=== PATIENT | female | born 2000 | race Caucasian/White ===

== ENCOUNTER 2024-03-08 21:44 | Emergency (ER) | payer BC, SELFPAY ==
--- NOTE | ~2024-03-08 | CT_ITS ---
EXAMINATION: CT abdomen pelvis wo con DATE: 03/08/2024 22:35 INDICATION: Abdomen pain, fever and chills. Nausea, constipation and diarrhea. TECHNIQUE: Computed tomography (CT) of the abdomen and pelvis was performed without intravenous contr ast. The dose-length product was 191.52 mGy-cm. Automated exposure control and iterative reconstructi on technique were employed. COMPARISON: None. FINDINGS: Lung bases are unremarkable. Heart size normal. No significant pleural or pericardial effus ion. Status post cholecystectomy. The liver, spleen, pancreas, adrenal glands and kidneys are unremar kable. Status post cholecystectomy. No free air or free fluid. No significant vascular abnormality. N o lymphadenopathy. No acute osseous abnormality. IMPRESSION: 1. No acute abdominal abnormality. Reviewed, dictated and finalized at location A.
--- NOTE | 2024-03-08 21:47 | ED.NAVMDI ---
HPI - Nausea/Vomiting/Diarrhea General Chief complaint: Abdominal Pain Stated complaint: Abd Pain Time Seen by Provider: 03/08/24 21:47 Source: patient Mode of arrival: ambulatory Limitations: no limitations History of Present Illness HPI Narrative: patient is a 23-year-old female with some nausea and vomiting. She has been sick for 2 days. MD elicited complaint: nausea and vomiting Onset (ago): day(s) (2) Description of vomiting: watery Associated nausea: Yes Associated abdominal pain: No Location of pain: none Severity: mild Pain scale (0-10): 2 Exacerbating factors: none Relieving factors: none Associated symptoms: denies other symptoms Review of Systems Review of Systems: All systems reviewed & are unremarkable except as noted in HPI and below Constitutional: Constitutional: Reports no additional constitutional complaints Eyes: Eyes: Reports no additional eye complaints ENT: Reports system reviewed and no additional complaints, except as documented Cardiovascular: Cardiovascular: Reports no additional cardiovascular complaints Respiratory: Respiratory: Reports no additional respiratory complaints Gastrointestinal: Gastrointestinal: Reports no additional gastrointestinal complaints Genitourinary: Genitourinary: Reports no additional female genitourinary complaints Musculoskeletal: Musculoskeletal: Reports no additional musculoskeletal complaints Integumentary/Breasts: Skin/Breast: Reports system reviewed and no additional complaints, except as docu Neurologic: Reports system reviewed and no additional complaints, except as documented Psychiatric: Psychiatric: Reports no additional psychiatric complaints Endocrine: Endocrine: Reports no additional endocrine complaints Hematologic/Lymphatic: Hematologic/Lymphatic: Reports no additional hematologic/lymphatic complaints Allergic/Immunologic: Allergic/Immunologic: Reports no additional allergic/immunologic complaints Exam Const: General: healthy appearing Nutritional Appearance: well nourished Orientation/consciousness: patient oriented x3 HENMT: Head: normal to inspection Ears: external ears normal Face/Nose/Sinus: Normal external nose present Eyes: Conjunctivae: conjunctivae normal Cornea: corneas normal Pupils: Equal, round and reactive pupils present Neck: Neck: normal visual inspection Chest: Chest palpation & inspection: normal inspection of the chest Resp: Effort & Inspection: normal respiratory effort and not labored Auscultation: clear to auscultation bilaterally Cardio: Rate: regular rate Rhythm: regular rhythm Heart sounds: no murmurs GI: Inspection: non-distended GI Palp: Yes Soft to palpation and Yes Tenderness to palpation present (GI) ( Lower abdomen left greater than right; no appendix signs; no gallbladder) Auscultation: normal bowel sounds : General: Yes bladder normal to palpation Back/Spine/Pelvis: Back: no CVA tenderness Skin: General skin exam: normal color Rashes: no rashes Wounds: no wounds Neuro: General: patient oriented x3 Cranial nerves: Yes Nystagmus not present Speech: normal speech Extrem: General: normal to inspection Psych: Mental Status: mental status grossly normal Affect: normal affect Attitude: cooperative Course Vital Signs Vital signs: Vital Signs Temperature 37.0 C 03/08/24 22:08 Pulse Rate 74 03/08/24 22:08 Respiratory Rate 18 03/08/24 22:08 Blood Pressure 125/66 03/08/24 22:08 Pulse Oximetry 99 03/08/24 22:08 Oxygen Delivery Room Air 03/08/24 22:08 Temperature 37.0 C 03/08/24 22:08 Pulse Rate 74 03/08/24 22:08 Respiratory Rate 18 03/08/24 22:08 Blood Pressure 125/66 03/08/24 22:08 Pulse Oximetry 99 03/08/24 22:08 Oxygen Delivery Room Air 03/08/24 22:08 MDM - Nausea/Vomiting/Diarrhea MDM Narrative Medical decision making narrative: patient is a 23-year-old female with GI symptoms. Her workup was done for GI and it was comple
[2024-03-08 22:04] LABS: Basophils Absolute Auto 0.05 K/mm3 (0.00-0.10); Basophils Percent Auto 0.6 % (0.0-1.0); Eosinophils Absolute Auto 0.07 K/mm3 (0.02-0.50); Eosinophils Percent Auto 0.9 % (1.0-6.0); Hematocrit 32.3 % (35.0-49.0); Hemoglobin 11.1 g/dL (12.0-15.0); Immature Granulocyte Absolute 0.02 K/mm3 (0.00-0.00); Immature Granulocyte Percent A 0.2 % (0.0-0.0); Lymphocytes Absolute Auto 1.99 K/mm3 (1.10-4.50); Lymphocytes Percent Auto 24.8 % (18.0-42.0); Mean Corpuscular HGB Conc 34.4 g/dL (32-36); Mean Corpuscular Hemoglobin 30.5 pg (27.0-31.0); Mean Corpuscular Volume 88.7 fL (78.0-102.0); Mean Platelet Volume 9.1 fl (9.2-11.8); Monocytes Absolute Auto 0.43 K/mm3 (0.10-0.90); Monocytes Percent Auto 5.4 % (2.0-11.0); Neutrophils Absolute Auto 5.47 K/mm3 (1.70-7.20); Neutrophils Percent Auto 68.1 % (50.0-70.0); Platelet Count Result 333 K/mm3 (150-420); Red Blood Count 3.64 M/mm3 (4.20-5.40); Red Cell Distribution Width 11.5 % (11.6-14.4)
[2024-03-08 22:05] LABS: Appearance Urine Clear (Clear); Bilirubin Urine Negative (Negative); Blood Urine Negative (Negative); Color Urine Light Yellow (Yellow); Glucose Urine UA Negative (Negative); Ketones Urine Trace (Negative); Leukocyte Esterase Ur Negative LEU/UL (Negative); Nitrate Urine Negative (Negative); Protein Urine Negative (Negative); Urobilinogen Urine 0.2 mg/dL (0.2-1.0)
[2024-03-08 22:08] VITALS: BP 125/66; PULSE 74; RESP 18; TEMP 37; O2SAT 99
[2024-03-08 22:09] LABS: Pregnancy On Board Control Positive; Urine Pregnancy Test Negative
[2024-03-08 22:12] LABS: Add Urine Microscopic? YES; Bacteria Urine Trace /hpf; Mucus Urine Few /lpf; RBC Urine 0-2 /hpf (0-2); Squamous Epithelial Cell Urine Few /hpf (Few); WBC Urine 0-3 /hpf (0-3)
[2024-03-08 22:18] LABS: Albumin Level 4.4 g/dL (3.4-5.0); Anion Gap 9 mmol/L (4-12); Blood Urea Nitrogen 8 mg/dL (7-18); Calcium 8.8 mg/dL (8.5-10.1); Carbon Dioxide 27 mmol/L (21-32); Chloride 104 mmol/L (98-108); Estimated CRCL calculation 91 ml/min; Estimated Glomerular Filt Rate > 60; Glucose 95 mg/dL (70-99); Lipase 31 U/L (16-77); Osmolality Calculated 288 mOsm/kg (285-295); Potassium 3.4 mmol/L (3.5-5.1); Sodium 140 mmol/L (136-145)
[2024-03-08 22:32] LABS: Alanine Aminotransferase 13 U/L (14-59); Alkaline Phosphatase 44 U/L (46-116); Aspartate Amino Transferase 10 U/L (15-37); Bilirubin,Total 0.5 mg/dL (0.00-1.00); Total Protein 7.1 g/dL (6.4-8.2)
[2024-03-08] MEDS: POTASSIUM CHLORIDE 20 MEQ ER TABLET PO (22:57)
== END 2024-03-08 23:18 | disposition home or self-care (01) ==
PROVIDERS: Emergency Provider Emergency Medicine
DX: K52.9 Noninfective gastroenteritis and colitis, unspecified (principal)
CPT/HCPCS: 36415; 74176; 80053; 81001; 81025; 83690; 85025; 99284; A9270

== ENCOUNTER 2024-04-28 11:56 | Emergency (ER) | payer OTHER, BC, SELFPAY ==
[2024-04-28 12:10] VITALS: BP 113/64; PULSE 62; RESP 18; TEMP 37.1; O2SAT 100
[2024-04-28 12:12] VITALS: BP 113/64; PULSE 62; RESP 18; TEMP 37.1; O2SAT 100
--- NOTE | 2024-04-28 12:14 | ED.GENADULT ---
HPI - General Adult General Chief complaint: Animal Bite Stated complaint: Animal Bite/Mouse Time Seen by Provider: 04/28/24 12:14 Source: patient, RN notes reviewed and old records reviewed Mode of arrival: ambulatory Limitations: no limitations History of Present Illness HPI narrative: 23-year-old female to [facility] from work for complaint mouth bite to right digit. Patient endorses the bite occurred 4 days ago while working. Patient states she was seen at an emergency department and treated with a Z-Miki. Patient states that she is only here today because her employer requires her to come here for assessment. Patient denies pain, nausea, fever, numbness, tingling. patient no acute distress. Related Data Home Medications Medication Instructions Recorded Confirmed acyclovir 400 mg tablet 400 mg PO PRN 03/09/24 04/28/24 drospirenone (contraceptive) 4 mg 4 mg PO DAILY 03/09/24 04/28/24 (28) tablet (Slynd) escitalopram oxalate 5 mg tablet 5 mg PO DAILY 03/09/24 04/28/24 lamotrigine 100 mg tablet 100 mg PO DAILY 03/09/24 04/28/24 Allergies Allergy/AdvReac Type Severity Reaction Status Date / Time amoxicillin [From Augmentin] Allergy Severe Blister Verified 03/09/24 00:16 clavulanic acid Allergy Severe Blister Verified 03/09/24 00:16 [From Augmentin] Review of Systems Review of Systems: All systems reviewed & are unremarkable except as noted in HPI and below Constitutional: Constitutional: Reports no additional constitutional complaints Eyes: Eyes: Reports no additional eye complaints ENT: Reports system reviewed and no additional complaints, except as documented Cardiovascular: Cardiovascular: Reports no additional cardiovascular complaints, Denies chest pain and Denies dyspnea Respiratory: Respiratory: Reports no additional respiratory complaints, Denies cough and Denies dyspnea Musculoskeletal: Musculoskeletal: Reports no additional musculoskeletal complaints Integumentary/Breasts: Skin/Breast: Reports as per HPI and Reports wounds ( Nearly healed lesion to distal 5th digit right hand) Neurologic: Reports system reviewed and no additional complaints, except as documented Psychiatric: Psychiatric: Reports no additional psychiatric complaints PMFSH Comments At the time of my signature, I reviewed and agree with the nursing past medical, surgical, social, and family history. There is no relevant family history pertinent to the patient complaint. Exam Const: General: cooperative, healthy appearing, comfortable, no acute distress, alert and well nourished Nutritional Appearance: well nourished Orientation/consciousness: patient oriented x3 Limitations: no limitations HENMT: Head: normal to inspection Ears: external ears normal Face/Nose/Sinus: Normal external nose present, Normal nares present, normal facial exam, No erythema and No edema Face and sinus: normal facial exam, no erythema and no edema Mouth: Yes Normal oral and palatal mucosa present Eyes: General: appearance normal, both eyes and all related structures Neck: Neck: normal visual inspection, full ROM and no meningeal signs Lymphatic: no lymphadenopathy noted and no lymphedema noted Chest: Chest palpation & inspection: normal inspection of the chest Resp: Effort & Inspection: normal respiratory effort and able to speak in complete sentences Auscultation: clear to auscultation bilaterally Cardio: Jugular venous distension: no JVD Rate: regular rate Rhythm: regular rhythm Back/Spine/Pelvis: Cervical Spine: cervical ROM normal Skin: General skin exam: normal color and turgor normal Other: Nearly healed lesion to distal 5th digit right hand. not edematous, non erythematous. Neuro: General: patient oriented x3, gait normal, moves all extremities and no meningeal signs Speech: normal speech Gait exam (Neuro): Normal gait present Extrem: General: normal to inspection, full ROM and capillary refill normal Psych: [place]
== END 2024-04-28 12:37 | disposition home or self-care (01) ==
PROVIDERS: Emergency Provider Nurse Practitioner Family
DX: S61.256D Open bite of right little finger without damage to nail, subsequent encounter (principal); W53.01XD Bitten by mouse, subsequent encounter
CPT/HCPCS: 99212; G0463

== ENCOUNTER 2024-10-21 14:59 | Outpatient (CLI) | payer BC, SELFPAY ==
[2024-10-21 15:18] LABS: Basophils Absolute Auto 0.06 K/mm3 (0.00-0.10); Eosinophils Absolute Auto 0.09 K/mm3 (0.02-0.50); Eosinophils Percent Auto 1.5 % (1.0-6.0); Hematocrit 35.6 % (35.0-49.0); Hemoglobin 12.4 g/dL (12.0-15.0); Immature Granulocyte Absolute 0.01 K/mm3 (0.00-0.00); Immature Granulocyte Percent A 0.2 % (0.0-0.0); Lymphocytes Absolute Auto 2.12 K/mm3 (1.10-4.50); Lymphocytes Percent Auto 34.8 % (18.0-42.0); Mean Corpuscular HGB Conc 34.8 g/dL (32-36); Mean Platelet Volume 8.5 fl (9.2-11.8); Monocytes Absolute Auto 0.31 K/mm3 (0.10-0.90); Monocytes Percent Auto 5.1 % (2.0-11.0); Neutrophils Percent Auto 57.4 % (50.0-70.0); Platelet Count Result 370 K/mm3 (150-420); Red Cell Distribution Width 11.5 % (11.6-14.4); White Blood Count 6.1 K/mm3 (4.8-10.8)
[2024-10-21 15:38] LABS: Hemoglobin A1C 4.8 % (<5.7)
[2024-10-21 15:46] LABS: Alanine Aminotransferase 21 U/L (14-59); Albumin Level 4.7 g/dL (3.4-5.0); Alkaline Phosphatase 72 U/L (46-116); Anion Gap 12 mmol/L (4-12); Aspartate Amino Transferase 13 U/L (15-37); Bilirubin,Total 0.6 mg/dL (0.00-1.00); Blood Urea Nitrogen 13 mg/dL (7-18); Calcium 9.4 mg/dL (8.5-10.1); Carbon Dioxide 28 mmol/L (21-32); Chloride 102 mmol/L (98-108); Estimated Glomerular Filt Rate > 60; Glucose 96 mg/dL (70-99); Osmolality Calculated 294 mOsm/kg (285-295); Potassium 4.2 mmol/L (3.5-5.1); Sodium 142 mmol/L (136-145); Total Protein 7.4 g/dL (6.4-8.2)
[2024-10-21 16:23] LABS: Thyroid Stimulating Hormone Reflex 1.75 u/IU/mL (0.36-3.74)
[2024-10-24 17:12] LABS: ANA Cascade Screen NEGATIVE (NEGATIVE)
== END 2024-10-21 15:00 | disposition home or self-care (01) ==
LOC: CHSLAB 15:00
PROVIDERS: PCP Nurse Practitioner Family; Visit Provider Nurse Practitioner Family
DX: G83.9 Paralytic syndrome, unspecified (principal); Z00.00 Encounter for general adult medical examination without abnormal findings
CPT/HCPCS: 36415; 80053; 83036; 83516; 84443; 85025; 86038; 86225; 86235

== ENCOUNTER 2024-11-02 12:11 | Outpatient (CLI) | payer BC, SELFPAY ==
[2024-11-02 13:31] LABS: Iron 112 ug/dL (50-170); Percent Iron Saturation 40 % (12-57)
[2024-11-03 07:43] LABS: Vitamin D 25 Hydroxy 26 ng/mL (30-100)
== END 2024-11-02 12:12 | disposition home or self-care (01) ==
LOC: CHSLAB 12:13
PROVIDERS: PCP Nurse Practitioner Family; Visit Provider Nurse Practitioner Family
DX: R53.83 Other fatigue (principal)
CPT/HCPCS: 36415; 82306; 83540; 83550

== ENCOUNTER 2024-11-30 20:24 | Emergency (ER) | payer BC, SELFPAY ==
[2024-11-30 20:24] VITALS: BP 118/75; PULSE 117; RESP 20; RESP 22; TEMP 36.7; TEMP 36.8; O2SAT 100; O2SAT 98
--- NOTE | 2024-11-30 20:34 | ED_ITS ---
HPI - Nausea/Vomiting/Diarrhea General Chief complaint: Nausea/Vomiting/Diarrhea Stated complaint: n/v Time Seen by Provider: 11/30/24 20:34 Source: patient and family Mode of arrival: ambulatory Limitations: no limitations History of Present Illness HPI Narrative: patient is a 23-year-old female with acute nausea vomiting and diarrhea for the past 2 days. She says she has issues with potassium being low in the past. MD elicited complaint: nausea, vomiting and diarrhea Pertinent past history: other ( seizure disorder) Onset (ago): day(s) (2) Description of vomiting: watery Description of diarrhea: watery Associated nausea: Yes Associated abdominal pain: Yes Location of pain: other ( upper thoracic and lower lumbar region after vomiting has caused some pain) Radiation: does not radiate Pain consistency: intermittent Severity: mild Pain scale (0-10): 2 Quality: stabbing Exacerbating factors: none Relieving factors: none Context: other ( patient having nausea vomiting and diarrhea for the past 2 days) Associated symptoms: loss of appetite, malaise and nausea/vomiting Treatment prior to arrival: none Related Data Home Medications ?Medication ?Instructions ?Recorded ?Confirmed ?Last Taken ?Type lamotrigine 100 mg tablet 100 mg PO DAILY 03/09/24 11/30/24 03/08/24 History acyclovir 400 mg tablet 400 mg PO DAILY 10/21/24 11/30/24 Unknown History Allergies Allergy/AdvReac Type Severity Reaction Status Date / Time amoxicillin (From Augmentin) Allergy Severe Blister Verified 11/30/24 20:35 clavulanic acid (From Allergy Severe Blister Verified 11/30/24 20:35 Augmentin) Review of Systems 2 Review of Systems: All systems reviewed & are unremarkable except as noted in HPI and below Constitutional: Constitutional: Reports no additional constitutional complaints Eyes: Eyes: Reports no additional eye complaints ENT: Reports system reviewed and no additional complaints, except as documented Cardiovascular: Cardiovascular: Reports no additional cardiovascular complaints Respiratory: Respiratory: Reports no additional respiratory complaints Gastrointestinal: Gastrointestinal: Reports no additional gastrointestinal complaints Genitourinary: Genitourinary: Reports no additional female genitourinary complaints Musculoskeletal: Musculoskeletal: Reports no additional musculoskeletal complaints Integumentary/Breasts: Skin/Breast: Reports system reviewed and no additional complaints, except as docu Neurologic: Reports system reviewed and no additional complaints, except as documented Psychiatric: Psychiatric: Reports no additional psychiatric complaints Endocrine: Endocrine: Reports no additional endocrine complaints Hematologic/Lymphatic: Hematologic/Lymphatic: Reports no additional hematologic/lymphatic complaints Allergic/Immunologic: Allergic/Immunologic: Reports no additional allergic/immunologic complaints [facility] Past Medical History Medical History Paralysis Cholecystectomy planned Tonsillectomy planned Family History Family History Grandparent Diabetes mellitus Mother Diabetes mellitus Endometriosis Social History Social History Social History: reports smokes about 1 pod lasts about 1.5 months, reports barely using it Smoking status: Former smoker Tobacco type: e-cigarettes/vaping Alcohol intake: never Substance use: current Substance use type: marijuana Exam 2 Const: General: healthy appearing Nutritional Appearance: well nourished Orientation/consciousness: patient oriented x3 Limitations: no limitations HENMT: Head: normal to inspection Ears: external ears normal F nataliia/Nose/Sinus: Normal external nose present Eyes: Conjunctivae: conjunctivae normal Cornea: corneas normal Pupils: E qual, round and reactive pupils present Neck: Neck: normal visual inspection Chest: Chest palpation & inspection: normal inspection of the chest Resp: Effort & Inspection: normal respiratory effort and not labored A uscultation: clear to auscultation bilaterally and no crackles Cardio: Rate: regular rate Rhythm: regular rhythm Heart sounds: no murmurs GI: Inspection: non-distended GI Palp: Yes Soft to palpation and No Tenderness to palpation present (GI) Auscultation: normal bowel sounds : General: Yes bladder normal to palpation Back/Spine/Pelvis: Back: no CVA tenderness Skin: General skin exam: normal color Rashes: no rashes Wounds: no wounds Neuro: General: patient oriented x3 Cranial nerves: Yes Nystagmus not present Speech: normal speech Gait exam (Neuro): Normal gait present Extrem: General: normal to inspection Psych: Mental Status: mental status grossly normal Affect: normal affect Attitude: cooperative Course Vital Signs Vital signs: Vital Signs Temperature 36.8 C 11/30/24 20:24 Pulse Rate 117 H 11/30/24 20:24 Respiratory Rate 22 H 11/30/24 20:24 Blood Pressure 118/75 01/01/25 20:24 Pulse Oximetry 100 11/30/24 20:24 Oxygen Delivery Room Air 11/30/24 20:24 Temperature 37.4 C 11/30/24 22:26 Pulse Rate 117 H 11/30/24 20:24 Respiratory Rate 20 11/30/24 20:24 Blood Pressure 118/75 11/30/24 20:24 Pulse Oximetry 98 11/30/24 20:24 Oxygen Delivery Room Air 11/30/24 20:24 MDM - Nausea/Vomiting/Diarrhea MDM Narrative Medical decision making narrative: patient is a 23-year-old female with nausea vomiting and diarrhea. We will GI workup at this time. workup was negative for major acute findings. She did not have abdominal pain so no imaging was done. This appears to be a viral gastroenteritis. We will give her a dose of magnesium orally. Lab Data Attestation: I reviewed the patient's lab results. Lab results narrative: leukocytosis secondary to acute gastroenteritis illness 11/30/24 21:52 11/30/24 21:52 Labs: Lab Results 11/30/24 11/30/24 11/30/24 Range/Units 20:52 21:52 22:14 WBC 15.0 H (4.8-10.8) K/mm3 RBC 3.91 L (4.20-5.40) M/mm3 Hgb 12.0 (12.0-15.0) g/dL Hct 34.4 L (35.0-49.0) % MCV 88.0 (78.0-102.0) fL MCH 30.7 (27.0-31.0) pg MCHC 34.9 (32-36) g/dL RDW 11.9 (11.6-14.4) % Plt Count 385 (150-420) K/mm3 MPV 9.3 (9.2-11.8) fl Immature Gran % (Auto) 0.4 H (0.0-0.0) % Neut % (Auto) 89.0 H (50.0-70.0) % Lymph % (Auto) 5.2 L (18.0-42.0) % Davidson % (Auto) 5.3 (2.0-11.0) % Eos % (Auto) 0.0 L (1.0-6.0) % Baso % (Auto) 0.1 (0.0-1.0) % Lymph # (Auto) 0.78 L (1.10-4.50) K/mm3 Davidson # (Auto) 0.80 (0.10-0.90) K/mm3 Eos # (Auto) 0.00 L (0.02-0.50) K/mm3 Baso # (Auto) 0.02 (0.00-0.10) K/mm3 Abs Immat Gran (auto) 0.06 H (0.00-0.00) K/mm3 Absolute Neuts (auto) 13.34 H (1.70-7.20) K/mm3 Absolute Nucleated RBC 0.00 (0.00-0.00) K/mm3 Nucleated RBC % 0.0 (0-0.0) % Sodium 135 L (136-145) mmol/L Potassium 3.6 (3.5-5.1) mmol/L Chloride 96 L (98-108) mmol/L Carbon Dioxide 24 (21-32) mmol/L Anion Gap 15 H (4-12) mmol/L BUN 15 (7-18) mg/dL Creatinine 0.89 (0.55-1.02) mg/dL Estim Creat Clear Calc 76 ml/min Estimated GFR > 60 (59 - ) Glucose 101 H (70-99) mg/dL Calculated Osmolality 280 L (285-295) mOsm/kg Lactic Acid 1.9 (0.4-2.0) mmol/L Calcium 9.9 (8.5-10.1) mg/dL Magnesium 1.7 L (1.8-2.4) mg/dL Total Bilirubin 0.9 (0.00-1.00) mg/dL AST 18 (15-37) U/L ALT 25 (14-59) U/L Alkaline Phosphatase 64 (46-116) U/L Total Protein 8.1 (6.4-8.2) g/dL Albumin 4.8 (3.4-5.0) g/dL Lipase 31 (16-77) U/L Urine Color Yellow (Yellow) Urine Appearance Clear (Clear) Urine pH 5.5 (5.0-8.0) Ur Specific [place] >= 1.030 H (1.010-1.020) Urine Protein 1+ H (Negative) Urine Glucose (UA) Negative (Negative) Urine Ketones 3+ H (Negative) Ur Blood (Man) 2+ H (Negative) Urine Nitrate Negative (Negative) Urine Bilirubin 1+ H (Negative) Urine Urobilinogen 0.2 (0.2-1.0) mg/dL Leukocyte Esterase Rfl Negative (Negative) GLEN/UL Urine RBC 0-2 (0-2) /hpf Urine WBC 0-3 (0-3) /hpf Ur Squamous Epith Cells Few (Few) /hpf Urine Bacteria 1+ H (None) /hpf Urine Mucus Moderate H /lpf Urine Test Negative Influenza A (RT-PCR) Negative (Negative) Influenza B (RT-PCR) Negative (Negative) RSV (RT-PCR) Negative (Negative) SARS-CoV-2 RNA (RT-PCR) Negative (Negative) Discharge Plan Discharge Clinical Impression: Gastroenteritis, Dehydration Patient Disposition: Home, Self-Care Condition: Stable Instructions: Gastroenteritis (ED) Patient Language: Persian Prescriptions: New ondansetron 4 mg tablet,disintegrating 4 mg PO Q8H PRN (Reason: nausea and vomiting) Qty: 20 0RF No Action lamotrigine 100 mg tablet 100 mg PO DAILY acyclovir 400 mg tablet 400 mg PO DAILY escitalopram oxalate 20 mg tablet 20 mg PO DAILY Qty: 90 0RF Slynd 4 mg (28) tablet 4 mg PO DAILY 90 Days Qty: 90 4RF Follow-up/Referrals: Daniel Reddy APRN [Primary Care Provider] - Time of Disposition: 23:52
--- NOTE | 2024-11-30 20:43 | PC.NURSE ---
ICE CHIPS GIVEN
[2024-11-30 20:44] VITALS: TEMP 37.7
--- NOTE | 2024-11-30 20:49 | PC.NURSE ---
PATIENT AMBULATED TO THE BATHROOM. UNSURE IF SHE CAN GIVE URINE SAMPLE. DOES NEED TO HAVE A BOWEL MOVEMENT. ALSO REPORTS THAT HER PAIN IS INCREASING TO HER BACK
--- NOTE | 2024-11-30 20:53 | PC.NURSE ---
URINE TAKEN DOWN TO LAB
--- NOTE | 2024-11-30 20:56 | PC.NURSE ---
PATIENT IS BUNDLED UP IN BLANKETS AND TEARFUL
[2024-11-30 21:17] LABS: Add Urine Microscopic? YES; Appearance Urine Clear (Clear); Bilirubin Urine 1+ (Negative); Blood Urine 2+ (Negative); Color Urine Yellow (Yellow); Glucose Urine UA Negative (Negative); Ketones Urine 3+ (Negative); Leukocyte Esterase Ur Negative LEU/UL (Negative); Nitrate Urine Negative (Negative); Protein Urine 1+ (Negative); Specific Grav Ur >= 1.030 (1.010-1.020); Urobilinogen Urine 0.2 mg/dL (0.2-1.0); pH Urine 5.5 (5.0-8.0)
--- NOTE | 2024-11-30 21:20 | PC.NURSE ---
DR GORDON AT THE BEDSIDE
[2024-11-30 21:22] LABS: Bacteria Urine 1+ /hpf; Mucus Urine Moderate /lpf; RBC Urine 0-2 /hpf (0-2); Squamous Epithelial Cell Urine Few /hpf (Few); WBC Urine 0-3 /hpf (0-3)
[2024-11-30 21:23] LABS: Pregnancy On Board Control Positive; Urine Pregnancy Test Negative
--- NOTE | 2024-11-30 21:44 | PC.NURSE ---
PATIENT IS RESTLESS IN THE ROOM. FATHER AT HER BEDSIDE.
[2024-11-30] MEDS: ONDANSETRON INJ 4 MG/2 ML VIAL IV PUSH (22:06)
[2024-11-30] MEDS: KETOROLAC 30 MG/ML VIAL (*BKC) IV PUSH (22:06)
[2024-11-30] MEDS: SODIUM CHLORIDE 0.9% IV 1,000 ML 999 ML IV CONT (22:06)
[2024-11-30 22:19] LABS: Basophils Absolute Auto 0.02 K/mm3 (0.00-0.10); Basophils Percent Auto 0.1 % (0.0-1.0); Hematocrit 34.4 % (35.0-49.0); Immature Granulocyte Absolute 0.06 K/mm3 (0.00-0.00); Immature Granulocyte Percent A 0.4 % (0.0-0.0); Lymphocytes Absolute Auto 0.78 K/mm3 (1.10-4.50); Lymphocytes Percent Auto 5.2 % (18.0-42.0); Mean Corpuscular HGB Conc 34.9 g/dL (32-36); Mean Corpuscular Hemoglobin 30.7 pg (27.0-31.0); Mean Platelet Volume 9.3 fl (9.2-11.8); Monocytes Percent Auto 5.3 % (2.0-11.0); Neutrophils Absolute Auto 13.34 K/mm3 (1.70-7.20); Platelet Count Result 385 K/mm3 (150-420); Red Blood Count 3.91 M/mm3 (4.20-5.40); Red Cell Distribution Width 11.9 % (11.6-14.4)
--- NOTE | 2024-11-30 22:25 | PC.NURSE ---
FATHER IS AT THE BEDSIDE. PATIENT IS NO LONGER TEARFUL. COVERED IN BLANKETS.
[2024-11-30 22:26] VITALS: TEMP 37.4
[2024-11-30 22:34] LABS: Lactic Acid Reflex 1.9 mmol/L (0.4-2.0)
[2024-11-30 22:41] LABS: Alanine Aminotransferase 25 U/L (14-59); Albumin Level 4.8 g/dL (3.4-5.0); Alkaline Phosphatase 64 U/L (46-116); Anion Gap 15 mmol/L (4-12); Aspartate Amino Transferase 18 U/L (15-37); Bilirubin,Total 0.9 mg/dL (0.00-1.00); Blood Urea Nitrogen 15 mg/dL (7-18); Calcium 9.9 mg/dL (8.5-10.1); Carbon Dioxide 24 mmol/L (21-32); Chloride 96 mmol/L (98-108); Estimated CRCL calculation 76 ml/min; Estimated Glomerular Filt Rate > 60; Glucose 101 mg/dL (70-99); Osmolality Calculated 280 mOsm/kg (285-295); Potassium 3.6 mmol/L (3.5-5.1); Sodium 135 mmol/L (136-145); Total Protein 8.1 g/dL (6.4-8.2)
[2024-11-30 22:47] LABS: Lipase 31 U/L (16-77); Magnesium 1.7 mg/dL (1.8-2.4)
[2024-11-30 23:02] LABS: SARS-CoV-2 RNA PCR Negative (Negative)
[2024-11-30 23:11] LABS: Influenza A QL RT-PCR Negative (Negative); Influenza B QL RT-PCR Negative (Negative); RSV RNA, RT-PCR Negative (Negative)
--- NOTE | 2024-11-30 23:38 | PC.NURSE ---
PATIENT REPORTS THAT SHE IS FEELING BETTER AND IS READY TO GO HOME. DR GORDON WAS NOTIFIED.
[2024-12-01] MEDS: MAGNESIUM OXIDE 400 MG TABLET 800 MG PO (00:04)
[2024-12-01 00:22] VITALS: BP 120/72; PULSE 98; RESP 20; TEMP 37.2; O2SAT 100
--- OUTSIDE RECORDS SUMMARY | 2024-12-07 17:20 | XMS_ITS | Encounter Summary ---
Author Organization [facility] Address [address] [place] [address] Care Team Providers Care Cash Sales Audit Clerk Name Role Phone Oziel Burt MD Primary Care Provider [phone] Reason for Visit * Auth/Cert Specialty Diagnoses / Procedures Referred By Cosmo gonzalez Referred To Contact Procedures LAPAROSCOPIC CHOLECYSTECTOMY WITH CHOLANGIOGRAM (IOC) Referral ID Status Reason Start Date Expiration Date Visits Re quested Visits Authorized [id number] 1 1 Encounter Details Date Type Department Care Team (Late st Contact Info) Description 08/21/2022 9:52 AM CDT Anesthesia Event [facility] [address] [place] [address] Milo Morrison MD [address] [place] [address] [phone] Juan Miguel Hatfield APRN-[place] [id number] Anesthesia Record Procedure Summary Procedure Name Responsible Anesthesiologist Anesthesia Start Time Anesthesia Stop Time LAPAROSCOPIC CHOLECYSTECTOMY (Abdomen) Milo Morrison MD 08/21/22 0952 08/21/22 1058 Events Date Time Event Comment 08/21/2022 0818 0952 An Start 0952 An Start Data 0953 PT Reassessment 0959 An Induction 1001 An Intubation 1009 Timeout Anesthesia part icipated in timeout at the time documented in the record by nursing. 1043 An Emergence 1050 Extubation 1053 Electnc Sig This record is electronically signed by the providers listed under staff. 1053 PACU Orders Reviewed 1053 an stop data 1058 Handoff Checklist follo wed: 1. Identification of patient 2. Identification of responsible nurse 3. Discussion of pertinent medical history 4. Discussion of surgical/procedure course 5. Intraoperative anesthetic management and concerns 6. Expectations/plans for the early post-procedure period 7. Opportunity for questions and acknowledgement of report 1058 ANPTO2 1058 An Stop Meds Name Total midazolam 2 mg/2mL injection 2 mg fentaNYL 100 mcg/2mL injection 200 mcg lidocaine PF 1% injection (10 mg/mL) 50 mg propofol 200mg/20mL injection 120 mg rocuronium 10 mg/mL injection 30 mg glycopyrrolate 0.2 mg/mL injection 0.6 m g ondansetron 2 mg/mL injection 4 mg ketorolac 30 mg/mL injection 30 mg dexamethasone 4 mg/mL injection 4 mg neostigmine 1 mg/mL injection 4 mg ceFAZolin (Ancef) 2 g in 0.9% NaCl IV 50 mL IVPB 0 g diphenhydrAMINE 50 mg/mL injection 25 mg lactated ringers infusion 500 mL * Agents Name Exp. Sevoflurane O2 Air Insp. Sevoflurane N2O * Blood No blood administrations on file. Lines, Drains, and Airways Type Details Placement Removal Peripheral IV Date: 08/21/22; Time : 08; Orientation: Posterior, Right; Placed By: renata angela; Tolerance: Well 08/21/22 0820 by Sosa Mae RN 08/21/22 1251 by Asher Abebe RN ETT Date: 08/21/22; Time : 100; Placed By: guillaume lin; Vent: easy mask; Induction: Standard IV; Blade Type: Adrian; Blade Size: 3; Laryngoscopy View: Grade 1 (full cords); Tube: Endotracheal Tube; Placement: Oral; Tube Type: Cuffed-inflated; Tube Size(mm): 6.5 MM; Depth of Insertion: 20 CM; Measured From: lips; Attempts: 1; Cuff Infated: Air; Cuff Vol(mL): 8 mL; Verified By: Direct visualization, Bilateral breath sounds, Chest Auscultation, CO2 Monitor 08/21/22 1001 by Angeles Smith APRN-GERSON 08/21/22 1050 by Angeles Smith APRN-CRNA Procedural Site (Incision) 08/21/22; 1010; Abdomen; Laparoscopic; x4 trocar sites; 08/21/22; 1854 08/21/22 1010 by Jennifer Powell RN 08/21/22 1854 by Syrinix, Auto Release documented in this encounter Social History Tobacco Use Types Packs/Day Years Used Date Smoking Tobacco: Never Smokeless Tobacco: Never Alcohol Use Standard Drinks/Week Comments Never 0 (1 standard drink = 0.6 oz pur e alcohol) AUDIT-C Answer Date Recorded Q1: How often do you have a drink containing alcohol? Never 08/21/2022 Q2: How many drinks containi ng alcohol do you have on a typical day when you are drinking? Patient does not drink Q3: How often do you have si x or more drinks on one occasion? Never 08/21/2022 Hunger Vital Sign Answer Date Recorded Within the past 12 months, y ou worried that your food would run out before you got the money to buy more. Never true 08/15/20 22 Within the past 12 months, t he food you bought just didn't last and you didn't have money to get more. Never true 08/15/2022 Sex and Gender Information Value Date Recorded Sex Assigned at Not on file Gender Identity Female 08/14/2022 9:58 PM CDT Sexual Orientation Not on file documented as of this encounter Progress Notes * Angeles Smith APRN-CRNA - 08/21/2022 2:28 PM CDT ANESTHESIA POSTOP EVALUATION NOTE Procedure: LAPAROSCOPIC CHOLECYSTECTOMY (N/A Abdomen) Jennifer Travis is a 21 year old female Patient Vitals for the past 6 hrs: BP Temp Pulse Resp SpO2 Pain Rating Score #1 Pain Scale/Observation 08/21/22 1055 116/71 97.3 ??F (36.3 ??C) (!) 123 23 100 % -- B 08/21/22 1105 121/59 -- 90 20 100 % -- -- 08/21/22 1115 116/67 -- 79 17 100 % 3 N 08/21/22 1130 119/65 -- 64 14 100 % -- B 08/21/22 1145 108/72 98.6 ??F (37 ??C) 91 16 100 % 4 N 08/21/22 1200 117/71 -- 69 14 100 % 4 N 08/21/22 1206 -- -- -- -- -- 5 N 08/21/22 1215 107/68 -- 65 14 100 % 5 N 08/21/22 1230 111/71 -- 92 16 100 % 5 N 08/21/22 1245 -- -- -- -- -- 4 N Anesthesia Type: general ETT * No Diagnosis Codes entered * Mental Status: awake, alert, sufficiently recovered from acute administration of anesthesia to participate in the evaluation and neurologic status has returned to preoperative level Neuro Status: No numbness, tingling or visual disturbances Respiratory Function: natural Cardiac Function: stable Postop Pain: acceptable to the patient Postop Hydration: adequate Postop Nausea: none Assessment: no apparent anesthetic complications Patient Disposition: Release from Anesthesia Care COMPLICATIONS: No complications documented. * Miguel Corbin DO - 08/21/2022 8:16 AM CDT ANESTHESIA PREOPERATIVE EVALUATION NOTE Procedure: LAPAROSCOPIC CHOLECYSTECTOMY WITH CHOLANGIOGRAM (IOC) (Abdomen) NPO status: Since Midnight; *Except Oral meds with H2O (08/21/2022 8:09 AM) Last Solids/Dairy: 2200 (08/21/2022 8:09 AM) Last Clear Liquids: 0700 (08/21/2022 8:09 AM) Vitals: Patient Vitals for the past 6 hrs: BP Temp Pulse SpO2 Pain Rating Score #1 08/21/22 0802 113/65 98.2 ??F (36.8 ??C) 80 100 % -- 08/21/22 0800 -- -- -- -- 0 LMP: Patient's last menstrual period was 08/01/2022 (exact date). OB Status: Having periods ANESTHESIA PRE-EVALUATION NOTE The patient is a current non-smoker. Physical Exam: Orientation X3 Airway/Mallampati Score: I Mouth Opening Distance: 3 fingerwidths TM Distance: > 3 FB Teeth: normal Heart: normal - S1 S2 Lungs: clear to ausculation bilaterally Physical Exam Additional Comments: Last seizure 11/22/21 Review of Systems: History of anesthetic complications: No Sleep Apnea Risk: No GERD: No Poor Exercise Tolerance: No Recent Chest Pain: No Shortness of Breath: No AICD/Pacemaker: No Renal Disease: No Diagnostic Tests: Lab(s) reviewed: Yes. ANESTHESIA PLAN ASA Score: 2 NPO Status: No solids since midnight and No liquids within 2 hours Anesthesia Plan: general Planned Induction: intravenous Planned Postop Destination: PACU Anesthetic plan was discussed with: patient Anesthetic Plan discussion was: Consented The patient's procedural Anesthetic Plan was discussed with the anesthesiologist and BRIQUETTE MACHINE OPERATOR. BMI, Height, Weight Tobacco History Estimated body mass index is 21.87 kg/m?? as calculated from the following: Height as of this encounter: 1.626 m (5' 4 ). Weight as of this encounter: 57.8 kg (127 lb 6.4 oz). Social History Tobacco Use Smoking Status Never Smoker Smokeless Tobacco Never Used Alcohol History Drug History Social History Substance and Sexual Activity Alcohol Use Never Social History Substance and Sexual Activity Drug Use Yes ??? Types: Marijuana Comment: every other day Outpatient Medications: Inpatient Medications: Outpatient Medications Marked as Taking for the 08/21/22 encounter (Hospital Encounter) Medication Sig Last Dose ??? Drospirenone (SLYND PO) Take by mouth once daily 08/18/2022 at dos ??? lamoTRIgine Take 100 mg by mouth 2 times daily 08/18/2022 at dos ??? oxyCODONE-acetaminophen Take 1 (one) tablet by mouth every 4 hours as needed Current Facility-Administered Medications Medication Dose Last Admin ??? aprepitant 125 mg ??? famotidine 20 mg ??? lactated ringers ??? scopolamine 1 patch Allergies: Allergies Allergen Reactions ??? Augmentin Other Mouth broke out in sores ??? Amoxicillin-Pot Clavulanate Urticaria Relevant Problems No relevant active problems Problem List: Patient Active Problem List Diagnosis Date Noted ??? Biliary colic 08/14/2022 Priority: Not Prioritized ??? Hypokalemia 08/14/2022 Priority: Not Prioritized ??? 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 Biliary pain 08/14/2022 Priority: Not Prioritized ??? Thickening of wall of gallbladder with pericholecystic fluid 08/14/2022 Priority: Not Prioritized Medical History: Past Medical History: Diagnosis Date ??? 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 Having periods OB History No obstetric history on file. Covid Vaccine: Lab Results: Recent Labs Component Name 08/21/22 0756 HCGURINE Negative Recent Labs Component Name 08/15/22 0718 WBC 6.0 RBC 3.66* HCT 32.0* HGB 10.9* PLTCOUNT 315 MCV 87.4 MCH 29.8 MCHC 34.1 MPV 8.9* Recent Labs Component Name 08/15/22 0718 SODIUM 141 POTASSIUM 4.0 CALCIUM 9.1 CHLORIDE 108* CO2 23 GLUCOSE 91 BUN 6* CREATININE 0.68 Recent Labs Component Name 08/15/22 0718 MAGNESIUM 2.3 Recent Labs Component Name 08/15/22 0718 PHOS 4.4 Recent Labs Component Name 08/15/22 0718 PT 15.4* INR 1.2* No results found for requested labs within last 120 days. Recent Labs Result Component Current Result Albumin 4.1 (08/15/2022) Alkaline Phosphatase 50 (08/15/2022) ALT 10 (08/15/2022) Anion Gap 10 (08/15/2022) AST 15 (08/15/2022) Bilirubin Total 0.6 (08/15/2022) eGFR by CKD-EPI >90 (08/15/2022) documented in this encounter Miscellaneous Notes * Anesthesia Transfer of Care - Angeles Smith, IT HELP DESK ASSOCIATE-BRIQUETTE MACHINE OPERATOR - 08/21/2022 10:58 AM CDT ANESTHESIA TRANSFER OF CARE NOTE Today's Date: 08/21/2022 Date of : 2000 Patient: Jennifer Travis Procedure(s): LAPAROSCOPIC CHOLECYSTECTOMY Surgeon(s): Primary: Dago Mills MD Preop Diagnosis: * No Diagnosis Codes entered * Pre-op Meds (From admission, onward) Start Stop Status Route Frequency Ordered 08/21/22 0830 aprepitant (Emend) capsule 125 mg 08/21 0828 Completed PO PRE-OP ONCE 08/21/22 0815 08/21/22 0830 ceFAZolin (Ancef) 2 g in 0.9% NaCl IV 50 mL IVPB 08/21 1017 Completed IV PRE-OP ONCE 08/21/22 0824 08/21/22 1009 dexAMETHasone (Decadron) injection -- Sent IV PRN 08/21/22 1009 08/21/22 1009 diphenhydrAMINE (Benadryl) injection -- Sent IV PRN 08/21/22 1009 08/21/22 0830 famotidine (Pepcid) injection 20 mg 08/21 0828 Completed IV PRE-OP ONCE 08/21/22 0815 08/21/22 0956 fentaNYL (PF) (Sublimaze) injection -- Sent IV PRN 08/21/22 1007 08/21/22 1054 fentaNYL (PF) (Sublimaze) injection 25 mcg -- Verified IV EVERY 10 MIN PRN 08/21/22 1054 08/21/22 1054 fentaNYL (PF) (Sublimaze) injection 37.5 mcg -- Verified IV EVERY 10 MIN PRN 08/21/22 1054 08/21/22 1054 fentaNYL (PF) (Sublimaze) injection 50 mcg -- Verified IV EVERY 10 MIN PRN 08/21/22 1054 08/21/22 1033 glycopyrrolate (Robinul) injection -- Sent IV PRN 08/21/22 1033 08/21/22 1031 ketorolac (Toradol) injection -- Sent IV PRN 08/21/22 1031 08/21/22 0730 lactated ringers infusion -- Verified IV PRE-OP CONTINUOUS 08/21/22 0719 08/21/22 0959 lidocaine PF (Xylocaine MPF) 1 % injection -- Sent IV PRN 08/21/22 1007 08/21/22 0823 lidocaine PF (Xylocaine MPF) 1 % injection 0.2 mL -- Verified INFILTRATION PRE-OP MULTIPLE 08/21/22 0823 08/21/22 0952 midazolam (Versed) injection -- Sent IV PRN 08/21/22 0953 08/21/22 0830 midazolam (Versed) injection 2 mg 08/21 2029 Verified IV PRE-OP ONCE 08/21/22 0823 08/21/22 1054 naloxone (Narcan) injection 0.04 mg -- Verified IV POST-OP MULTIPLE 08/21/22 1054 08/21/22 1033 neostigmine (Prostigmin/Bloxiverz) injection -- Sent IV PRN 08/21/22 1033 08/21/22 1031 ondansetron (Zofran) injection -- Sent IV PRN 08/21/22 1031 08/21/22 0959 propofol (Diprivan) injection -- Sent IV PRN 08/21/22 1007 08/21/22 0959 rocuronium (Zemuron) injection -- Sent IV PRN 08/21/22 1007 08/21/22 0830 scopolamine (Transderm-Scop) 1 patch 08/24 0829 Verified TD PRE-OP ONCE 08/21/22 0815 * No Diagnosis Codes entered * . Allergies Allergen Reactions ??? Augmentin Other Mouth broke out in sores ??? Amoxicillin-Pot Clavulanate Urticaria Vitals: Patient Vitals for the past 3 hrs: BP Temp Pulse SpO2 Pain Rating Score #1 08/21/22 0802 113/65 98.2 ??F (36.8 ??C) 80 100 % -- 08/21/22 0800 -- -- -- -- 0 Lines, Drains, and Airways Type Details Placement Removal Peripheral IV Date: 08/21/22; Time: 819; Orientation: Posterior, Right; Location: Hand; Placed By:renata angela; Gauge: 22 Gauge ; Tolerance: Well 08/21/22 08 by Sosa Mae RN ETT Date: 08/21/22; Time: 100; Placed By: guillaume lin; Vent: easy mask; Induction: Standard IV; Blade Type: Adrian; Blade Size: 3; Laryngoscopy View: Grade 1 (full cords); Tube: Endotracheal Tube; Placement: Oral; Tube Type: Cuffed-inflated; Tube Size(mm): 6.5 MM; Depth of Insertion: 20 CM;Measured From: lips; Attempts: 1; Cuff Infated: Air; Cuff Vol(mL): 8 mL; Verified By: Direct visualization, Bilateral breath sounds, Chest Auscultation, CO2 Monitor 08/21/22 1001 by Angeles Smith APRN-CRNA 08/21/22 1050 by Angeles Smith APRN-CRNA Intraprocedure I/O Totals Intake lactated ringers infusion 500.00 mL Total Intake 500 mL Patient Transfer Location: PACU Transport Airway: spontaneous respirations and supplemental O2 Complications: None Handoff Given? Yes Checklist or Protocol - The ngo handoff elements that must be included in the transfer of care checklist include: 1. Identification of patient. 2. Identification of responsible practitioner (PACU nurse or advanced practitioner). 3. Discussion of pertinent medical history. 4. Discussion of the surgical/procedure course (procedure, reason for surgery, procedure performed). 5. Intraoperative anesthetic management and issue/concerns. 6. Expectations/Plans for the early post-procedure period. 7. Opportunity for questions and acknowledgement of understanding of report from the receiving PACUteam. FELIX Yu documented in this encounter Plan of Treatment Not on file documented as of this encounter Visit Diagnoses Not on filedocumented in this encounter Administered Medications Inactive Administered Medications - up to 3 most recent administrations Medication Order MAR Action Action Date Dose Rate Site dexAMETHasone (Decadron) injection Intravenous, PRN, Starting on Mirta 08/21/22 at 1009, Until Mirta 08/21/22 at 1058, Anesthesia Intra-op $ Given 08/21/2022 10:09 AM CDT 4 mg diphenhydrAMINE (Benadryl) injection Intravenous, PRN, Starting on Mirta 08/21/22 at 1009, Until Mirta 08/21/22 at 1058, Anesthesia Intra-op $ Given 08/21/2022 10:09 AM CDT 25 mg fentaNYL (PF) (Sublimaze) injection Intravenous, PRN, Starting on Mirta 08/21/22 at 0956, Until Mirta 08/21/22 at 1058, Anesthesia Intra-op $ Given 08/21/2022 10:51 AM CDT 50 mcg $ Given 08/21/2022 10:22 AM CDT 50 mcg $ Given 08/21/2022 10:14 AM CDT 50 mcg glycopyrrolate (Robinul) injection Intravenous, PRN, Starting on Mirta 08/21/22 at 1033, Until Mirta 08/21/22 at 1058, Anesthesia Intra-op $ Given 08/21/2022 10:33 AM CDT 0.6 mg ketorolac (Toradol) injection Intravenous, PRN, Starting on Mirta 08/21/22 at 1031, Until Mirta 08/21/22 at 1058, Anesthesia Intra-op $ Given 08/21/2022 10:31 AM CDT 30 mg lidocaine PF (Xylocaine MPF) 1 % injection Intravenous, PRN, Starting on Mirta 08/21/22 at 0959, Until Mirta 08/21/22 at 1058, Anesthesia Intra-op $ Given 08/21/2022 9:59 AM CDT 50 mg midazolam (Versed) injection Intravenous, PRN, Starting on Mirta 08/21/22 at 0952, Until Mirta 08/21/22 at 1058, Anesthesia Intra-op $ Given 08/21/2022 9:52 AM CDT 2 mg neostigmine (Prostigmin/Bloxiverz) injection Intravenous, PRN, Starting on Mirta 08/21/22 at 1033, Until Mirta 08/21/22 at 1058, Anesthesia Intra-op $ Given 08/21/2022 10:33 AM CDT 4 mg ondansetron (Zofran) injection Intravenous, PRN, Starting on Mirta 08/21/22 at 1031, Until Mirta 08/21/22 at 1058, Anesthesia Intra-op $ Given 08/21/2022 10:31 AM CDT 4 mg propofol (Diprivan) injection Intravenous, PRN, Starting on Mirta 08/21/22 at 0959, Until Mirta 08/21/22 at 1058, Anesthesia Intra-op $ Given 08/21/2022 9:59 AM CDT 120 mg rocuronium (Zemuron) injection Intravenous, PRN, Starting on Mirta 08/21/22 at 0959, Until Mirta 08/21/22 at 1058, Anesthesia Intra-op $ Given 08/21/2022 9:59 AM CDT 30 mg documented in this encounter Care Teams Cash Sales Audit Clerk Relationship Specialty Start Date End Date Oziel Burt MD [address] [place] [phone] PCP - General Family Medicine 08/21/22 documented as of this encounter
--- OUTSIDE RECORDS SUMMARY | 2024-12-07 17:20 | XMS_ITS | Clinical Summary ---
Author Organization [facility] Address [address] [place] [address] Care Team Providers Care Pneumatic Deicer Inspector Name Role Phone Oziel Burt MD Primary Care Provider Source Comments [facility],non-owned Affiliates and Associated Physician Practices is amultiple site organization consisting of ambulatory clinics and hospital sitesin [place], [place], [place] and [place]. This disclosure is being madepursuant to the Care Everywhere program and may not contain all information available regarding this patient. Last updated 18.[facility] Allergies Active Allergy Reactions Criticality Noted Date Comments Amoxicillin-Pot Clavulanate Urticaria Medium 11/22/20 21 Augmentin Other 08/14/2022 Mouth broke out in sores Medications * Be aware that medications may not be up to date on this document. Alwaysverify current medications with the patient. 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 Never true 08/15/20 Within the past 12 months, t he food you bought just didn't last and you didn't have money to get more. Never true 08/15/2022 Sex and Gender Information Value Date Recorded Sex Assigned at Not on file Gender Identity Female 08/14/2022 9:58 PM CDT Sexual Orientation Not on file Last Filed Vital Signs Vital Sign Reading Time Taken Comments Blood Pressure 111/71 08/21/2022 12:30 PM CDT Pulse 92 08/21/2022 12:30 PM CDT Temperature 37 ??C (98.6 ??F) 08/21/2022 11:45 AM CDT Respiratory Rate 16 08/21/2022 12:30 PM CDT Oxygen Saturation 100% 08/21/2022 12:30 PM CDT Inhaled Oxygen Concentration - - Weight 57.8 kg (127 lb 6.4 oz) 08/21/2022 8:02 A M CDT Height 162.6 cm (5' 4 ) 08/21/2022 8:02 AM CDT Body Mass Index 21.87 08/21/2022 8:02 AM CDT Plan of Treatment Health Maintenance Due Date Last Done Comments PAP SMEAR 2002 HIV SCREENING 2017 HPV VACCINE (1 - 3-dose series) 2017 CHLAMYDIA/GONORRHEA SCREENING 2018 HEPATITIS C SCREENING 12/24/2020 DTAP/TDAP/TD VACCINES (1 - Tdap) 2021 HEPATITIS B VACCINE (1 of 3 - 19+ 3-dose series) 2021 COVID-19 VACCINE (3 - 2023-2 5 season) 2024 07/02/2021, 05/01/2021 INFLUENZA VACCINE (#1) 2024 DEPRESSION SCREENING 11/30/2024 ZOSTER VACCINE (1 of 2) 2052 HIB VACCINE Aged Out No longer eligi ble based on patient's age to complete this topic MENINGOCOCCAL VACCINE Aged Out No samira kacy eligible based on patient's age to complete this topic PNEUMOCOCCAL VACCINE Aged Out No long er eligible based on patient's age to complete this topic Advance Directives * Full Code (Latest Code Status on File) Date Activated Date Inactivated Comments 08/15/2022 12:07 AM 08/15/2022 1:16 PM * Full Code Date Activated Date Inactivated Comments 08/15/2022 12:07 AM 08/15/2022 12:07 AM Care Teams Pneumatic Deicer Inspector Relationship Specialty Start Date End Date Oziel Burt MD [address] [place] [phone] PCP - General Family Medicine 08/21/22
--- OUTSIDE RECORDS SUMMARY | 2024-12-07 17:20 | XMS_ITS | Patient Health Summary ---
Author Organization [facility] Address [employer] [facility] [place] [address] Care Team Providers Care Coverstitch Machine Operator Name Role Phone Oziel Burt MD Primary Care Provider Note from [facility],non-owned Affiliates and Associated Physician Practices is amultiple site organization consisting of ambulatory clinics and hospital sitesin [place], [place], [place] and [place]. This disclosure is being madepursuant to the Care Everywhere program and may not contain all information available regarding this patient. Last updated 18.[facility] Allergies * Amoxicillin-Pot Clavulanate(Urticaria) -Medium Criticality * Augmentin(Other) Medications * Be aware that medications may not be up to date on this document. Alwaysverify current medications with the patient. * lamoTRIgine (LaMICtal) 100 MG tablet(Started 03/11/2022) Take 100 mg by mouth 2 times daily * Drospirenone (SLYND PO) Take by mouth once daily * oxyCODONE-acetaminophen (Percocet) 5-325 MG tablet(Started 08/15/2022) Take 1 (one) tablet by mouth every 4 hours as needed * oxyCODONE-acetaminophen (Percocet) 5-325 MG tablet(Started 08/21/2022) Take 1 (one) tablet by mouth every 6 hours as needed for Pain Active Problems Problem Noted Date Diagnosed Date [...] Mass Index 21.87 08/21/2022 8:02 AM CDT Procedures * CARDIAC RHYTHM STRIP ORDER(Performed 08/25/2022) * PATHOLOGY TISSUE EXAM (STL)(Performed 08/21/2022) Performed for Diagnosis unknown * [place] LAP,CHOLECYSTECTOMY(Performed 08/21/2022) * HCG URINE QUAL POCT NOTIFICATION(Performed 08/21/2022) Performed for Pre-op testing * HCG URINE QUALITATIVE - POCT (IP) INTERFACED(Performed 08/21/2022) * CARDIAC EKG ORDER(Performed 08/19/2022) * CARDIAC EKG ORDER(Performed 08/18/2022) * PT-INR(Performed 08/15/2022) Performed for Biliary colic, Hypokalemia, Temporal lobe epilepsy (HCC) * PHOSPHORUS BLOOD(Performed 08/15/2022) Performed for Biliary colic, Hypokalemia, Temporal lobe epilepsy (HCC) * MAGNESIUM BLOOD(Performed 08/15/2022) Performed for Biliary colic, Hypokalemia, Temporal lobe epilepsy (HCC) * CBC W AUTO DIFFERENTIAL(Performed 08/15/2022) Performed for Biliary colic, Hypokalemia, Temporal lobe epilepsy (HCC) * COMPREHENSIVE METABOLIC PANEL(Performed 08/15/2022) Performed for Biliary colic, Hypokalemia, Temporal lobe epilepsy (HCC) Results * CARDIAC RHYTHM STRIP ORDER (08/25/2022 5:13 PM CDT) Narrative 08/25/2022 5:13 PM CDT Ordered by an unspecified provider. Scanned Document CARDIAC SERVICES ORD ERABLES * PATHOLOGY TISSUE EXAM (STL) (08/21/2022 10:30 AM CDT) Case Report Surgical Pathology Report ? Case: [id number] ? Authorizing Provider: ??Dago Mills MD ??Collected: ? 08/21/2022 10:30 AM ? Ordering Location: ? [facility] ? Received: ?08/21/2022 01:49 PM ? Pathologist: ? Akanksha Jade MD ? Specimen: ?Gallbladder ? 08/22/2022 2:51 PM [facility] Final Diagnosis Gallbladder, laparoscopic cholecystectomy: - Chronic cholecystitis - Cholelithiasis - Negative for malignancy 08/22/2022 2:51 PM [facility] Clinical History 21-year-old female presenting with abdominal pain. 08/22/2022 2:51 PM [facility] Gross Description One specimen received in a formalin filled container labeled ? consists a 6 x 2 1 cm prescott intact gallbladder with a single silver metallic is a 0.2 cm diameter occluded cystic duct. Gallbladder is opened and contains 5 mL of yellow green viscous and multiple yellow prescott calculi up to 0.4 cm greatest dimension. Wall thickness is 0.3 cm and mucosa has a velvety yellow red appearance with moderate yellow stippling. Structural Designer sections are submitted in A1. 08/22/2022 2:51 PM [facility] Microscopic Description Microscopic examination supports the final diagnosis. 08/22/2022 2:51 PM [facility] Disclaimer All histochemical and/or immunohistochemical results are interpreted with controls that demonstrate appropriate staining reactions before reporting results. Note on use of immunocytochemistry reagents: This test was developed and its performance characteristic determined by [facility], Department of Laboratory Medicine. It has not been cleared or approved by the U.S. Food and Drug Administration (FDA). The FDA has determined that such clearance or approval is not necessary. The test is used for clinical purpose. It should not be regarded as investigational or for research. This laboratory is certified to perform high complexity testing. The performance characteristics of the IHC/JOSE MARIA assays have been validated on formalin-fixed paraffin embedded tissues only. The assays have not been validated on decalcified tissues. Results should be interpreted with caution. 08/22/2022 2:51 PM CDT [facility] Performed By [email or web address] at [facility], [address] [place]. [address]. 08/22/2022 2:51 PM CDT [facility] Embedded Images 08/22/2022 2:51 PM CDT [facility] Pathology/Cytolo gy ENTIRE GALLBLADDER / Unknown 08/21/2022 10:30 AM CDT 08/21/2022 1:49 PM CDT Dago Mills MD LAB - PATHOLOGY/ CYTOLOGY ORDERABLES Performing Organization Address City/[facility]/ZIP Co de Phone Number [facility] [address] [place] [address] * HCG URINE QUAL POCT NOTIFICATION (08/21/2022 9:02 AM CDT) Comment Notification Label Only - See Separate Report 08/21/2022 9:02 AM CDT [facility] Urine URINE / Unknown 7:54 AM CDT Dinh Fonseca MD LAB - URINALYSIS ORD ERABLES Performing Organization Address [facility]/ZIP Co de Phone Number [facility] [address] [place] [address] * HCG URINE QUALITATIVE - POCT (IP) INTERFACED (08/21/2022 7:56 AM CDT) HCG Qual Urine Negative Negative 08/21/2022 8:02 AM CDT [facility] Urine URINE / Unknown 08/21/2022 7 :56 AM CDT 08/21/2022 8:02 AM CDT Dago Mills MD LAB - POINT OF C ARE ORDERABLES Performing Organization Address [facility]/ZIP Co de Phone Number [facility] [address] [place] [address] * CARDIAC EKG ORDER (08/19/2022 8:36 PM CDT) Only the most recent of2 resultswithin the time period is included. Narrative 08/19/2022 8:36 PM CDT Ordered by an unspecified provider. Scanned Document CARDIAC SERVICES ORD ERABLES * (ABNORMAL) PT-INR (08/15/2022 7:18 AM CDT) Pathologist [facility] PT 15.4(H) 12.1 - 14.8 sec 08/15/2022 7:35 AM CDT [facility] INR 1.2(H) 0.9 - 1.1 08/15/2022 7:35 AM CDT [facility] Blood BLOOD SPECIMEN / Unknown Lab Venipuncture / Unknown 08/15/2022 7:18 AM CDT 08/15/2022 7:20 AM CDT Narrative [facility] - 08/15/2022 7:35 AM CDT Conventional Warfarin Anticoagulant Therapy: INR Reference Range: ??2.0-3.0 Intensive Warfarin Anticoagulant Therapy: INR Reference Range: ? 2.5-3.5 Beto Murillo DO LAB - COAGULATION OR DERABLES [facility] [address] [place] [address] * (ABNORMAL) CBC W AUTO DIFFERENTIAL (08/15/2022 7:18 AM CDT) [facility] WBC 6.0 4.4 - 10.7 x10E9/L 08/15/2022 7:25 AM CDT [facility] WBC Corrected 08/15/2022 7:25 AM CDT [facility] RBC 3.66(L) 3.80 - 5.20 x10E12/L 08/15/2022 7:25 AM CDT [facility] Hemoglobin 10.9(L) 12.0 - 15.6 gm/dL 08/15/2022 7:25 AM CDT [facility] Hematocrit 32.0(L) 35.9 - 45.5 % 08/15/2022 7:25 AM CDT [facility] MCV 87.4 80.7 - 98.3 fl 08/15/2022 7:25 AM CDT [facility] MCH 29.8 26.7 - 34.0 pg 08/15/2022 7:25 AM CDT [facility] MCHC 34.1 30.8 - 35.9 gm/dL 08/15/2022 7:25 AM CDT [facility] Platelet Count 315 153 - 416 x10E9/L 08/15/2022 7:25 AM [facility] RDW-CV 12.1 12.1 - 14.9 % 08/15/2022 7:25 AM CDT [facility] MPV 8.9(L) 9.4 - 12.9 fl 08/15/2022 7:25 AM [facility] Neutrophils % 48.6 44.0 - 73.0 % 08/15/2022 7:25 AM [facility] Lymphocytes % 45.0(H) 20.0 - 43.0 % 08/15/2022 7:25 AM [facility] Monocytes % 5.2 5.0 - 13.0 % 08/15/2022 7:25 AM [facility] Eosinophils % 0.7 0.0 - 6.0 % 08/15/2022 7:25 AM [facility] Basophils % 0.3 0.0 - 2.0 % 08/15/2022 7:25 AM [facility] Immature Granulocytes 0.2 0 - 1 % 08/15/2022 7:25 AM CDT [facility] Neutrophil Absolute 2.92 2.01 - 7.14 x10E9/L 08/15/2022 7:25 AM CDT [facility] Lymphocytes Absolute 2.70 1.07 - 3.94 x10E9/L 08/15/2022 7:25 AM CDT [facility] Monocytes Absolute 0.31 0.26 - 1.07 x10E9/L 08/15/2022 7:25 AM CDT [facility] Eosinophils Absolute 0.04 0 - 0.47 x10E9/L 08/15/2022 7:25 AM CDT [facility] Basophils Absolute 0.02 0 - 0.08 x10E9/L 08/15/2022 7:25 AM CDT [facility] Immature Granulocytes Absolute 0.01 0.00 - 0.06 x10E9/L 08/15/2022 7:25 AM [facility] nRBC Auto 0 /100 WBC 08/15/2022 7:25 AM [facility] Blood BLOOD SPECIMEN / Unknown Lab Venipuncture / Unknown 08/15/2022 7:18 AM CDT 08/15/2022 7:20 AM CDT Beto Murillo DO LAB - HEMATOLOGY ORD ERABLES [facility] [address] [place] [address] * (ABNORMAL) COMPREHENSIVE METABOLIC PANEL (08/15/2022 7:18 AM CDT) Glucose 91 70 - 105 mg/dL 08/15/2022 7:54 AM [facility] Sodium 141 136 - 145 mmol/L 08/15/2022 7:54 AM [facility] Potassium 4.0 3.5 - 5.1 mmol/L 08/15/2022 7:54 AM [facility] Chloride 108(H) 98 - 107 mmol/L 08/15/2022 7:54 AM [facility] CO2 23 23 - 31 mmol/L 08/15/2022 7:54 AM [facility] Calcium 9.1 8.4 - 10.4 mg/dL 08/15/2022 7:54 AM [facility] Anion Gap 10 8 - 18 mmol/L 08/15/2022 7:54 AM [facility] BUN 6(L) 7 - 18.7 mg/dL 08/15/2022 7:54 AM [facility] Creatinine 0.68 0.57 - 1.11 mg/dL 08/15/2022 7:54 AM [facility] Alkaline Phosphatase 50 40 - 150 U/L 08/15/2022 7:54 AM [facility] ALT 10 0 - 61 U/L 08/15/2022 7:54 AM [facility] AST 15 5 - 34 U/L 08/15/2022 7:54 AM CDT [facility] Protein Total 6.3(L) 6.4 - 8.3 gm/dL 08/15/2022 7:54 AM CDT [facility] Albumin 4.1 3.4 - 5.0 gm/dL 08/15/2022 7:54 AM CDT [facility] Bilirubin Total 0.6 0.2 - 1.2 mg/dL 08/15/2022 7:54 AM CDT [facility] eGFR by CKD-EPI >90 >=90 mL/min/1.7 3 m2 08/15/2022 7:54 AM CDT [facility] Blood BLOOD SPECIMEN / Unknown Lab Venipuncture / Unknown 08/15/2022 7:18 AM CDT 08/15/2022 7:20 AM CDT Beto Murillo DO LAB - CHEMISTRY URB[place] AGUSTIN Performing Organization Address City/[facility]/ZIP Co de Phone Number [facility] [address] [place] [address] * PHOSPHORUS BLOOD (08/15/2022 7:18 AM CDT) Phosphorus 4.4 2.3 - 4.7 mg/dL 08/15/2022 7:54 AM CDT [facility] Blood BLOOD SPECIMEN / Unknown Lab Venipuncture / Unknown 08/15/2022 7:18 AM CDT 08/15/2022 7:20 AM CDT Beto Murillo DO LAB - CHEMISTRY [place] NIKOLE [facility] [address] [place] [address] * MAGNESIUM BLOOD (08/15/2022 7:18 AM CDT) Magnesium 2.3 1.7 - 2.3 mg/dL 08/15/2022 7:54 AM CDT [facility] Blood BLOOD SPECIMEN / Unknown Lab Venipuncture / Unknown 08/15/2022 7:18 AM CDT 08/15/2022 7:20 AM CDT Beto Murillo DO LAB - CHEMISTRY URB[place] AGUSTIN [facility] [address] [place] [id number] Care Teams Coverstitch Machine Operator Relationship Specialty Start Date End Date Oziel Burt MD [address] [place] [address] PCP - General Family Medicine 08/21/22
--- OUTSIDE RECORDS SUMMARY | 2024-12-07 17:20 | XMS_ITS | Encounter Summary ---
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 Role Phone Oziel Burt MD Primary Care Provider Reason for Visit * Auth/Cert Specialty Diagnoses / Procedures Referred By Cosmo gonzalez Referred To Contact Procedures LAPAROSCOPIC CHOLECYSTECTOMY WITH CHOLANGIOGRAM (IOC) Referral ID Status Reason Start Date Expiration Date Visits Re quested Visits Authorized [id number] 1 1 Encounter Details Date Type Department Care Team (Latest Contact Info) Description 08/21/2022 7:35 AM CDT - 08/21/2022 12:48 PM CDT Hospital Encounter [facility] [address] [place] [address] Andrei Buenrostro MD [address] [facility] [address] [place] [address] Surgery General Discharge Disposition: Home or Self Care Social History Tobacco Use Types Packs/Day Years [...] on file documented as of this encounter Last Filed Vital Signs Vital Sign Reading [...] Mass Index 21.87 08/21/2022 8:02 AM CDT documented in this encounter Functional Status Functional Status Response Date of Assess ment Is person deaf or have serious hearing difficult y? No 08/21/2022 Is person blind or have serious difficulty seein g? No 08/21/2022 Does person have serious dif ficulty walking/climbing stairs? No 08/21/2022 Does person have difficulty dressing/bathing? No 08/21/2022 Does person have difficulty doing errands alone? No 08/21/2022 Cognitive Status Response Date of Assessm ent Does person have difficulty concentrating/remembering/making decisions? No 08/21/2022 documented as of this encounter Discharge Instructions * Discharge Instructions* Asher Abebe RN - 08/21/2022 12:11 PM CDT Wound Care: - Assess the site daily for signs of infection: warm to touch, reddened, swollen, bleeding, foul odor, green/yellow drainage - It is okay to shower and let warm, soapy water run over the wound - Do not soak in a tub or put yourself in deep water for 1 week - Pat dry - It is okay to leave open to air documented in this encounter Medications at Time of Discharge Medication Sig Dispensed Refills Start Date End Date Drospirenone (SLYND PO) Take by mouth once daily lamoTRIgine (LaMICtal) 100 MG tablet Take 100 mg by mouth 2 times daily 03/11/2022 oxyCODONE-acetaminophen (Percocet) 5-325 MG tablet Take 1 (one) tablet by mouth every 6 hours as needed for Pain 30 tablet 08/21/2022 oxyCODONE-acetaminophen (Percocet) 5-325 MG tablet Take 1 (one) tablet by mouth every 4 hours as needed 30 tablet 08/15/2022 documented as of this encounter Progress Notes * Asher Abebe RN - 08/21/2022 12:42 PM CDT Discharge instructions reviewed with patient. Patient voiced understanding. Post-op home care booklet and medication information included in discharge folder. * Latanya Skinner RN - 08/18/2022 11:03 AM CDT Instructed to take a cleansing shower with soap the night before surgery, change the bed linens, and then take another cleansing shower with soap the morning of surgery. documented in this encounter H&P Notes * Andrei Buenrostro MD - 08/21/2022 8:13 AM CDT Subjective: CC:upper abd pain Jennifer Patton is an 21 year old female who presents for evaluation of see above. The pain is described as colic like and is 7/10 in intensity. Onset was several days ago. Symptoms have been complete resolution since. Aggravating factors: . Alleviating factors: analgesics. Associated symptoms: nausea. The patient denies fever chills jaundic pancreatitis Past Surgical History: Procedure Laterality Date ??? Tonsillectomy Past Medical History: Diagnosis Date ??? 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 Current Facility-Administered Medications Medication Dose Route Frequency Provider Last Rate Last Admin ??? lactated ringers infusion Intravenous pre-OP continuous Dinh Fonseca MD Allergies Allergen Reactions ??? Augmentin Other Mouth broke out in sores ??? Amoxicillin-Pot Clavulanate Urticaria Social History Socioeconomic History ??? Marital status: Single Spouse name: Not on file ??? Number of children: Not on file ??? Years of education: Not on file ??? Highest education level: Not on file Occupational History ??? Not on file Tobacco Use ??? Smoking status: Never Smoker ??? Smokeless tobacco: Never Used Vaping Use ??? Vaping Use: Never used Substance and Sexual Activity ??? Alcohol use: Never ??? Drug use: Yes Types: Marijuana Comment: every other day ??? Sexual activity: Not on file Other Topics Concern ??? Not on file Social History Narrative ??? Not on file Social Determinants of Health Financial Resource Strain: Not on file Food Insecurity: No Food Insecurity ??? Worried About Running Out of Food in the Last Year: Never true ??? Ran Out of Food in the Last Year: Never true Transportation Needs: Not on file Physical Activity: Not on file Stress: Not on file Social Connections: Not on file Intimate Partner Violence: Not on file Housing Stability: Not on file Review of Systems A 10 point review of systems was performed and was negative except for: abdominal pain Objective: BP 113/65 Pulse 80 Temp 98.2 ??F (36.8 ??C) (Temporal) Ht 1.626 m (5' 4 ) Wt 57.8 kg (127 lb 6.4 oz) SpO2 100% General: alert, cooperative, no distress, appears stated age, healthy Skin: no rash or abnormalities Eyes: sclera and conjunctiva clear, EOMI and PERRLA, lids normal Mouth: MMM no lesions Lymph Nodes: Cervical, supraclavicular, and axillary nodes normal. Lungs: clear to auscultation bilaterally Heart: regular rate and rhythm, S1, S2 normal, no murmur, click, rub or gallop Abdomen: soft without mass, non-tender, no organomegaly or hernias, with normal bowel sounds, no surgical scars, nontender, neg murphys CVA: absent Genitourinary: defer exam Extremities: extremities normal, atraumatic, no cyanosis or edema Neurologic: negative findings: alert, oriented x3 memory intact grossly cranial nerves II-XII intact No results for input(s): AMYLASE in the last 77595 hours. Recent Labs Component Name 08/15/22 07 SODIUM 141 POTASSIUM 4.0 CHLORIDE 108* CO2 23 BUN 6* CREATININE 0.68 GLUCOSE 91 CALCIUM 9.1 Recent Labs Component Name 08/15/22 0718 ALKPHOS 50 Recent Labs Component Name 08/15/22717 TBIL 0.6 Recent Labs Component Name 08/15/22717 WBC 6.0 HGB 10.9* HCT 32.0* PLTCOUNT 315 No results for input(s): LIPASE in the last 26466 hours. Radiology:reviewed Assessment: Cholelithiasis, biliary colic Plan: Laparoscopic cholecystectomy today documented in this encounter OR Notes * Operative - Andrei Buenrostro MD - 08/21/2022 11:33 AM CDT [facility] OPERATIVE REPORT PATIENT NAME: JENNIFER PATTON MR#: [id number] ROOM#: [id number] CSN: [id number] SURGEON: ANDREI BUENROSTRO M.D. SEX: F : 2000 SURGERY DATE: 08/21/2022 EXPORT PACKER: PREOPERATIVE DIAGNOSES: Cholelithiasis, biliary colic. POSTOPERATIVE DIAGNOSES: Cholelithiasis, biliary colic. ANESTHESIA: General. PROCEDURE: Laparoscopic cholecystectomy. DESCRIPTION OF PROCEDURE: The patient was placed on the operating table in supine position. General anesthesia was induced. Venodynes were positioned. The abdomen was prepped and draped in standard fashion. [place] protocol time- out was performed. Landmarks were identified and marked. 1% Xylocaine was given intradermally. A 5 mm Visiport was placed through the right hypochondrium. Peritoneal cavity was entered under direct vision. CO2 was insufflated to upper limits normal pressure. The patient was placed head-up, airplane left. A 5-mm trocar was placed through the infraumbilical ridge. Additional 5 mm trocar was placed in the right upper quadrant. There were some adhesions around the gallbladder. Gallbladder was brought up and outward. A 12- mm trocar was placed in the subxiphoid position. Using Donovan dissection, these adhesions were pulled down including tenting of the duodenum, then able to grasp the gallbladder, was brought up and outward. Hepatobiliary triangle open exaggerated in so-called critical view technique. The duct was clipped twice proximally, once distally, and divided as was the artery. Gallbladder was brought up and outward from the hepatic fossa using electrocautery through hook dissection. Subhepatic space irrigated and aspirated dry. No evidence of blood or bile accumulation. Gallbladder was placed in a parachute Endopouch, brought out through the 12 mm site. Subhepatic space was irrigated, aspirated dry. No signs of blood or bile accumulation. The 12 mm site was closed with 0 Vicryl, passed through a To-Vickie device. The skin was closed with 4-0 Monocryl and Dermabond. The patient tolerated the procedure well. DLM/MODL #: [id number] * Operative - Andrei Buenrostro MD - 08/21/2022 10:10 AM CDT Surgeon: Andrei Buenrostro MD Surveillance Supervisor: naz barahona Preoperative Diagnosis: cholelithiasis, colic Postoperative Diagnosis: same Type of anesthesia: General Procedure: laparoscopic cholecystectomy Findings: see dictated note Disposition: PACU Status: Stable Drains: none Pack: none Complications: none EBL: Negligable Tissue removed/specimens: Sent to pathology Operative note dictated: yes documented in this encounter Miscellaneous Notes * Clinical References AVS - Asher Abebe RN - 08/21/2022 12:12 PM CDT [address] Oxycodone/Acetaminophen Oral Tablet Endocet, Percocet, Primlev Uses For pain. Instructions This medicine may be taken with or without food. Store at room temperature in a dry place. Do not keep in the bathroom. Keep the medicine away from heat and light. Please ask your doctor, nurse, or pharmacist how to discard unused medicines safely. To reduce constipation, eat high fiber foods, drink plenty of water and exercise. Please tell your doctor and pharmacist about all the medicines you take. Include both prescription and [id number]-[id number] medicines. Also tell them about any vitamins, herbal medicines, or anything else you take for your health. If your symptoms do not improve or they worsen while on this medicine, contact your doctor. Do not take more than 12 pills in a day. Cautions This medicine contains an opioid. Though it helps many people, this medicine may sometimes cause addiction, especially if it is used for a long time. This risk for addiction may be higher if you havea substance use disorder - such as overuse of or addiction to drugs or alcohol. Speak with your doctor about the benefits and risks of using this medicine. Ask your doctor or pharmacist if you should have naloxone on hand to treat opioid overdose. Teach your family or household members about the signs of an opioid overdose and how to treat it. If you stop this medicine suddenly, after using it regularly for a long time, you may have withdrawal symptoms. Your doctor may ask you to slowly reduce your dose before stopping it. Tell your doctorright away if you notice any symptoms of withdrawal. Withdrawal symptoms can include unusual sweating, watering eyes, runny nose, chills, stomach pain, diarrhea, yawning, muscle aches, irritability, restlessness, anxiety, trouble sleeping, or thoughts of suicide. Tell your doctor and pharmacist if you ever had an allergic reaction to a medicine. Symptoms of an allergic reaction can include trouble breathing, skin rash, itching, swelling, or severe dizziness. Do not use the medication any more than instructed. If possible, avoid using with marijuana or other medicines that can cause dizziness or drowsiness. These include allergy/cold products, muscle relaxers, sleep aids, and pain relievers. Your ability to stay alert or to react quickly may be impaired by this medicine. Do not drive or operate machinery until you know how this medicine will affect you. Do not drink beverages with alcohol while on this medicine. This medicine passes into breast milk. Ask your doctor before . This medicine can hurt a new baby in the womb. If you become while on this medicine, tell your doctor immediately. Your doctor may switch you to a different medicine. Ask your pharmacist if this medicine can interact with any of your other medicines. Be sure to tellthem about all the medicines you take. Please tell all your doctors and dentists that you are on this medicine before they provide care. Do not start or stop any other medicines without first speaking to your doctor or pharmacist. This medicine should be used with caution in patients with breathing difficulties. Call your doctor right away if you notice slow or shallow breathing. Do not share this medicine with anyone who has not been prescribed this medicine. This medicine contains acetaminophen. There are many medicines with acetaminophen. Taking these medicines together can cause you to get too much acetaminophen. This can cause serious liver problems. Look carefully on the package of all your medicines to see if acetaminophen is included. Ask your pha rmacist which medicines you can take safely. This medicine can cause serious side effects in some patients. Important information from the U.S. Food and Drug Administration (FDA) is available from your pharmacist. Please review it carefully with your pharmacist to understand the risks associated with this medicine. Side Effects The following is a list of some common side effects from this medicine. Please speak with your doctor about what you should do if you experience these or other side effects. ?? decreased appetite ?? constipation ?? dizziness ?? drowsiness or sedation ?? nausea ?? vomiting If you have any of the following side effects, you may be getting too much medicine. Please contactyour doctor to let them know about these side effects. ?? changes in memory, mood, or thinking ?? confusion ?? fainting ?? slow heartbeat Call your doctor or get medical help right away if you notice any of these more serious side effects: ?? decreased awareness or responsiveness ?? breathing interruption during sleep ?? shallow, irregular breathing ?? hallucinations (unusual thoughts, seeing or hearing things that are not real) ?? symptoms of liver damage (such as yellowing of skin or eyes, dark urine, unusual tiredness or weakness; severe stomach or back pain) ?? seizures ?? shortness of breath ?? unusual or unexplained tiredness or weakness ?? difficulty or discomfort urinating ?? severe or persistent vomiting ?? weight loss A few people may have an allergic reaction to this medicine. Symptoms can include difficulty breathing, skin rash, itching, swelling, or severe dizziness. If you notice any of these symptoms, seek medical help quickly. Extra Please speak with your doctor, nurse, or pharmacist if you have any questions about this medicine. [email or web address] IMPORTANT NOTE: This document tells you briefly how to take your medicine, but it does not tell youall there is to know about it. Your doctor or pharmacist may give you other documents about your medicine. Please talk to them if you have any questions. Always follow their advice. There is a more complete description of this medicine available in Jordanian. Scan this code on your smartphone or tablet or use the web address below. You can also ask your pharmacist for a printout. If you have any questions, please ask your pharmacist. ?? 2020 [employer] ?? The [employer]. All rights reserved. This information is not intended as a substitute for professional medical care. Always follow your healthcare professional's instructions. documented in this encounter Plan of Treatment Not on file documented as of this encounter Procedures Procedure Name Priority Date/Time Associated Diagnosis Comments CARDIAC RHYTHM STRIP ORDER 08/25/2022 5:13 PM CDT PATHOLOGY TISSUE EXAM (STL) Routine 08/21/2022 10:30 AM CDT Diagnosis unknown VA LAP,CHOLECYSTECTOMY 08/21/2022 9:20 AM CDT HCG URINE QUAL POCT NOTIFICATION Routine 08/21/2022 9:02 AM CDT Pre-op testing HCG URINE QUALITATIVE - POCT (IP) INTERFACED Routine 08/21/2022 7:56 AM CDT documented in this encounter Results * CARDIAC RHYTHM STRIP ORDER (08/25/2022 5:13 PM CDT) Narrative 08/25/2022 5:13 PM CDT Ordered by an unspecified provider. Scanned Document CARDIAC SERVICES ORD ERABLES * PATHOLOGY TISSUE EXAM (STL) (08/21/2022 10:30 AM CDT) Case Report Surgical Pathology Report ? Case: [id number] ? Authorizing Provider: ??Andrei Buenrostro MD ??Collected: ? 08/21/2022 10:30 AM ? Ordering Location: ? [facility] ? Received: ?08/21/2022 01:49 PM ? Pathologist: ? Akanksha Jade MD ? Specimen: ?Gallbladder ? 08/22/2022 2:51 PM CDT [facility] Final Diagnosis Gallbladder, laparoscopic cholecystectomy: - Chronic cholecystitis - Cholelithiasis - Negative for malignancy 08/22/2022 2:51 PM CDT [facility] Clinical History 21-year-old female presenting with abdominal pain. 08/22/2022 2:51 PM T [facility] Gross Description One specimen received [...] yellow red appearance with moderate yellow stippling. Nuclear Medicine Chief Technologist sections are submitted in A1. 08/22/2022 2:51 PM [facility] Microscopic Description Microscopic examination supports the final diagnosis. 08/22/2022 2:51 PM [facility] Disclaimer All histochemical and/or immunohistochemical results are interpreted with controls that demonstrate appropriate staining reactions before reporting results. Note on use of immunocytochemistry reagents: This test was developed and its performance characteristic determined by [facility], Department of Laboratory Medicine. It has [...] be interpreted with caution. 08/22/2022 2:51 PM T [facility] Performed By [facility] at [facility], [address] [place] [address]. [id number]. 08/22/2022 2:51 PM T [facility] Embedded Images 08/22/2022 2:51 PM T [facility] Pathology/Cytolo gy ENTIRE GALLBLADDER / Unknown 08/21/2022 10:30 AM CDT 08/21/2022 1:49 PM CDT Andrei Buenrostro MD LAB - PATHOLOGY/ CYTOLOGY ORDERABLES [facility] [address] [place] [address] * HCG URINE QUAL POCT NOTIFICATION (08/21/2022 9:02 AM CDT) Comment Notification Label Only - See Separate Report 08/21/2022 9:02 AM CDT [facility] Urine URINE / Unknown 7:54 AM CDT Dinh Fonseca MD LAB - URINALYSIS ORD ERABLES Performing Organization Address [facility]/ZIP Co de Phone Number [facility] [address] [place] [address] * HCG URINE QUALITATIVE - POCT (IP) INTERFACED (08/21/2022 7:56 AM CDT) HCG Qual Urine Negative Negative 08/21/2022 8:02 AM CDT [facility] Urine URINE / Unknown 08/21/2022 7 :56 AM CDT 08/21/2022 8:02 AM CDT Andrei Buenrostro MD LAB - POINT OF C ARE ORDERABLES Performing Organization Address [facility] Co de Phone Number [facility] [address] [place] [address] documented in this encounter Visit Diagnoses Diagnosis Pre-op testing- Primary Preoperative examination, unspecified Diagnosis unknown Other unknown and unspecified cause of morbidity or mortality documented in this encounter Administered Medications Inactive Administered Medications - up to 3 most recent administrations Medication Order MAR Action Action Date Dose Rate Site 0.9% NaCl infusion at 75 mL/hr, Intravenous, CONTINUOUS, Starting on Mirta 08/21/22 at 1200, Until Mirta 08/21/22 at 1354, Post-op aprepitant (Emend) capsule 125 mg 125 mg, Oral, PRE-OP ONCE, 1 dose, On Mirta 08/21/22 at 0830, Pre-op $ Given 08/21/2022 8:28 AM CDT 125 mg ceFAZolin (Ancef) 2 g in 0.9% NaCl IV 50 mL IVPB 2 g, at 100 mL/hr, Intravenous, PRE-OP ONCE, 1 dose, On Mirta 08/21/22 at 0830, Indication for anti-infective therapy: Surgical prophylaxis $ New Bag/Syringe 08/21/2022 9:47 AM CDT 2 g 100 mL/hr famotidine (Pepcid) injection 20 mg 20 mg, Intravenous, PRE-OP ONCE, 1 dose, On Mirta 08/21/22 at 0830, Dilute with 0.9% NaCl, D5W solution, or SWI to a volume of 5 to 10 mL and administer over at least 2 minutes., Pre-op $ Given 08/21/2022 8:28 AM CDT 20 mg fentaNYL (PF) (Sublimaze) injection 25 mcg 25 mcg, Intravenous, EVERY 10 MIN PRN, Mild Pain, 4 doses, Starting on Mirta 08/21/22 at 1054, Until Mirta 08/21/22 at 1354, Maximum total of 4 doses. If patient reaches max total dose, please consult anesthesiologist prior to further administration of pain meds. Hold pain meds if there are signs of hypoventilation. Patient preference for lesser PRN pain meds may be honored when the patient requests a less strong medication, a lower dose, or a less intrusive route of administration when the lesser drug, dose and route have been ordered for the patient. This patient request must be documented in the MAR., PACU fentaNYL (PF) (Sublimaze) injection 37.5 mcg 37.5 mcg, Intravenous, EVERY 10 MIN PRN, Moderate Pain, 4 doses, Starting on Mirta 08/21/22 at 1054, Until Mirta 08/21/22 at 1354, Maximum total of 4 doses. If patient reaches max total dose, please consult anesthesiologist prior to further administration of pain meds. Hold pain meds if there are signs of hypoventilation. Patient preference for lesser PRN pain meds may be honored when the patient requests a less strong medication, a lower dose, or a less intrusive route of administration when the lesser drug, dose and route have been ordered for the patient. This patient request must be documented in the MAR., PACU fentaNYL (PF) (Sublimaze) injection 50 mcg 50 mcg, Intravenous, EVERY 10 MIN PRN, Severe Pain, 4 doses, Starting on Mirta 08/21/22 at 1054, Until Mirta 08/21/22 at 1354, Maximum total of 4 doses If patient reaches max total dose, please consult anesthesiologist prior to further administration of pain meds. Hold pain meds if there are signs of hypoventilation. Patient preference for lesser PRN pain meds may be honored when the patient requests a less strong medication, a lower dose, or a less intrusive route of administration when the lesser drug, dose and route have been ordered for the patient. This patient request must be documented in the MAR., PACU HYDROmorphone (Dilaudid) injection 0.4 mg 0.4 mg, Intravenous, EVERY 3 HOURS PRN, Moderate Pain, Starting on Mirta 08/21/22 at 1157, Until Mirta 08/21/22 at 1354, If oral route is unavailable. Patient preference for lesser PRN pain meds may be honored when the patient requests a less strong medication, a lower dose, or a less intrusive route of administration when the lesser drug, dose and route have been ordered for the patient. This patient request must be documented in the MAR., Post-op HYDROmorphone (Dilaudid) injection 0.8 mg 0.8 mg, Intravenous, EVERY 3 HOURS PRN, Severe Pain, Starting on Mirta 08/21/22 at 1157, Until Mirta 08/21/22 at 1354, If oral route is unavailable. Patient preference for lesser PRN pain meds may be honored when the patient requests a less strong medication, a lower dose, or a less intrusive route of administration when the lesser drug, dose and route have been ordered for the patient. This patient request must be documented in the MAR., Allow a repeat dose for severe pain? No, Post-op lactated ringers infusion at 20 mL/hr, Intravenous, PRE-OP CONTINUOUS, Starting on Mirta 08/21/22 at 0730, Until Mirta 08/21/22 at 1354, Pre-op $ New Bag/Syringe 08/21/2022 8:23 AM CDT 20 mL/hr lidocaine PF (Xylocaine MPF) 1 % injection 0.2 mL 0.2 mL, Infiltration, PRE-OP MULTIPLE, 3 doses, Starting on Mirta 08/21/22 at 0823, Until Mirta 08/21/22 at 1354, May be used (0.2 ml locally to anesthetize prior to insertion)., Pre-op naloxone (Narcan) injection 0.04 mg 0.04 mg, Intravenous, POST-OP MULTIPLE, Starting on Mirta 08/21/22 at 1054, Until Mirta 08/21/22 at 1354, If respiration rate is less than 7 per minute administer IV every 1 minute until respirations are greater than 12 per minute. Notify anesthesia immediately., PACU ondansetron (Zofran) injection 4 mg 4 mg, Intravenous, ONCE PRN, Nausea/Vomiting, 1 dose, Starting on Mirta 08/21/22 at 1157, Until Mirta 08/21/22 at 1354, First choice, Post-op oxyCODONE-acetaminophen (Percocet) 5-325 MG tablet 1 tablet 1 tablet, Oral, EVERY 4 HOURS PRN, Moderate Pain, Starting on Mirta 08/21/22 at 1157, Until Mirta 08/21/22 at 1354, Patient preference for lesser PRN pain meds may be honored when the patient requests a less strong medication, a lower dose, or a less intrusive route of administration when the lesser drug, dose and route have been ordered for the patient. This patient request must be documented in the MAR., Post-op $ Given 08/21/2022 12:06 PM CDT 1 tablet scopolamine (Transderm-Scop) 1 patch 1 patch, Administer over 72 Hours, PRE-OP ONCE, 1 dose, On Mirta 08/21/22 at 0830, Apply patch behind the ear, do not cut patch, only 1 patch should be worn at a time and remove old patch before applying new patch.This patch may contain metal and is not compatible with MRI. Notify radiology of patch location upon arrival to MRI. Each patch contains 1.5 mg scopolamine base and is formulated to deliver 1 mg of scopolamine over 72 hours. $ Applied 08/21/2022 8:29 AM CDT 1 patch Behind Right Ear documented in this encounter Active and Recently Administered Medications Times are shown in CDT. Scheduled Medication Order 08/19/2022 08/20/2022 08/21/2022 aprepitant (Emend) capsule 125 mg (COMPLETED) 125 mg, Oral, PRE-OP ONCE, 1 dose, On Mirta 08/21/22 at 0830, Pre-op 0828 ($ Given - Prov ider: Sosa Mae, JACQUELINE) ceFAZolin (Ancef) 2 g in 0.9% NaCl IV 50 mL IVPB (COMPLETED) 2 g, at 100 mL/hr, Intravenous, PRE-OP ONCE, 1 dose, On Mirta 08/21/22 at 0830, Indication for anti-infective therapy: Surgical prophylaxis 0947 ($ New Bag/Syri nge - Provider: Sosa Mae, RN)1017 (Due: Stopped - Provider: Sosa Mae RN) famotidine (Pepcid) injection 20 mg (COMPLETED) 20 mg, Intravenous, PRE-OP ONCE, 1 dose, On Mirta 08/21/22 at 0830, Dilute with 0.9% NaCl, D5W solution, or SWI to a volume of 5 to 10 mL and administer over at least 2 minutes., Pre-op 0828 ($ Given - Prov ider: Sosa Mae RN) lidocaine PF (Xylocaine MPF) 1 % injection 0.2 mL 0.2 mL, Infiltration, PRE-OP MULTIPLE, 3 doses, Starting on Mirta 08/21/22 at 0823, Until Mirta 08/21/22 at 1354, May be used (0.2 ml locally to anesthetize prior to insertion)., Pre-op midazolam (Versed) injection 2 mg 2 mg, Intravenous, PRE-OP ONCE, 1 dose, On Mirta 08/21/22 at 0830, Pre-op 0830 (Due) naloxone (Narcan) injection 0.04 mg 0.04 mg, Intravenous, POST-OP MULTIPLE, Starting on Mirta 08/21/22 at 1054, Until Mirta 08/21/22 at 1354, If respiration rate is less than 7 per minute administer IV every 1 minute until respirations are greater than 12 per minute. Notify anesthesia immediately., PACU scopolamine (Transderm-Scop) 1 patch 1 patch, Administer over 72 Hours, PRE-OP ONCE, 1 dose, On Mirta 08/21/22 at 0830, Apply patch behind the ear, do not cut patch, only 1 patch should be worn at a time and remove old patch before applying new patch.This patch may contain metal and is not compatible with MRI. Notify radiology of patch location upon arrival to MRI. Each patch contains 1.5 mg scopolamine base and is formulated to deliver 1 mg of scopolamine over 72 hours. 0829 ($ Applied - Pr ovider: Sosa Mae RN)1248 (Due: Removed - Provider: Generic, Auto Release - Comment: Time automatically adjusted from order being discontinued) Continuous Medication Order 08/19/2022 08/20/2022 08/21/2022 0.9% NaCl infusion at 75 mL/hr, Intravenous, CONTINUOUS, Starting on Mirta 08/21/22 at 1200, Until Mirta 08/21/22 at 1354, Post-op 1200 (Due) lactated ringers infusion at 20 mL/hr, Intravenous, PRE-OP CONTINUOUS, Starting on Mirta 08/21/22 at 0730, Until Mirta 08/21/22 at 1354, Pre-op 0823 ($ New Bag/Syri nge - Provider: Sosa Mae RN)1057 (Anesthesia Volume Adjustment - Provider: Angeles Smith, [facility]) PRN Medication Order 08/19/2022 08/20/2022 08/21/2022 0.9% NaCl irrigation (SO) solution (CANCELED) PRN, Starting on Mirta 08/21/22 at 1016, Until Mirta 08/21/22 at 1057, Intra-op 1010 ($ Given - Prov ider: Andrei Buenrostro MD - Comment: back table)1025 ($ Given - Provider: Andrei Buenrostro MD - Comment: warm; 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 If patient reaches max total dose, please consult anesthesiologist prior to further administration of pain meds. Hold pain meds if there are signs of hypoventilation. Patient preference for lesser PRN pain meds may be honored when the patient requests a less strong medication, a lower dose, or a less intrusive route of administration when the lesser drug, dose and route have been ordered for the patient. This patient request must be documented in the MAR., PACU fentaNYL (PF) (Sublimaze) injection 37.5 mcg 37.5 mcg, Intravenous, EVERY 10 MIN PRN, Moderate Pain, 4 doses, Starting on Mirta 08/21/22 at 1054, Until Mirta 08/21/22 at 1354, Maximum total of 4 doses. If patient reaches max total dose, please consult anesthesiologist prior to further administration of pain meds. Hold pain meds if there are signs of hypoventilation. Patient preference for lesser PRN pain meds may be honored when the patient requests a less strong medication, a lower dose, or a less intrusive route of administration when the lesser drug, dose and route have been ordered for the patient. This patient request must be documented in the MAR., PACU fentaNYL (PF) (Sublimaze) injection 50 mcg 50 mcg, Intravenous, EVERY 10 MIN PRN, Severe Pain, 4 doses, Starting on Mirta 08/21/22 at 1054, Until Mirta 08/21/22 at 1354, Maximum total of 4 doses If patient reaches max total dose, please consult anesthesiologist prior to further administration of pain meds. Hold pain meds if there are signs of hypoventilation. Patient preference for lesser PRN pain meds may be honored when the patient requests a less strong medication, a lower dose, or a less intrusive route of administration when the lesser drug, dose and route have been ordered for the patient. This patient request must be documented in the MAR., PACU HYDROmorphone (Dilaudid) injection 0.4 mg(Linked Group 1) 0.4 mg, Intravenous, EVERY 3 HOURS PRN, Moderate Pain, Starting on Mirta 08/21/22 at 1157, Until Mirta 08/21/22 at 1354, If oral route is unavailable. Patient preference for lesser PRN pain meds may be honored when the patient requests a less strong medication, a lower dose, or a less intrusive route of administration when the lesser drug, dose and route have been ordered for the patient. This patient request must be documented in the MAR., Post-op HYDROmorphone (Dilaudid) injection 0.8 mg(Linked Group 1) 0.8 mg, Intravenous, EVERY 3 HOURS PRN, Severe Pain, Starting on Mirta 08/21/22 at 1157, Until Mirta 08/21/22 at 1354, If oral route is unavailable. Patient preference for lesser PRN pain meds may be honored when the patient requests a less strong medication, a lower dose, or a less intrusive route of administration when the lesser drug, dose and route have been ordered for the patient. This patient request must be documented in the MAR., Allow a repeat dose for severe pain? No, Post-op ondansetron (Zofran) injection 4 mg 4 mg, Intravenous, ONCE PRN, Nausea/Vomiting, 1 dose, Starting on Mirta 08/21/22 at 1157, Until Mirta 08/21/22 at 1354, First choice, Post-op oxyCODONE-acetaminophen (Percocet) 5-325 MG tablet 1 tablet 1 tablet, Oral, EVERY 4 HOURS PRN, Moderate Pain, Starting on Mirta 08/21/22 at 1157, Until Mirta 08/21/22 at 1354, Patient preference for lesser PRN pain meds may be honored when the patient requests a less strong medication, a lower dose, or a less intrusive route of administration when the lesser drug, dose and route have been ordered for the patient. This patient request must be documented in the MAR., Post-op 1206 ($ Given - Prov ider: Asher Abebe RN) Linked Groups Order Group 1: HYDROmorphone (Dilaudid) injection 0.4 mgJump to med 0.4 mg, Intravenous, EVERY 3 HOURS PRN, Moderate Pain, Starting on Mirta 08/21/22 at 1157, Until Mirta 08/21/22 at 1354, If oral route is unavailable. Patient preference for lesser PRN pain meds may be honored when the patient requests a less strong medication, a lower dose, or a less intrusive route of administration when the lesser drug, dose and route have been ordered for the patient. This patient request must be documented in the MAR., Post-op Or HYDROmorphone (Dilaudid) injection 0.8 mgJump to med 0.8 mg, Intravenous, EVERY 3 HOURS PRN, Severe Pain, Starting on Mirta 08/21/22 at 1157, Until Mirta 08/21/22 at 1354, If oral route is unavailable. Patient preference for lesser PRN pain meds may be honored when the patient requests a less strong medication, a lower dose, or a less intrusive route of administration when the lesser drug, dose and route have been ordered for the patient. This patient request must be documented in the MAR., Allow a repeat dose for severe pain? No, Post-op documented in this encounter Care Teams Maintenance Shop Laborer Relationship Specialty Start Date End Date Oziel Burt MD [address] [place] [phone] PCP - General Family Medicine 08/21/22 documented as of this encounter
--- OUTSIDE RECORDS SUMMARY | 2024-12-07 17:20 | XMS_ITS | Referral Summary ---
Author Organization [facility] Address [address] [place] [address] Care Team Providers Care Manufacturing Specialist Name Role Phone Oziel Burt MD Primary Care Provider Source Comments [facility],non-owned Affiliates and Associated Physician Practices is amultiple site organization consisting of ambulatory clinics and hospital sitesin [place], [place] and [place]. This disclosure is being madepursuant to the Care Everywhere program and may not contain all information available regarding this patient. Last updated 18.[facility] Allergies Active Allergy Reactions Criticality Noted [...] Mass Index 21.87 08/21/2022 8:02 AM CDT Functional Status Functional Status Response Date of [...] person have difficulty concentrating/remembering/making decisions? No 08/21/2022 Plan of Treatment Not on file Advance Directives * Full Code (Latest Code Status on File) Date Activated Date Inactivated Comments 08/15/2022 12:07 AM 08/15/2022 1:16 PM * Full Code Date Activated Date Inactivated Comments 08/15/2022 12:07 AM 08/15/2022 12:07 AM Care Teams Manufacturing Specialist Relationship Specialty Start Date End Date Oziel Burt MD [address] [place] [phone] PCP - General Family Medicine 08/21/22
--- OUTSIDE RECORDS SUMMARY | 2024-12-07 17:20 | XMS_ITS | Encounter Summary ---
Author Organization [facility] Address [address] [place] [address] Care Team Providers Care Molding Plasterer Name Role Phone Oziel Burt MD Primary Care Provider Reason for Visit * Auth/Cert Specialty Diagnoses / Procedures Referred By Cosmo gonzalez Referred To Contact Procedures LAPAROSCOPIC CHOLECYSTECTOMY WITH CHOLANGIOGRAM (IOC) Referral ID Status Reason Start Date Expiration Date Visits Re quested Visits Authorized [id number] 1 1 Encounter Details Date Type Department Care Team (Late st Contact Info) Description 08/21/2022 9:25 AM CDT - 08/21/2022 11:20 AM CDT Surgery [facility] [address] [place] [address] Andrei Buenrostro MD [address] [address] [place] [address] LAPAROSCOPIC CHOLECYSTECTOMY Surgery Details Date/Time Status Location OR Service Patient Class Case Class Case Type Trauma Case? 08/21/2022 9:25 AM Posted [facility] OR OR 01 General Surgery Day Care Elective > 5 days Panel 1 Procedure LRB Anes Op Region Wound Class Comments LAPAROSCOPIC CHOLECYSTECTOMY N/A General Abdomen C lean Contaminated Surgeon Surgeon Role Service Panel Andrei Buenrostro MD Primary General 1 documented in this encounter Social History Tobacco [...] Sign Reading Time Taken Comments Blood Pressure 116/67 08/21/2022 11:15 AM CDT Pulse 79 08/21/2022 11:15 AM CDT Temperature 36.3 ??C (97.3 ??F) 08/21/2022 10:55 AM C DT Respiratory Rate 17 08/21/2022 11:15 AM CDT Oxygen Saturation 100% 08/21/2022 11:15 AM CDT Inhaled Oxygen Concentration - - Weight [...] results for input(s): AMYLASE in the last 80957 hours. Recent Labs Component Name 08/15/22 0718 SODIUM 141 POTASSIUM 4.0 CHLORIDE 108* CO2 23 BUN 6* CREATININE 0.68 GLUCOSE 91 CALCIUM 9.1 Recent Labs Component Name 08/15/22 0718 ALKPHOS 50 Recent Labs Component Name 08/15/22 0718 TBIL 0.6 Recent Labs Component Name 08/15/22 0718 WBC 6.0 HGB 10.9* HCT 32.0* PLTCOUNT 315 No results for input(s): LIPASE in the last 17349 hours. Radiology:reviewed Assessment: Cholelithiasis, biliary colic Plan: Laparoscopic cholecystectomy today documented in this encounter OR Notes * Operative - Andrei Buenrostro MD - 08/21/2022 11:[address] [facility] OPERATIVE REPORT PATIENT NAME: JENNIFER PATTON MR#: [id number] ROOM#: [id number] CSN: [id number] SURGEON: ANDREI BUENROSTRO M.D. SEX: F : 2000 SURGERY DATE: 08/21/2022 CUTTER OPERATOR TILE: PREOPERATIVE DIAGNOSES: Cholelithiasis, biliary colic. POSTOPERATIVE DIAGNOSES: Cholelithiasis, biliary colic. ANESTHESIA: General. PROCEDURE: Laparoscopic cholecystectomy. DESCRIPTION OF PROCEDURE: The patient was placed on the operating table in supine position. General anesthesia was induced. Venodynes were positioned. The abdomen was prepped and draped in standard fashion. [place] protocol time- out was performed. Landmarks were [...] Dermabond. The patient tolerated the procedure well. IGORM/MODL #: [id number] * Operative - Andrei Buenrostro MD - 08/21/2022 10:10 AM CDT Surgeon: Andrei Buenrostro MD Valving Machine Operator: naz barahona Preoperative Diagnosis: cholelithiasis, colic Postoperative Diagnosis: same Type of anesthesia: General Procedure: laparoscopic cholecystectomy Findings: see dictated note Disposition: PACU Status: Stable Drains: none Pack: none Complications: none EBL: Negligable Tissue removed/specimens: Sent to pathology Operative note dictated: yes documented in this encounter Miscellaneous Notes * Clinical References AVAndrés - Asher Abebe RN - 08/21/2022 12:12 PM CDT [address] Oxycodone/Acetaminophen Oral Tablet Endocet, Percocet, Primlev Uses [...] medicines you take. Include both prescription and xeip-cvd-ebojvsc medicines. Also tell them about any vitamins, [...] you have any questions about this medicine. [email or web address] IMPORTANT NOTE: This document tells you briefly how to take your medicine, but it does not tell youall there is to know about it. Your doctor or pharmacist may give you other documents about your medicine. Please talk to them if you have any questions. Always follow their advice. There is a more complete description of this medicine available in Ukrainian. Scan this code on your smartphone or tablet or use the web address below. You can also ask your pharmacist for a printout. If you have any questions, please ask your pharmacist. ?? 2020 [employer] ?? 2183-0824 [employer]. All rights reserved. This information is not intended as a substitute for professional medical care. Always follow your healthcare professional's instructions. documented in this encounter Plan of Treatment Not on file documented as of this encounter Procedures Procedure Name Priority Date/Time Associated Diagnosis Comments CARDIAC RHYTHM STRIP ORDER 08/25/2022 5:13 PM CDT PATHOLOGY TISSUE EXAM (STL) Routine 08/21/2022 10:30 AM CDT Diagnosis unknown NC LAP,CHOLECYSTECTOMY 08/21/2022 9:20 AM CDT HCG URINE [...] Case Report Surgical Pathology Report ? Case: [id number] ? Authorizing Provider: ??Andrei Buenrostro MD ??Collected: ? 08/21/2022 10:30 AM ? Ordering Location: ? [facility] ? Received: ?08/21/2022 01:49 PM ? Pathologist: ? Akanksha Jade MD ? Specimen: ?Gallbladder ? 08/22/2022 2:51 PM [facility] Final Diagnosis Gallbladder, laparoscopic cholecystectomy: - Chronic cholecystitis - Cholelithiasis - Negative for malignancy 08/22/2022 2:51 PM [facility] Clinical History 21-year-old female presenting with abdominal pain. 08/22/2022 2:51 PM [facility] Gross Description One specimen received in [...] yellow red appearance with moderate yellow stippling. Scow Derrick Operator sections are submitted in A1. 08/22/2022 2:51 PM [facility] Microscopic Description Microscopic examination supports the final diagnosis. 08/22/2022 2:51 PM [facility] Disclaimer All histochemical and/or immunohistochemical results are interpreted with controls that demonstrate appropriate staining reactions before reporting results. Note on use of immunocytochemistry reagents: This test was developed and its performance characteristic determined by [facility], Department of Laboratory Medicine. It has not [...] be interpreted with caution. 08/22/2022 2:51 PM [facility] Performed By [facility] at [facility], [address] [place] [address]. [id number]. 08/22/2022 2:51 PM [facility] Embedded Images 08/22/2022 2:51 PM [facility] Pathology/Cytolo gy ENTIRE GALLBLADDER / Unknown 08/21/2022 10:30 AM CDT 08/21/2022 1:49 PM CDT Andrei Buenrostro MD LAB - PATHOLOGY/ CYTOLOGY ORDERABLES Performing Organization Address [facility] Co de Phone Number [facility] [address] [place] [address] * HCG URINE QUAL POCT NOTIFICATION (08/21/2022 9:02 AM CDT) Comment Notification Label Only - See Separate Report 08/21/2022 9:02 AM CDT [facility] Urine URINE / Unknown 7:54 AM CDT Dinh Fonseca MD LAB - URINALYSIS ORD ERABLES Performing Organization Address [facility] Co de Phone Number [facility] [address] [place] [address] * HCG URINE QUALITATIVE - POCT (IP) INTERFACED (08/21/2022 7:56 AM CDT) HCG Qual Urine Negative Negative 08/21/2022 8:02 AM CDT [facility] Urine URINE / Unknown 08/21/2022 7 :56 AM CDT 08/21/2022 8:02 AM CDT Andrei Buenrostro MD LAB - POINT OF C ARE ORDERABLES Performing Organization Address [facility] Co de Phone Number [facility] [address] [place] [address] documented in this encounter Visit Diagnoses Not on filedocumented in this encounter Administered Medications Inactive Administered Medications - up to 3 most recent administrations Medication Order MAR Action Action Date Dose Rate Site 0.9% NaCl infusion at 75 mL/hr, Intravenous, CONTINUOUS, Starting on Mirta 08/21/22 at 1200, Until Mirta 08/21/22 at 1354, Post-op 0.9% NaCl irrigation (SO) solution PRN, Starting on Mirta 08/21/22 at 1016, Until Mirta 08/21/22 at 1057, Intra-op $ Given 08/21/2022 10:25 AM CDT 1,000 mL Operative Site $ Given 08/21/2022 10:10 AM CDT 1,000 mL O perative Site aprepitant (Emend) capsule 125 mg 125 mg, Oral, PRE-OP ONCE, 1 dose, On Mirta 08/21/22 at 0830, Pre-op $ Given 08/21/2022 8:28 AM CDT 125 mg bupivacaine 0.5% - EPINEPHrine 1:200,000 (PF) injection PRN, Starting on Mirta 08/21/22 at 1010, Until Mirta 08/21/22 at 1057, Intra-op $ Given 08/21/2022 10:10 AM CDT 20 mL Operative Site ceFAZolin (Ancef) 2 g in 0.9% NaCl [...] Given - Prov ider: Sosa Mae RN) ceFAZolin (Ancef) 2 g in 0.9% NaCl IV 50 mL IVPB (COMPLETED) 2 g, at 100 mL/hr, Intravenous, PRE-OP ONCE, 1 dose, On Mirta 08/21/22 at 0830, Indication for anti-infective therapy: Surgical prophylaxis 0947 ($ New Bag/Syri nge - Provider: Sosa Mae RN)1017 (Due: Stopped - Provider: Sosa Mae [...] RN)1057 (Anesthesia Volume Adjustment - Provider: Angeles Smith APRN-DRUG ENFORCEMENT ADMINISTRATION AGENT) PRN Medication Order 08/19/2022 08/20/2022 08/21/2022 0.9% NaCl irrigation (SO) solution (CANCELED) PRN, Starting on Mirta 08/21/22 at 1016, Until Mirta 08/21/22 at 1057, Intra-op 1010 ($ Given - Prov ider: Andrei Buenrostro MD - Comment: back table)1025 ($ Given - Provider: Andrei Buenrostro MD - Comment: warm; 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 [phone] PCP - General Family Medicine 08/21/22 documented as of this encounter
--- OUTSIDE RECORDS SUMMARY | 2024-12-07 17:20 | XMS_ITS | Encounter Summary ---
Author Organization [facility] Health Address [facility] [facility] [place] [address] Care Team Providers Care Bmet Name Role Phone Unavailable Primary Care Provider Unavailabl e Reason for Visit * Reason Comments Cholecystitis Cholelithiasis To arrive via EMS [facility] to [facility] ED under the care of ILEANA Donohue. Dr Fritz aware of pt pending arrival and agrees to consult. Pt c/o tender epigastric area. Imaging to arrive with pt. * Auth/Cert Specialty Diagnoses / Procedures Referred By Cosmo gonzalez Referred To Contact Referral ID Status Reason Start Date Expiration Date Visits Re quested Visits Authorized [id number] 1 1 Encounter Details Date Type Department Care Team (Late st Contact Info) Description 08/14/2022 9:10 PM CDT - 08/15/2022 12:16 PM CDT Emergency [facility] 5D ONCOLOGY [address] [place] [address] Rommel Oconnor MD [address] [place] [address] [place] [address] [place] [address] Gisselle Davis MD [address] [place] [address] Emergency Medicine Discharge Disposition: Home or Self Care Social History Tobacco Use Types Packs/Day Years Used Date Smoking Tobacco: Never Smokeless Tobacco: Never Alcohol Use Standard Drinks/Week Comments Never 0 (1 standard drink = 0.6 oz pur e alcohol) AUDIT-C Answer Date Recorded Q1: How often do you have a drink containing alcohol? Never 08/14/2022 Q2: How many drinks containi ng alcohol do you have on a typical day when you are drinking? Patient does not drink Frequency of Binge Drinking Not on file 07/31 Hunger Vital Sign Answer Date Recorded Within [...] Sign Reading Time Taken Comments Blood Pressure 115/50 08/15/2022 8:29 AM CDT Pulse 72 08/15/2022 8:29 AM CDT Temperature 36.8 ??C (98.2 ??F) 08/15/2022 8:29 AM CD T Respiratory Rate 20 08/15/2022 8:29 AM CDT Oxygen Saturation 99% 08/15/2022 8:29 AM CDT Inhaled Oxygen Concentration - - Weight 59 kg (130 lb) 08/14/2022 9:12 PM CDT Height 162.6 cm (5' 4 ) 08/14/2022 9:12 PM CDT Body Mass Index 22.31 08/14/2022 9:12 PM CDT documented in this encounter Medications at Time [...] 4 hours as needed 30 tablet 08/15/2022 medroxyPROGESTERone (Depo-Provera) 150 MG/ML vial Inject 1 mL into muscle every 12 weeks 06/11/2022 08/18/2022 documented as of this encounter Progress Notes * Марина Sandra Cm, RN - 08/15/2022 12:16 PM CDT Case Management Progress Note Anticipated level of care at discharge: Home Discharge Plan: met with patient and her parents. Patient is IADLs, No discharge needs identified. DC plan is home Basic Needs Assessment (BNA) Score: 4 Anticipated Discharge Date: Anticipated Discharge Date: 08/15/22 Patient/Family provided with list of resources? Unknown Preferred Provider / High Quality Network List given?: Unknown Reason for provider choice: Unknown Transportation at Discharge: Family Transportation to MD:Drives self Equipment at Home: Equipment at Home: None Hunger Screening: Within the past 12 months, you worried that your food would run out before you got the money to buymore.: Never true Within the past 12 months, the food you bought just didn't last and you didn't have money to get more.: Never true Food Bank Resources Provided: Not offered to the patient Medication affordability concerns: [place]: Марина Sandra Cm, RN Please see treatment team for current CM * Gisselle Davis MD - 08/15/2022 11:36 AM CDT Internal Medicine Progress Note -Hospitalist Admit Date: 08/14/2022 9:10 PM Hospital Day: 1 Patient seen today and examined, not in acute distress, lying comfortably in bed, denies abdominal pain, nausea, vomiting Denies chest pain, shortness of breath, dizziness, palpitation Discussed with family at bedside Discussed with RN Exam Vitals: 08/14/22 2330 08/15/22 0015 08/15/22 0418 08/15/22 0829 BP: 125/75 121/63 115/57 115/50 Pulse: 41 59 72 Resp: Temp: 98.1 ??F (36.7 ??C) 98.3 ??F (36.8 ??C) 98.2 ??F (36.8 ??C) SpO2: 100% 99% 99% Weight: Height: General appearance: alert, cooperative, no distress Heart: normal rate, S1 S2 normal, no murmer Lungs: breath sounds normal and symmetric; no rales or wheezes Abdomen: soft without mass, non-tender, with normal bowel sounds Extremities: no edema Intake/Output Summary (Last 24 hours) at 08/15/2022 1136 Last data filed at 08/15/2022 0244 Gross per 24 hour Intake -- Output 400 ml Net -400 ml Current medications: MEDICATIONS FOR CURRENT ENCOUNTER: ?? SCHEDULED MEDICATIONS: ?? 0.9% NaCl injection 3 mL, Intracatheter, q8h ?? 0.9% NaCl injection 3 mL, Intracatheter, q8h ?? lamoTRIgine (LaMICtal) tablet 100 mg, Oral, BID ?? [COMPLETED] diphenhydrAMINE (Benadryl) capsule 50 mg, Oral, Now ?? CONTINUOUS MEDICATIONS: ?? lactated ringers infusion, Intravenous, Continuous ?? PRN MEDICATIONS: ?? Or ?? Or ?? 0.9% NaCl injection 1-10 mL, Intracatheter, PRN ?? 0.9% NaCl injection 1-10 mL, Intracatheter, PRN ?? acetaminophen (Tylenol) tablet 650 mg, Oral, q4h PRN ?? metoclopramide (Reglan) injection 10 mg, Intravenous, q6h PRN ?? morphine injection 2 mg, Intravenous, q3h PRN ?? morphine injection 4 mg, Intravenous, q3h PRN ?? ondansetron (disintegrating) (Zofran ODT) tablet 4 mg, Oral, q6h PRN ?? ondansetron (Zofran) injection 4 mg, Intravenous, q6h PRN ?? oxyCODONE-acetaminophen (Percocet) 5-325 MG tablet 1 tablet, Oral, q4h PRN Data Recent Labs Component Name 08/15/22 0718 SODIUM 141 POTASSIUM 4.0 BUN 6* CREATININE 0.68 GLUCOSE 91 Recent Labs Component Name 08/15/22 0718 WBC 6.0 HGB 10.9* HCT 32.0* PLTCOUNT 315 Assessment and Plan -Cholelithiasis, patient currently denies abdominal pain, nausea, vomiting, patient is afebrile, WBC within normal, abdominal exam is benign Ultrasound report from other hospital showed Right upper quadrant ultrasound with trace pericholecystic fluid as well as gallstones however negative Oliver sign. Continue IV fluid, p.r.n. pain and nausea medicine Waiting for surgery recommendation -History of seizure, continue home medication of Lamictal, seizure precaution DVT prophylaxis, SCD Full Code Gisselle Davis MD 08/15/2022 11:36 AM Voice recognition software was used in the carbide tool die maker of this documentation. * Humberto Mcqueen LPN - 08/15/2022 6:47 AM CDT Problem: Pain/Discomfort Goal: Patient exhibits reduced pain/discomfort as evidenced by pain scores Outcome: Progressing Goal: Patient uses pharmacological and non-pharmacological pain management strategies. Outcome: Progressing Goal: Patient verbalizes acceptable level of pain relief and ability to engage in desired activity. Outcome: Progressing * Maddie Clifton RN - 08/15/2022 12:53 AM CDT 08/15/22 0031 Negro Scale - Adult Sensory Perception 4 Moisture 4 Activity 4 Mobility 4 Nutrition 3 Friction and Shear 3 Total Score 22 2 RN skin assessment. Skin intact no issues. documented in this encounter H&P Notes * Beto Murillo DO - 08/14/2022 10:40 PM CDT Internal Medicine History and Physical--Hospitalist Patient's Primary Care Physician: No primary care provider on file. Name: Jennifer Travis Age: [age] year old Sex: female Admit Date: 08/14/2022 Chief Complaint: Cholecystitis and Cholelithiasis (To arrive via EMS from [facility] the [facility] of ILEANA Donohue. Dr Fritz aware of pt pending arrival and agrees to consult. Pt c/o tender epigastric area. Imaging to arrive with pt.) History of Present Illness: Patient is a 21 year old female with a history of epilepsy on Lamictal who was transferred to our facility for acute cholecystitis. Patient reports intermittent abdominal pain for several weeks. Pain is located in the right upper quadrant of her abdomen. Admit to associated nausea and vomiting today. She reports that during previous episodes she did have nausea without vomiting. Previously her abdominal pain did radiate into her back however today it did not. Show reports she was evaluated for this before however nothing was found. Today while at the outside facility she did have a CT scan of the abdomen and pelvis which showed: Findings: LOWER CHEST Heart is normal in size. Lung bases are clear. No pleural or pericardial effusions. UPPER ABDOMEN Liver and bile ducts: Focal fatty infiltration seen along the anterior liver near the ligamentum teres. No suspicious focal liver lesion. Mild periportal edema is identified within the liver, nonspecific. Portal vein and hepatic veins are patent. No biliary dilatation. Gallbladder: No hyperdense gallstones are identified. No significant gallbladder wall thickening isseen. There is trace pericholecystic fluid, nonspecific. Pancreas: The pancreas appears unremarkable. No inflammatory changes or ductal dilation identified. Spleen: Normal. RETROPERITONEUM Adrenals: No adrenal mass. Kidneys: Enhance symmetrically with no solid mass or hydronephrosis. Lymph nodes: No lymphadenopathy in the abdomen or pelvis. BOWEL AND PERITONEUM Bowel: There is no bowel obstruction. The appendix appears normal. No acute inflammatory changes are seen. Free air or fluid: None. VASCULATURE The abdominal aorta is normal in caliber. PELVIS No abnormality. BONES/SOFT TISSUES No significant lesion. ?? Impression: 1. There is mild periportal edema within the liver. This is overall nonspecific but differential considerations include acute hepatitis, fluid volume overload, ascending biliary tract infection/cholangitis or blunt injury. 2. There is trace pericholecystic fluid, nonspecific but could be reactive to the adjacent liver process. No significant gallbladder wall thickening or hyperdense stones are identified. If there is clinical concern for acute cholecystitis could further correlate with ultrasound of the gallbladder. 3. No inflammatory changes or ductal dilation identified involving the pancreas. Right upper quadrant ultrasound report: Liver within normal limits Pancreas within normal limits Prominent duct measuring 5.1 mm Gallbladder: Posterior wall with stones Gallbladder wall thickness: 2.1 mm Negative Oliver sign Positive stones Negative mobile Negative sludge Trace pericholecystic fluid Lab work at the outside facility showed: Sodium 139, potassium 3.2, chloride 101, CO2 24, glucose 134, BUN eight, creatinine 0.9, alk-phos 62, AST 16, ALT 15, lipase 85, WBCs 5.3, hemoglobin 12.3, hematocrit 36.5, platelets 339. Urine preg negative. Patient reports her last seizure was in October. She was a little late taking her Lamictal today because of her transfer from the outside facility. I did discuss code status with this patient. Patient is a full code at this time. Past Medical History: Past Medical History: Diagnosis Date ??? Temporal lobe epilepsy Past Surgical History: Tonsillectomy Social History: Social History Socioeconomic History ??? Marital status: [...] Never ??? Drug use: Yes Types: Marijuana ??? Sexual activity: Not on file Other Topics Concern ??? Not on file Social History Narrative ??? Not on file Social Determinants of Health Financial Resource Strain: Not on file Food Insecurity: Not on file Transportation Needs: Not on file Physical Activity: Not on file Stress: Not on file Social Connections: Not on file Intimate Partner Violence: Not on file Housing Stability: Not on file Family History: Patient is unaware of anything that has in the family Allergies: Allergies Allergen Reactions ??? Augmentin Other Mouth broke out in sores ??? Amoxicillin-Pot Clavulanate Urticaria Medications: Current Facility-Administered Medications Medication Dose Route Frequency Provider Last Rate Last Admin ??? metoclopramide (Reglan) injection 10 mg 10 mg Intravenous q6h PRN Beto Murillo DO 10 mg at 08/14/22 2335 Current Outpatient Medications Medication Sig Dispense Refill ??? lamoTRIgine (LaMICtal) 100 MG tablet Take 100 mg by mouth 2 times daily ??? medroxyPROGESTERone (Depo-Provera) 150 MG/ML vial Inject 1 mL into muscle every 12 weeks (Not in a hospital admission) Wt Readings from Last 3 Encounters: 08/14/22 59 kg (130 lb) (54 %, Z= 0.10)* * Growth percentiles are based on [facility] (Girls, 2-20 Years) data. Review of Systems: Review of Systems Constitutional: Negative for chills, fever and malaise/fatigue. HENT: Negative for congestion, hearing loss, sinus pain and sore throat. Eyes: Negative for blurred vision, double vision and photophobia. Respiratory: Negative for cough, shortness of breath and wheezing. Cardiovascular: Negative for chest pain, palpitations and leg swelling. Gastrointestinal: Positive for abdominal pain, nausea and vomiting. Negative for constipation, diarrhea and heartburn. Genitourinary: Negative for dysuria, frequency and urgency. Musculoskeletal: Negative for falls and myalgias. Skin: Negative for itching and rash. Neurological: Negative for dizziness, weakness and headaches. Psychiatric/Behavioral: Negative for depression and suicidal ideas. Physical Exam: Vitals: 08/14/22 2245 08/14/22 2300 08/14/22 2315 08/14/22 2330 BP: 96/57 96/53 109/65 125/75 Pulse: Resp: Temp: SpO2: 98% 100% 100% Weight: Height: General appearance: alert, oriented, no distress Head: Normocephalic, without trauma Eyes: sclera and conjunctiva clear, lids normal Neck: range of motion is intact, no masses, thyroid not enlarged, no adenopathy Chest: no tenderness Lungs: breath sounds normal and symmetric; no rales or wheezes Heart: regular rate and rhythm, normal S1 and S2, without murmurs, gallops or rubs Abdomen: soft without mass, non-tender, no guarding or rebound tenderness, with normal bowel sounds Extremities: no clubbing, cyanosis or edema, pedal pulses intact bilaterally Neurologic: mental status normal, CN II - XII grossly intact. Data: Admission labs, radiographic studies and ECG were reviewed, and are noted in the assessment and plan as needed. No results for input(s): WBC, HGB, HEMOGLOBIN, HEMATOCRIT, HCT, PLATELET, PLTCOUNT in the last 76764 hours. No results for input(s): SODIUM, POTASSIUM, CHLORIDE, CO2, BUN, CREATININE, GLUCOSE, [id number], CALCIUM, GFR, EGFR, EGFRAFR in the last 97323 hours. No results for input(s): ALBUMIN, ALB, ALKPHOS, [id number], ALT, AST, [id number], [id number], TBILI, DBILI, PROTEIN, TPROT, BNP, NTPROBNP in the last 35408 hours. No results found. Assessment and Plan: 1. Cholelithiasis Right upper quadrant ultrasound with trace pericholecystic fluid as well as gallstones however negative Oliver sign. -NPO at midnight -IV fluids -consult to General surgery -pain control -continue to monitor 2. Epilepsy Last seizure happened less than one year ago. -continue Lamictal -seizure precautions -will give IV Ativan if patient does have a seizure while she is here 3. Hypokalemia Potassium 3.2 on outside lab work. -LR for fluid resuscitation -recheck labs in the a.m. -continue to monitor Body mass index is 22.31 kg/m??. DVT prophylaxis: SCDs No Order Risk Factors for Mortality Present at Time of Admission This patient does not have diagnoses most commonly associated with increased mortality risk Beto Murillo DO 08/15/2022 12:06 AM Portions of this note may be dictated using voice recognition software. Variances in spelling and vocabulary are possible and unintentional. Not all errors are caught/corrected. Please notify the author if any discrepancies are noted or if the meaning of any statement is not clear. These grammatical oversights have no impact on the medical care provided to the patient. documented in this encounter ED Notes * Ekta Villela RN - 08/14/2022 11:29 PM CDT Report given to Humberto PHILLIPS. * Rommel Oconnor MD - 08/14/2022 9:29 PM CDT Name: Jennifer Travis Primary Care Doctor: EMERGENCY MEDICINE NOTE History of Present Illness: Jennifer Travis is a 21 year old female with a PMH of temporal epilepsy on lamictal who [facility]as a [facility] for acute cholecystitis. Per patient casandra had 2 weeks of off and on right upper quadrant pain that she experience with worsening severityassociated nausea and vomiting today. She presented to the outside hospital emergency department where she was found to have CT findings consistent with a possible cholecystitis. A right upper quadrant ultrasound was performed showing trace pericholecystic fluid, cholelithiasis, gallbladder wall thickness of 2.1 mm, negative sonographic Oliver sign. She has no pain at this time. She was given Dilaudid for pain prior to transfer. No abx started. Her OSH labs are remarkable for mild hypokalemia (3.2), Normal WBC 5.3. Normal AST, ALT, T Bili, Alk phos, lipase. Past Medical History: Past Medical History: Diagnosis Date ??? Temporal lobe epilepsy Past Surgical History: Past Surgical History: Procedure Laterality Date ??? Tonsillectomy Home Medications: No current facility-administered medications on file prior to encounter. Current Outpatient Medications on File Prior to Encounter Medication Sig Dispense Refill ??? Drospirenone (SLYND PO) Take by mouth once daily Allergies: Allergies Allergen Reactions ??? Augmentin Other Mouth broke out in sores ??? Amoxicillin-Pot Clavulanate Urticaria Social History: Social History Tobacco Use ??? Smoking status: Never Smoker ??? Smokeless tobacco: Never Used Substance Use Topics ??? Alcohol use: Never Family History: No family history on file. Review of Systems Constitutional: Denies fevers and chills HENT: Denies congestion, sore throat Eye: Denies visual changes, pain Respiratory: Denies cough, shortness of breath Cardiac: Denies chest pain, VANCE GI: +abdominal pain, nausea or vomiting : Denies dysuria or discharge MSK: Denies new swelling or deformity Skin: Denies new rash or wound Neuro: Denies new headache. No focal weakness. Psych: Denies change in mood, confusion See above and also HPI, otherwise negative. Physical Exam BP 115/50 Pulse 72 Temp 98.2 ??F (36.8 ??C) (Oral) Resp 20 Ht 1.626 m (5' 4 ) Wt 59 kg (130 lb) SpO2 99% General: Alert, no apparent distress HEENT: Normocephalic, atraumatic, PERRL Mouth: MMM, No lesions Neck: Supple. Non-tender Back: No obvious deformity or lesion Cardiac: RRR, 2+ radials. Chest wall non-tender Lung: CTAB, speaking in sentences Extremities: No cyanosis, no peripheral edema Abdomen: Soft, non-tender, non-distended. No abd pain, no rebound. No RUQ pain, neg Oliver's. Skin: No rashes appreciated, no cyanosis Neuro: Oriented to situation, moving all 4, clear speech Psych: Appropriate situational affect, fluent speech Studies and Interpretation Pulse Oximetry Interpretation (independent interpretation by Marcus Oconnor MD): Saturation: 100% Oxygen Delivery: Room Air Interpretation: No hypoxia at this time Rhythm Strip Interpretation (independent interpretation by Marcus Oconnor MD): Normal Sinus Rhythm, no arrhythmia Ventricular Rate: 60 Imaging: No orders to display Labs: Labs Reviewed COMPREHENSIVE METABOLIC PANEL - Abnormal; Notable for the following components: Result Value Chloride 108 (*) BUN 6 (*) Protein Total 6.3 (*) All other components within normal limits CBC W AUTO DIFFERENTIAL - Abnormal; Notable for the following components: RBC 3.66 (*) Hemoglobin 10.9 (*) Hematocrit 32.0 (*) MPV 8.9 (*) Lymphocytes % 45.0 (*) All other components within normal limits PT-INR - Abnormal; Notable for the following components: PT 15.4 (*) INR 1.2 (*) All other components within normal limits Narrative: Conventional Warfarin Anticoagulant Therapy: INR Reference Range: 2.0-3.0 Intensive Warfarin Anticoagulant Therapy: INR Reference Range: 2.5-3.5 MAGNESIUM BLOOD - Normal PHOSPHORUS BLOOD - Normal Medical Decision Making & ED Course: Problem List: Cholelithiasis, poss cholecystitis Plan: Labs, imaging ED Course: -Reviewed triage notes/prior records if available/vitals/assessed pt. Orders as below. - ED Course as of 08/15/22 1559 Mirta Aug 14, 2022 336 21-year-old female presents to transfer for possible cholecystitis. Patient was accepted by Dr. Mills who requested the patient be admitted through the ED. Her pain is controlled and she is HDS. Will admit after making surgery aware of patient. [JUNI] 2201 I discussed the case with Dr Mills. The patient is very stable and has no leukocytosis or fever. No need for urgent intervention at this time. Will admit NPO at MT. [JUNI] ED Course User Index [JUNI] Rommel Oconnor MD Clinical Impressions as of 08/15/22 1559 Biliary pain Thickening of wall of gallbladder with pericholecystic fluid Biliary colic Hypokalemia Temporal lobe epilepsy -Critical Care:no Discussed results, plan, and related precautions with patient. All questions were answered to the best of my ability and they express understanding and are comfortable with plan. Orders Placed This Encounter ??? COMPREHENSIVE METABOLIC PANEL Standing Status: Standing Number of Occurrences: 1 Order Specific Question: Release to patient Answer: Immediate ??? CBC W AUTO DIFFERENTIAL Standing Status: Standing Number of Occurrences: 1 Order Specific Question: Release to patient Answer: Immediate ??? MAGNESIUM BLOOD Standing Status: Standing Number of Occurrences: 1 Order Specific Question: Release to patient Answer: Immediate ??? PHOSPHORUS BLOOD Standing Status: Standing Number of Occurrences: 1 Order Specific Question: Release to patient Answer: Immediate ??? PT-INR Standing Status: Standing Number of Occurrences: 1 Order Specific Question: Release to patient Answer: Immediate ??? IP CONSULT TO GENERAL SURGERY Standing Status: Standing Number of Occurrences: 1 Order Specific Question: REASON FOR CONSULT? Answer: transfer from [facility] for biliary symptoms concern for acute sha Order Specific Question: Has consulting physician been notified? Answer: Yes, consulting physician is already aware of this consult request ??? DISCONTD: lamoTRIgine (LaMICtal) tablet 100 mg ??? DISCONTD: lamoTRIgine (LaMICtal) tablet 100 mg OP sig: Take 100 mg by mouth 2 times daily ??? DISCONTD: 0.9% NaCl injection 3 mL ??? DISCONTD: 0.9% NaCl injection 1-10 mL ??? DISCONTD: acetaminophen (Tylenol) tablet 650 mg ??? DISCONTD: morphine injection 2 mg ??? DISCONTD: ondansetron (disintegrating) (Zofran ODT) tablet 4 mg ??? DISCONTD: ondansetron (Zofran) injection 4 mg ??? DISCONTD: dextrose 5 % and 0.45% NaCl infusion ??? diphenhydrAMINE (Benadryl) capsule 50 mg ??? DISCONTD: metoclopramide (Reglan) injection 10 mg ??? DISCONTD: 0.9% NaCl injection 3 mL ??? DISCONTD: 0.9% NaCl injection 1-10 mL ??? DISCONTD: lactated ringers infusion ??? DISCONTD: morphine injection 2 mg ??? DISCONTD: morphine injection 4 mg Order Specific Question: Allow a repeat dose for severe pain? Answer: No ??? DISCONTD: lactated ringers infusion ??? DISCONTD: oxyCODONE-acetaminophen (Percocet) 5-325 MG tablet 1 tablet ??? oxyCODONE-acetaminophen (Percocet) 5-325 MG tablet Sig: Take 1 (one) tablet by mouth every 4 hours as needed Dispense: 30 tablet Refill: 0 Diagnosis: 1. Biliary pain 2. Thickening of wall of gallbladder with pericholecystic fluid 3. Biliary colic 4. Hypokalemia 5. Temporal lobe epilepsy Disposition: Admit * Ekta Villela RN - 08/14/2022 9:22 PM CDT Pt to the ER from [facility] for gallbladder removal. Pt states she started having pain toher RUQ a couple weeks ago, pain got worse today. Pt was nauseous and vomiting on arrival to previous ER. Pt was told she needed to get her gallbladder removed and transferred to this hospital. Pt has no complaints at this time, pt denies pain. [facility] liter of fluids[facility] gave 600 mL of fluids. Vital signs as charted, breathing even and unlabored.No distress noted. A&Ox4. Pt in position of comfort in stretcher with side rails up x 2. Bed low and locked. Call light within reach. * Pina Long RN - 08/14/2022 9:10 PM CDT Bed: 7 Expected date: Expected time: Means of arrival: Comments: [facility] documented in this encounter Plan of Treatment Not on file documented as of this encounter Procedures Procedure Name Priority Date/Time Associated Diagnosis Comments CARDIAC EKG ORDER 08/19/2022 8:3 6 PM CDT CARDIAC EKG ORDER 08/18/2022 5:3 6 PM CDT PT-INR Routine 08/15/2022 7:18 AM CDT Biliary colic Hypokalemia Temporal lobe epilepsy (HCC) CBC W AUTO DIFFERENTIAL Routine 08/15/2022 7:18 AM CDT Biliary colic Hypokalemia Temporal lobe epilepsy (HCC) COMPREHENSIVE METABOLIC PANEL Routine 08/15/2022 7:18 AM CDT Biliary colic Hypokalemia Temporal lobe epilepsy (HCC) PHOSPHORUS BLOOD Routine 08/15/2022 7:18 AM CDT Biliary colic Hypokalemia Temporal lobe epilepsy (HCC) MAGNESIUM BLOOD Routine 08/15/2022 7:18 AM CDT Biliary colic Hypokalemia Temporal lobe epilepsy (HCC) documented in this encounter Results * CARDIAC EKG ORDER (08/19/2022 8:36 PM CDT) Narrative 08/19/2022 8:36 PM CDT Ordered by an unspecified provider. Scanned Document CARDIAC SERVICES ORD ERABLES * CARDIAC EKG ORDER (08/18/2022 5:36 PM CDT) Narrative 08/18/2022 5:36 PM CDT Ordered by an unspecified provider. Scanned Document CARDIAC SERVICES ORD ERABLES * (ABNORMAL) PT-INR (08/15/2022 7:18 AM CDT) PT 15.4(H) 12.1 - 14.8 sec 08/15/2022 7:35 AM CDT [facility] INR 1.2(H) 0.9 - 1.1 08/15/2022 7:35 AM CDT [facility] Blood BLOOD SPECIMEN / Unknown Lab Venipuncture / Unknown 08/15/2022 7:18 AM CDT 08/15/2022 7:20 AM CDT Narrative [facility] - 08/15/2022 7:35 AM CDT Conventional Warfarin Anticoagulant Therapy: INR Reference Range: ??2.0-3.0 Intensive Warfarin Anticoagulant Therapy: INR Reference Range: ? 2.5-3.5 Beto Murillo DO LAB - COAGULATION OR DERABLES [facility] [address] [place] [address] * PHOSPHORUS BLOOD (08/15/2022 7:18 AM CDT) Phosphorus 4.4 2.3 - 4.7 mg/dL 08/15/2022 7:54 AM CDT [facility] Blood BLOOD SPECIMEN / Unknown Lab Venipuncture / Unknown 08/15/2022 7:18 AM CDT 08/15/2022 7:20 AM CDT Beto Murillo DO LAB - CHEMISTRY ORDE RABLES [facility] [address] [place] [address] * MAGNESIUM BLOOD (08/15/2022 7:18 AM CDT) Magnesium 2.3 1.7 - 2.3 mg/dL 08/15/2022 7:54 AM CDT [facility] Blood BLOOD SPECIMEN / Unknown Lab Venipuncture / Unknown 08/15/2022 7:18 AM CDT 08/15/2022 7:20 AM CDT Beto Murillo DO LAB - CHEMISTRY URBAN AGUSTIN [facility] [address] [place] [address] * (ABNORMAL) CBC W AUTO DIFFERENTIAL (08/15/2022 7:18 AM CDT) WBC 6.0 4.4 - 10.7 x10E9/L 08/15/2022 7:25 AM CDT [facility] WBC Corrected 08/15/2022 7:25 AM CDT [facility] RBC 3.66(L) 3.80 - 5.20 x10E12/L 08/15/2022 7:25 AM CDT [facility] Hemoglobin 10.9(L) 12.0 - 15.6 gm/dL 08/15/2022 7:25 AM CDT [facility] Hematocrit 32.0(L) 35.9 - 45.5 % 08/15/2022 7:25 AM CDT [facility] MCV 87.4 80.7 - 98.3 fl 08/15/2022 7:25 AM CDT [facility] MCH 29.8 26.7 - 34.0 pg 08/15/2022 7:25 AM CDT [facility] MCHC 34.1 30.8 - 35.9 gm/dL 08/15/2022 7:25 AM CDT [facility] Platelet Count 315 153 - 416 x10E9/L 08/15/2022 7:25 AM CDT [facility] RDW-CV 12.1 12.1 - 14.9 % 08/15/2022 7:25 AM CDT [facility] MPV 8.9(L) 9.4 - 12.9 fl 08/15/2022 7:25 AM CDT [facility] Neutrophils % 48.6 44.0 - 73.0 % 08/15/2022 7:25 AM CDT [facility] Lymphocytes % 45.0(H) 20.0 - 43.0 % 08/15/2022 7:25 AM CDT [facility] Monocytes % 5.2 5.0 - 13.0 % 08/15/2022 7:25 AM CDT [facility] Eosinophils % 0.7 0.0 - 6.0 % 08/15/2022 7:25 AM CDT [facility] Basophils % 0.3 0.0 - 2.0 % 08/15/2022 7:25 AM CDT [facility] Immature Granulocytes 0.2 0 - 1 % 08/15/2022 7:25 AM CDT [facility] Neutrophil Absolute 2.92 2.01 - 7.14 x10E9/L 08/15/2022 7:25 AM CDT [facility] Lymphocytes Absolute 2.70 1.07 - 3.94 x10E9/L 08/15/2022 7:25 AM CDT [facility] Monocytes Absolute 0.31 0.26 - 1.07 x10E9/L 08/15/2022 7:25 AM CDT [facility] Eosinophils Absolute 0.04 0 - 0.47 x10E9/L 08/15/2022 7:25 AM CDT [facility] Basophils Absolute 0.02 0 - 0.08 x10E9/L 08/15/2022 7:25 AM CDT [facility] Immature Granulocytes Absolute 0.01 0.00 - 0.06 x10E9/L 08/15/2022 7:25 AM CDT [facility] nRBC Auto 0 /100 WBC 08/15/2022 7:25 AM CDT [facility] Blood BLOOD SPECIMEN / Unknown Lab Venipuncture / Unknown 08/15/2022 7:18 AM CDT 08/15/2022 7:20 AM CDT Beto Murillo DO LAB - HEMATOLOGY ORD ERABLES [facility] [address] [place] [id number] * (ABNORMAL) COMPREHENSIVE METABOLIC PANEL (08/15/2022 7:18 AM CDT) Pathologist [facility] Glucose 91 70 - 105 mg/dL 08/15/2022 7:54 AM CDT [facility] Sodium 141 136 - 145 mmol/L 08/15/2022 7:54 AM CDT [facility] Potassium 4.0 3.5 - 5.1 mmol/L 08/15/2022 7:54 AM T [facility] Chloride 108(H) 98 - 107 mmol/L 08/15/2022 7:54 AM CDT [facility] CO2 23 23 - 31 mmol/L 08/15/2022 7:54 AM CDT [facility] Calcium 9.1 8.4 - 10.4 mg/dL 08/15/2022 7:54 AM [facility] Anion Gap 10 8 - 18 mmol/L 08/15/2022 7:54 AM T [facility] BUN 6(L) 7 - 18.7 mg/dL 08/15/2022 7:54 AM CDT [facility] Creatinine 0.68 0.57 - 1.11 mg/dL 08/15/2022 7:54 AM T [facility] Alkaline Phosphatase 50 40 - 150 U/L 08/15/2022 7:54 AM CDT [facility] ALT 10 0 - 61 U/L 08/15/2022 7:54 AM CDT [facility] AST 15 5 - 34 U/L 08/15/2022 7:54 AM T [facility] Protein Total 6.3(L) 6.4 - 8.3 gm/dL 08/15/2022 7:54 AM T [facility] Albumin 4.1 3.4 - 5.0 gm/dL 08/15/2022 7:54 AM CDT [facility] Bilirubin Total 0.6 0.2 - 1.2 mg/dL 08/15/2022 7:54 AM T [facility] eGFR by CKD-EPI >90 >=90 mL/min/1.7 3 m2 08/15/2022 7:54 AM T [facility] Blood BLOOD SPECIMEN / Unknown Lab Venipuncture / Unknown 08/15/2022 7:18 AM CDT 08/15/2022 7:20 AM CDT Beto Murillo DO LAB - CHEMISTRY URBAN Sosa Organization Address City/State/ZIP Co de Phone Number [facility] [address] [place] [address] documented in this encounter Visit Diagnoses Diagnosis Biliary pain Calculus of gallbladder without mention of cholecystitis or obstruction Thickening of wall of gallbladder with pericholecystic fluid Biliary colic Calculus of gallbladder without mention of cholecystitis or obstruction Hypokalemia Hypopotassemia Temporal lobe epilepsy (HCC) Localization-related (focal) (partial) epilepsy and epileptic syndromes with complex partial seizures, without mention of intractable epilepsy Biliary colic Calculus of gallbladder without mention of cholecystitis or obstruction Hypokalemia Hypopotassemia Temporal lobe epilepsy (HCC) Localization-related (focal) (partial) epilepsy and epileptic syndromes with complex partial seizures, without mention of intractable epilepsy Biliary pain Calculus of gallbladder without mention of cholecystitis or obstruction Thickening of wall of gallbladder with pericholecystic fluid documented in this encounter Administered Medications Inactive Administered Medications - up to 3 most recent administrations Medication Order MAR Action Action Date Dose Rate Site 0.9% NaCl injection 1-10 mL 1-10 mL, Intracatheter, PRN, Other, peripheral line flush, Starting on Thu08/15/22 at 0007, Until Thu08/15/22 at 1316, Flush peripheral IV catheter with 1-10 mL of normal saline before and after medications and prn to clear blood from the line or to verify patency. 0.9% NaCl injection 1-10 mL 1-10 mL, Intracatheter, PRN, Other, peripheral line flush, Starting on Thu08/15/22 at 0007, Until Thu08/15/22 at 1316, Flush peripheral IV catheter with 1-10 mL of normal saline before and after medications and prn to clear blood from the line or to verify patency. 0.9% NaCl injection 3 mL 3 mL, Intracatheter, EVERY 8 HOURS, First dose on Thu08/15/22 at 0015, Until Discontinued, Flush peripheral IV catheter with 3 mL of normal saline every 8 hours. 0.9% NaCl injection 3 mL 3 mL, Intracatheter, EVERY 8 HOURS, First dose on Thu08/15/22 at 0015, Until Discontinued, Flush peripheral IV catheter with 3 mL of normal saline every 8 hours. $ Given 08/15/2022 1:02 AM CDT 3 mL diphenhydrAMINE (Benadryl) capsule 50 mg 50 mg, Oral, NOW, 1 dose, On Mirta 08/14/22 at 2330 $ Given 08/14/2022 11:35 PM CDT 50 mg lactated ringers infusion at 50 mL/hr, Intravenous, CONTINUOUS, Starting on Thu08/15/22 at 0015, Until Thu08/15/22 at 1316 $ New Bag/Syringe 08/15/2022 1:03 AM CDT 50 mL/hr lamoTRIgine (LaMICtal) tablet 100 mg 100 mg, Oral, 2 TIMES DAILY, First dose on Thu08/15/22 at 0900, Until Discontinued $ Given 08/15/2022 10:16 AM CDT 100 mg metoclopramide (Reglan) injection 10 mg 10 mg, Intravenous, EVERY 6 HOURS PRN, Nausea/Vomiting, Starting on Mirta 08/14/22 at 2330, Until Thu08/15/22 at 1316 $ Given 08/14/2022 11:35 PM CDT 10 mg morphine injection 2 mg 2 mg, Intravenous, EVERY 3 HOURS PRN, Moderate Pain, Starting on Thu08/15/22 at 0007, Until Thu08/15/22 at 1316, If oral route is unavailable. Patient preference for lesser PRN pain meds may be honored when the patient requests a less strong medication, a lower dose, or a less intrusive route of administration when the lesser drug, dose and route have been ordered for the patient. This patient request must be documented in the MAR. morphine injection 4 mg 4 mg, Intravenous, EVERY 3 HOURS PRN, Severe Pain, Starting on Thu08/15/22 at 0007, Until Thu08/15/22 at 1316, Patient preference for lesser PRN pain meds may be honored when the patient requests a less strong medication, a lower dose, or a less intrusive route of administration when the lesser drug, dose and route have been ordered for the patient. This patient request must be documented in the MAR., Allow a repeat dose for severe pain? No ondansetron (disintegrating) (Zofran ODT) tablet 4 mg 4 mg, Oral, EVERY 6 HOURS PRN, Nausea/Vomiting, Starting on Thu08/15/22 at 0007, Until Thu08/15/22 at 1316, Dissolved orally on tongue Dissolved orally on tongue ondansetron (Zofran) injection 4 mg 4 mg, Intravenous, EVERY 6 HOURS PRN, Nausea/Vomiting, Starting on Thu08/15/22 at 0007, Until Thu08/15/22 at 1316, Administer IV if patient is NPO, actively vomiting, or unable to swallow. oxyCODONE-acetaminophen (Percocet) 5-325 MG tablet 1 tablet 1 tablet, Oral, EVERY 4 HOURS PRN, Moderate Pain, Starting on Thu08/15/22 at 1102, Until Thu08/15/22 at 1316, Patient preference for lesser PRN pain meds may be honored when the patient requests a less strong medication, a lower dose, or a less intrusive route of administration when the lesser drug, dose and route have been ordered for the patient. This patient request must be documented in the MAR. documented in this encounter Active and Recently Administered Medications Times are shown in CDT. Scheduled Medication Order 08/13/2022 08/14/2022 08/15/2022 0.9% NaCl injection 3 mL(Linked Group 1) 3 mL, Intracatheter, EVERY 8 HOURS, First dose on Thu08/15/22 at 0015, Until Discontinued, Flush peripheral IV catheter with 3 mL of normal saline every 8 hours. 0102 (Not Administer ed - Provider: Humberto Mcqueen LPN - Reason: Documented on duplicate row)0640 (Not Administered - Provider: Humberto Mcqueen LPN - Reason: Documented on duplicate row) 0.9% NaCl injection 3 mL(Linked Group 2) 3 mL, Intracatheter, EVERY 8 HOURS, First dose on Thu08/15/22 at 0015, Until Discontinued, Flush peripheral IV catheter with 3 mL of normal saline every 8 hours. 0102 ($ Given - Prov ider: Hubmerto Mcqueen LPN)0641 (Not Administered - Provider: Humberto Mcqueen LPN - Reason: IV Currently Infusing) diphenhydrAMINE (Benadryl) capsule 50 mg (COMPLETED) 50 mg, Oral, NOW, 1 dose, On Mirta 08/14/22 at 2330 2335 ($ Given - Provider: Ekta Villela RN) lamoTRIgine (LaMICtal) tablet 100 mg 100 mg, Oral, 2 TIMES DAILY, First dose on Thu08/15/22 at 0900, Until Discontinued 1016 ($ Given - Prov ider: Keyona Carolina RN) Continuous Medication Order 08/13/2022 08/14/2022 08/15/2022 lactated ringers infusion at 50 mL/hr, Intravenous, CONTINUOUS, Starting on Thu08/15/22 at 0015, Until Thu08/15/22 at 1316 0103 ($ New Bag/Syri nge - Provider: Humberto Mcqueen LPN) PRN Medication Order 08/13/2022 08/14/2022 08/15/2022 0.9% NaCl injection 1-10 mL(Linked Group 1) 1-10 mL, Intracatheter, PRN, Other, peripheral line flush, Starting on Thu08/15/22 at 0007, Until Thu08/15/22 at 131, Flush peripheral IV catheter with 1-10 mL of normal saline before and after medications and prn to clear blood from the line or to verify patency. 0.9% NaCl injection 1-10 mL(Linked Group 2) 1-10 mL, Intracatheter, PRN, Other, peripheral line flush, Starting on Thu08/15/22 at 0007, Until Thu08/15/22 at 131, Flush peripheral IV catheter with 1-10 mL of normal saline before and after medications and prn to clear blood from the line or to verify patency. acetaminophen (Tylenol) tablet 650 mg 650 mg, Oral, EVERY 4 HOURS PRN, Fever, Mild Pain, Starting on Thu08/15/22 at 0007, Until Thu08/15/22 at 131, Patient preference for lesser PRN pain meds may be honored when the patient requests a less strong medication, a lower dose, or a less intrusive route of administration when the lesser drug, dose and route have been ordered for the patient. This patient request must be documented in the MAR. metoclopramide (Reglan) injection 10 mg 10 mg, Intravenous, EVERY 6 HOURS PRN, Nausea/Vomiting, Starting on Mirta 08/14/22 at 2330, Until Thu08/15/22 at 1316 2335 ($ Given - Provider: Ekta Villela RN) morphine injection 2 mg(Linked Group 3) 2 mg, Intravenous, EVERY 3 HOURS PRN, Moderate Pain, Starting on Thu08/15/22 at 0007, Until Thu08/15/22 at 1316, If oral route is unavailable. Patient preference for lesser PRN pain meds may be honored when the patient requests a less strong medication, a lower dose, or a less intrusive route of administration when the lesser drug, dose and route have been ordered for the patient. This patient request must be documented in the MAR. morphine injection 4 mg(Linked Group 3) 4 mg, Intravenous, EVERY 3 HOURS PRN, Severe Pain, Starting on Thu08/15/22 at 0007, Until Thu08/15/22 at 1316, Patient preference for lesser PRN pain meds may be honored when the patient requests a less strong medication, a lower dose, or a less intrusive route of administration when the lesser drug, dose and route have been ordered for the patient. This patient request must be documented in the MAR., Allow a repeat dose for severe pain? No ondansetron (disintegrating) (Zofran ODT) tablet 4 mg(Linked Group 4) 4 mg, Oral, EVERY 6 HOURS PRN, Nausea/Vomiting, Starting on Thu08/15/22 at 0007, Until Thu08/15/22 at 1316, Dissolved orally on tongue Dissolved orally on tongue ondansetron (Zofran) injection 4 mg(Linked Group 4) 4 mg, Intravenous, EVERY 6 HOURS PRN, Nausea/Vomiting, Starting on Thu08/15/22 at 0007, Until Thu08/15/22 at 1316, Administer IV if patient is NPO, actively vomiting, or unable to swallow. oxyCODONE-acetaminophen (Percocet) 5-325 MG tablet 1 tablet 1 tablet, Oral, EVERY 4 HOURS PRN, Moderate Pain, Starting on Thu08/15/22 at 1102, Until Thu08/15/22 at 1316, Patient preference for lesser PRN pain meds may be honored when the patient requests a less strong medication, a lower dose, or a less intrusive route of administration when the lesser drug, dose and route have been ordered for the patient. This patient request must be documented in the MAR. Linked Groups Order Group 1: SALINE LOCK, INSERT AND MAINTAIN (CANCELED) Routine, CONTINUOUS, Starting on Thu08/15/22 at 0015, Until Specified, New collection And 0.9% NaCl injection 3 mLJump to med 3 mL, Intracatheter, EVERY 8 HOURS, First dose on Thu08/15/22 at 0015, Until Discontinued, Flush peripheral IV catheter with 3 mL of normal saline every 8 hours. And 0.9% NaCl injection 1-10 mLJump to med 1-10 mL, Intracatheter, PRN, Other, peripheral line flush, Starting on Thu08/15/22 at 0007, Until Thu08/15/22 at 1316, Flush peripheral IV catheter with 1-10 mL of normal saline before and after medications and prn to clear blood from the line or to verify patency. Group 2: SALINE LOCK, INSERT AND MAINTAIN (CANCELED) Routine, CONTINUOUS, Starting on Thu08/15/22 at 0015, Until Specified, New collection And 0.9% NaCl injection 3 mLJump to med 3 mL, Intracatheter, EVERY 8 HOURS, First dose on Thu08/15/22 at 0015, Until Discontinued, Flush peripheral IV catheter with 3 mL of normal saline every 8 hours. And 0.9% NaCl injection 1-10 mLJump to med 1-10 mL, Intracatheter, PRN, Other, peripheral line flush, Starting on Thu08/15/22 at 0007, Until Thu08/15/22 at 1316, Flush peripheral IV catheter with 1-10 mL of normal saline before and after medications and prn to clear blood from the line or to verify patency. Group 3: morphine injection 2 mgJump to med 2 mg, Intravenous, EVERY 3 HOURS PRN, Moderate Pain, Starting on Thu08/15/22 at 0007, Until Thu08/15/22 at 1316, If oral route is unavailable. Patient preference for lesser PRN pain meds may be honored when the patient requests a less strong medication, a lower dose, or a less intrusive route of administration when the lesser drug, dose and route have been ordered for the patient. This patient request must be documented in the MAR. Or morphine injection 4 mgJump to med 4 mg, Intravenous, EVERY 3 HOURS PRN, Severe Pain, Starting on Thu08/15/22 at 0007, Until Thu08/15/22 at 1316, Patient preference for lesser PRN pain meds may be honored when the patient requests a less strong medication, a lower dose, or a less intrusive route of administration when the lesser drug, dose and route have been ordered for the patient. This patient request must be documented in the MAR., Allow a repeat dose for severe pain? No Group 4: ondansetron (disintegrating) (Zofran ODT) tablet 4 mgJump to med 4 mg, Oral, EVERY 6 HOURS PRN, Nausea/Vomiting, Starting on Thu08/15/22 at 0007, Until Thu08/15/22 at 1316, Dissolved orally on tongue Dissolved orally on tongue Or ondansetron (Zofran) injection 4 mgJump to med 4 mg, Intravenous, EVERY 6 HOURS PRN, Nausea/Vomiting, Starting on Thu08/15/22 at 0007, Until Thu08/15/22 at 1316, Administer IV if patient is NPO, actively vomiting, or unable to swallow. documented in this encounter
--- OUTSIDE RECORDS SUMMARY | 2024-12-07 17:20 | XMS_ITS | Clinical Summary ---
Author Organization [facility] Address [address] [place] [address]. 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 Indications : Acute Pain < 3 Day Supply 12 tablet 07/25/2022 Active SLYND 4 MG Tab 07/21/2022 Acti ve oxyCODONE-acetam inophen (PERCOCET) 5-325 MG tablet Take 1 tablet by mouth every 6 (six) hours as needed. 08/21/2022 Active lamoTRIgine (LAMICTAL) 100 MG tabletIndication s:Seizure ([facility]) Take 1 tablet (100 mg total) by mouth 2 (two) times daily. 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 PFIZER COVID-19 (ORIGINAL FORMULATION, PURPLE CAP) mRNA, LNP-S, PF, 30 MCG/0.3 ML DOSE 07/02/2021,05/01/2021 Social History Tobacco Use Types Packs/Day Years Used Date Smoking Tobacco: Never Smokeless Tobacco: Never Tobacco Cessation:Counseling Given: No PHQ-2 Answer Date Recorded PHQ-2 Score - If the patient scores above 3, please move on to questions 3-9 0 09/10/2022 Comments No Sex and Gender Information Value Date Recorded Sex Assigned at Not on file Legal Sex Female 5:55 PM [employer] Gender Identity Not on file Sexual Orientation Not on file Last Filed Vital Signs Vital Sign Reading Time Taken Comments Blood Pressure 113/55 08/14/2022 6:00 PM CDT Pulse 52 08/14/2022 6:00 PM CDT Temperature 36.4 ??C (97.5 ??F) 08/14/2022 9:00 AM CD T Respiratory Rate 18 08/14/2022 6:00 PM CDT Oxygen Saturation 100% 08/14/2022 6:30 PM CDT Inhaled Oxygen Concentration - - Weight 59 kg (130 lb) 07/24/2022 10:51 PM CDT Height 162.6 cm (5' 4 ) 07/24/2022 10:51 PM CDT Body Mass Index 22.31 07/24/2022 10:51 PM CDT Plan of Treatment Health Maintenance Due Date Last Done Comments Cervical Cancer Screening Pap Smear (Age 21 to 29) Every 3 Years 2002 Cervical Cancer Screening 2002 Annual Physical 2005 DTaP, Tdap and Td Vaccines (5 - Tdap) 2013 10/01/2006, 12/07/2003, 06/01/2003, Additional history exists HPV Vaccines (1 - 3-dose series) 2017 Hepatitis C 2020 Hepatitis B Vaccines (1 of 3 - 19+ 3-dose series) 2021 COVID-19 Vaccine ( - 2023- season) 2024 07/02/2021, 05/01/2021 Influenza Adult (#1) 2024 Meningococcal Vaccine Completed 06/13/2020 Pneumococcal Vaccine: Pediatrics (0 to 5 Years) and At-Risk Patients (6 to 64 Years) Aged Out No longer eligible based on patient's age to complete this topic RSV Immunizations Under 20 Months Aged Out No longer eligible based on patient's age to complete this topic Insurance Care Teams Mix Crusher Operator Relationship Specialty Start Date End Date Oziel Butr MD [address] [place] [address] PCP - General FAMILY PRACTICE 09/13/21
--- OUTSIDE RECORDS SUMMARY | 2024-12-07 17:20 | XMS_ITS | Encounter Summary ---
Author Organization [facility] Address [address] [place] [address]. [place] [address] [place] [address] Care Team Providers Care Drop Forger Name Role Phone Oziel Burt MD Primary Care Provider [phone] Reason for Visit * Reason Comments Seizures Encounter Details Date Type Department Care Team (Late st Contact Info) Description 09/10/2022 9:00 AM CDT Telemedicine [facility] Neuroscience [address] [phone] Moises Cadena MD [address] [place] [id number] Seizures Social History Tobacco Use Types Packs/Day Years Used Date Smoking Tobacco: Never Smokeless Tobacco: Never PHQ-2 Answer Date Recorded PHQ-2 Score - If the patient scores above 3, please move on to questions 3-9 0 09/10/2022 Comments No Sex and Gender Information Value Date Recorded Sex Assigned at Not on file 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 No / Unsure 08/14/2022 8:54 AM CDT documented as of this encounter Progress Notes * Moises Cadena MD - 09/10/2022 9:00 AM CDT Neurology outpatient F/U visit Patient name: Jennifer Travis Chief Complaint: New onset of seizure activity. History of present illness: The patient is a right-handed 20 years old female. The patient is here for duration of the new onset of seizure activity. The patient developed generalized convulsion with tongue biting on both sideson September 13, 2021. At that time, the patient was brought to the hospital. The patient had positive benzodiazepines and cannabinoids. The patient had normal other metabolic panels and EKG. The patient had EEG done as an outpatient a week later. The EEG showed left temporal sharp waves and bifrontal sharp waves. The patient has not had any brain imaging done so far. Outside the convulsion, the patient also reports frequent d??j?? vu's and abnormal feeling with rising sensation to her chest. Thepatient denies significant recurrent olfactory hallucination or goosebumps. The first onset of d??j?? vu was probably at the age of 12's. The patient denies history of febrile seizure, significant traumatic brain injury, developmental delay, or history of encephalitis. Of note, the patient has been smoking weeds few times a month. However, the patient developed frequent d??j?? vu's before she started smoking weeds. Interval history: 12/05/21: The patient just started lamotrigine after the last breakthrough seizure 2 weeks ago. Thepatient has not had further breakthrough seizure since she started lamotrigine. She also has not had any d??j?? vu. The patient denies significant side effects from lamotrigine. 03/11/22: At this time, the patient is doing really well. The patient denies significant seizure-like activity or seizure aura. The patient also denies significant side effect from lamotrigine. 09/10/22: The patient is doing really well in terms of seizure control and side effects. The patient confirms compliance with her lamotrigine. The patient has not had any breakthrough seizures for almost a year. Her last seizure aura was back in November this year. MRI brain: No epileptogenic lesion. EEG: Occasional left temporal sharp waves. Past medical history: None. Past surgical history: Past Surgical History: Procedure Laterality Date ??? TONSILLECTOMY Medication: Current Outpatient Medications Medication Sig Dispense Refill ??? lamoTRIgine (LAMICTAL) 100 MG tablet Take 1 tablet (100 mg total) by mouth 2 (two) times daily.180 tablet 1 ??? SLYND 4 MG Tab ??? HYDROcodone-acetaminophen (NORCO) 10-325 MG tablet Take 1 tablet by mouth every 6 (six) hours as needed for Pain. Indications: Acute Pain < 3 Day Supply 12 tablet 0 ??? oxyCODONE-acetaminophen (PERCOCET) 5-325 MG tablet Take 1 tablet by mouth every 6 (six) hours as needed. No current facility-administered medications for this visit. Allergies: Allergies as of 09/10/2022 - Reviewed 09/10/2022 Allergen Reaction Noted ??? Amoxicillin-pot clavulanate Hives and Other (see comment) 11/22/2021 Social history: reports that she has never smoked. She has never used smokeless tobacco. She reports current drug use. Drug: Marijuana. Family history: No family history on file. Review of system: No chest pain, shortness of breath, palpitation, cough, fever, abdominal pain, vomiting, diarrhea, dysuria, vertigo, joint pain, change in speech/vision or new onset of weakness/numbness. Remaining as per HPI. Neurological examination: MENTAL STATUS: AAOx3 LANG/SPEECH: Fluent, intact naming, repetition & comprehension CRANIAL NERVES: No facial symmetry. MOTOR: Symmetrical movement on both sides. REFLEXES: Unable to exam. SENSORY: Unable to exam. COORD: No tremor. Imaging, procedure, and laboratory data: I reviewed the EEG. Impression: ICD-10-CM ICD-9-CM 1. Seizure (CMS/[facility]) R56.9 780.39 lamoTRIgine (LAMICTAL) 100 MG tablet The patient is neurologically stable without signs of breakthrough seizure/aura at this time. After discussion with the patient, the patient agrees to continue lamotrigine. Plan: 1. Recommend to continue lamotrigine to 100 mg every 12 hours. 2. Recommend to wait for at least 2 years of seizure-free before getting . 3. Seizure diary. 4. Follow-up in 6 months. I introduced and identified myself, received verbal consent from the patient to proceed with this video visit and made the patient aware that the same confidentiality and combat information center officer practices apply. The patient joined the video visit from Home. I completed the virtual visit from Office. The following clinical staff helped with this visit MA: iMna and ANNA. Total Time Spent in Minutes: 25 Plan discussed with patient who voiced understanding and agreed with the plan. Portions of this note were created using voice recognition software, please excuse any typos. MOISES CADENA MD documented in this encounter Plan of Treatment Not on file documented as of this encounter Visit Diagnoses Diagnosis Seizure (CMS/HCC [facility]/HCC) Other convulsions documented in this encounter Care Teams Drop Forger Relationship Specialty Start Date End Date Oziel Burt MD [address] [place] [address] PCP - General FAMILY PRACTICE 09/13/21 documented as of this encounter
--- OUTSIDE RECORDS SUMMARY | 2024-12-07 17:20 | XMS_ITS | Encounter Summary ---
Author Organization [facility] Address [address] [place] [address] Care Team Providers Care Certified Optician Name Role Phone Oziel Burt MD Primary Care Provider Encounter Details Date Type Department Care Team (Late st Contact Info) Description 08/14/2022 Orders Only ER at [address] [address] Pina Long, RN Social History Tobacco Use Types Packs/Day Years [...] on file documented as of this encounter Plan of Treatment Not on file documented as of this encounter Visit Diagnoses Not on filedocumented in this encounter Care Teams Certified Optician Relationship Specialty Start Date End Date Oziel Burt MD [address] [place] [address] PCP - General Family Medicine 08/21/22 documented as of this encounter
--- OUTSIDE RECORDS SUMMARY | 2024-12-07 17:20 | XMS_ITS | Encounter Summary ---
Author Organization [facility] Address [address] [place] [address]. 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 No / Unsure 08/14/2022 8:54 AM CDT documented as of this encounter Plan of Treatment Not on file documented as of this encounter Visit Diagnoses Not on filedocumented in this encounter Care Teams Rotary Surface Grinder Relationship Specialty Start Date End Date Oziel Burt MD [address] [place] [phone] PCP - General FAMILY PRACTICE 09/13/21 documented as of this encounter
--- OUTSIDE RECORDS SUMMARY | 2024-12-07 17:21 | XMS_ITS | Encounter Summary ---
Author Organization [facility] Address [address] [place] [address]. [place], [place] [id number] [place] [id number] Care Team Providers Care Property Officer Name Role Phone Oziel Burt MD Primary Care Provider Reason for Visit * Reason Comments Seizure- New Onset Encounter Details Date Type Department Care Team (Late st Contact Info) Description 09/13/2021 2:49 PM CDT - 09/13/2021 5:00 PM CDT Emergency [facility] [address] [place] [address] [place] [address] Andrei Montiel MD [facility] [place] [address] Seizure- New Onset Discharge Disposition: Home or Self Care (Routine Discharge) Social History Tobacco Use Types Packs/Day Years Used Date Smoking Tobacco: Never Smokeless Tobacco: Never Comments No Sex and Gender Information Value Date Recorded Sex Assigned at Not on file 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 No / Unsure 09/13/2021 2:48 PM CDT documented as of this encounter Last Filed Vital Signs Vital Sign Reading Time Taken Comments Blood Pressure 115/57 09/13/2021 5:00 PM CDT Pulse 111 09/13/2021 2:52 PM CDT Temperature 36.9 ??C (98.5 ??F) 09/13/2021 2:52 PM CD T Respiratory Rate 16 09/13/2021 5:00 PM CDT Oxygen Saturation 99% 09/13/2021 5:00 PM CDT Inhaled Oxygen Concentration - - Weight 74.8 kg (165 lb) 09/13/2021 2:52 PM CDT Height 162.6 cm (5' 4 ) 09/13/2021 2:52 PM CDT Body Mass Index 28.32 09/13/2021 2:52 PM CDT Body Mass Index Percentile 91.57% 09/13/2021 2:5 2 PM CDT Growth Chart: [facility] (Girls, 2- 20 Years) documented in this encounter Discharge Instructions * Discharge Instructions* Andrei Montiel MD - 09/13/2021 4:55 PM CDT Stay well-hydrated. No driving or operating machinery until cleared by your physician. Close follow-up with your primary physician -call Thursday for appointment. Return to the ER for any worsening symptoms or concerns. documented in this encounter ED Notes * Andrei Montiel MD - 09/13/2021 4:51 PM CDT Chief Complaint Chief Complaint Patient presents with ??? Seizure- New Onset History of Present Illness 20-year-old female presents to the ED via EMS for possible seizure. Patient was laying on the sofa at home attempting to go to sleep with her mom found her falling off a sofa and unresponsive. She was having generalized seizure activity at the time. She was drooling as well. This lasted for roughly1 minute. EMS was called. There was a post ictal period where she was confused for roughly 30 minutes afterwards. She states that otherwise she has felt well. She does complain of intermittent right-sided neck pain which recurred this morning and she did take a dose of naproxen and Flexeril. She has not taken his medications for roughly 3 weeks for this issue. She denies any chest pain or shortness of breath no fevers or chills. No back or flank pain. No focal neurologic complaints. No headache. No other alleviating contributing factors. No other complaints at this time. Medical History ALLERGIES: Allergies Allergen Reactions ??? Augmentin [Amoxicillin-Pot Clavulanate] Hives MEDICATIONS: Prior to Admission medications Not on File PAST MEDICAL HISTORY: History reviewed. No pertinent past medical history. PAST SURGICAL HISTORY: Past Surgical History: Procedure Laterality Date ??? TONSILLECTOMY FAMILY HISTORY: No family history on file. SOCIAL HISTORY: Social History Tobacco Use ??? Smoking status: Never Smoker ??? Smokeless tobacco: Never Used Substance Use Topics ??? Alcohol use: Not on file ??? Drug use: Yes Types: Marijuana Review of Systems Review of Systems All other systems reviewed and are negative. Physical Exam Filed Vitals: 09/13/21 1452 09/13/21 1545 09/13/21 1615 BP: 121/65 103/59 115/57 Pulse: 111 Resp: 20 Temp: 98.5 ??F (36.9 ??C) TempSrc: Oral SpO2: 100% Weight: 74.8 kg (165 lb) Height: 5' 4 (1.626 m) Physical Exam Gen: alert and oriented x 3. GCS 15. Well nourished, well hydrated in no distress. Heent: perrl, eomi, funduscopic exam is limited. Op clear, neck supple no meningismus/meningitic signs, no lad. No neck tenderness or neck mass. Full range of motion of the neck. No raccoon eyes, enriquez sign, or hemotympanum. No midline cervical, thoracic, or lumbar sacral spine tenderness Cardiac: Nl S1/S2, RRR, no murmurs rubs gallops. Pulmonary: Clear to auscultation b/l. No wheeze, rhonchi, crackles Abdomen: s/nt/nd NABS. No rebound, guarding or rigidity Extremity: Pt. able to move all four extremities. No rash, Cyanosis, Edema SKIN: No urticaria or rashes noted. Skin turgor appears normal. No jaundice noted. Neuro: CN III-XII intact. Strength 5/5 bilaterally, DTR's 2+ bilaterally Diagnostic Studies / Procedures ELECTROCARDIOGRAMS: No results found for this visit on 09/13/21. LABORATORY STUDIES: Results for orders placed or performed during the hospital encounter of 09/13/21 CBC W/DIFF AUTOMATED Result Value Ref Range WBC 6.9 4.0 - 10.8 x10'3/uL RBC 4.40 4.10 - 5.40 x10'6/uL HGB 12.8 12.0 - 16.0 G/DL HCT 38.7 36.0 - 47.0 % MCV 88.0 78.0 - 100.0 FL MCH 29.1 27.0 - 31.0 PG MCHC 33.1 33.0 - 36.0 G/DL RDW 12.4 11.5 - 14.5 % PLT 407 (H) 150 - 350 x10'3/uL MPV 8.7 7.4 - 10.4 FL Differential Comment NORMAL REFERENCE RANGE NOT ESTABLISHED FOR THE PROPORTIONAL LEUKOCYTE DIFFERENTIAL. SEG NEUTROPHILS 74.3 % LYMPHOCYTES 18.2 % MONOCYTES 5.3 % EOSINOPHILS 1.3 % BASOPHILS 0.6 % IMMATURE GRANS 0.3 % NRBC 0.0 % ABS. NEUTROPHILS 5.15 1.60 - 8.30 x10'3/uL ABS. LYMPHOCYTES 1.26 0.80 - 4.70 x10'3/uL ABS. MONOCYTES 0.37 0.00 - 1.50 x10'3/uL ABS. EOSINOPHILS 0.09 0.00 - 0.40 x10'3/uL ABS. BASOPHILS 0.04 0.00 - 0.20 x10'3/uL ABS. IMMATURE GRANULOCYTES 0.02 0.00 - 0.03 x10'3/uL ABS. NUCLEATED RBC'S 0.00 0.00 x10'3/uL COMPREHENSIVE METABOLIC PANEL Result Value Ref Range SODIUM 140 136 - 145 MMOL/L POTASSIUM 4.0 3.5 - 5.1 MMOL/L CHLORIDE S/P/B 103 98 - 107 MMOL/L CO2 23.9 21.0 - 32.0 MMOL/L GLUCOSE 77 70 - 99 MG/DL BUN 8 6 - 24 MG/DL CREATININE S/P/B 0.78 0.55 - 1.02 MG/DL CALCIUM 8.9 (L) 9.1 - 10.3 MG/DL BILIRUBIN TOTAL S/P/B 0.7 0.2 - 1.0 MG/DL ALKALINE PHOSPHATASE S/P/B 78 52 - 144 U/L AST 18 15 - 37 U/L ALT 23 14 - 59 U/L TOTAL PROTEIN S/P/B 8.1 6.4 - 8.2 G/DL ALBUMIN S/P/B 4.7 3.4 - 5.0 G/DL ANION GAP 13.1 5.0 - 15.0 MMOL/L OSMOLALITY (CALC) 287 MOSM/KG eGFR Non-Afr. Amer. >90 >89 ML/MIN/1.73 M2 eGFR Afr. Amer. >90 >89 ML/MIN/1.73 M2 GFR NOTES GFR REFERENCES: HCG QUANT (SERUM)-CHORIONIC GONADOTROPIN Result Value Ref Range HCG, QUANTITATIVE <1 0.0 - 6.0 MIU/ML DRUG SCREEN RAPID Result Value Ref Range CANNABINOIDS SCREEN (U) POSITIVE (A) NEGATIVE PHENCYCLIDINE PCP (U) NEGATIVE NEGATIVE COCAINE METABOLITES (U) NEGATIVE NEGATIVE METHAMPHETAMINE (U) NEGATIVE NEGATIVE OPIATE SCREEN (U) NEGATIVE NEGATIVE AMPHETAMINE (U) NEGATIVE NEGATIVE BENZODIAZEPINES SCREEN (U) POSITIVE (A) NEGATIVE TRICYCLIC ANTIDEPRESSANT SCREEN (U) NEGATIVE NEGATIVE METHADONE (U) NEGATIVE NEGATIVE BARBITURATES SCREEN (U) NEGATIVE NEGATIVE OXYCODONE SCREEN (U) NEGATIVE NEGATIVE PROPOXYPHENE SCREEN (U) NEGATIVE NEGATIVE URINE TOX COMMENT THIS TEST METHODOLOGY IS DESIGNED AND OFFERED A RAPID TURNAROUND, QUALITATIVE SCREENING PROCEDURE TO AID IN THE IMMEDIATE MEDICAL ASSESSMENT OF PATIENTS SUSPECTED OF SUBSTANCE ABUSE. ETHANOL Result Value Ref Range Alcohol <0.003 <0.003 G/DL IMAGING STUDIES No orders to display ED Course / Medical Decision Making Patient had IV placed and was given Ativan 0.5 mg IV. Basic labs were reviewed and found to be unremarkable. EKG is within normal limits. Urine drug screen is positive for cannabinoids. Benzodiazepines were given in the ED. All other testing was reviewed. Patient continues at baseline at this time.She was feels well for discharge. She does have a normal neurologic exam. Recommend close outpatient follow-up with her primary physician and may require further imaging studies such as MRI and EEG. This was discussed with the patient and mother. Multiple diagnoses were considered in this complicated patient. She is instructed to return to the ED for any worsening symptoms or concerns. Clinical Impression Seizure-like activity (CMS/HCC) (Primary) Disposition: Discharge Andrei Montiel MD 09/13/21 0808 * Jose Castro RN - 09/13/2021 2:52 PM CDT Patient states the last thing she remembers is going to sleep because her neck hurts. Her neck has been bothering her for several months. States no history of seizures. States she did take a muscle relaxer but it was not a new medication for her. Per ems mom states witnessed seizure activity . Ems states that upon arrival patient was postictal and confused as to who was there and why. Patient hasno memory of what happened documented in this encounter Plan of Treatment Not on file documented as of this encounter Procedures Procedure Name Priority Date/Time Associated Diagnosis Comments DRUG SCREEN RAPID STAT 09/13/2021 4:1 9 PM CDT ECG 12-LEAD STAT 09/13/2021 4:03 PM CDT COMPREHENSIVE METABOLIC PANEL STAT 09/13/2021 2:55 PM CDT HCG QUANT (SERUM)-CHORIONIC GONADOTROPIN STAT 09/13/2021 2:55 PM CDT CBC W/DIFF AUTOMATED STAT 09/13/2021 2:55 PM CDT ETHANOL STAT 09/13/2021 2:55 PM CDT documented in this encounter Results * (ABNORMAL) DRUG SCREEN RAPID (09/13/2021 4:19 PM CDT) [facility] CANNABINOIDS SCREEN (U) POSITIVE(A) NEGATIVE 09/13/2021 4:35 PM CDT [facility] PHENCYCLIDINE PCP (U) NEGATIVE NEGATIVE 09/13/2021 4:35 PM CDT [facility] COCAINE METABOLITES (U) NEGATIVE NEGATIVE 09/13/2021 4:35 PM CDT [facility] METHAMPHETAMINE (U) NEGATIVE NEGATIVE 09/13/2021 4:35 PM CDT [facility] OPIATE SCREEN (U) NEGATIVE NEGATIVE 021 4:35 PM CDT [facility] AMPHETAMINE (U) NEGATIVE NEGATIVE 4:35 PM CDT [facility] BENZODIAZEPINES SCREEN (U) POSITIVE(A) NEGATIVE 09/13/2021 4:35 PM CDT [facility] TRICYCLIC ANTIDEPRESSANT SCREEN (U) NEGATIVE NEGATIVE 09/13/2021 4:35 PM CDT [facility] METHADONE (U) NEGATIVE NEGATIVE 09/13/2021 4:35 PM CDT [facility] BARBITURATES SCREEN (U) NEGATIVE NEGATIVE 09/13/2021 4:35 PM CDT [facility] OXYCODONE SCREEN (U) NEGATIVE NEGATIVE 09/13/2021 4:35 PM CDT [facility] PROPOXYPHENE SCREEN (U) NEGATIVE NEGATIVE 09/13/2021 4:35 PM CDT [facility] URINE TOX COMMENT THIS TEST METHODOLOGY IS DESIGNED AND OFFERED A RAPID TURNAROUND, QUALITATIVE SCREENING PROCEDURE TO AID IN THE IMMEDIATE MEDICAL ASSESSMENT OF PATIENTS SUSPECTED OF SUBSTANCE ABUSE. 09/13/2021 4:18 PM CDT [facility] Comment: CLINICAL CONSIDERATION AND PROFESSIONAL JUDGMENT MUST BE APPLIED TO ANY DRUG OF ABUSE TEST RESULT, BOTH POSITIVE AND NEGATIVE. CONFIRMATORY QUANTITATIVE RESULTS ARE AVAILABLE THROUGH OUR REFERENCE LABORATORY. URINE SPECIMEN / Unknown 09/13/2021 4:19 PM CDT us Andrei Montiel MD URINE ORDERABLES Final Resu lt [facility] [address] [place] [address], * ECG 12 lead (09/13/2021 4:03 PM CDT) 09/13/2021 4:03 PM CDT Narrative [facility] - 09/13/2021 9:04 PM CDT ? [facility] ?[address] [place] ??[address] ? Test Date: ?2021-09-13 Pat Name: ? JENNIFER PASTROVICH ? Department: ? Room: ? EXAM 808 Gender: ? Female ? Gear Lapper: ?? : ?2000 ? Requested By: ANDREI MONTIEL Order Number: [id number] ? Reading MD: ?? Alen Degroot ? Measurements Intervals ?[place] ? Rate: ? 74 ? P: ?43 VT: ? 142 ?QRS: ?67 QRSD: ? 89 ? T: ?29 QT: ? 340 ? QTc: ?378 ? Interpretive Statements SINUS RHYTHM WITH SINUS ARRHYTHMIA RSR' In V1 Normal Variation Procedure Note Alen Degroot MD - 09/13/2021 [facility] [address] [facility] [place] [address] Test Date: 2021-09-13 Pat Name: JENNIFER PATTON Department: Room: EXAM 808 Gender: Female Gear Lapper: : 2000 Requested By: ANDREI MONTIEL Order Number: [id number] Reading MD: Alen Degroot Measurements Intervals [place] Rate: 74 P: 43 VT: 142 QRS: 67 QRSD: 89 T: 29 QT: 340 QTc: 378 Interpretive Statements SINUS RHYTHM WITH SINUS ARRHYTHMIA RSR' In V1 Normal Variation Andrei Montiel MD ECG ORDERABLES Final Resul t Performing Organization Address [facility] Co de Phone Number [facility] * ETHANOL (09/13/2021 2:55 PM CDT) ALCOHOL S/P/B <0.003 <0.003 G/DL 09/13/2021 3:42 PM CDT [facility] 09/13/2021 2:55 PM CDT Andrei Montiel MD LABORATORY Final Resul t Performing Organization Address [facility] Co de Phone Number [facility] [address] [place] [address], * HCG QUANT (SERUM)-CHORIONIC GONADOTROPIN (09/13/2021 2:55 PM CDT) HCG QUANTITATIVE <1 0.0 - 6.0 MIU/ML 09/13/2021 3:42 PM CDT [facility] Comment:NON- FEMALE 0-6 09/13/2021 2:55 PM CDT Andrei Montiel MD LABORATORY Final Resul t [facility] [address] [place] [address], * (ABNORMAL) COMPREHENSIVE METABOLIC PANEL (09/13/2021 2:55 PM CDT) Pathologist [facility] SODIUM S/P/B 140 136 - 145 MMOL/L 09/13/2021 3:42 PM CDT [facility] POTASSIUM S/P/B 4.0 3.5 - 5.1 MMOL/L 09/13/2021 3:42 PM CDT [facility] CHLORIDE S/P/B 103 98 - 107 MMOL/L 09/13/2021 3:42 PM CDT [facility] CO2 23.9 21.0 - 32.0 MMOL/L 09/13/2021 3:42 PM CDT [facility] GLUCOSE 77 70 - 99 MG/DL 09/13/2021 3:42 PM CDT [facility] Comment: FASTING GLUCOSE 100 TO 125 MG/DL IS CONSISTENT WITH IMPAIRED FASTING GLUCOSE. FASTING GLUCOSE >125 MG/DL IS CONSISTENT WITH DIABETES. RANDOM GLUCOSE >200 MG/DL WITH HYPERGLYCEMIC SYMPTOMS IS CONSISTENT WITH DIABETES. PER ADA GUIDELINES BUN 8 6 - 24 MG/DL 09/13/2021 3:42 PM CDT [facility] CREATININE S/P/B 0.78 0.55 - 1.02 MG/DL 09/13/2021 3:42 PM CDT [facility] CALCIUM S/P/B 8.9(L) 9.1 - 10.3 MG/DL 09/13/2021 3:42 PM CDT [facility] BILIRUBIN TOTAL S/P/B 0.7 0.2 - 1.0 MG/DL 09/13/2021 3:42 PM T [facility] Comment: THIS ASSAY IS NOT RECOMMENDED FOR PATIENTS UNDERGOING TREATMENT WITH ELTROMBOPAG DUE TO THE POTENTIAL FOR FALSELY ELEVATED RESULTS. ALKALINE PHOSPHATASE S/P/B 78 52 - 144 U/L 09/13/2021 3:42 PM CDT [facility] AST 18 15 - 37 U/L 09/13/2021 3:42 PM T [facility] ALT 23 14 - 59 U/L 09/13/2021 3:42 PM CDT [facility] TOTAL PROTEIN S/P/B 8.1 6.4 - 8.2 G/DL 09/13/2021 3:42 PM T [facility] ALBUMIN S/P/B 4.7 3.4 - 5.0 G/DL 09/13/2021 3:42 PM T [facility] ANION GAP 13.1 5.0 - 15.0 MMOL/L 09/13/2021 3:42 PM T [facility] OSMOLALITY (CALC) 287 MOSM/KG 021 3:42 PM T [facility] Comment:REFERENCE RANGE NOT ESTABLISHED EGFR NON-AFR. AMER. >90 >89 ML/MIN/1. 73 M2 09/13/2021 3:42 PM T [facility] EGFR AFR. AMER. >90 >89 ML/MIN/1. 73 M2 09/13/2021 3:42 PM T [facility] GFR NOTES GFR REFERENCE S: 09/13/2021 3:42 PM T [facility] Comment: THE ESTIMATED GFR IS CALCULATED USING THE 2009 CKD-EPI EQUATION. THE FOLLOWING CATEGORIES FOR GRADING RENAL FUNCTION ARE RECOMMENDED BY THE INTERNATIONAL SOCIETY OF NEPHROLOGY (KDIGO 2012 CLINICAL PRACTICE GUIDELINE). G1,NORMAL OR HIGH: >89 ml/min/1.73 m2 G2,MILDLY DECREASED: 60-89 ml/min/1.73 m2 G3A,MILDLY TO MODERATELY DECREASED: 45-59 ml/min/1.73 m2 G3B,MODERATELY TO SEVERELY DECREASED: 30-44 ml/min/1.73 m2 G4,SEVERELY DECREASED: 15-29 ml/min/1.73 m2 G5,KIDNEY FAILURE: <15 ml/min/1.73 m2 09/13/2021 2:55 PM CDT us Andrei Montiel MD LABORATORY Final Resul t [facility] [address] [place] [address], * (ABNORMAL) CBC W/DIFF AUTOMATED (09/13/2021 2:55 PM CDT) WBC 6.9 4.0 - 10.8 x10'3/uL 09/13/2021 3:13 PM CDT [facility] RBC 4.40 4.10 - 5.40 x10'6/uL 09/13/2021 3:13 PM CDT [facility] HGB 12.8 12.0 - 16.0 G/DL 09/13/2021 3:13 PM CDT [facility] HCT 38.7 36.0 - 47.0 % 09/13/2021 3:13 PM CDT [facility] MCV 88.0 78.0 - 100.0 FL 09/13/2021 3:13 PM CDT [facility] MCH 29.1 27.0 - 31.0 PG 09/13/2021 3:13 PM CDT [facility] MCHC 33.1 33.0 - 36.0 G/DL 09/13/2021 3:13 PM CDT [facility] RDW 12.4 11.5 - 14.5 % 09/13/2021 3:13 PM CDT [facility] PLT 407(H) 150 - 350 x10'3/uL 09/13/2021 3:13 PM CDT [facility] MPV 8.7 7.4 - 10.4 FL 09/13/2021 3:13 PM CDT [facility] DIFFERENTIAL COMMENT NORMAL REFERENCE RANGE NOT ESTABLISHED FOR THE PROPORTIONAL LEUKOCYTE DIFFERENTIAL. 09/13/2021 3:13 PM CDT [facility] SEG NEUTROPHILS 74.3 % 3:13 PM CDT [facility] LYMPHOCYTES 18.2 % 09/13/2021 3:13 PM CDT [facility] MONOCYTES 5.3 % 09/13/2021 3:13 PM CDT [facility] EOSINOPHILS 1.3 % 09/13/2021 3:13 PM CDT [facility] BASOPHILS 0.6 % 09/13/2021 3:13 PM CDT [facility] IMMATURE GRANS % 0.3 % 09/13/20 3:13 PM CDT [facility] NRBC 0.0 % 09/13/2021 3:13 PM CDT [facility] ABS. NEUTROPHILS 5.15 1.60 - 8.30 x10'3/uL 09/13/2021 3:13 PM CDT [facility] ABS. LYMPHOCYTES 1.26 0.80 - 4.70 x10'3/uL 09/13/2021 3:13 PM CDT [facility] ABS. MONOCYTES 0.37 0.00 - 1.50 x10'3/uL 09/13/2021 3:13 PM CDT [facility] ABS. EOSINOPHILS 0.09 0.00 - 0.40 x10'3/uL 09/13/2021 3:13 PM CDT [facility] ABS. BASOPHILS 0.04 0.00 - 0.20 x10'3/uL 09/13/2021 3:13 PM CDT [facility] ABS. IMMATURE GRANULOCYTES 0.02 0.00 - 0.03 x10'3/uL 09/13/2021 3:13 PM CDT [facility] ABS. NUCLEATED RBC'S 0.00 0.00 x10'3/uL 09/13/2021 3:13 PM CDT [facility] 09/13/2021 2:55 PM CDT Andrei Montiel MD LABORATORY Final Resul t [facility] [address] [place] [address], documented in this encounter Visit Diagnoses Diagnosis Seizure-like activity (CMS/HCC HHS/HCC)- Primary Other convulsions documented in this encounter Administered Medications Inactive Administered Medications - up to 3 most recent administrations Medication Order MAR Action Action Date Dose Rate Site LORazepam (ATIVAN) injection 0.5 mg 0.5 mg, Intravenous, Once, 1 dose, On Thu09/13/21 at 1500, For IV use, further dilute with an equal volume of saline. Do not exceed a rate of 2 mg/min. For IV use, further dilute with an equal volume of saline. Do not exceed a rate of 2 mg/min. Given 09/13/2021 3:12 PM CDT 0.5 mg documented in this encounter Active and Recently Administered Medications Times are shown in CDT. Scheduled Medication Order 09/11/2021 09/12/2021 09/13/2021 LORazepam (ATIVAN) injection 0.5 mg (COMPLETED) 0.5 mg, Intravenous, Once, 1 dose, On Thu09/13/21 at 1500, For IV use, further dilute with an equal volume of saline. Do not exceed a rate of 2 mg/min. For IV use, further dilute with an equal volume of saline. Do not exceed a rate of 2 mg/min. 1512 (Given - [facility] er: Eric White RN) documented in this encounter Care Teams Property Officer Relationship Specialty Start Date End Date Oziel Burt MD [address] [facility] [place] [address] PCP - General FAMILY PRACTICE 09/13/21 documented as of this encounter
--- OUTSIDE RECORDS SUMMARY | 2024-12-07 17:21 | XMS_ITS | Encounter Summary ---
Author Organization [facility] Address [address] [place] [address]. 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 No / Unsure 07/24/2022 10:42 PM CDT documented as of this encounter Plan of Treatment Not on file documented as of this encounter Visit Diagnoses Not on filedocumented in this encounter Care Teams Bulk Mail Technician Relationship Specialty Start Date End Date Oziel Burt MD [address] [place] [id number] PCP - General FAMILY PRACTICE 09/13/21 documented as of this encounter
--- OUTSIDE RECORDS SUMMARY | 2024-12-07 17:21 | XMS_ITS | Encounter Summary ---
Author Organization [facility] Address [address] [place] [address]. [place], [place] [id number] [place] [id number] Care Team Providers Care Landmen Name Role Phone Oziel Burt MD Primary Care Provider [phone] Reason for Referral * Medication Prior Authorization - Closed Specialty Diagnoses / Procedures Referred By Cosmo t Referred To Contact Diagnoses Upper back pain Marion Del Cid MD [address] [place] [address] Phone: tel: fax: Referral ID Status Reason Start Date Expiration Date Visits Re quested Visits Authorized [id number] Closed 1 1 Reason for Visit * Reason Comments Back Pain Encounter Details Date Type Department Care Team ([facility] Contact Info) Description 07/24/2022 10:43 PM CDT - 07/25/2022 12:56 AM CDT Emergency [facility] [address] [place] [address] Marion Del Cid MD [address] [place] [address] Back Pain Discharge Disposition: Home or Self Care (Routine Discharge) Social History Tobacco Use Types Packs/Day Years Used Date Smoking Tobacco: Never Smokeless Tobacco: Never Comments No Sex and Gender Information Value Date Recorded Sex Assigned at Not on file Legal Sex Female 5:55 PM CORPORATE RISK ANALYST Gender Identity Not on file Sexual Orientation Not on file COVID-19 Exposure Response Date Recorded In the last 10 days, have yo u been in contact with someone who was confirmed or suspected to have Coronavirus/COVID-19? No / Unsure 07/24/2022 10:42 PM CDT documented as of this encounter Last Filed Vital Signs Vital Sign Reading Time Taken Comments Blood Pressure 111/66 07/24/2022 11:00 PM CDT Pulse 64 07/24/2022 11:30 PM CDT Temperature 36.3 ??C (97.4 ??F) 07/24/2022 10:51 PM C DT Respiratory Rate 10 07/24/2022 11:30 PM CDT Oxygen Saturation 100% 07/24/2022 11:30 PM CDT Inhaled Oxygen Concentration - - Weight 59 kg (130 lb) 07/24/2022 10:51 PM CDT Height 162.6 cm (5' 4 ) 07/24/2022 10:51 PM CDT Body Mass Index 22.31 07/24/2022 10:51 PM CDT documented in this encounter Discharge Instructions * Attachments The following attachments cannot be sent through Care Everywhere. * Upper Back Pain Discharge Instructions ([place]ese) * Hypokalemia Discharge Instructions ([place]) documented in this encounter Medications at Time of Discharge HYDROcodone-aceta minophen (NORCO) 10-325 MG tabletIndications :Acute Pain < 3 Day Supply Take 1 tablet by mouth every 6 (six) hours as needed for Pain. Indications: Acute Pain < 3 Day Supply 12 tablet 07/25/2022 SLYND 4 MG Tab 07/21/2022 cyclobenzaprine (FLEXERIL) 10 MG tabletIndications :Upper back pain Take 1 tablet (10 mg total) by mouth 3 (three) times daily as needed for Muscle Spasms. 15 tablet 07/25/2022 08/04/2022 lamoTRIgine 100 MG tabletIndications :Seizure (CMS/HCC HHS/HCC) Take 1 tablet (100 mg total) by mouth 2 (two) times daily. 180 tablet 1 03/11/2022 09/10/2022 documented as of this encounter ED Notes * Fanta Aguilar RN - 07/24/2022 10:51 PM CDT Pt presents to ER with c/o upper back pain that began lastnight, pt states due to the back pain shebelieves it is causing difficulty breathing. Pt skin color normal for ethnicity, stating 100% on RA, no resp distress noted. Pt dose not recall hurting her back in any way, she states the pain began after walking on a treadmill that she does regularly. No urinary c/o, no known fever, no vomiting but does have nausea. Pt has taken ibuprofen last dose 2 hrs ago, and cyclobenzaprine last dose 1 hr ago with no relief, rating pain 8/10. * Marion Del Cid MD - 07/24/2022 10:49 PM CDT eMERGENCY dEPARTMENT eNCOUnter CHIEF COMPLAINT Chief Complaint Patient presents with ??? Back Pain HPI HPI Jennifer Patton is a 21-year-old female who presents to the ER with a complaint of back and chest pain. Patient states she developed back pain last evening both in the upper back as well as in thefront of the chest. She was able to eventually get to sleep felt better during the day today only for it to come back again tonight. States that makes her feel like she was having difficulty breathing. Or worse not worse with deep inspirations. She has tried [id number] pain relievers as well as Flexeril without any relief. No recent illness no recent activity that could have triggered this that she can recall. No history of similar. ALLERGIES Allergies Allergen Reactions ??? Augmentin [Amoxicillin-Pot Clavulanate] Hives CURRENT MEDICATIONS Current Outpatient Medications Medication Sig ??? cyclobenzaprine (FLEXERIL) 10 MG tablet Take 1 tablet (10 mg total) by mouth 3 (three) times daily as needed for Muscle Spasms. ??? HYDROcodone-acetaminophen (NORCO) 10-325 MG tablet Take 1 tablet by mouth every 6 (six) hours as needed for Pain. Indications: Acute Pain < 3 Day Supply ??? lamoTRIgine 100 MG tablet Take 1 tablet (100 mg total) by mouth 2 (two) times daily. PAST MEDICAL HISTORY Past Medical History: Diagnosis Date ??? Seizures (CMS/HCC) SURGICAL HISTORY Past Surgical History: Procedure Laterality Date ??? TONSILLECTOMY SOCIAL HISTORY Social History Socioeconomic History ??? Marital status: Single Tobacco Use ??? Smoking status: Never Smoker ??? Smokeless tobacco: Never Used Substance and Sexual Activity ??? Drug use: Yes Types: Marijuana FAMILY HISTORY No family history on file. REVIEW OF SYSTEMS Review of Systems All other ROS negative unless noted above in HPI. PHYSICAL EXAM Physical Exam Filed Vitals: 07/24/22 2251 BP: 109/51 Pulse: 81 Resp: 16 Temp: 97.4 ??F (36.3 ??C) TempSrc: Temporal SpO2: 100% Weight: 59 kg (130 lb) Height: 5' 4 (1.626 m) The patient is a well developed and well nourished adult female in mild painful distress, alert andoriented. HEENT: PERRL, EOMI Throat without lesions, mucous membranes moist NECK: Supple without adenopathy or rigidity CHEST: Lungs clear and equal to auscultation Heart regular rate and rhythm without murmur ABD: Soft, NABS, non tender BACK: No localized tenderness to the upper back or to the anterior chest NEURO: CN II-XII intact, no focal weakness SKIN: No rash or significant lesions EKG RADIOLOGY XR CHEST PORTABLE Final Result by User, [id number] (07/24 2324) EXAMINATION: XR CHEST PORTABLE EXAM DATE: 07/24/2022 11:18 PM CLINICAL HISTORY: Shortness of breath and chest pain. COMPARISON: None. TECHNIQUE: Upright AP portable radiograph of the chest. FINDINGS: The cardiomediastinal silhouette is normal in size. Pulmonary vasculature is normally distributed. The lungs are clear of active opacities. There is no sizable pleural effusion or pneumothorax. IMPRESSION: No radiographic evidence is seen to suggest acute cardiopulmonary abnormality. Referred By: Interpreted By: Tera Cowart DO, 07/24/2022 11:23 PM LABS Results for orders placed or performed during the hospital encounter of 07/24/22 CBC W/DIFF AUTOMATED Result Value Ref Range WBC 9.6 4.0 - 10.8 x10'3/uL RBC 3.96 (L) 4.10 - 5.40 x10'6/uL HGB 11.8 (L) 12.0 - 16.0 G/DL HCT 34.6 (L) 36.0 - 47.0 % MCV 87.4 78.0 - 100.0 FL MCH 29.8 27.0 - 31.0 PG MCHC 34.1 33.0 - 36.0 G/DL RDW 12.1 11.5 - 14.5 % PLT 363 (H) 150 - 350 x10'3/uL MPV 8.9 7.4 - 10.4 FL Differential Comment NORMAL REFERENCE RANGE NOT ESTABLISHED FOR THE PROPORTIONAL LEUKOCYTE DIFFERENTIAL. SEG NEUTROPHILS 75.7 % LYMPHOCYTES 17.2 % MONOCYTES 6.0 % EOSINOPHILS 0.5 % BASOPHILS 0.4 % IMMATURE GRANS 0.2 % NRBC 0.0 % ABS. NEUTROPHILS 7.25 1.60 - 8.30 x10'3/uL ABS. LYMPHOCYTES 1.65 0.80 - 4.70 x10'3/uL ABS. MONOCYTES 0.58 0.00 - 1.50 x10'3/uL ABS. EOSINOPHILS 0.05 0.00 - 0.40 x10'3/uL ABS. BASOPHILS 0.04 0.00 - 0.20 x10'3/uL ABS. IMMATURE GRANULOCYTES 0.02 0.00 - 0.03 x10'3/uL ABS. NUCLEATED RBC'S 0.00 0.00 x10'3/uL COMPREHENSIVE METABOLIC PANEL Result Value Ref Range SODIUM 140 136 - 145 MMOL/L POTASSIUM 2.9 (LL) 3.5 - 5.1 MMOL/L CHLORIDE S/P/B 103 98 - 107 MMOL/L CO2 28.1 21.0 - 32.0 MMOL/L GLUCOSE 97 70 - 99 MG/DL BUN 8 6 - 24 MG/DL CREATININE S/P/B 0.89 0.55 - 1.02 MG/DL CALCIUM 9.1 8.4 - 10.5 MG/DL BILIRUBIN TOTAL S/P/B 1.5 (H) 0.2 - 1.0 MG/DL ALKALINE PHOSPHATASE S/P/B 56 52 - 144 U/L AST 30 15 - 37 U/L ALT 20 14 - 59 U/L TOTAL PROTEIN S/P/B 6.9 6.4 - 8.2 G/DL ALBUMIN S/P/B 4.2 3.4 - 5.0 G/DL ANION GAP 8.9 5.0 - 15.0 MMOL/L OSMOLALITY (CALC) 288 MOSM/KG GFR ESTIMATE >90 >89 ML/MIN/1.73 M2 GFR NOTES GFR REFERENCES: TROPONIN, QUANT Result Value Ref Range TROPONIN I HIGH SENSITIVITY <4 0 - 51 ng/L D-DIMER, QUANTITATIVE Result Value Ref Range D-DIMER <215 0 - 500 ng[FEU]/mL ED MEDICATIONS Medications HYDROcodone-acetaminophen (NORCO) 5-325 MG tablet 2 tablet (2 tablets Oral Given 07/24/226) ondansetron (ZOFRAN-ODT) disintegrating tablet 4 mg (4 mg Oral Given 07/24/222358) HYDROmorphone (DILAUDID) injection 1 mg (1 mg Intramuscular Given 07/24/222358) potassium chloride CR (KLOR-CON M) tablet 40 mEq (40 mEq Oral Given 07/24/222357) PROCEDURES Procedures CONSULTS: ED COURSE & MEDICAL DECISION MAKING [facility] ED Course as of 07/25/2246Jul 25, 2022 0000 On reexamination patient states that her pain is not significantly improved. Work-up is unremarkable except for low potassium which we would not expect to be causing discomfort. At this point time I am somewhat at a loss as to why she still having pain we will give her intramuscular pain medication. [WM] 6 Reexamination after Dilaudid patient is feeling somewhat better. This appears to musculoskeletal we will place her on pain medication muscle relaxer and recommend close short-term outpatient follow-up. [WM] ED Course User Index [WM] Marion Del Cid MD FINAL IMPRESSION SNOMED CT(R) 1. Upper back pain BACKACHE 2. Hypokalemia HYPOKALEMIA Oziel Burt MD [address] [place] [id number] on Thursday if not improving New Prescriptions CYCLOBENZAPRINE (FLEXERIL) 10 MG TABLET Take 1 tablet (10 mg total) by mouth 3 (three) times daily as needed for Muscle Spasms. HYDROCODONE-ACETAMINOPHEN (NORCO) 10-325 MG TABLET Take 1 tablet by mouth every 6 (six) hours as needed for Pain. Indications: Acute Pain < 3 Day Supply Marion Del Cid MD 07/25/2246 documented in this encounter Plan of Treatment Not on file documented as of this encounter Procedures Procedure Name Priority Date/Time Associated Diagnosis Comments XR CHEST PORTABLE STAT 07/24/2022 11: 21 PM CDT COMPREHENSIVE METABOLIC PANEL STAT 07/24/2022 11:17 PM CDT D-DIMER, QUANTITATIVE STAT 07/24/2022 11:17 PM CDT CBC W/DIFF AUTOMATED STAT 07/24/2022 11:17 PM CDT TROPONIN, QUANT STAT 07/24/2022 11:17 PM CDT ECG 12-LEAD Routine 07/24/2022 11:07 PM CDT documented in this encounter Results * XR CHEST PORTABLE (07/24/2022 11:21 PM CDT) Anatomical Region Laterality Modality Chest Radiographic Shante ging 07/24/2022 11:2 3 PM CDT Impressions 07/24/2022 11:23 PM CDT IMPRESSION: No radiographic evidence is seen to suggest acute cardiopulmonary abnormality. Referred By: ?? Interpreted By: Tera Cowart DO, 07/24/2022 11:23 PM Narrative 07/24/2022 11:23 PM CDT EXAMINATION: XR CHEST PORTABLE EXAM DATE: 07/24/2022 11:18 PM CLINICAL HISTORY: Shortness of breath and chest pain. COMPARISON: None. TECHNIQUE: Upright AP portable radiograph of the chest. FINDINGS: The cardiomediastinal silhouette is normal in size. ??Pulmonary vasculature is normally distributed. ??The lungs are clear of active opacities. ??There is no sizable pleural effusion or pneumothorax. Procedure Note Tera Cowart DO - 07/24/2022 EXAMINATION: XR CHEST PORTABLE EXAM DATE: 07/24/2022 11:18 PM CLINICAL HISTORY: Shortness of breath and chest pain. COMPARISON: None. TECHNIQUE: Upright AP portable radiograph of the chest. FINDINGS: The cardiomediastinal silhouette is normal in size. Pulmonary vasculatureis normally distributed. The lungs are clear of active opacities. Thereis no sizable pleural effusion or pneumothorax. IMPRESSION: No radiographic evidence is seen to suggest acute cardiopulmonaryabnormality. Referred By: Interpreted By: Tera Cowart DO, 07/24/2022 11:23 PM us Marion Del Cid MD GENERAL IMAGING Final Result * D-DIMER, QUANTITATIVE (07/24/2022 11:17 PM CDT) D-DIMER <215 0 - 500 ng{FEU}/mL 07/24/2022 11:31 PM CDT [facility] Comment: D-Dimer values less than or equal to 500 ng/mL FEU have a negative predictive value of >95% for exclusion of deep vein thrombosis and pulmonary embolism. In patients over 50 (who tend to have higher normal baseline D-Dimer values), recent studies suggest age-adjusted D-Dimer cutoff values (calculated as: age [years] x 10 ng/mL) result in equivalent outcomes and no additional false negative findings. 07/24/2022 11:1 7 PM CDT us Marion Del Cid MD LABORATORY Final Result Performing Organization Address [facility] Co de Phone Number [facility] [address] [place] [address], * TROPONIN, QUANT (07/24/2022 11:17 PM CDT) TROPONIN I HIGH SENSITIVITY <4 0 - 51 ng/L 07/24/2022 11:43 PM CDT [facility] 07/24/2022 11:1 7 PM CDT us Marion Del Cid MD LABORATORY Final Result Performing Organization Address [facility]/ZIP Co de Phone Number [facility] [address] [place] [address], [place] [phone] * (ABNORMAL) COMPREHENSIVE METABOLIC PANEL (07/24/2022 11:17 PM CDT) SODIUM S/P/B 140 136 - 145 MMOL/L 07/24/2022 11:[address] [facility] POTASSIUM S/P/B 2.9(LL) 3.5 - 5.1 MMOL/L 07/24/2022 11:43 PM [address] [facility] Comment: Critical Result(s) Called to ROLL GRINDER OPERATORJACQUELINE MARTINEZ and read back by: ?at: 23:41:57 ?? 07/24/2022 by ERLC. CHLORIDE S/P/B 103 98 - 107 MMOL/L 07/24/2022 11:[address] [facility] CO2 28.1 21.0 - 32.0 MMOL/L 07/24/2022 11:43 PM CDT [facility] GLUCOSE 97 70 - 99 MG/DL 07/24/2022 11:43 PM CDT [facility] Comment: FASTING GLUCOSE 100 TO 125 MG/DL IS CONSISTENT WITH IMPAIRED FASTING GLUCOSE. FASTING GLUCOSE >125 MG/DL IS CONSISTENT WITH DIABETES. RANDOM GLUCOSE >200 MG/DL WITH HYPERGLYCEMIC SYMPTOMS IS CONSISTENT WITH DIABETES. PER ADA GUIDELINES BUN 8 6 - 24 MG/DL 07/24/2022 11:43 PM CD[address] [facility] CREATININE S/P/B 0.89 0.55 - 1.02 MG/DL 07/24/2022 11:43 PM CD[address] [facility] CALCIUM S/P/B 9.1 8.4 - 10.5 MG/DL 07/24/2022 11:43 PM [address] [facility] BILIRUBIN TOTAL S/P/B 1.5(H) 0.2 - 1.0 MG/DL 07/24/2022 11:43 [address] [facility] Comment: THIS ASSAY IS NOT RECOMMENDED FOR PATIENTS UNDERGOING TREATMENT WITH ELTROMBOPAG DUE TO THE POTENTIAL FOR FALSELY ELEVATED RESULTS. ALKALINE PHOSPHATASE S/P/B 56 52 - 144 U/L 07/24/2022 11:43 [address] [facility] AST 30 15 - 37 U/L 07/24/2022 11:43 PM CDT [facility] ALT 20 14 - 59 U/L 07/24/2022 11:43 PM CD[address] [facility] TOTAL PROTEIN S/P/B 6.9 6.4 - 8.2 G/DL 07/24/2022 11:43 [address] [facility] ALBUMIN S/P/B 4.2 3.4 - 5.0 G/DL 07/24/2022 11:43 [address] [facility] ANION GAP 8.9 5.0 - 15.0 MMOL/L 07/24/2022 11:43 [address] [facility] OSMOLALITY (CALC) 288 MOSM/KG 022 11:43 PM [address] [facility] Comment:REFERENCE RANGE NOT ESTABLISHED GFR ESTIMATE >90 >89 ML/MIN/1. 73 M2 07/24/2022 11:[address] [facility] GFR NOTES GFR REFERENCE S: 07/24/2022 11:43 PM [address] [facility] Comment: THE ESTIMATED GFR IS CALCULATED USING THE 2020 CKD-EPI EQUATION. THE FOLLOWING CATEGORIES FOR GRADING RENAL FUNCTION ARE RECOMMENDED BY THE INTERNATIONAL SOCIETY OF NEPHROLOGY (KDIGO 2012 CLINICAL PRACTICE GUIDELINE). G1,NORMAL OR HIGH: >89 ml/min/1.73 m2 G2,MILDLY DECREASED: 60-89 ml/min/1.73 m2 G3A,MILDLY TO MODERATELY DECREASED: 45-59 ml/min/1.73 m2 G3B,MODERATELY TO SEVERELY DECREASED: 30-44 ml/min/1.73 m2 G4,SEVERELY DECREASED: 15-29 ml/min/1.73 m2 G5,KIDNEY FAILURE: <15 ml/min/1.73 m2 07/24/2022 11:1 7 PM CDT us Marion Del Cid MD LABORATORY Final Result [facility] [address] [place] [address], * (ABNORMAL) CBC W/DIFF AUTOMATED (07/24/2022 11:17 PM CDT) WBC 9.6 4.0 - 10.8 x10'3/uL 07/24/2022 11:[address] [facility] RBC 3.96(L) 4.10 - 5.40 x10'6/uL 07/24/2022 11:23 [address] [facility] HGB 11.8(L) 12.0 - 16.0 G/DL 07/24/2022 11:23 [address] [facility] HCT 34.6(L) 36.0 - 47.0 % 07/24/2022 11:[address] [facility] MCV 87.4 78.0 - 100.0 FL 07/24/2022 11:23 PM [address] [facility] MCH 29.8 27.0 - 31.0 PG 07/24/2022 11:[address] [facility] MCHC 34.1 33.0 - 36.0 G/DL 07/24/2022 11:23 [address] [facility] RDW 12.1 11.5 - 14.5 % 07/24/2022 11:[address] [facility] PLT 363(H) 150 - 350 x10'3/uL 07/24/2022 11:23 [address] [facility] MPV 8.9 7.4 - 10.4 FL 07/24/2022 11:[address] [facility] DIFFERENTIAL COMMENT NORMAL REFERENCE RANGE NOT ESTABLISHED FOR THE PROPORTIONAL LEUKOCYTE DIFFERENTIAL. 07/24/2022 11:[address] [facility] SEG NEUTROPHILS 75.7 % 11:[address] [facility] LYMPHOCYTES 17.2 % 07/24/2022 11:[address] [facility] MONOCYTES 6.0 % 07/24/2022 11:[address] [facility] EOSINOPHILS 0.5 % 07/24/2022 11:[address] [facility] BASOPHILS 0.4 % 07/24/2022 11:23 PM CDT [facility] IMMATURE GRANS % 0.2 % 07/24/20 11:[address] [facility] NRBC 0.0 % 07/24/2022 11:[address] [facility] ABS. NEUTROPHILS 7.25 1.60 - 8.30 x10'3/uL 07/24/2022 11:[address] [facility] ABS. LYMPHOCYTES 1.65 0.80 - 4.70 x10'3/uL 07/24/2022 11:[address] [facility] ABS. MONOCYTES 0.58 0.00 - 1.50 x10'3/uL 07/24/2022 11:[address] [facility] ABS. EOSINOPHILS 0.05 0.00 - 0.40 x10'3/uL 07/24/2022 11:[address] [facility] ABS. BASOPHILS 0.04 0.00 - 0.20 x10'3/uL 07/24/2022 11:[address] [facility] ABS. IMMATURE GRANULOCYTES 0.02 0.00 - 0.03 x10'3/uL 07/24/2022 11:[address] [facility] ABS. NUCLEATED RBC'S 0.00 0.00 x10'3/uL 07/24/2022 11:[address] [facility] 07/24/2022 11:1 7 PM CDT Marion Del Cid MD LABORATORY Final Result [facility] [address] [place] [address], * ECG 12 lead (07/24/2022 11:07 PM CDT) 07/24/2022 11:0 7 PM CDT Narrative [facility] - 07/25/2022 1:18 PM CDT ? [facility] ?[address] [place], [place] ??[address] ? Test Date: ?2022-07-24 Pat Name: ? JENNIFER PASTROVICH ? Department: ?? 3 ? Room: ? EXAM 303 Gender: ? Female ? Healthcare Customer Service: ?? : ?2000 ? Requested By: MARION DEL CID Order Number: [id number] ? Reading MD: ?? Omarrichi Mcqueen ? Measurements Intervals ?[place] ? Rate: ? 73 ? P: ?62 NV: ? 149 ?QRS: ?76 QRSD: ? 95 ? T: ?52 QT: ? 369 ? QTc: ?409 ? Interpretive Statements SINUS RHYTHM POSSIBLE RIGHT VENTRICULAR CONDUCTION DELAY Procedure Note Omar Mcqueen MD - 07/25/[address] [place] [address] Test Date: 2022-07-24 Pat Name: JENNIFER PATTON Department: 3 Room: EXAM 303 Gender: Female Healthcare Customer Service: : 2000 Requested By: MARION DEL CID Order Number: [id number] Reading MD: Omar Mcqueen Measurements Intervals [place] Rate: 73 P: 62 NV: 149 QRS: 76 QRSD: 95 T: 52 QT: 369 QTc: 409 Interpretive Statements SINUS RHYTHM POSSIBLE RIGHT VENTRICULAR CONDUCTION DELAY us Marion Del Cid MD ECG ORDERABLES Final Result Performing Organization Address City/State/[facility] de Phone Number [facility] documented in this encounter Visit Diagnoses Diagnosis Upper back pain- Primary Hypokalemia Hypopotassemia documented in this encounter Administered Medications Inactive Administered Medications - up to 3 most recent administrations Medication Order MAR Action Action Date Dose Rate Site HYDROcodone-acetaminophen (NORCO) 5-325 MG tablet 2 tablet 2 tablet, Oral, Once, 1 dose, On Mirta 07/24/22 at 2315, Maximum dose of acetaminophen is 4000 mg from all sources in 24 hours. Given 07/24/2022 11:16 PM CDT 2 tablets HYDROmorphone (DILAUDID) injection 1 mg 1 mg, Intramuscular, Once, 1 dose, On Thu07/25/22 at 0000 Given 07/24/2022 11:59 PM CDT 1 mg Left Deltoid ondansetron (ZOFRAN-ODT) disintegrating tablet 4 mg 4 mg, Oral, Once, 1 dose, On Thu07/25/22 at 0000 Given 07/24/2022 11:59 PM CDT 4 mg potassium chloride CR (KLOR-CON M) tablet 40 mEq 40 mEq, Oral, Once, 1 dose, On Thu07/25/22 at 0000, Do not chew, crush, or suck on tablet. May break in half. May dissolve whole tablet in 120 mL of water and drink immediately. Given 07/24/2022 11:58 PM CDT 40 mEq documented in this encounter Active and Recently Administered Medications Times are shown in CDT. Scheduled Medication Order 07/23/2022 07/24/2022 07/25/2022 HYDROcodone-acetaminophen (NORCO) 5-325 MG tablet 2 tablet (COMPLETED) 2 tablet, Oral, Once, 1 dose, On Mirta 07/24/22 at 2315, Maximum dose of acetaminophen is 4000 mg from all sources in 24 hours. 2316 (Given - Provider: Elizabteh Aguilar RN) HYDROmorphone (DILAUDID) injection 1 mg (COMPLETED) 1 mg, Intramuscular, Once, 1 dose, On Thu07/25/22 at 0000 2359 (Given - Provider: Yvonne Sanabria RN) ondansetron (ZOFRAN-ODT) disintegrating tablet 4 mg (COMPLETED) 4 mg, Oral, Once, 1 dose, On Thu07/25/22 at 0000 2359 (Given - Provider: Yvonne Sanabria RN) potassium chloride CR (KLOR-CON M) tablet 40 mEq (COMPLETED) 40 mEq, Oral, Once, 1 dose, On Thu07/25/22 at 0000, Do not chew, crush, or suck on tablet. May break in half. May dissolve whole tablet in 120 mL of water and drink immediately. 2358 (Given - Provider: Yvonne Sanabria RN) documented in this encounter Care Teams Landmen Relationship Specialty Start Date End Date Oziel Burt MD [address] [place] [address] PCP - General FAMILY PRACTICE 09/13/21 documented as of this encounter
--- OUTSIDE RECORDS SUMMARY | 2024-12-07 17:21 | XMS_ITS | Encounter Summary ---
Author Organization [facility] Address [address] [place] [address]. [place], [place] [id number] [place] [address] Care Team Providers Care Closed Circuit Screen Watcher Name Role Phone Oziel Burt MD Primary Care Provider [phone] Encounter Details Date Type Department Care Team (Latest Contact Info) Description 12/05/2021 Travel Social History Tobacco Use Types Packs/Day Years Used Date Smoking Tobacco: Never Smokeless Tobacco: Never Comments No Sex and Gender Information Value Date Recorded Sex Assigned at Not on file Legal Sex Female 5:55 PM FIELD NURSE CASE MANAGER Gender Identity Not on file Sexual Orientation Not on file COVID-19 Exposure Response Date Recorded In the last month, have you been in contact with someone who was confirmed or suspected to have Coronavirus / COVID-19? No / Unsure 12/05/2021 7:40 AM FIELD NURSE CASE MANAGER documented as of this encounter Plan of Treatment Not on file documented as of this encounter Visit Diagnoses Not on filedocumented in this encounter Care Teams Closed Circuit Screen Watcher Relationship Specialty Start Date End Date Oziel Burt MD [address] [place] [phone] PCP - General FAMILY PRACTICE 09/13/21 documented as of this encounter
--- OUTSIDE RECORDS SUMMARY | 2024-12-07 17:21 | XMS_ITS | Encounter Summary ---
Author Organization [facility] Address [address] [place] [address]. [place] [address] [place] [address] Care Team Providers Care Ingot Buggy Operator Name Role Phone Oziel Burt MD Primary Care Provider [phone] Reason for Visit * Reason Onset Date Comments Medication 08/13/2022 Encounter Details Date Type Department Care Team (Late st Contact Info) Description 08/13/2022 Telephone [facility] Neuroscience [address] [address] Jess Lujan MD [address] [place] [address] Medication Social History Tobacco Use Types Packs/Day Years Used Date Smoking Tobacco: Never Smokeless Tobacco: Never Comments No Sex and Gender Information Value Date Recorded Sex Assigned at Not on file Legal Sex Female 5:55 PM ANESTHESIA TECHNICIAN Gender Identity Not on file Sexual Orientation Not on file COVID-19 Exposure Response Date Recorded In the last 10 days, have yo u been in contact with someone who was confirmed or suspected to have Coronavirus/COVID-19? No / Unsure 07/24/2022 10:42 PM CDT documented as of this encounter Progress Notes * Mina Vega MA - 08/13/2022 9:13 AM CDT Refill sent to in [place]. I left her a detailed msg informing her of this. * Vivienne Leavitt - 08/13/2022 8:45 AM CDT Per VM: Na, mother, states the patient is needing a refill sent in on medications. Please advise documented in this encounter Plan of Treatment Not on file documented as of this encounter Visit Diagnoses Diagnosis Seizure (CMS/HCC HHS/HCC)- Primary Other convulsions documented in this encounter Care Teams Ingot Buggy Operator Relationship Specialty Start Date End Date Oziel Burt MD [address] [place] [address] PCP - General FAMILY PRACTICE 09/13/21 documented as of this encounter
--- OUTSIDE RECORDS SUMMARY | 2024-12-07 17:21 | XMS_ITS | Encounter Summary ---
Author Organization [facility] Address [address] [place] [address]. [place], [place] [address] [place] [address] Care Team Providers Care Pad Extraction Tender Name Role Phone Oziel Burt MD Primary Care Provider [phone] Encounter Details Date Type Department Care Team (Latest Contact Info) Description 12/05/2021 Scan HEALTH INFO [facility] Scanned, Documents Social History Tobacco Use Types Packs/Day Years Used Date Smoking Tobacco: Never Smokeless Tobacco: Never Comments No Sex and Gender Information Value Date Recorded Sex Assigned at Not on file Legal Sex Female 5:55 PM ELECTRIC APPLIANCE INSTALLER Gender Identity Not on file Sexual Orientation Not on file COVID-19 Exposure Response Date Recorded In the last month, have you been in contact with someone who was confirmed or suspected to have Coronavirus / COVID-19? No / Unsure 12/05/2021 7:40 AM ELECTRIC APPLIANCE INSTALLER documented as of this encounter Plan of Treatment Not on file documented as of this encounter Visit Diagnoses Not on filedocumented in this encounter Care Teams Pad Extraction Tender Relationship Specialty Start Date End Date Oziel Burt MD [address] [place] [address] PCP - General FAMILY PRACTICE 09/13/21 documented as of this encounter
--- OUTSIDE RECORDS SUMMARY | 2024-12-07 17:21 | XMS_ITS | Encounter Summary ---
Author Organization [facility] Address [address] [place] [address]. [place], [place] [address] [place] [address] Care Team Providers Care Fleet Mechanic Name Role Phone Oziel Burt MD Primary Care Provider [phone] Encounter Details Date Type Department Care Team (Latest Contact Info) Description 11/18/2021 Travel Social History Tobacco Use Types Packs/Day Years Used Date Smoking Tobacco: Never Smokeless Tobacco: Never Comments No Sex and Gender Information Value Date Recorded Sex Assigned at Not on file Legal Sex Female 5:55 PM MARKETING PRODUCTION COORDINATOR Gender Identity Not on file Sexual Orientation Not on file COVID-19 Exposure Response Date Recorded In the last month, have you been in contact with someone who was confirmed or suspected to have Coronavirus / COVID-19? No / Unsure 11/18/2021 10:02 AM MARKETING PRODUCTION COORDINATOR documented as of this encounter Plan of Treatment Not on file documented as of this encounter Visit Diagnoses Not on filedocumented in this encounter Care Teams Fleet Mechanic Relationship Specialty Start Date End Date Oziel Burt MD [address] [place] [phone] PCP - General FAMILY PRACTICE 09/13/21 documented as of this encounter
--- OUTSIDE RECORDS SUMMARY | 2024-12-07 17:21 | XMS_ITS | Encounter Summary ---
Author Organization [facility] Address [address] [place] [address]. [place], [place] [address] [place] [address] Care Team Providers Care Gas Maker Helper Name Role Phone Unavailable Primary Care Provider Unavailabl e Encounter Details Date Type Department Care Team (Late st Contact Info) Description 2002 Abstract SFL CONVERSION [address] [place] [address] Oziel Burt MD [address] [place] [address] Social History Tobacco Use Types Packs/Day Years Used Date Smoking Tobacco: Never Assessed Comments Unknown Sex and Gender Information Value Date Recorded Sex Assigned at Not on file Legal Sex Female 5:55 PM MIRROR INSTALLER Gender Identity Not on file Sexual Orientation Not on file documented as of this encounter Plan of Treatment Not on file documented as of this encounter Visit Diagnoses Not on filedocumented in this encounter
--- OUTSIDE RECORDS SUMMARY | 2024-12-07 17:21 | XMS_ITS | Encounter Summary ---
Author Organization [facility] Address [address] [place] [address]. [place], [place] [phone] [place] [address] Care Team Providers Care Refrigeration Engineering Teacher Name Role Phone Oziel Burt MD Primary Care Provider [phone] Encounter Details Date Type Department Care Team (Latest Contact Info) Description 09/26/2021 9:33 AM CDT - 09/26/2021 11:59 PM CDT Hospital Encounter 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 No / Unsure 09/26/2021 9:31 AM CDT documented as of this encounter Procedure Notes * Jess Lujan MD - 09/26/2021 10:00 AM CDTAssociated Order(s): EEG Procedure(s): EEG <1 HR Pre-Procedure Diagnose(s): Seizure (CMS/HCC HHS/HCC) Post-Procedure Diagnose(s): Seizure (CMS/HCC HHS/HCC) INTERPRETATION: This 43-minute, computer-assisted video EEG recording is abnormal due to the followings. 1. Occasional left temporal sharp waves. 2. Frequent frontally predominance generalized spikes and waves. 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 The finding of frontally prominent generalized spikes and waves in this case does not necessarily reflect to generalized seizure disorder. Sometimes this pattern can happen with focal seizure disorder/multifocal seizuredisorder with rapidly bilateral synchronized pattern. Please have clinical correlation or considering long-term EEG monitoring. CLASSIFICATION: Dysrhythmia grade 3, left temporal sharp waves and frontally predominant generalized spikes and waves. EKG channel. DESCRIPTION: BACKGROUND: The awake recording revealed 9-10 Hz alpha activity over the posterior head region. Thesleep recording contained normal symmetric v-waves, sleep spindles, and K-complexes. There was no significant change on the EEG with photic stimulation or hyperventilation. INTERICTAL DISCHARGES: 1. Occasional left temporal sharp waves, maximal at F7. 2. Frequent frontally predominance generalized spikes and waves at 1 to 1.5 Hz, lasting between 1 to 2 seconds without clinical correlate. CLINICAL EVENTS: None The EKG channel was unremarkable. documented in this encounter Plan of Treatment Not on file documented as of this encounter Procedures Procedure Name Priority Date/Time Associated Diagnosis Comments EEG ROUTINE Routine 09/26/2021 10:00 AM CDT Seizure-like activity (CMS/HCC HHS/HCC) documented in this encounter Results * EEG (09/26/2021 10:00 AM CDT) Narrative [facility] - 09/26/2021 10:00 AM CDT Jess Lujan MD ? 09/26/2021 12:23 PM INTERPRETATION: This 43-minute, computer-assisted video EEG recording is abnormal due to the followings. 1. ??Occasional left temporal sharp waves. 2. ??Frequent frontally predominance generalized spikes and waves. 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 ??The finding of frontally prominent generalized spikes and waves in this case does not necessarily reflect to generalized seizure disorder. ??Sometimes this pattern can happen with focal seizure disorder/multifocal seizure disorder with rapidly bilateral synchronized pattern. ?? Please have clinical correlation or considering long-term EEG monitoring. CLASSIFICATION: Dysrhythmia grade 3, left temporal sharp waves and frontally predominant generalized spikes and waves. EKG channel. DESCRIPTION: BACKGROUND: ??The awake recording revealed 9-10 Hz alpha activity over the posterior head region. ??The sleep recording contained normal symmetric v-waves, sleep spindles, and K-complexes. ??There was no significant change on the EEG with photic stimulation or hyperventilation. INTERICTAL DISCHARGES: 1. ??Occasional left temporal sharp waves, maximal at F7. 2. ??Frequent frontally predominance generalized spikes and waves at 1 to 1.5 Hz, lasting between 1 to 2 seconds without clinical correlate. CLINICAL EVENTS: ??None The EKG channel was unremarkable. Fanta Burt [facility] ORDERABLES Edited Re sult - Final [facility] [address] [place] [address], [id number] documented in this encounter Visit Diagnoses Diagnosis Seizure-like activity (CMS/HCC HHS/HCC) Other convulsions documented in this encounter Care Teams Refrigeration Engineering Teacher Relationship Specialty Start Date End Date Oziel Burt MD [address] [place] [address] PCP - General FAMILY PRACTICE 09/13/21 documented as of this encounter
--- OUTSIDE RECORDS SUMMARY | 2024-12-07 17:21 | XMS_ITS | Encounter Summary ---
Author Organization [facility] Address [address] [place] [address]. [place], [place] [address] [place] [address] Care Team Providers Care Youtuber Name Role Phone Oziel Burt MD Primary Care Provider [phone] Encounter Details Date Type Department Care Team (Latest Contact Info) Description 09/26/2021 Travel Social History Tobacco Use Types Packs/Day Years Used Date Smoking Tobacco: Never Smokeless Tobacco: Never Comments No Sex and Gender Information Value Date Recorded Sex Assigned at Not on file Legal Sex Female 5:55 PM PRINTED CIRCUIT BOARDS SOLDER LEVELER Gender Identity Not on file Sexual Orientation [...] on filedocumented in this encounter Care Teams Youtuber Relationship Specialty Start Date End Date Oziel Burt MD [address] [place] [phone] PCP - General FAMILY PRACTICE 09/13/21 documented as of this encounter
--- OUTSIDE RECORDS SUMMARY | 2024-12-07 17:21 | XMS_ITS | Encounter Summary ---
Author Organization [facility] Address [address] [place] [address]. [place], [place] [address] [place] [address] Care Team Providers Care Gynaecological Oncologist Name Role Phone Oziel Burt MD Primary Care Provider [phone] Encounter Details Date Type Department Care Team (Latest Contact Info) Description 03/10/2022 Travel Social History Tobacco Use Types Packs/Day Years Used Date Smoking Tobacco: Never Smokeless Tobacco: Never Comments No Sex and Gender Information Value Date Recorded Sex Assigned at Not on file Legal Sex Female 5:55 PM REGISTERED NURSES Gender Identity Not on file Sexual Orientation Not on file COVID-19 Exposure Response Date Recorded In the last 10 days, have yo u been in contact with someone who was confirmed or suspected to have Coronavirus/COVID-19? No / Unsure 03/10/2022 6:31 PM CDT documented as of this encounter Plan of Treatment Not on file documented as of this encounter Visit Diagnoses Not on filedocumented in this encounter Care Teams Gynaecological Oncologist Relationship Specialty Start Date End Date Oziel Burt MD [address] [place] [phone] PCP - General FAMILY PRACTICE 09/13/21 documented as of this encounter
--- OUTSIDE RECORDS SUMMARY | 2024-12-07 17:21 | XMS_ITS | Encounter Summary ---
Author Organization [facility] Address [address] [place] [address]. [place] [address] [place] [address] Care Team Providers Care Chief I Dispatcher Name Role Phone Oziel Burt MD Primary Care Provider Reason for Visit * Reason Onset Date Comments Concerns 11/25/2021 Encounter Details Date Type Department Care Team (Late st Contact Info) Description 11/25/2021 Telephone [facility] Neuroscience [address] [address] Jess Lujan MD [address] [place] [address] Concerns Social History Tobacco Use Types Packs/Day Years Used Date Smoking Tobacco: Never Smokeless Tobacco: Never Comments No Sex and Gender Information Value Date Recorded Sex Assigned at Not on file Legal Sex Female 5:55 PM SPORTS INTERNSHIP Gender Identity Not on file Sexual Orientation Not on file COVID-19 Exposure Response Date Recorded In the last month, have you been in contact with someone who was confirmed or suspected to have Coronavirus / COVID-19? No / Unsure 11/22/2021 3:43 PM SPORTS INTERNSHIP documented as of this encounter Progress Notes * Kiki Barnett, AIRCRAFT TOOL MAKER - 11/26/2021 2:43 PM CST Called [facility], outpatient EEG scheduled for December 05 at 8:00 am. Patient will then have an appointment with Dr Meadows after. Called patient's mom. She is aware. TS INTERNSHIP * Jess Lujan MD - 11/26/2021 2:17 PM CST She supposed to start medication from the last visit. However, mom misunderstood to start med 2 weeks prior to EEG. I spoke with the ED physician about that when she came to the ED. We can F/U her next week with EEG in the hospital. TS INTERNSHIP * Kiki Barnett CMA - 11/25/2021 12:56 PM CST Please advise. TS INTERNSHIP * Brynn Mendez RN - 11/25/2021 12:47 PM CST Per VM; patient's mother stated patient was seen in the ED on 11/22/21 for recurrent seizure. She would like to know if Dr. Meadows wants to move the scheduled EEG up any sooner or begin the new medication sooner than initially prescribed. TS [employer] documented in this encounter Plan of Treatment Not on file documented as of this encounter Visit Diagnoses Not on filedocumented in this encounter Care Teams Chief I Dispatcher Relationship Specialty Start Date End Date Oziel Burt MD [address] [place] [address] PCP - General FAMILY PRACTICE 09/13/21 documented as of this encounter
--- OUTSIDE RECORDS SUMMARY | 2024-12-07 17:21 | XMS_ITS | Encounter Summary ---
Author Organization [facility] Address [address] [place] [address]. [place], [place] [id number] [place] [id number] Care Team Providers Care Pattern Lease Inspector Name Role Phone Oziel Burt MD Primary Care Provider [phone] Reason for Referral * Imaging (Emergency) - Closed Specialty Diagnoses / Procedures Referred By Contac t Referred To Contact RADIOLOGY Procedures US ABD LIMITED Reanna Vance MD Phone: tel: fax: Referral ID Status Reason Start Date Expiration Date Visits Re quested Visits Authorized [id number] Closed 08/14/2022 08/14/2023 1 1 * Imaging (Emergency) - Closed Specialty Diagnoses / Procedures Referred By Contac t Referred To Contact RADIOLOGY Procedures CT ABD+PEL W CON Reanna Vance MD Phone: tel: fax: Referral ID Status Reason Start Date Expiration Date Visits Re quested Visits Authorized [id number] Closed 08/14/2022 08/14/2023 1 1 Reason for Visit * Reason Comments Abdominal Pain Encounter Details Date Type Department Care Team ([facility] Contact Info) Description 08/14/2022 8:55 AM CDT - 08/14/2022 7:49 PM CDT Emergency [facility] [address] [place] [address] Reanna Vance MD [address] [place] [address] [id number] Abdominal Pain Discharge Disposition: Other Facility with Planned Inpatient Readmission Social History Tobacco Use Types Packs/Day Years Used Date Smoking Tobacco: Never Smokeless Tobacco: Never Comments No Sex and Gender Information Value Date Recorded Sex Assigned at Not on file 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 No / Unsure 08/14/2022 8:54 AM CDT documented as of this encounter Last Filed Vital Signs Vital Sign Reading Time Taken Comments Blood Pressure 113/55 08/14/2022 6:00 PM CDT Pulse 52 08/14/2022 6:00 PM CDT Temperature 36.4 ??C (97.5 ??F) 08/14/2022 9:00 AM CD T Respiratory Rate 18 08/14/2022 6:00 PM CDT Oxygen Saturation 100% 08/14/2022 6:30 PM CDT Inhaled Oxygen Concentration - - Weight - - Height - - Body Mass Index - - documented in this encounter Medications at Time of Discharge HYDROcodone-aceta minophen (NORCO) 10-325 MG tabletIndications :Acute Pain < 3 Day Supply Take 1 tablet by mouth every 6 (six) hours as needed for Pain. Indications: Acute Pain < 3 Day Supply 12 tablet 07/25/2022 SLYND 4 MG Tab 07/21/2022 lamoTRIgine (LAMICTAL) 100 MG tabletIndications :Seizure (CMS/HCC HHS/HCC) Take 1 tablet (100 mg total) by mouth 2 (two) times daily. 60 tablet 08/13/2022 09/10/2022 lamoTRIgine 100 MG tabletIndications :Seizure (CMS/HCC HHS/HCC) Take 1 tablet (100 mg total) by mouth 2 (two) times daily. 180 tablet 1 03/11/2022 09/10/2022 documented as of this encounter ED Notes * Laura Arambula RN - 08/14/2022 7:00 PM CDT Pt accepted by Dr. Melly So at [facility] * Sobia Long RN - 08/14/2022 6:25 PM CDT [facility] is on the way. They stated they would be here in 45 minutes to an hour. * Sobia Long RN - 08/14/2022 6:15 PM CDT [facility]CHO declined transfer. Called [facility] and they are to going to call me back. * Ncihole Keane RN - 08/14/2022 6:09 PM CDT Pt now vomiting with c/o nausea; states pain is gone. States does not want any nausea med as feels this makes nausea worse. * Nichole Keane RN - 08/14/2022 5:[address] snow speaks with via [facility] transfer crew * DELMI Gill - 08/14/2022 5:15 PM CDT [facility] at capacity at this time. [facility] face sheet. Face sheet faxed over. [facility] on phone with Dr. Snow * Nichole Keane RN - 08/14/2022 5:[address] snow speaks with physician from [facility] who states unable to accept pt due to no gi dr available. * DELMI Gill - 08/14/2022 3:[address] Snow on phone with Dr. Levy, from [facility]/ * Sobia Long RN - 08/14/2022 3:40 PM CDT Called [facility] to see how long of a wait list. They stated that it would be days on the wait list. Doctor aware and decided to not put the patient on the list. * DELMI Gill - 08/14/2022 3:36 PM CDT Call made to [place] Dr. Casey's office. Was told that Dr. Casey does not do ERCPs. * DELMI Gill - 08/14/2022 2:41 PM CDT Call made to [facility]. Pt info given, will call back * Nichole Keane RN - 08/14/2022 2:25 PM CDT Call to [facility] for possible transfer of care; spoke with [employer] control room operator who took info for wait list, no beds and holding in their er. * Nichole Keane RN - 08/14/2022 2:[address] snow requests call to other facilities for possible transfer of care as [facility] advises no beds available. Pt and family updated * Nichole Keane RN - 08/14/2022 2:[address] snow speaks with surgeon at [facility] via connect * Balbina Irving RN-LP - 08/14/2022 1:41 PM CDT Called [facility] connect, for Dr. Edy Louise for General Surgeon. * Reanna Vance MD - 08/14/2022 9:13 AM CDT Chief Complaint Chief Complaint Patient presents with ??? Abdominal Pain History of Present Illness Patient is a 21-year-old female who presents with complaints of epigastric pain since this morning.Pain has been radiating around to her back. She complains of nausea. She denies vomiting. She denies fever or chills. She has similar symptoms 2 weeks ago and was told it was musculoskeletal. No CT was done. Medical History ALLERGIES: Allergies Allergen Reactions ??? Augmentin [Amoxicillin-Pot Clavulanate] Hives MEDICATIONS: Prior to Admission medications Medication Sig Start Date End Date Taking? Authorizing Provider HYDROcodone-acetaminophen (NORCO) 10-325 MG tablet Take 1 tablet by mouth every 6 (six) hours as needed for Pain. Indications: Acute Pain < 3 Day Supply 07/25/22 Abraham Morel MD lamoTRIgine (LAMICTAL) 100 MG tablet Take 1 tablet (100 mg total) by mouth 2 (two) times daily. 08/13/22 Jess Lujan MD lamoTRIgine 100 MG tablet Take 1 tablet (100 mg total) by mouth 2 (two) times daily. 03/11/22 Jess Lujan MD PAST MEDICAL HISTORY: Past Medical History: Diagnosis Date ??? Seizures (CMS/HCC) PAST SURGICAL HISTORY: Past Surgical History: Procedure Laterality Date ??? TONSILLECTOMY FAMILY HISTORY: No family history on file. SOCIAL HISTORY: Social History Tobacco Use ??? Smoking status: Never Smoker ??? Smokeless tobacco: Never Used Substance Use Topics ??? Drug use: Yes Types: Marijuana Review of Systems Review of Systems Constitutional: Negative for chills and fever. HENT: Negative for ear pain and sore throat. Eyes: Negative for visual disturbance. Respiratory: Negative for cough, shortness of breath and wheezing. Cardiovascular: Negative for chest pain, palpitations and leg swelling. Gastrointestinal: Positive for abdominal pain and nausea. Negative for vomiting. Endocrine: Negative. Genitourinary: Negative for dysuria, flank pain and frequency. Musculoskeletal: Positive for back pain. Negative for neck pain. Skin: Negative for rash. Allergic/Immunologic: Negative. Neurological: Negative for dizziness and headaches. Psychiatric/Behavioral: Negative. Physical Exam Filed Vitals: 08/14/22 1745 08/14/22 1800 08/14/22 1815 08/14/22 1830 BP: 113/55 Pulse: 52 Resp: 18 Temp: SpO2: 98% 98% 97% 100% Physical Exam Vitals and nursing note reviewed. Constitutional: General: She is not in acute distress. Appearance: Normal appearance. HENT: Head: Normocephalic. Nose: Nose normal. Mouth/Throat: Mouth: Mucous membranes are moist. Cardiovascular: Rate and Rhythm: Normal rate and regular rhythm. Heart sounds: Normal heart sounds. Pulmonary: Effort: Pulmonary effort is normal. Breath sounds: Normal breath sounds. Abdominal: General: Bowel sounds are normal. Palpations: Abdomen is soft. Tenderness: There is abdominal tenderness in the epigastric area. There is guarding. There is no rebound. Musculoskeletal: General: No swelling or tenderness. Normal range of motion. Cervical back: Normal range of motion and neck supple. Neurological: General: No focal deficit present. Mental Status: She is alert and oriented to person, place, and time. Psychiatric: Mood and Affect: Mood normal. Diagnostic Studies / Procedures ELECTROCARDIOGRAMS: No results found for this visit on 08/14/22. LABORATORY STUDIES: Results for orders placed or performed during the hospital encounter of 08/14/22 CBC W/DIFF AUTOMATED Result Value Ref Range WBC 5.3 4.0 - 10.8 x10'3/uL RBC 4.04 (L) 4.10 - 5.40 x10'6/uL HGB 12.3 12.0 - 16.0 G/DL HCT 36.3 36.0 - 47.0 % MCV 89.9 78.0 - 100.0 FL MCH 30.4 27.0 - 31.0 PG MCHC 33.9 33.0 - 36.0 G/DL RDW 12.1 11.5 - 14.5 % PLT 339 150 - 350 x10'3/uL MPV 9.3 7.4 - 10.4 FL Differential Comment NORMAL REFERENCE RANGE NOT ESTABLISHED FOR THE PROPORTIONAL LEUKOCYTE DIFFERENTIAL. SEG NEUTROPHILS 62.8 % LYMPHOCYTES 31.8 % MONOCYTES 4.4 % EOSINOPHILS 0.6 % BASOPHILS 0.2 % IMMATURE GRANS 0.2 % NRBC 0.0 % ABS. NEUTROPHILS 3.30 1.60 - 8.30 x10'3/uL ABS. LYMPHOCYTES 1.67 0.80 - 4.70 x10'3/uL ABS. MONOCYTES 0.23 0.00 - 1.50 x10'3/uL ABS. EOSINOPHILS 0.03 0.00 - 0.40 x10'3/uL ABS. BASOPHILS 0.01 0.00 - 0.20 x10'3/uL ABS. IMMATURE GRANULOCYTES 0.01 0.00 - 0.03 x10'3/uL ABS. NUCLEATED RBC'S 0.00 0.00 x10'3/uL COMPREHENSIVE METABOLIC PANEL Result Value Ref Range SODIUM 139 136 - 145 MMOL/L POTASSIUM 3.2 (L) 3.5 - 5.1 MMOL/L CHLORIDE S/P/B 101 98 - 107 MMOL/L CO2 24.2 21.0 - 32.0 MMOL/L GLUCOSE 134 (H) 70 - 99 MG/DL BUN 8 6 - 24 MG/DL CREATININE S/P/B 0.90 0.55 - 1.02 MG/DL CALCIUM 9.0 8.4 - 10.5 MG/DL BILIRUBIN TOTAL S/P/B 0.4 0.2 - 1.0 MG/DL ALKALINE PHOSPHATASE S/P/B 62 52 - 144 U/L AST 16 15 - 37 U/L ALT 15 14 - 59 U/L TOTAL PROTEIN S/P/B 7.4 6.4 - 8.2 G/DL ALBUMIN S/P/B 4.4 3.4 - 5.0 G/DL ANION GAP 13.8 5.0 - 15.0 MMOL/L OSMOLALITY (CALC) 288 MOSM/KG GFR ESTIMATE >90 >89 ML/MIN/1.73 M2 GFR NOTES GFR REFERENCES: LIPASE Result Value Ref Range LIPASE 85 73 - 393 UNITS/L URINALYSIS Result Value Ref Range COLOR (U) YELLOW TRANSPARENCY CLOUDY Specific [place] (U) 1.025 1.000 - 1.025 U PH 7.5 5.0 - 8.0 LEUKOCYTE ESTERASE NEGATIVE NEGATIVE NITRITES NEGATIVE NEGATIVE PROTEIN (U) 1+ (A) NEGATIVE URINE GLUCOSE NEGATIVE NEGATIVE U KETONES 3+ (A) NEGATIVE UROBILINOGEN 0.2 <1.0 EU/DL BILIRUBIN (U) NEGATIVE NEGATIVE BLOOD NEGATIVE NEGATIVE WBC/HPF 5-10 (A) 0 - 5 /HPF RBC/HPF 0-5 0 - 5 /HPF EPI/LPF FEW /LPF BACTERIA (URINE) 2+ /HPF MUCUS PRESENT TEST URINE Result Value Ref Range URINE HCG TEST NEGATIVE Specific [place] (U) 1.025 DRUG SCREEN RAPID Result Value Ref Range CANNABINOIDS SCREEN (U) POSITIVE (A) NEGATIVE PHENCYCLIDINE PCP (U) NEGATIVE NEGATIVE COCAINE METABOLITES (U) NEGATIVE NEGATIVE METHAMPHETAMINE (U) NEGATIVE NEGATIVE OPIATE SCREEN (U) NEGATIVE NEGATIVE AMPHETAMINE (U) NEGATIVE NEGATIVE BENZODIAZEPINES SCREEN (U) NEGATIVE NEGATIVE TRICYCLIC ANTIDEPRESSANT SCREEN (U) NEGATIVE NEGATIVE METHADONE (U) NEGATIVE NEGATIVE BARBITURATES SCREEN (U) NEGATIVE NEGATIVE OXYCODONE SCREEN (U) NEGATIVE NEGATIVE PROPOXYPHENE SCREEN (U) NEGATIVE NEGATIVE URINE TOX COMMENT THIS TEST METHODOLOGY IS DESIGNED AND OFFERED A RAPID TURNAROUND, QUALITATIVE SCREENING PROCEDURE TO AID IN THE IMMEDIATE MEDICAL ASSESSMENT OF PATIENTS SUSPECTED OF SUBSTANCE ABUSE. IMAGING STUDIES US ABD LIMITED Final Result by User, [id number] (08/14 1324) Examination: US ABD LIMITED Clinical Information: Epigastric pain. Comparison: CT 08/14/2022. Technique: Grayscale, color Doppler and spectral waveform sonographic images were obtained. Findings: LIVER: Normal in size and echogenicity without focal lesion. Main portal vein: Patent with antegrade flow. Intrahepatic bile ducts: Normal. Not dilated. Common bile duct: 6 mm. GALLBLADDER: Tiny stones are identified layering within the gallbladder, resulting in posterior acoustic shadowing. No significant gallbladder wall thickening is identified. Trace pericholecystic fluid is redemonstrated, nonspecific. The sonographic Oliver's sign was stated to be negative on the technologist worksheet. PANCREAS: The pancreatic head and proximal body are imaged and are normal in size and texture. The distal pancreatic body and tail are obscured by overlying bowel gas. ASCITES: None. Impression: 1. Multiple tiny stones are seen layering within the gallbladder. Persistent trace pericholecystic fluid, similar to the previous CT. No significant gallbladder wall thickening. The sonographic Oliver sign is stated to be negative. Findings are equivocal for cholecystitis. 2. The common bile duct is dilated measuring 6 mm. No distinct obstruction or choledocholithiasis is visualized with this study. If there is clinical concern for distal biliary obstruction could further correlate with MRCP. Ordered By: REANNA AVNCE Interpreted By: Juan Pablo Hernandez MD, 08/14/2022 1:[address] ABD+PEL W CON Final Result by User, [id number] (08/14 1113) Examination: CT abdomen and pelvis with IV contrast. Clinical Information: Epigastric pain. Comparison:No comparison. Technique: IV contrast: 80 mL Isovue 370. Oral contrast: None. Technical comments: Standard technique. Dose reduction: This CT exam was performed using one or more of the following dose reduction techniques: Automated exposure control, adjustment of the mA and/or kV according to patient size, and/or use of iterative reconstruction technique. Findings: LOWER CHEST Heart is normal in [...] are identified. No significant gallbladder wall thickening is seen. There is trace pericholecystic fluid, nonspecific. Pancreas: [...] No abnormality. BONES/SOFT TISSUES No significant lesion. Impression: 1. There is mild periportal edema [...] or ductal dilation identified involving the pancreas. Ordered By: REANNA VANCE Interpreted By: Juan Pablo Hernandez MD, 08/14/2022 10:58 AM ED Course / Medical Decision Making ED Course as of 08/15/22 08 [facility] Aug 14, 2022 1546 Case discussed with transfer center and general surgeon at [place]. Due to anesthesia limitations patient was not accepted. Case discussed with Dr. Levy at [facility] who agreed to accept patient pending surgical consult with Dr. Cueva. [AK] 1818 Case discussed with general surgeon [facility] who agreed to accept patient for consultation. Patient be transferred to the ED. Accepting doctor in the ED was Dr. Fan. [AK] ED Course User Index [AK] Reanna Vacne MD Clinical Impression Cholelithiasis (Primary) Disposition: Transfer to Another Facility Reanna Vance MD 08/15/22 0805 * Balbina Irving RN-LP - 08/14/2022 9:06 AM CDT Pt presents to ED with father. Pt complains of upper middle abdominal pain that started a few weeksago. Pt stated the abdominal pain started with nausea. She was seen here in the ED a few weeks ago for the same problem, they believed it was a pulled muscle at the time. Pt states the pain has gotten worse today and she feels like her pain is so bad she struggles to breath. documented in this encounter Plan of Treatment Not on file documented as of this encounter Procedures Procedure Name Priority Date/Time Associated Diagnosis Comments US ABD LIMITED STAT 08/14/2022 12:[address] ABD+PEL W CON STAT 08/14/2022 10:5 0 AM CDT DRUG SCREEN RAPID STAT 08/14/2022 10: 00 AM CDT HC URINALYSIS AUTO W/MICRO STAT 08/14/2022 10:00 AM CDT TEST URINE STAT 08/14/2022 10:00 AM CDT URINE BACTERIA CULTURE Routine 10:00 AM CDT COMPREHENSIVE METABOLIC PANEL STAT 08/14/2022 9:46 AM CDT CBC W/DIFF AUTOMATED STAT 08/14/2022 9:46 AM CDT LIPASE STAT 08/14/2022 9:46 AM CDT documented in this encounter Results * US ABD LIMITED (08/14/2022 12:21 PM CDT) Anatomical Region Laterality Modality Abdomen Ultrasound 08/14/2022 1:17 PM CDT Impressions 08/14/2022 1:22 PM CDT Impression: 1. Multiple tiny stones are seen layering within the gallbladder. Persistent trace pericholecystic fluid, similar to the previous CT. No significant gallbladder wall thickening. The sonographic Oliver sign is stated to be negative. Findings are equivocal for cholecystitis. 2. The common bile duct is dilated measuring 6 mm. No distinct obstruction or choledocholithiasis is visualized with this study. If there is clinical concern for distal biliary obstruction could further correlate with MRCP. Ordered By: REANNA VANCE Interpreted By: Juan Pablo Hernandez MD, 08/14/2022 1:17 PM Narrative 08/14/2022 1:22 PM CDT Examination: US ABD LIMITED Clinical Information: Epigastric pain. Comparison: CT 08/14/2022. Technique: Grayscale, color Doppler and spectral waveform sonographic images were obtained. Findings: LIVER: Normal in size and echogenicity without focal lesion. Main portal vein: Patent with antegrade flow. Intrahepatic bile ducts: Normal. Not dilated. Common bile duct: 6 mm. GALLBLADDER: Tiny stones are identified layering within the gallbladder, resulting in posterior acoustic shadowing. No significant gallbladder wall thickening is identified. Trace pericholecystic fluid is redemonstrated, nonspecific. The sonographic Oliver's sign was stated to be negative on the technologist worksheet. PANCREAS: The pancreatic head and proximal body are imaged and are normal in size and texture. The distal pancreatic body and tail are obscured by overlying bowel gas. ASCITES: None. Procedure Note Juan Pablo Hernandez MD - 08/14/2022 Examination: US ABD LIMITED Clinical Information: Epigastric pain. Comparison: CT 08/14/2022. Technique: Grayscale, color Doppler and spectral waveform sonographicimages were obtained. Findings: LIVER: Normal in size and echogenicity without focal lesion. Main portal vein: Patent with antegrade flow. Intrahepatic bile ducts: Normal. Not dilated. Common bile duct: 6 mm. GALLBLADDER: Tiny stones are identified layering within the gallbladder, resulting inposterior acoustic shadowing. No significant gallbladder wall thickeningis identified. Trace pericholecystic fluid is redemonstrated, nonspecific.The sonographic Oliver's sign was stated to be negative on thetechnologist worksheet. PANCREAS: The pancreatic head and proximal body are imaged and are normal in sizeand texture. The distal pancreatic body and tail are obscured by overlyingbowel gas. ASCITES: None. Impression: 1. Multiple tiny stones are seen layering within the gallbladder.Persistent trace pericholecystic fluid, similar to the previous CT. Nosignificant gallbladder wall thickening. The sonographic Oliver sign isstated to be negative. Findings are equivocal for cholecystitis. 2. The common bile duct is dilated measuring 6 mm. No distinct obstructionor choledocholithiasis is visualized with this study. If there is clinicalconcern for distal biliary obstruction could further correlate withMRCP. Ordered By: RAENNA VANCE Interpreted By: Juan Pablo Hernandez MD, 08/14/2022 1:17 PM us Reanna Vance MD ULTRASOUND Final Res ult * CT ABD+PEL W CON (08/14/2022 10:50 AM CDT) Anatomical Region Laterality Modality Abdomen Computed Tomogra phy 08/14/2022 10:5 8 AM CDT Impressions 08/14/2022 11:06 AM CDT Impression: 1. There is mild periportal edema [...] or ductal dilation identified involving the pancreas. Ordered By: REANNA VANCE Interpreted By: Juan Pablo Hernandez MD, 08/14/2022 10:58 AM Narrative 08/14/2022 11:06 AM CDT Examination: CT abdomen and pelvis with IV contrast. Clinical Information: Epigastric pain. Comparison:No comparison. Technique: IV contrast: 80 mL Isovue 370. Oral contrast: None. Technical comments: Standard technique. Dose reduction: This CT exam was performed using one or more of the following dose reduction techniques: Automated exposure control, adjustment of the mA and/or kV according to patient size, and/or use of iterative reconstruction technique. Findings: LOWER CHEST Heart is normal in [...] are identified. No significant gallbladder wall thickening is seen. There is trace pericholecystic fluid, nonspecific. Pancreas: [...] No abnormality. BONES/SOFT TISSUES No significant lesion. Procedure Note Juan Pablo Hernandez MD - 08/14/2022 Examination: CT abdomen and pelvis with IV contrast. Clinical Information: Epigastric pain. Comparison:No comparison. Technique: IV contrast: 80 mL Isovue 370. Oral contrast: None. Technical comments: Standard technique. Dose reduction: This CT exam was performed using one or more of thefollowing dose reduction techniques: Automated exposure control,adjustment of the mA and/or kV according to patient size, and/or use ofiterative reconstruction technique. Findings: LOWER CHEST Heart is normal in size. Lung bases are clear. No pleural or pericardialeffusions. UPPER ABDOMEN Liver and bile ducts: Focal fatty infiltration seen along the anteriorliver near the ligamentum teres. No suspicious focal liver lesion. Mildperiportal edema is identified within the liver, nonspecific. Portal veinand hepatic veins are patent. No biliary dilatation. Gallbladder: No hyperdense gallstones are identified. No significantgallbladder wall thickening is seen. There is trace pericholecystic fluid,nonspecific. Pancreas: The pancreas appears unremarkable. No inflammatory changes orductal dilation identified. Spleen: Normal. RETROPERITONEUM Adrenals: No adrenal mass. Kidneys: Enhance symmetrically with no solid mass or hydronephrosis. Lymph nodes: No lymphadenopathy in the abdomen or pelvis. BOWEL AND PERITONEUM Bowel: There is no bowel obstruction. The appendix appears normal. Noacute inflammatory changes are seen. Free air or fluid: None. VASCULATURE The abdominal aorta is normal in caliber. PELVIS No abnormality. BONES/SOFT TISSUES No significant lesion. Impression: 1. There is mild periportal edema within the liver. This is overallnonspecific but differential considerations include acute hepatitis, fluidvolume overload, ascending biliary tract infection/cholangitis or bluntinjury. 2. There is trace pericholecystic fluid, nonspecific but could be reactiveto the adjacent liver process. No significant gallbladder wall thickeningor hyperdense stones are identified. If there is clinical concern foracute cholecystitis could further correlate with ultrasound of thegallbladder. 3. No inflammatory changes or ductal dilation identified involving thepancreas. Ordered By: REANNA VANCE Interpreted By: Juan Pablo Hernandez MD, 08/14/2022 10:58 AM us Reanna Vance MD CT Final Res ult * CULTURE URINE (08/14/2022 10:00 AM CDT) SPEC DESCRIPTION URINE CLEAN CATCH 08/14/2022 10:39 AM CDT [facility] SPECIAL REQUESTS NO SPECIAL REQUEST 08/14/2022 10:39 AM CDT [facility] CULTURE RESULT FEW CONTAMINANTS 07/31 7:[address] [facility] URINE SPECIMEN OBTAINED BY CLEAN CATCH PROCEDURE / Unknown 08/14/2022 10:00 AM CDT 08/14/2022 10:38 AM CDT us Reanna Vance MD MICROBIOLOGY - GENERAL OR DERABLES Final Result [facility] [address] [id number], [place] [phone] [id number] [facility] [address] [place] [address], * (ABNORMAL) DRUG SCREEN RAPID (08/14/2022 10:00 AM CDT) Pathologist [facility] CANNABINOIDS SCREEN (U) POSITIVE(A) NEGATIVE 08/14/2022 10:40 AM CDT [facility] PHENCYCLIDINE PCP (U) NEGATIVE NEGATIVE 08/14/2022 10:40 AM CDT [facility] COCAINE METABOLITES (U) NEGATIVE NEGATIVE 08/14/2022 10:40 AM CDT [facility] METHAMPHETAMINE (U) NEGATIVE NEGATIVE 08/14/2022 10:40 AM CDT [facility] OPIATE SCREEN (U) NEGATIVE NEGATIVE 022 10:40 AM CDT [facility] AMPHETAMINE (U) NEGATIVE NEGATIVE 10:40 AM CDT [facility] BENZODIAZEPINES SCREEN (U) NEGATIVE NEGATIVE 08/14/2022 10:40 AM CDT [facility] TRICYCLIC ANTIDEPRESSANT SCREEN (U) NEGATIVE NEGATIVE 08/14/2022 10:40 AM CDT [facility] METHADONE (U) NEGATIVE NEGATIVE 08/14/2022 10:40 AM CDT [facility] BARBITURATES SCREEN (U) NEGATIVE NEGATIVE 08/14/2022 10:40 AM CDT [facility] OXYCODONE SCREEN (U) NEGATIVE NEGATIVE 08/14/2022 10:40 AM CDT [facility] PROPOXYPHENE SCREEN (U) NEGATIVE NEGATIVE 08/14/2022 10:40 AM CDT [facility] URINE TOX COMMENT THIS TEST METHODOLOGY IS DESIGNED AND OFFERED A RAPID TURNAROUND, QUALITATIVE SCREENING PROCEDURE TO AID IN THE IMMEDIATE MEDICAL ASSESSMENT OF PATIENTS SUSPECTED OF SUBSTANCE ABUSE. 08/14/2022 10:08 AM CDT [facility] Comment: CLINICAL CONSIDERATION AND PROFESSIONAL JUDGMENT MUST BE APPLIED TO ANY DRUG OF ABUSE TEST RESULT, BOTH POSITIVE AND NEGATIVE. CONFIRMATORY QUANTITATIVE RESULTS ARE AVAILABLE THROUGH OUR REFERENCE LABORATORY. URINE SPECIMEN / Unknown 08/14/2022 10:00 AM CDT us Reanna Vance MD URINE ORDERABLES Final Re sult Performing Organization Address City/[facility]/ZIP Co de Phone Number [facility] [address] [place] [address], [place] [phone] * TEST URINE (08/14/2022 10:00 AM CDT) URINE HCG TEST NEGATIVE 08/14/2022 10:21 AM CDT [facility] SPECIFIC GRAVITY (U) 1.025 08/14/2022 10:21 AM CDT [facility] URINE SPECIMEN OBTAINED BY CLEAN CATCH PROCEDURE / Unknown 08/14/2022 10:00 AM CDT us Reanna Vance MD URINE ORDERABLES Final Re sult Performing Organization Address City/[facility] Co de Phone Number [facility] [address] [place] [address], [place] [phone] * (ABNORMAL) URINALYSIS (08/14/2022 10:00 AM CDT) COLOR (U) YELLOW 08/14/2022 10:38 AM CDT [facility] TRANSPARENCY CLOUDY 08/14/2022 10:38 AM CDT [facility] SPECIFIC GRAVITY (U) 1.025 1.000 - 1.025 08/14/2022 10:38 AM CDT [facility] U PH 7.5 5.0 - 8.0 08/14/2022 10:38 AM CDT [facility] LEUKOCYTES (U) NEGATIVE NEGATIVE 08/14/2022 10:38 AM CDT [facility] NITRITES NEGATIVE NEGATIVE 08/14/2022 10:38 AM CDT [facility] PROTEIN (U) 1+(A) NEGATIVE 08/14/2022 10:38 AM CDT [facility] URINE GLUCOSE NEGATIVE NEGATIVE 08/14/2022 10:38 AM CDT [facility] KETONES MG/DL (U) 3+(A) NEGATIVE 08/14/2022 10:38 AM CDT [facility] UROBILINOGEN 0.2 <1.0 EU/DL 08/14/2022 10:38 AM CDT [facility] BILIRUBIN (U) NEGATIVE NEGATIVE 08/14/2022 10:38 AM CDT [facility] BLOOD (U) NEGATIVE NEGATIVE 08/14/2022 10:38 AM CDT [facility] WBC/HPF 5-10(A) 0 - 5 /HPF 08/14/2022 10:38 AM CDT [facility] RBC/HPF 0-5 0 - 5 /HPF 08/14/2022 10:38 AM CDT [facility] EPI/LPF FEW /LPF 08/14/2022 10:38 AM CDT [facility] BACTERIA (U) 2+ /HPF 08/14/2022 10:38 AM CDT [facility] MUCUS PRESENT 08/14/2022 10:38 AM CDT [facility] URINE SPECIMEN OBTAINED BY CLEAN CATCH PROCEDURE / Unknown 08/14/2022 10:00 AM CDT us Reanna Vance MD URINE ORDERABLES Final Re sult Performing Organization Address [facility]/ZIP Co de Phone Number [address] [address], [place] [phone] * LIPASE (08/14/2022 9:46 AM CDT) LIPASE 85 73 - 393 UNITS/L 08/14/2022 10:11 AM CDT [facility] 08/14/2022 9:46 AM CDT us Reanna Vance MD LABORATORY Final Res ult Performing Organization Address City/[facility]/ZIP Co de Phone Number [facility] [address] [place], [place] [id number], * (ABNORMAL) COMPREHENSIVE METABOLIC PANEL (08/14/2022 9:46 AM CDT) SODIUM S/P/B 139 136 - 145 MMOL/L 08/14/2022 10:11 AM CDT [facility] POTASSIUM S/P/B 3.2(L) 3.5 - 5.1 MMOL/L 08/14/2022 10:11 AM CDT [facility] CHLORIDE S/P/B 101 98 - 107 MMOL/L 08/14/2022 10:11 AM CDT [facility] CO2 24.2 21.0 - 32.0 MMOL/L 08/14/2022 10:11 AM CDT [facility] GLUCOSE 134(H) 70 - 99 MG/DL 08/14/2022 10:11 AM CDT [facility] Comment: FASTING GLUCOSE 100 TO 125 MG/DL IS CONSISTENT WITH IMPAIRED FASTING GLUCOSE. FASTING GLUCOSE >125 MG/DL IS CONSISTENT WITH DIABETES. RANDOM GLUCOSE >200 MG/DL WITH HYPERGLYCEMIC SYMPTOMS IS CONSISTENT WITH DIABETES. PER ADA GUIDELINES BUN 8 6 - 24 MG/DL 08/14/2022 10:11 AM CDT [facility] CREATININE S/P/B 0.90 0.55 - 1.02 MG/DL 08/14/2022 10:11 AM CDT [facility] CALCIUM S/P/B 9.0 8.4 - 10.5 MG/DL 08/14/2022 10:11 AM CDT [facility] BILIRUBIN TOTAL S/P/B 0.4 0.2 - 1.0 MG/DL 08/14/2022 10:11 AM CDT [facility] Comment: THIS ASSAY IS NOT RECOMMENDED FOR PATIENTS UNDERGOING TREATMENT WITH ELTROMBOPAG DUE TO THE POTENTIAL FOR FALSELY ELEVATED RESULTS. ALKALINE PHOSPHATASE S/P/B 62 52 - 144 U/L 08/14/2022 10:11 AM CDT [facility] AST 16 15 - 37 U/L 08/14/2022 10:11 AM CDT [facility] ALT 15 14 - 59 U/L 08/14/2022 10:11 AM CDT [facility] TOTAL PROTEIN S/P/B 7.4 6.4 - 8.2 G/DL 08/14/2022 10:11 AM CDT [facility] ALBUMIN S/P/B 4.4 3.4 - 5.0 G/DL 08/14/2022 10:11 AM CDT [facility] ANION GAP 13.8 5.0 - 15.0 MMOL/L 08/14/2022 10:11 AM CDT [facility] OSMOLALITY (CALC) 288 MOSM/KG 022 10:11 AM CDT [facility] Comment:REFERENCE RANGE NOT ESTABLISHED GFR ESTIMATE >90 >89 ML/MIN/1. 73 M2 08/14/2022 10:11 AM CDT [facility] GFR NOTES GFR REFERENCE S: 08/14/2022 10:11 AM T [facility] Comment: THE ESTIMATED GFR IS CALCULATED [...] ml/min/1.73 m2 G5,KIDNEY FAILURE: <15 ml/min/1.73 m2 08/14/2022 9:46 AM CDT us Reanna Vance MD LABORATORY Final Res ult [facility] [address] [place] [address], * (ABNORMAL) CBC W/DIFF AUTOMATED (08/14/2022 9:46 AM CDT) WBC 5.3 4.0 - 10.8 x10'3/uL 08/14/2022 9:56 AM CDT [facility] RBC 4.04(L) 4.10 - 5.40 x10'6/uL 08/14/2022 9:56 AM CDT [facility] HGB 12.3 12.0 - 16.0 G/DL 08/14/2022 9:56 AM CDT [facility] HCT 36.3 36.0 - 47.0 % 08/14/2022 9:56 AM CDT [facility] MCV 89.9 78.0 - 100.0 FL 08/14/2022 9:56 AM CDT [facility] MCH 30.4 27.0 - 31.0 PG 08/14/2022 9:56 AM CDT [facility] MCHC 33.9 33.0 - 36.0 G/DL 08/14/2022 9:56 AM CDT [facility] RDW 12.1 11.5 - 14.5 % 08/14/2022 9:56 AM CDT [facility] PLT 339 150 - 350 x10'3/uL 08/14/2022 9:56 AM CDT [facility] MPV 9.3 7.4 - 10.4 FL 08/14/2022 9:56 AM CDT [facility] DIFFERENTIAL COMMENT NORMAL REFERENCE RANGE NOT ESTABLISHED FOR THE PROPORTIONAL LEUKOCYTE DIFFERENTIAL. 08/14/2022 9:56 AM CDT [facility] SEG NEUTROPHILS 62.8 % 9:56 AM CDT [facility] LYMPHOCYTES 31.8 % 08/14/2022 9:56 AM CDT [facility] MONOCYTES 4.4 % 08/14/2022 9:56 AM CDT [facility] EOSINOPHILS 0.6 % 08/14/2022 9:56 AM CDT [facility] BASOPHILS 0.2 % 08/14/2022 9:56 AM CDT [facility] IMMATURE GRANS % 0.2 % 08/14/20 9:56 AM CDT [facility] NRBC 0.0 % 08/14/2022 9:56 AM CDT [facility] ABS. NEUTROPHILS 3.30 1.60 - 8.30 x10'3/uL 08/14/2022 9:56 AM CDT [facility] ABS. LYMPHOCYTES 1.67 0.80 - 4.70 x10'3/uL 08/14/2022 9:56 AM CDT [facility] ABS. MONOCYTES 0.23 0.00 - 1.50 x10'3/uL 08/14/2022 9:56 AM CDT [facility] ABS. EOSINOPHILS 0.03 0.00 - 0.40 x10'3/uL 08/14/2022 9:56 AM CDT [facility] ABS. BASOPHILS 0.01 0.00 - 0.20 x10'3/uL 08/14/2022 9:56 AM CDT [facility] ABS. IMMATURE GRANULOCYTES 0.01 0.00 - 0.03 x10'3/uL 08/14/2022 9:56 AM CDT [facility] ABS. NUCLEATED RBC'S 0.00 0.00 x10'3/uL 08/14/2022 9:56 AM CDT [facility] 08/14/2022 9:46 AM CDT us Reanna Vance MD LABORATORY Final Res ult [facility] [address] [place] [address], documented in this encounter Visit Diagnoses Diagnosis Cholelithiasis- Primary Calculus of gallbladder without mention of cholecystitis or obstruction documented in this encounter Administered Medications Inactive Administered Medications - up to 3 most recent administrations Medication Order MAR Action Action Date Dose Rate Site HYDROmorphone (DILAUDID) injection 1 mg 1 mg, Intravenous, Once, 1 dose, On Mirta 08/14/22 at 1715, Administer slowly over at least 2-3 minutes. Given 08/14/2022 5:14 PM CDT 1 mg iopamidol (ISOVUE-370) 76 % injection 80 mL 80 mL, Intravenous, IMG once as needed, Contrast, 1 dose, Starting on Mirta 08/14/22 at 1051, Until Mirta 08/14/22 at 1051 Given 08/14/2022 10:51 AM CDT 80 mLs morphine injection 4 mg 4 mg, Intravenous, Once, 1 dose, On Mirta 08/14/22 at 0930 Given 08/14/2022 10:01 AM CDT 4 mg ondansetron (ZOFRAN) injection 4 mg 4 mg, Intravenous, Once, 1 dose, On Mirta 08/14/22 at 0930, IV push over 2-5 minutes. Given 08/14/2022 9:59 AM CDT 4 mg sodium chloride 0.9% bolus infusion 1,000 mL 1,000 mL, Intravenous, Administer over 15 Minutes, Once, 1 dose, On Mirta 08/14/22 at 0930 New Bag 08/14/2022 9:59 AM CDT 1,000 mLs 999 mL/hr sodium chloride 0.9% infusion at 100 mL/hr, Intravenous, Continuous, Starting on Mirta 08/14/22 at 1730, Until Mirta 08/14/22 at 2151 New Bag 08/14/2022 6:22 PM CDT 100 mL/hr documented in this encounter Active and Recently Administered Medications Times are shown in CDT. Scheduled Medication Order 08/12/2022 08/13/2022 08/14/2022 HYDROmorphone (DILAUDID) injection 1 mg (COMPLETED) 1 mg, Intravenous, Once, 1 dose, On Mirta 08/14/22 at 1715, Administer slowly over at least 2-3 minutes. 1714 (Given - Provid er: Nichole Keane RN) morphine injection 4 mg (COMPLETED) 4 mg, Intravenous, Once, 1 dose, On Mirta 08/14/22 at 0930 1001 (Given - Provid er: Nichole Keane RN) ondansetron (ZOFRAN) injection 4 mg (COMPLETED) 4 mg, Intravenous, Once, 1 dose, On Mirta 08/14/22 at 0930, IV push over 2-5 minutes. 0959 (Given - Provid er: Nichole Keane RN) sodium chloride 0.9% bolus infusion 1,000 mL (COMPLETED) 1,000 mL, Intravenous, Administer over 15 Minutes, Once, 1 dose, On Mirta 08/14/22 at 0930 0959 (New Bag - Prov ider: Nichole Keane, JACQUELINE)1059 (Infusion Stop Time - Provider: Nichole Keane RN) Continuous Medication Order 08/12/2022 08/13/2022 08/14/2022 sodium chloride 0.9% infusion at 100 mL/hr, Intravenous, Continuous, Starting on Mirta 08/14/22 at 1730, Until Mirta 08/14/22 at 2151 1822 (New Bag - Prov ider: Sobia Long RN) PRN Medication Order 08/12/2022 08/13/2022 08/14/2022 iopamidol (ISOVUE-370) 76 % injection 80 mL (COMPLETED) 80 mL, Intravenous, IMG once as needed, Contrast, 1 dose, Starting on Mirta 08/14/22 at 1051, Until Mirta 08/14/22 at 1051 1051 (Given - Provid er: Alysia Crum RTR) documented in this encounter Care Teams Pattern Lease Inspector Relationship Specialty Start Date End Date Oziel Burt MD [address] [place] [phone] PCP - General FAMILY PRACTICE 09/13/21 documented as of this encounter
--- OUTSIDE RECORDS SUMMARY | 2024-12-07 17:21 | XMS_ITS | Encounter Summary ---
Author Organization [facility] Address [address] [place] [address]. 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
--- OUTSIDE RECORDS SUMMARY | 2024-12-07 17:21 | XMS_ITS | Encounter Summary ---
Author Organization [facility] Address [address] [place] [address]. 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 No / Unsure 11/12/2021 2:01 PM COMMUNITY HEALTH PROGRAM REPRESENTATIVE documented as of this encounter Plan of Treatment Not on file documented as of this encounter Visit Diagnoses Not on filedocumented in this encounter Care Teams Feed Blender Relationship Specialty Start Date End Date Oziel Burt MD [address] [place] [phone] PCP - General FAMILY PRACTICE 09/13/21 documented as of this encounter
--- OUTSIDE RECORDS SUMMARY | 2024-12-07 17:21 | XMS_ITS | Encounter Summary ---
Author Organization [facility] Address [address] [place] [address]. 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
--- OUTSIDE RECORDS SUMMARY | 2024-12-07 17:21 | XMS_ITS | Encounter Summary ---
Author Organization [facility] Address [address] [place] [address]. [place] [address] [place] [address] Care Team Providers Care Kiln Operator Name Role Phone Oziel Burt MD Primary Care Provider [phone] Reason for Visit * Reason Comments Seizures Encounter Details Date Type Department Care Team (Late st Contact Info) Description 03/11/2022 9:00 AM CDT Office Visit [facility] Neuroscience [address] [phone] Moises Cadena MD [address] [place] [address] Seizures Social History Tobacco Use Types Packs/Day Years Used Date Smoking Tobacco: Never Smokeless Tobacco: Never Tobacco Cessation:Counseling Given: No Comments No Sex and Gender Information Value Date Recorded Sex Assigned at Not on file 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 No / Unsure 03/10/2022 6:31 PM CDT documented as of this encounter Last Filed Vital Signs Vital Sign Reading Time Taken Comments Blood Pressure 92/60 03/11/2022 9:08 AM CDT Pulse 85 03/11/2022 9:08 AM CDT Temperature - - Respiratory Rate - - Oxygen Saturation 98% 03/11/2022 9:08 AM CDT Inhaled Oxygen Concentration - - Weight 72.6 kg (160 lb) 03/11/2022 9:08 AM CDT Height 162.6 cm (5' 4 ) 03/11/2022 9:08 AM CDT Body Mass Index 27.46 03/11/2022 9:08 AM CDT documented in this encounter Progress Notes * Moises Cadena MD - 03/11/2022 9:00 AM CDT Neurology outpatient F/U visit [...] also denies significant side effect from lamotrigine. MRI brain: No epileptogenic lesion. EEG: Occasional left temporal sharp waves. Past medical history: None. Past surgical history: Past Surgical History: Procedure Laterality Date ??? TONSILLECTOMY Medication: Current Outpatient Medications Medication Sig Dispense Refill ??? lamoTRIgine 100 MG tablet Take 1 tablet (100 mg total) by mouth 2 (two) times daily. 180 tablet1 No current facility-administered medications for this visit. Allergies: Allergies as of 03/11/2022 - Reviewed 03/11/2022 Allergen Reaction Noted ??? Augmentin [amoxicillin-pot clavulanate] Hives 11/22/2021 Social history: reports that she has never smoked. She has never used smokeless tobacco. She reports current drug use. Drug: Marijuana. Family history: No family history on file. Review of system: No chest pain, shortness of breath, palpitation, cough, fever, abdominal pain, vomiting, diarrhea, dysuria, vertigo, joint pain, change in speech/vision or new onset of weakness/numbness. Remaining as per HPI. Filed Vitals: 03/11/22 0908 BP: 92/60 Pulse: 85 SpO2: 98% Weight: 72.6 kg (160 lb) Height: 5' 4 (1.626 m) Neurological examination: MENTAL STATUS: AAOx3 LANG/SPEECH: Fluent, intact naming, repetition & comprehension CRANIAL NERVES: II: Pupils equal and reactive, no RAPD, normal visual field and fundus III, IV, : EOM intact, no gaze preference or deviation V: normal VII: no facial asymmetry VIII: normal hearing to speech MOTOR: 5/5 in both upper and lower extremities REFLEXES: 2/4 throughout, bilateral flexor planters SENSORY: Normal to touch, temperature & pin prick in all extremiteis COORD: Normal finger to nose and heel to rosas, no tremor, no dysmetria Imaging, procedure, and laboratory data: I reviewed the EEG. Impression: ICD-10-CM ICD-9-CM 1. Seizure (CMS/[facility]) R56.9 780.39 lamoTRIgine 100 MG tablet 2. Auras R29.818 781.99 The patient is neurologically stable without signs of breakthrough seizure/aura at this time. After discussion with the patient, the patient agrees to continue lamotrigine. Plan: 1. Recommend to continue lamotrigine to 100 mg every 12 hours. 2. Recommend to wait for at least 2 years of seizure-free before getting . 3. Seizure diary. 4. Follow-up in 6 months. Plan discussed with patient who voiced understanding and agreed with the plan. Portions of this note were created using voice recognition software, please excuse any typos. MOISES CADENA MD documented in this encounter Plan of Treatment Not on file documented as of this encounter Visit Diagnoses Diagnosis Seizure (CMS/HCC [facility]/HCC)- Primary Other convulsions Auras Other symptoms involving nervous and musculoskeletal systems documented in this encounter Care Teams Kiln Operator Relationship Specialty Start Date End Date Oziel Burt MD [address] [place] [phone] PCP - General FAMILY PRACTICE 09/13/21 documented as of this encounter
--- OUTSIDE RECORDS SUMMARY | 2024-12-07 17:21 | XMS_ITS | Encounter Summary ---
Author Organization [facility] Address [address] [place] [address]. [place] [address] [place] [address] Care Team Providers Care Tack Welder Name Role Phone Oziel Burt MD Primary Care Provider Reason for Visit * Reason Comments Seizure- Prior History Of Encounter Details Date Type Department Care Team (Late st Contact Info) Description 11/22/2021 3:46 PM SALT PLANT OPERATOR - 11/22/2021 7:08 PM SALT PLANT OPERATOR Emergency [facility] [address] [facility] [place] [address] Mele Rodriguez, DO [address] [place] [address] Seizure- Prior History Of Discharge Disposition: Home or Self Care (Routine Discharge) Social History Tobacco Use Types Packs/Day Years Used Date Smoking Tobacco: Never Smokeless Tobacco: Never Comments No Sex and Gender Information Value Date Recorded Sex Assigned at Not on file Legal Sex Female 5:55 PM SALT PLANT OPERATOR Gender Identity Not on file Sexual Orientation Not on file COVID-19 Exposure Response Date Recorded In the last month, have you been in contact with someone who was confirmed or suspected to have Coronavirus / COVID-19? No / Unsure 11/22/2021 3:43 PM SALT PLANT OPERATOR documented as of this encounter Last Filed Vital Signs Vital Sign Reading Time Taken Comments Blood Pressure 107/75 11/22/2021 6:30 PM SALT PLANT OPERATOR Pulse 123 11/22/2021 3:44 PM SALT PLANT OPERATOR Temperature 36.7 ??C (98 ??F) 11/22/2021 3:44 PM SALT PLANT OPERATOR Respiratory Rate 20 11/22/2021 3:44 PM SALT PLANT OPERATOR Oxygen Saturation 100% 11/22/2021 6:30 PM SALT PLANT OPERATOR Inhaled Oxygen Concentration - - Weight 72.6 kg (160 lb) 11/22/2021 3:44 PM SALT PLANT OPERATOR Height 162.6 cm (5' 4 ) 11/22/2021 3:44 PM SALT PLANT OPERATOR Body Mass Index 27.46 11/22/2021 3:44 PM SALT PLANT OPERATOR Body Mass Index Percentile 89.45% 11/22/2021 3:4 4 PM SALT PLANT OPERATOR Growth Chart: [facility] (Girls, 2- 20 Years) documented in this encounter Discharge Instructions * Discharge Instructions* Mele Rodriguez DO - 11/22/2021 6:36 PM SALT PLANT OPERATOR Start taking the previously prescribed lamotrigine per prescription instructions. PLANT OPERATOR * Attachments The following attachments cannot be sent through Care Everywhere. * Driving Restrictions (Puerto [place]ican) * Epilepsy in Adults ([place]) documented in this encounter Medications at Time of Discharge lamoTRIgine 25 MG tabletIndications :Seizure (CMS/HCC HHS/HCC) Take 1 tablet (25 mg total) by mouth 2 (two) times daily for 7 days, THEN 2 tablets (50 mg total) 2 (two) times daily for 14 days. 70 tablet 11/12/2021 12/03/2021 documented as of this encounter ED Notes * Bibiana Kennedy RN - 11/22/2021 6:24 PM CST Neuro returns call to MD PLANT OPERATOR * Bibiana Kennedy RN - 11/22/2021 5:[address] Castro S neuro PLANT OPERATOR * Lana Gleason RN - 11/22/2021 3:48 PM CST Arrives via ems from home, pt states she has been feeling sick for a few days. 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 Castaneda. Has been off of meds for 2 weeks, is to have an EEG in 1 month. PLANT OPERATOR PLANT OPERATOR PLANT OPERATOR * Mele Rodriguez, - 11/22/2021 3:45 PM CST Chief Complaint Chief Complaint Patient presents with ??? Seizure- Prior History Of History of Present Illness [id number] female presents the emergency department via ambulance seizure activity at home. Patient was seen in this emergency department on 09/13/2021 with a similar event. She was given Ativan at that time and then had outpatient follow-up with neurology. Patient's parents arepresent with her at this time. They state they are unaware of any intervening seizure activity. Patient underwent EEG and MRI as an outpatient. MRI of her brain was normal. EEG was consistent with temporal lobe epilepsy, multifocal versus left. Plan was to start patient on lamotrigine 2 weeks priorto a follow-up EEG, but the follow-up EEG could not be scheduled at that time, so the lamotrigine has not yet been started. Patient denies any recent head trauma. She also reports that as far she canrecall, she felt in her normal state of health yesterday. She denies any urinary symptoms. She did not lose control her bladder during today's seizure events. Mother gives history that the patient had gotten out of bed per her normal routine this morning stating that she felt a little bit off with a queasy stomach. About 1030, mother noted generalized seizure activity that was short-lived. Patient had 2 more episodes similar to that prior to them calling an ambulance. Parents state the patient did not have any impact her head while having seizures. Mother had noted some blood draining from the patient's mouth and patient states that she bit the left side of her tongue. Patient was given Zofran on route. She states that she has been vomiting, but denies diarrhea. History provided by: Patient and parent History limited by: Mental status change antique collector used: No Seizure- Prior History Of Medical History ALLERGIES: Allergies Allergen Reactions ??? Augmentin [Amoxicillin-Pot Clavulanate] Hives MEDICATIONS: Prior to Admission medications Medication Sig Start Date End Date Taking? Authorizing Provider lamoTRIgine 25 MG tablet Take 1 tablet (25 mg total) by mouth 2 (two) times daily for 7 days, THEN 2 tablets (50 mg total) 2 (two) times daily for 14 days. 11/12/21 12/03/21 Jess Lujan MD PAST MEDICAL HISTORY: History reviewed. No pertinent [...] and are negative. Physical Exam Filed Vitals: 11/22/21 1700 11/22/21 1730 11/22/21 1800 11/22/21 1830 BP: 103/54 116/64 109/71 107/75 Pulse: Resp: Temp: TempSrc: SpO2: 97% 99% 98% 100% Weight: Height: Physical Exam Vitals and nursing note reviewed. Constitutional: General: She is not in acute distress. Appearance: She is well-developed. She is not diaphoretic. HENT: Head: Normocephalic and atraumatic. Mouth/Throat: Mouth: Mucous membranes are moist. Pharynx: No oropharyngeal exudate or posterior oropharyngeal erythema. Comments: Macerated left tongue Eyes: Extraocular Movements: Extraocular movements intact. Conjunctiva/sclera: Conjunctivae normal. Pupils: Pupils are equal, round, and reactive to light. Cardiovascular: Rate and Rhythm: Normal rate and regular rhythm. Heart sounds: Normal heart sounds. No murmur heard. Pulmonary: Effort: Pulmonary effort is normal. No respiratory distress. Breath sounds: Normal breath sounds. No wheezing or rales. Abdominal: General: Bowel sounds are normal. There is no distension. Palpations: Abdomen is soft. Tenderness: There is no abdominal tenderness. Neurological: General: No focal deficit present. Mental Status: She is alert and oriented to person, place, and time. Cranial Nerves: No cranial nerve deficit. Psychiatric: Behavior: Behavior normal. Thought Content: Thought content normal. Judgment: Judgment normal. Diagnostic Studies / Procedures ELECTROCARDIOGRAMS: No results found for this visit on 11/22/21. LABORATORY STUDIES: Results for orders placed or performed during the hospital encounter of 11/22/21 CBC W/DIFF AUTOMATED Result Value Ref Range WBC 14.1 (H) 4.0 - 10.8 x10'3/uL RBC 4.64 4.10 - 5.40 x10'6/uL HGB 13.4 12.0 - 16.0 G/DL HCT 39.3 36.0 - 47.0 % MCV 84.7 78.0 - 100.0 FL MCH 28.9 27.0 - 31.0 PG MCHC 34.1 33.0 - 36.0 G/DL RDW 11.8 11.5 - 14.5 % PLT 446 (H) 150 - 350 x10'3/uL MPV 8.9 7.4 - 10.4 FL Differential Comment NORMAL REFERENCE RANGE NOT ESTABLISHED FOR THE PROPORTIONAL LEUKOCYTE DIFFERENTIAL. SEG NEUTROPHILS 93.1 % LYMPHOCYTES 3.3 % MONOCYTES 2.8 % EOSINOPHILS 0.0 % BASOPHILS 0.4 % IMMATURE GRANS 0.4 % NRBC 0.0 % ABS. NEUTROPHILS 13.16 (H) 1.60 - 8.30 x10'3/uL ABS. LYMPHOCYTES 0.47 (L) 0.80 - 4.70 x10'3/uL ABS. MONOCYTES 0.40 0.00 - 1.50 x10'3/uL ABS. EOSINOPHILS 0.00 0.00 - 0.40 x10'3/uL ABS. BASOPHILS 0.05 0.00 - 0.20 x10'3/uL ABS. IMMATURE GRANULOCYTES 0.05 (H) 0.00 - 0.03 x10'3/uL ABS. NUCLEATED RBC'S 0.00 0.00 x10'3/uL COMPREHENSIVE METABOLIC PANEL Result Value Ref Range SODIUM 136 136 - 145 MMOL/L POTASSIUM 4.2 3.5 - 5.1 MMOL/L CHLORIDE S/P/B 103 98 - 107 MMOL/L CO2 22.2 21.0 - 32.0 MMOL/L GLUCOSE 97 70 - 99 MG/DL BUN 12 6 - 24 MG/DL CREATININE S/P/B 0.84 0.55 - 1.02 MG/DL CALCIUM 9.0 (L) 9.1 - 10.3 MG/DL BILIRUBIN TOTAL S/P/B 0.4 0.2 - 1.0 MG/DL ALKALINE PHOSPHATASE S/P/B 69 52 - 144 U/L AST 16 15 - 37 U/L ALT 14 14 - 59 U/L TOTAL PROTEIN S/P/B 7.9 6.4 - 8.2 G/DL ALBUMIN S/P/B 4.2 3.4 - 5.0 G/DL ANION GAP 10.8 5.0 - 15.0 MMOL/L OSMOLALITY (CALC) 282 MOSM/KG eGFR Non-Afr. Amer. >90 >89 ML/MIN/1.73 M2 eGFR Afr. Amer. >90 >89 ML/MIN/1.73 M2 GFR NOTES GFR REFERENCES: URINALYSIS WI REFLEX TO CULTURE Specimen: URINE, CLEAN CATCH Result Value Ref Range COLOR (U) YELLOW TRANSPARENCY CLOUDY Specific Spencer (U) 1.025 1.000 - 1.025 U PH 5.0 5.0 - 8.0 LEUKOCYTE ESTERASE NEGATIVE NEGATIVE NITRITES NEGATIVE NEGATIVE PROTEIN (U) NEGATIVE NEGATIVE URINE GLUCOSE NEGATIVE NEGATIVE U KETONES NEGATIVE NEGATIVE UROBILINOGEN 0.2 <1.0 EU/DL BILIRUBIN (U) NEGATIVE NEGATIVE BLOOD TRACE (A) NEGATIVE WBC/HPF 0-5 0 - 5 /HPF RBC/HPF 0-5 0 - 5 /HPF EPI/HPF FEW /LPF MUCUS PRESENT AMORPHOUS SEDIMENT URATES CULTURE & SENSITIVITY INDICATED? NOT INDICATED IMAGING STUDIES No orders to display ED Course / Medical Decision Making MDM Number of Diagnoses or Management Options Temporal lobe epilepsy (CMS/HCC): established and worsening Amount and/or Complexity of Data Reviewed Clinical lab tests: reviewed and ordered Obtain history from someone other than the patient: yes Discuss the patient with other providers: yes Risk of Complications, Morbidity, and/or Mortality Presenting problems: moderate Diagnostic procedures: low Management options: moderate Patient Progress Patient progress: improved ED Course as of Nov 29 739ThuNov 22, 2021 1834 Discussed the patient with her neurologist, Dr. Meadows . He states that it was a miscommunication that the patient had not started lamotrigine. He had wanted the patient to start it and if the follow-up appointment needed to be delayed, then they could have extended the prescription. He recommends giving the patient a 1000 mg loading dose of Keppra and have the patient start lamotrigine immediately. She should call his office on Thursday morning to verify follow-up appointment and to make surethat she has enough lamotrigine to last until that appointment. This plan is discussed with the patient and her parents and they are agreeable. All questions are answered to their satisfaction. Adriennedestiny gonzalez's laboratory work-up here today is unremarkable. [JW] ED Course User Index [JW] Mele Rodriguez DO Clinical Impression Temporal lobe epilepsy (CMS/HCC) (Primary) Disposition: Discharge Mele Rodriguez DO 11/29/21 07 PLANT OPERATOR documented in this encounter Plan of Treatment Not on file documented as of this encounter Procedures Procedure Name Priority Date/Time Associated Diagnosis Comments URINALYSIS WI REFLEX TO CULTURE STAT 11/22/2021 5:22 PM SALT PLANT OPERATOR COMPREHENSIVE METABOLIC PANEL STAT 11/22/2021 4:27 PM SALT PLANT OPERATOR CBC W/DIFF AUTOMATED STAT 11/22/2021 4:27 PM SALT PLANT OPERATOR documented in this encounter Results * (ABNORMAL) URINALYSIS WI REFLEX TO CULTURE (11/22/2021 5:22 PM SALT PLANT OPERATOR) COLOR (U) YELLOW 11/22/2021 5:45 PM SALT PLANT OPERATOR [facility] TRANSPARENCY CLOUDY 11/22/2021 5:45 PM SALT PLANT OPERATOR [facility] SPECIFIC GRAVITY (U) 1.025 1.000 - 1.025 11/22/2021 5:45 PM SALT PLANT OPERATOR [facility] U PH 5.0 5.0 - 8.0 11/22/2021 5:45 PM SALT PLANT OPERATOR [facility] LEUKOCYTES (U) NEGATIVE NEGATIVE 11/22/2021 5:45 PM SALT PLANT OPERATOR [facility] NITRITES NEGATIVE NEGATIVE 11/22/2021 5:45 PM SALT PLANT OPERATOR [facility] PROTEIN (U) NEGATIVE NEGATIVE 11/22/2021 5:45 PM SALT PLANT OPERATOR [facility] URINE GLUCOSE NEGATIVE NEGATIVE 11/22/2021 5:45 PM SALT PLANT OPERATOR [facility] KETONES MG/DL (U) NEGATIVE NEGATIVE 11/22/2021 5:45 PM SALT PLANT OPERATOR [facility] UROBILINOGEN 0.2 <1.0 EU/DL 11/22/2021 5:45 PM SALT PLANT OPERATOR [facility] BILIRUBIN (U) NEGATIVE NEGATIVE 11/22/2021 5:45 PM SALT PLANT OPERATOR [facility] BLOOD (U) TRACE(A) NEGATIVE 11/22/2021 5:45 PM SALT PLANT OPERATOR [facility] WBC/HPF 0-5 0 - 5 /HPF 11/22/2021 5:45 PM SALT PLANT OPERATOR [facility] RBC/HPF 0-5 0 - 5 /HPF 11/22/2021 5:45 PM SALT PLANT OPERATOR [facility] EPI/HPF FEW /LPF 11/22/2021 5:45 PM SALT PLANT OPERATOR [facility] MUCUS PRESENT 11/22/2021 5:45 PM SALT PLANT OPERATOR [facility] AMORPHOUS SEDIMENT URATES 11/22/2021 5:45 PM SALT PLANT OPERATOR [facility] Comment:PRESENT CULTURE & SENSITIVITY INDICATED? NOT INDICATED 11/22/2021 5:45 PM SALT PLANT OPERATOR [facility] URINE SPECIMEN OBTAINED BY CLEAN CATCH PROCEDURE / Unknown 11/22/2021 5:22 PM SALT PLANT OPERATOR us Mele Rodriguez DO URINE ORDERABLES Final Result [facility] [address] [place] [address], * (ABNORMAL) COMPREHENSIVE METABOLIC PANEL (11/22/2021 4:27 PM SALT PLANT OPERATOR) SODIUM S/P/B 136 136 - 145 MMOL/L 11/22/2021 4:59 PM [facility] POTASSIUM S/P/B 4.2 3.5 - 5.1 MMOL/L 11/22/2021 4:59 PM [facility] CHLORIDE S/P/B 103 98 - 107 MMOL/L 11/22/2021 4:59 PM [facility] CO2 22.2 21.0 - 32.0 MMOL/L 11/22/2021 4:59 PM [facility] GLUCOSE 97 70 - 99 MG/DL 11/22/2021 4:59 PM [facility] Comment: FASTING GLUCOSE 100 TO 125 MG/DL IS CONSISTENT WITH IMPAIRED FASTING GLUCOSE. FASTING GLUCOSE >125 MG/DL IS CONSISTENT WITH DIABETES. RANDOM GLUCOSE >200 MG/DL WITH HYPERGLYCEMIC SYMPTOMS IS CONSISTENT WITH DIABETES. PER ADA GUIDELINES BUN 12 6 - 24 MG/DL 11/22/2021 4:59 PM [facility] CREATININE S/P/B 0.84 0.55 - 1.02 MG/DL 11/22/2021 4:59 PM [facility] CALCIUM S/P/B 9.0(L) 9.1 - 10.3 MG/DL 11/22/2021 4:59 PM [facility] BILIRUBIN TOTAL S/P/B 0.4 0.2 - 1.0 MG/DL 11/22/2021 4:59 PM [facility] Comment: THIS ASSAY IS NOT RECOMMENDED FOR PATIENTS UNDERGOING TREATMENT WITH ELTROMBOPAG DUE TO THE POTENTIAL FOR FALSELY ELEVATED RESULTS. ALKALINE PHOSPHATASE S/P/B 69 52 - 144 U/L 11/22/2021 4:59 PM [facility] AST 16 15 - 37 U/L 11/22/2021 4:59 PM [facility] ALT 14 14 - 59 U/L 11/22/2021 4:59 PM [facility] TOTAL PROTEIN S/P/B 7.9 6.4 - 8.2 G/DL 11/22/2021 4:59 PM [facility] ALBUMIN S/P/B 4.2 3.4 - 5.0 G/DL 11/22/2021 4:59 PM SALT PLANT OPERATOR [facility] ANION GAP 10.8 5.0 - 15.0 MMOL/L 11/22/2021 4:59 PM SALT PLANT OPERATOR [facility] OSMOLALITY (CALC) 282 MOSM/KG 021 4:59 PM SALT PLANT OPERATOR [facility] Comment:REFERENCE RANGE NOT ESTABLISHED EGFR NON-AFR. AMER. >90 >89 ML/MIN/1. 73 M2 11/22/2021 4:59 PM SALT PLANT OPERATOR [facility] EGFR AFR. AMER. >90 >89 ML/MIN/1. 73 M2 11/22/2021 4:59 PM SALT PLANT OPERATOR [facility] GFR NOTES GFR REFERENCE S: 11/22/2021 4:59 PM [facility] Comment: THE ESTIMATED GFR IS CALCULATED [...] ml/min/1.73 m2 G5,KIDNEY FAILURE: <15 ml/min/1.73 m2 11/22/2021 4:27 PM SALT PLANT OPERATOR us Mele Rodriguez DO LABORATORY Final Result [facility] [address] [place] [address], * (ABNORMAL) CBC W/DIFF AUTOMATED (11/22/2021 4:27 PM SALT PLANT OPERATOR) WBC 14.1(H) 4.0 - 10.8 x10'3/uL 11/22/2021 4:36 PM SALT PLANT OPERATOR [facility] RBC 4.64 4.10 - 5.40 x10'6/uL 11/22/2021 4:36 PM SALT PLANT OPERATOR [facility] HGB 13.4 12.0 - 16.0 G/DL 11/22/2021 4:36 PM SALT PLANT OPERATOR [facility] HCT 39.3 36.0 - 47.0 % 11/22/2021 4:36 PM SALT PLANT OPERATOR [facility] MCV 84.7 78.0 - 100.0 FL 11/22/2021 4:36 PM SALT PLANT OPERATOR [facility] MCH 28.9 27.0 - 31.0 PG 11/22/2021 4:36 PM SALT PLANT OPERATOR [facility] MCHC 34.1 33.0 - 36.0 G/DL 11/22/2021 4:36 PM SALT PLANT OPERATOR [facility] RDW 11.8 11.5 - 14.5 % 11/22/2021 4:36 PM SALT PLANT OPERATOR [facility] PLT 446(H) 150 - 350 x10'3/uL 11/22/2021 4:36 PM SALT PLANT OPERATOR [facility] MPV 8.9 7.4 - 10.4 FL 11/22/2021 4:36 PM SALT PLANT OPERATOR [facility] DIFFERENTIAL COMMENT NORMAL REFERENCE RANGE NOT ESTABLISHED FOR THE PROPORTIONAL LEUKOCYTE DIFFERENTIAL. 11/22/2021 4:36 PM SALT PLANT OPERATOR [facility] SEG NEUTROPHILS 93.1 % 4:36 PM SALT PLANT OPERATOR [facility] LYMPHOCYTES 3.3 % 11/22/2021 4:36 PM SALT PLANT OPERATOR [facility] MONOCYTES 2.8 % 11/22/2021 4:36 PM SALT PLANT OPERATOR [facility] EOSINOPHILS 0.0 % 11/22/2021 4:36 PM SALT PLANT OPERATOR [facility] BASOPHILS 0.4 % 11/22/2021 4:36 PM SALT PLANT OPERATOR [facility] IMMATURE GRANS % 0.4 % 11/22/20 4:36 PM SALT PLANT OPERATOR [facility] NRBC 0.0 % 11/22/2021 4:36 PM SALT PLANT OPERATOR [facility] ABS. NEUTROPHILS 13.16(H) 1.60 - 8.30 x10'3/uL 11/22/2021 4:36 PM SALT PLANT OPERATOR [facility] ABS. LYMPHOCYTES 0.47(L) 0.80 - 4.70 x10'3/uL 11/22/2021 4:36 PM SALT PLANT OPERATOR [facility] ABS. MONOCYTES 0.40 0.00 - 1.50 x10'3/uL 11/22/2021 4:36 PM SALT PLANT OPERATOR [facility] ABS. EOSINOPHILS 0.00 0.00 - 0.40 x10'3/uL 11/22/2021 4:36 PM SALT PLANT OPERATOR [facility] ABS. BASOPHILS 0.05 0.00 - 0.20 x10'3/uL 11/22/2021 4:36 PM SALT PLANT OPERATOR [facility] ABS. IMMATURE GRANULOCYTES 0.05(H) 0.00 - 0.03 x10'3/uL 11/22/2021 4:36 PM SALT PLANT OPERATOR [facility] ABS. NUCLEATED RBC'S 0.00 0.00 x10'3/uL 11/22/2021 4:36 PM SALT PLANT OPERATOR [facility] 11/22/2021 4:27 PM SALT PLANT OPERATOR us Mele Rodriguez DO LABORATORY Final Result [facility] [address] [place] [address], documented in this encounter Visit Diagnoses Diagnosis Temporal lobe epilepsy ([facility]/HCC [facility])- Primary Localization-related (focal) (partial) epilepsy and epileptic syndromes with complex partial seizures, without mention of intractable epilepsy documented in this encounter Administered Medications Inactive Administered Medications - up to 3 most recent administrations Medication Order MAR Action Action Date Dose Rate Site levETIRAcetam (KEPPRA) 1,000 mg in sodium chloride 0.9 % 100 mL IVPB 1,000 mg, Intravenous, at 400 mL/hr, Once, 1 dose, On Thu11/22/21 at 1845 New Bag 11/22/2021 6:47 PM SALT PLANT OPERATOR 1,000 mg 400 mL/hr ondansetron (ZOFRAN) injection 4 mg 4 mg, Intravenous, Once, 1 dose, On Thu11/22/21 at 1730, IV push over 2-5 minutes. Given 11/22/2021 5:14 PM SALT PLANT OPERATOR 4 mg documented in this encounter Active and Recently Administered Medications Times are shown in SALT PLANT OPERATOR. Scheduled Medication Order 11/20/2021 11/21/2021 11/22/2021 levETIRAcetam (KEPPRA) 1,000 mg in sodium chloride 0.9 % 100 mL IVPB (COMPLETED) 1,000 mg, Intravenous, at 400 mL/hr, Once, 1 dose, On Thu11/22/21 at 1845 1847 (New Bag - Prov ider: Bibiana Kennedy, JACQUELINE)1901 (Infusion Stop Time - Provider: Bibiana Kennedy, JACQUELINE) ondansetron (ZOFRAN) injection 4 mg (COMPLETED) 4 mg, Intravenous, Once, 1 dose, On Thu11/22/21 at 1730, IV push over 2-5 minutes. 1714 (Given - Provid er: Bibiana Kennedy, JACQUELINE) documented in this encounter Care Teams Tack Welder Relationship Specialty Start Date End Date Oziel Burt MD [address] [place] [id number] PCP - General FAMILY PRACTICE 09/13/21 documented as of this encounter
--- OUTSIDE RECORDS SUMMARY | 2024-12-07 17:21 | XMS_ITS | Encounter Summary ---
Author Organization [facility] Address [address] [place] [address]. [place] [address] [place] [address] Care Team Providers Care Journeyman Carpenter Name Role Phone Oziel Burt MD Primary Care Provider [phone] Reason for Visit * Reason Comments Follow Up EEG Results Encounter Details Date Type Department Care Team (Latest Contact Info) Description 12/05/2021 10:20 AM TOP DYEING MACHINE TENDER Office Visit [facility] Neuroscience [address] [address] Moises Harper MD [address] [place] [address] [id number] Follow Up (EEG Results) Social History Tobacco Use Types Packs/Day Years Used Date Smoking Tobacco: Never Smokeless Tobacco: Never Tobacco Cessation:Counseling Given: No Comments No Sex and Gender Information Value Date Recorded Sex Assigned at Not on file Legal Sex Female 5:55 PM TOP DYEING MACHINE TENDER Gender Identity Not on file Sexual Orientation Not on file COVID-19 Exposure Response Date Recorded In the last month, have you been in contact with someone who was confirmed or suspected to have Coronavirus / COVID-19? No / Unsure 12/05/2021 7:40 AM TOP DYEING MACHINE TENDER documented as of this encounter Last Filed Vital Signs Vital Sign [place] Time Taken Comments Blood Pressure 112/68 12/05/2021 10:00 AM TOP DYEING MACHINE TENDER Pulse 80 12/05/2021 10:00 AM TOP DYEING MACHINE TENDER Temperature - - Respiratory Rate - - Oxygen Saturation 98% 12/05/2021 10:00 AM TOP DYEING MACHINE TENDER Inhaled Oxygen Concentration - - Weight 72.6 kg (160 lb) 12/05/2021 10:00 AM TOP DYEING MACHINE TENDER Height 162.6 cm (5' 4 ) 12/05/2021 10:00 AM TOP DYEING MACHINE TENDER Body Mass Index 27.46 12/05/2021 10:00 AM TOP DYEING MACHINE TENDER Body Mass Index Percentile 89.41% 12/05/2021 10: 00 AM TOP DYEING MACHINE TENDER Growth Chart: [facility] (Girls, 2- 20 Years) documented in this encounter Progress Notes * Moises Cadena MD - 12/05/2021 10:20 AM CST Neurology outpatient F/U visit Patient name: Jennifer [...] patient denies significant side effects from lamotrigine. Past medical history: None. Past surgical history: Past Surgical History: Procedure Laterality Date ??? TONSILLECTOMY Medication: Current Outpatient Medications Medication Sig Dispense Refill ??? lamoTRIgine 25 MG tablet Take 2 tablets (50 mg total) by mouth 2 (two) times daily. 60 tablet 0 No current facility-administered medications for this visit. Allergies: Allergies as of 12/05/2021 - Reviewed 12/05/2021 Allergen Reaction Noted ??? Augmentin [amoxicillin-pot clavulanate] [...] weakness/numbness. Remaining as per HPI. Filed Vitals: 12/05/21 1000 BP: 112/68 Pulse: 80 SpO2: 98% Weight: 72.6 kg (160 lb) [...] the EEG. Impression: ICD-10-CM ICD-9-CM 1. Seizure ([facility]) R56.9 780.39 2. Auras R29.818 781.99 The patient had follow-up EEG this morning prior to this visit. The EEG showed occasional left temporal sharp waves. The EEG was significantly improved when compared to the previous EEG. After discussion with the patient, the patient agrees to increase lamotrigine to 100 mg every 12 hours. MRI brain showed no epileptogenic lesion. Plan: 1. Recommend to increase lamotrigine to 100 mg every 12 hours. 2. Recommend to wait for at least 2 years of seizure-free before getting . 3. Seizure diary. 4. Follow-up in 3 months. Plan discussed with patient who voiced understanding and agreed with the plan. Portions of this note were created using voice recognition software, please excuse any typos. MOISES CADENA MD DYEING MACHINE TENDER documented in this encounter Plan of Treatment Not on file documented as of this encounter Visit Diagnoses Diagnosis Seizure (CMS/HCC HHS/HCC)- Primary Other convulsions Auras Other symptoms involving nervous and musculoskeletal systems documented in this encounter Care Teams Journeyman Carpenter Relationship Specialty Start Date End Date Oziel Burt MD [address] [facility] [place] [address] PCP - General FAMILY PRACTICE 09/13/21 documented as of this encounter
--- OUTSIDE RECORDS SUMMARY | 2024-12-07 17:21 | XMS_ITS | Encounter Summary ---
Author Organization [facility] Address [address] [place] [address]. [place], [place] [address] [place] [address] Care Team Providers Care Career Services Coordinator Name Role Phone Unavailable Primary Care Provider Unavailabl e Encounter Details Date Type Department Care Team (Late st Contact Info) Description 01/03/2003 Abstract [facility] CONVERSION [address] [place] [address] , Generic Conversion, Social History Tobacco Use Types Packs/Day Years Used Date Smoking Tobacco: Never Assessed Comments Unknown Sex and Gender Information Value Date Recorded Sex Assigned at Not on file Legal Sex Female 5:55 PM ROOF BOLTER Gender Identity Not on file Sexual Orientation Not on file documented as of this encounter Plan of Treatment Not on file documented as of this encounter Visit Diagnoses Not on filedocumented in this encounter
--- OUTSIDE RECORDS SUMMARY | 2024-12-07 17:21 | XMS_ITS | Encounter Summary ---
Author Organization [facility] Address [address] [place] [address]. 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
--- OUTSIDE RECORDS SUMMARY | 2024-12-07 17:21 | XMS_ITS | Encounter Summary ---
Author Organization [facility] Address [address] [place] [address]. [place], [place] [address] [place] [address] Care Team Providers Care Junior [employer] School Teacher Name Role Phone Oziel Burt MD Primary Care Provider [phone] Reason for Referral * Imaging (Routine) - Closed Specialty Diagnoses / Procedures Referred By Cosmo gonzalez Referred To Contact RADIOLOGY Diagnoses Seizure ([facility]) Procedures MRI BRAIN WWO CON Moises Cadena MD [address] [place] [address] Phone: tel: fax: Referral ID Status Reason Start Date Expiration Date Visits Re quested Visits Authorized [id number] Closed 11/13/2021 01/11/2022 1 1 PHONE CLERK TELEGRAPH OFFICE Reason for Visit * Imaging (Routine) - Closed Specialty Diagnoses / Procedures Referred By Cosmo gonzalez Referred To Contact RADIOLOGY Diagnoses Seizure ([facility]) Procedures MRI BRAIN WWO CON Moises Cadena MD [address] [place] [address] Phone: tel: fax: Referral ID Status Reason Start Date Expiration Date Visits Re quested Visits Authorized [id number] Closed 11/13/2021 01/11/2022 1 1 Encounter Details Date Type Department Care Team (Latest Contact Info) Description 11/18/2021 10:00 AM TELEPHONE CLERK TELEGRAPH OFFICE - 11/18/2021 11:59 PM TELEPHONE CLERK TELEGRAPH OFFICE Hospital Encounter [facility] [address] [place] [address] Moises Harper MD [address] [address] Discharge Disposition: Home or Self Care (Routine Discharge) Social History Tobacco Use Types Packs/Day Years Used Date Smoking Tobacco: Never Smokeless Tobacco: Never Comments No Sex and Gender Information Value Date Recorded Sex Assigned at Not on file Legal Sex Female 5:55 PM TELEPHONE CLERK TELEGRAPH OFFICE Gender Identity Not on file Sexual Orientation Not on file COVID-19 Exposure Response Date Recorded In the last month, have you been in contact with someone who was confirmed or suspected to have Coronavirus / COVID-19? No / Unsure 11/18/2021 10:02 AM TELEPHONE CLERK TELEGRAPH OFFICE documented as of this encounter Medications at Time of Discharge lamoTRIgine 25 MG tabletIndications :Seizure (CMS/HCC HHS/HCC) Take 1 tablet (25 mg total) by mouth 2 (two) times daily for 7 days, THEN 2 tablets (50 mg total) 2 (two) times daily for 14 days. 70 tablet 11/12/2021 12/03/2021 documented as of this encounter Plan of Treatment Not on file documented as of this encounter Procedures Procedure Name Priority Date/Time Associated Diagnosis Comments MRI BRAIN WWO CON Routine 11/18/2021 11: 17 AM TELEPHONE CLERK TELEGRAPH OFFICE Seizure (CMS/HCC HHS/HCC) documented in this encounter Results * MRI BRAIN WWO CON (11/18/2021 11:17 AM TELEPHONE CLERK TELEGRAPH OFFICE) Anatomical Region Laterality Modality Head Magnetic Resonan ce 11/18/2021 11:4 1 AM TELEPHONE CLERK TELEGRAPH OFFICE Impressions 11/18/2021 2:56 PM TELEPHONE CLERK TELEGRAPH OFFICE IMPRESSION: Normal appearance of the brain Ordered By: MOISES CADENA Interpreted By: Keo Buchanan MD, 11/18/2021 11:41 AM Narrative 11/18/2021 2:56 PM TELEPHONE CLERK TELEGRAPH OFFICE Examination: MRI BRAIN [facility], 11/18/2021 11:41 AM. Technique: Axial and sagittal T1, axial DWI, axial T2 GRE, axial T2 FLAIR, sagittal T2 FLAIR 3-D space, axial T2, as well as axial, coronal and sagittal T1-weighted postcontrast magnetic resonance images of the brain were obtained before and after the administration of 15 mL of Dotarem injected through the left hand IV, without evidence of adverse reaction. Additional coronal oblique T2, and coronal oblique T2 FLAIR magnetic resonance images of the hippocampi were obtained. Clinical history: Seizures, epilepsy Comparison: None available Findings: No restricted diffusion to suggest an acute infarction. No hemorrhagic focus of susceptibility. Preserved simmons-white matter differentiation. No abnormally enhancing intracranial parenchyma or mass. Hippocampi have a normal volume, architecture and signal intensity. The sellar, callosal, pineal, and craniovertebral junction regions appear within normal limits. No extra-axial fluid collection. The ventricles are normal in size. The basal cisterns appear normal. The proximal intracranial arterial flow voids have a normal appearance. Orbital contents appear normal. Mucous retention cyst seen within the left maxillary sinus. Otherwise, the paranasal sinuses and mastoid air cells are well aerated. Procedure Note Keo Buchanan MD - 11/18/2021 Examination: MRI BRAIN [facility], 11/18/2021 11:41 AM. Technique: Axial and sagittal T1, axial DWI, axial T2 GRE, axial T2 FLAIR,sagittal T2 FLAIR 3-D space, axial T2, as well as axial, coronal andsagittal T1-weighted postcontrast magnetic resonance images of the brainwere obtained before and after the administration of 15 mL of Dotareminjected through the left hand IV, without evidence of adverse reaction.Additional coronal oblique T2, and coronal oblique T2 FLAIR magneticresonance images of the hippocampi were obtained. Clinical history: Seizures, epilepsy Comparison: None available Findings: No restricted diffusion to suggest an acute infarction. No hemorrhagicfocus of susceptibility. Preserved simmons-white matter differentiation. Noabnormally enhancing intracranial parenchyma or mass. Hippocampi have anormal volume, architecture and signal intensity. The sellar, callosal,pineal, and craniovertebral junction regions appear within normallimits. No extra-axial fluid collection. The ventricles are normal in size. Thebasal cisterns appear normal. The proximal intracranial arterial flowvoids have a normal appearance. Orbital contents appear normal. Mucousretention cyst seen within the left maxillary sinus. Otherwise, theparanasal sinuses and mastoid air cells are well aerated. IMPRESSION: Normal appearance of the brain Ordered By: MOISES CADENA Interpreted By: Keo Buchanan MD, 11/18/2021 11:41 AM us Moises Cadena MD MRI Fin al Result documented in this encounter Visit Diagnoses Diagnosis Seizure (CMS/HCC HHS/HCC) Other convulsions documented in this encounter Administered Medications Inactive Administered Medications - up to 3 most recent administrations Medication Order MAR Action Action Date Dose Rate Site gadoterate meglumine (DOTAREM) 5 MMOL/10ML injection 15 mL 15 mL, Intravenous, IMG once as needed, Contrast, Contrast, 1 dose, Starting on Thu11/18/21 at 1042, Until Thu11/18/21 at 1043 Given 11/18/2021 10:43 AM TELEPHONE CLERK TELEGRAPH OFFICE 15 mLs documented in this encounter Care Teams Junior High School Teacher Relationship Specialty Start Date End Date Oziel Burt MD [address] [facility] [place] [address] PCP - General FAMILY PRACTICE 09/13/21 documented as of this encounter
--- OUTSIDE RECORDS SUMMARY | 2024-12-07 17:21 | XMS_ITS | Encounter Summary ---
Author Organization [facility] Address [address] [place] [address]. [place], [place] [address] [place] [address] Care Team Providers Care Aircraft Engine Dismantler Name Role Phone Oziel Burt MD Primary Care Provider [phone] Encounter Details Date Type Department Care Team (Latest Contact Info) Description 12/05/2021 7:42 AM TONGUE STITCHER - 12/05/2021 11:59 PM TONGUE STITCHER Hospital Encounter [facility] Electrodiagnostic [address] [place], [place] [address] Jess Harper MD [address] [place] [address] Discharge Disposition: Home or Self Care (Routine Discharge) Social History Tobacco Use Types Packs/Day Years Used Date Smoking Tobacco: Never Smokeless Tobacco: Never Comments No Sex and Gender Information Value Date Recorded Sex Assigned at Not on file Legal Sex Female 5:55 PM TONGUE STITCHER Gender Identity Not on file Sexual Orientation Not on file COVID-19 Exposure Response Date Recorded In the last month, have you been in contact with someone who was confirmed or suspected to have Coronavirus / COVID-19? No / Unsure 12/05/2021 7:40 AM TONGUE STITCHER documented as of this encounter Medications at Time of Discharge lamoTRIgine 100 MG tabletIndications :Seizure (CMS/HCC HHS/HCC) Take 1 tablet (100 mg total) by mouth 2 (two) times daily. 60 tablet 3 12/05/2021 03/11/2022 documented as of this encounter Procedure Notes * Jess Lujan MD - 12/05/2021 8:00 AM CSTAssociated Order(s): EEG AWAKE OR DROWSY ROUTINE Procedure(s): EEG ROUTINE Pre-Procedure Diagnose(s): Seizure (CMS/HCC HHS/HCC) Post-Procedure Diagnose(s): Seizure (CMS/HCC HHS/HCC) INTERPRETATION: This 61-minute, computer-assisted video EEG recording is abnormal. It showed occasional epileptogenic potentials over the left temporal head region. 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 CLASSIFICATION: Dysrhythmia grade 3, left temporal sharp waves. EKG channel. DESCRIPTION: BACKGROUND: The awake recording revealed 9 Hz alpha activity over the posterior head region. The sleep recording contained normal symmetric v-waves, sleep spindles, and K-complexes. There was no significant change on the EEG background with photic stimulation or hyperventilation. INTERICTAL DISCHARGES: Occasional sharp waves over the mid left temporal head region, maximal at T3. CLINICAL EVENTS: None The EKG channel was unremarkable. UE STITCHER documented in this encounter Plan of Treatment Not on file documented as of this encounter Procedures Procedure Name Priority Date/Time Associated Diagnosis Comments EEG SLEEP DEPRIVED Routine 12/05/2021 8: 00 AM TONGUE STITCHER History of seizure documented in this encounter Results * EEG awake or drowsy routine (12/05/2021 8:00 AM TONGUE STITCHER) Narrative [facility] - 12/05/2021 8:00 AM TONGUE STITCHER Jess Lujan MD ? 12/05/2021 10:23 AM INTERPRETATION: This 61-minute, computer-assisted video EEG recording is abnormal. ??It showed occasional epileptogenic potentials over the left temporal head region. 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 CLASSIFICATION: Dysrhythmia grade 3, left temporal sharp waves. EKG channel. DESCRIPTION: BACKGROUND: ??The awake recording revealed 9 Hz alpha activity over the posterior head region. ??The sleep recording contained normal symmetric v-waves, sleep spindles, and K-complexes. ??There was no significant change on the EEG background with photic stimulation or hyperventilation. INTERICTAL DISCHARGES: Occasional sharp waves over the mid left temporal head region, maximal at T3. CLINICAL EVENTS: ??None The EKG channel was unremarkable. us Jess Lujan MD NEUROLOGY ORDERABLE S Final Result [facility] [address] [place] [address], [id number] documented in this encounter Visit Diagnoses Diagnosis History of seizure- Primary documented in this encounter Care Teams Aircraft Engine Dismantler Relationship Specialty Start Date End Date Oziel Burt MD [address] [facility] [place] [phone] PCP - General FAMILY PRACTICE 09/13/21 documented as of this encounter
--- OUTSIDE RECORDS SUMMARY | 2024-12-07 17:21 | XMS_ITS | Encounter Summary ---
Author Organization [facility] Address [address] [place] [address]. 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
--- OUTSIDE RECORDS SUMMARY | 2024-12-07 17:21 | XMS_ITS | Encounter Summary ---
Author Organization [facility] Address [address] [place] [address]. [place], [place] [address] [place] [address] Care Team Providers Care Wind Turbine Sheet Metal Worker Name Role Phone Unavailable Primary Care Provider Unavailabl e Encounter Details Date Type Department Care Team (Late st Contact Info) Description 01/30/2009 Abstract [facility] [address] [facility] [place] [address] Bhavin Corrales MD [address] [place] [address] Social History Tobacco Use Types Packs/Day Years Used Date Smoking Tobacco: Never Assessed Comments Unknown Sex and Gender Information Value Date Recorded Sex Assigned at Not on file Legal Sex Female 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
--- OUTSIDE RECORDS SUMMARY | 2024-12-07 17:21 | XMS_ITS | Encounter Summary ---
Author Organization [facility] Address [address] [place] [address]. [place] [address] [place] [address] Care Team Providers Care Electrical Electronics Technician Name Role Phone Oziel Burt MD Primary Care Provider [phone] Encounter Details Date Type Department Care Team (Late st Contact Info) Description 09/16/2021 Transcribe Orders [facility] Pre Access Team [address] [place] [address] Fanta Burt, SEWAGE PLANT ATTENDANT [address] [place] [address] Social History Tobacco Use Types Packs/Day Years Used Date Smoking Tobacco: Never Smokeless Tobacco: Never Comments No Sex and Gender Information Value Date Recorded Sex Assigned at Not on file Legal Sex Female 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 No / Unsure 09/26/2021 9:31 AM CDT documented as of this encounter Plan of Treatment Not on file documented as of this encounter Results * EEG (09/26/2021 10:00 AM CDT) Narrative [facility] - 09/26/2021 10:00 AM CDT [...] The EKG channel was unremarkable. Fanta Burt [facility] NEUROLOGY ORDERABLES Edited Re margot - Final [facility] [address] [place] [address], [id number] documented in this encounter Visit Diagnoses Diagnosis Seizure-like activity (CMS/HCC HHS/HCC)- Primary Other convulsions Seizure-like activity (CMS/HCC HHS/HCC) Other convulsions documented in this encounter Care Teams Electrical Electronics Technician Relationship Specialty Start Date End Date Oziel Burt MD [address] [facility] [place] [phone] PCP - General FAMILY PRACTICE 09/13/21 documented as of this encounter
--- OUTSIDE RECORDS SUMMARY | 2024-12-07 17:21 | XMS_ITS | Encounter Summary ---
Author Organization [facility] Address [address] [place] [address]. 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 No / Unsure 11/22/2021 3:43 PM MARINE TOWER OPERATOR documented as of this encounter Plan of Treatment Not on file documented as of this encounter Visit Diagnoses Not on filedocumented in this encounter Care Teams Drive Tester Relationship Specialty Start Date End Date Oziel Burt MD [address] [facility] [place] [phone] PCP - General FAMILY PRACTICE 09/13/21 documented as of this encounter
--- OUTSIDE RECORDS SUMMARY | 2024-12-07 17:21 | XMS_ITS | Encounter Summary ---
Author Organization [facility] Address [address] [place] [address]. [place], [place] [id number] [place] [id number] Care Team Providers Care Dumper Operator Name Role Phone Oziel Burt MD Primary Care Provider [phone] Reason for Referral * Imaging (Routine) - Closed Specialty Diagnoses / Procedures Referred By Cosmo gonzalez Referred To Contact RADIOLOGY Diagnoses Seizure ([facility]) Procedures MRI BRAIN WWO CON Moises Cadena MD [address] [address] Phone: tel: fax: Referral ID Status Reason Start Date Expiration Date Visits Re quested Visits Authorized [id number] Closed 11/13/2021 01/11/2022 1 1 MOTIVE SERVICE ADVISOR Reason for Visit * Reason Comments New Patient siezures * Consultation (Routine) - Closed Specialty Diagnoses / Procedures Referred By Cosmo gonzalez Referred To Contact Diagnoses Seizure Procedures NPV Oziel Burt MD [address] [place] [address] [place] [address] Phone: tel: fax: Moises Cadena MD [address] [address] Phone: tel: fax: Referral ID Status Reason Start Date Expiration Date Visits Re quested Visits Authorized [id number] Closed 11/05/2021 11/06/2022 100 100 Encounter Details Date Type Department Care Team (Latest Contact Info) Description 11/12/2021 2:20 PM AUTOMOTIVE SERVICE ADVISOR Office Visit [facility] Neuroscience [address] [phone] Moises Harper MD [address] [place] [id number] New Patient (melissa) Social History Tobacco Use Types Packs/Day Years Used Date Smoking Tobacco: Never Smokeless Tobacco: Never Tobacco Cessation:Counseling Given: No Comments No Sex and Gender Information Value Date Recorded Sex Assigned at Not on file Legal Sex Female 5:55 PM AUTOMOTIVE SERVICE ADVISOR Gender Identity Not on file Sexual Orientation Not on file COVID-19 Exposure Response Date Recorded In the last month, have you been in contact with someone who was confirmed or suspected to have Coronavirus / COVID-19? No / Unsure 11/22/2021 3:43 PM AUTOMOTIVE SERVICE ADVISOR documented as of this encounter Last Filed Vital Signs Vital Sign Reading Time Taken Comments Blood Pressure 110/60 11/12/2021 2:05 PM AUTOMOTIVE SERVICE ADVISOR Pulse 100 11/12/2021 2:05 PM AUTOMOTIVE SERVICE ADVISOR Temperature - - Respiratory Rate - - Oxygen Saturation 97% 11/12/2021 2:05 PM AUTOMOTIVE SERVICE ADVISOR Inhaled Oxygen Concentration - - Weight 74.8 kg (165 lb) 11/12/2021 2:05 PM AUTOMOTIVE SERVICE ADVISOR Height 162.6 cm (5' 4 ) 11/12/2021 2:05 PM AUTOMOTIVE SERVICE ADVISOR Body Mass Index 28.32 11/12/2021 2:05 PM AUTOMOTIVE SERVICE ADVISOR Body Mass Index Percentile 91.40% 11/12/2021 2:0 5 PM AUTOMOTIVE SERVICE ADVISOR Growth Chart: CDC (Girls, 2- 20 Years) documented in this encounter Progress Notes * Champ Adan CMA - 11/12/2021 2:20 PM CSTAddended by: CHAMP ADAN on: 11/26/2021 02:48 PM Modules accepted: Orders MOTIVE SERVICE ADVISOR * Moises Cadena MD - 11/12/2021 2:20 PM CST Neurology outpatient new visit Patient name: Jennifer Travis Chief Complaint: [...] d??j?? vu's before she started smoking weeds. Past medical history: History reviewed. No pertinent past medical history. Past surgical history: Past Surgical History: Procedure Laterality Date ??? TONSILLECTOMY Medication: No current outpatient medications on file. No current facility-administered medications for this visit. Allergies: Allergies as of 11/12/2021 - Reviewed 11/12/2021 Allergen Reaction Noted ??? Augmentin [amoxicillin-pot clavulanate] Hives 09/13/2021 Social history: reports that she has never smoked. She has never used smokeless tobacco. She reports current drug use. Drug: Marijuana. Family history: No family history on file. Review of system: No chest pain, shortness of breath, palpitation, cough, fever, abdominal pain, vomiting, diarrhea, dysuria, vertigo, joint pain, change in speech/vision or new onset of weakness/numbness. Remaining as per HPI. Filed Vitals: 11/12/21 1405 BP: 110/60 Pulse: 100 SpO2: 97% Weight: 74.8 kg (165 lb) Height: 5' 4 (1.626 m) Neurological [...] no dysmetria Imaging, procedure, and laboratory data: There is no relevant study to review at this visit. Impression: ICD-10-CM ICD-9-CM 1. 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 This can be multifocal or left temporal with rapid synchronization based on the EEG findings. After discussion with the patient, the patient agrees to start antiseizure medication. I recommend the patient to start lamotrigine with slow titration. The patient is aware the common side effects from lamotrigine including skin rash, dizziness, and tremor. Plan: 1. Recommend to start lamotrigine with slow titration to 50 mg twice a day in 2 weeks. 2. Recommend to do MRI brain with and without contrast. 3. Recommend to follow-up in 2 weeks with EEG. Plan discussed with patient who voiced understanding and agreed with the plan. Portions of this note were created using voice recognition software, please excuse any typos. MOISES CADENA MD MOTIVE SERVICE ADVISOR documented in this encounter Plan of Treatment Not on file documented as of this encounter Results * MRI BRAIN WWO CON (11/18/2021 11:17 AM AUTOMOTIVE SERVICE ADVISOR) Anatomical Region Laterality Modality Head Magnetic Resonan ce 11/18/2021 11:4 1 AM AUTOMOTIVE SERVICE ADVISOR Impressions 11/18/2021 2:56 PM AUTOMOTIVE SERVICE ADVISOR IMPRESSION: Normal appearance of the brain Ordered By: MOISES CADENA Interpreted By: Keo Buchanan MD, 11/18/2021 11:41 AM Narrative 11/18/2021 2:56 PM AUTOMOTIVE SERVICE ADVISOR Examination: MRI BRAIN [facility], 11/18/2021 11:41 AM. Technique: Axial and [...] Buchanan MD - 11/18/2021 Examination: MRI BRAIN [facility], 11/18/2021 11:41 AM. Technique: Axial and [...] By: Keo Buchanan MD, 11/18/2021 11:41 AM Moises Cadena MD MRI Fin al Result documented in this encounter Visit Diagnoses Diagnosis Seizure (CMS/HCC HHS/HCC)- Primary Other convulsions Seizure (CMS/HCC HHS/HCC) Other convulsions documented in this encounter Care Teams Dumper Operator Relationship Specialty Start Date End Date Oziel Burt MD [address] [place] [address] PCP - General FAMILY PRACTICE 09/13/21 documented as of this encounter
--- OUTSIDE RECORDS SUMMARY | 2024-12-07 17:21 | XMS_ITS | Encounter Summary ---
Author Organization [facility] Address [address] [place] [address]. [place] [address] [place] [address] Care Team Providers Care Assistant Cook Name Role Phone Oziel Burt MD Primary Care Provider Reason for Visit * Reason Onset Date Comments Concerns 11/18/2021 Encounter Details Date Type Department Care Team (Late st Contact Info) Description 11/18/[address] [address] Jess Lujan MD [address] [place] [id number] Concerns Social History Tobacco Use Types Packs/Day Years Used Date Smoking Tobacco: Never Smokeless Tobacco: Never Comments No Sex and Gender Information Value Date Recorded Sex Assigned at Not on file Legal Sex Female 5:55 PM TECHNICAL REP Gender Identity Not on file Sexual Orientation Not on file COVID-19 Exposure Response Date Recorded In the last month, have you been in contact with someone who was confirmed or suspected to have Coronavirus / COVID-19? No / Unsure 11/18/2021 10:02 AM TECHNICAL REP documented as of this encounter Progress Notes * Kiki Barnett, DIRECTOR PHARMACOLOGY - 11/19/2021 9:18 AM CST Called Na back. She states that patient is back on the schedule to get wisdom teeth removed. Jacob edwards needs letter. NICAL REP * Kiki Barnett CMA - 11/19/2021 9:[address] Meadows. See if they need a letter. NICAL REP NICAL REP * Kiki Barnett CMA - 11/18/2021 12:22 PM CST Please advise. NICAL REP * Brynn Mendez RN - 11/18/2021 12:18 PM CST Per VM; patient's mother Na stated patient needs to have her wisdom teeth removed but the oral surgeon will not do the procedure due to the new medication Dr. Meadows ordered. Per Na, patient is not to start medication until two weeks prior to scheduled EEG in November. She would like a call back for neurological clearance for procedure. NICAL REP documented in this encounter Plan of Treatment Not on file documented as of this encounter Visit Diagnoses Not on filedocumented in this encounter Care Teams Assistant Cook Relationship Specialty Start Date End Date Oziel Burt MD [address] [place] [address] PCP - General FAMILY PRACTICE 09/13/21 documented as of this encounter
--- OUTSIDE RECORDS SUMMARY | 2024-12-07 17:22 | XMS_ITS | Encounter Summary ---
Author Organization [facility] Healthcare Address [address] [place] [address] Care Team Providers Care Accounts Payable Bookkeeper Name Role Phone Reddy, Rogeriokathy GARO Primary Care Provider [phone] Encounter Details Date Type Department Care Team (Late st Contact Info) Description 11/02/2024 Telephone [facility] Neurodiagnostics [address] [place] [address] Justa Coley Social History Tobacco Use Types Packs/Day Years Used Date Smoking Tobacco: Never Personal Safety Answer Date Recorded Have you ever been in or are you currently in a harmful physical or emotional relationship or is someone making you feel afraid or unsafe? Denies 08/23/2024 Comments Unknown Sex and Gender Information Value Date Recorded Sex Assigned at Not on file Legal Sex Female 9:45 AM CDT Gender Identity Not on file Sexual Orientation Not on file documented as of this encounter Miscellaneous Notes * Telephone Encounter - Justa Coley - 11/02/2024 3:25 PM CST Called patient and she saw her new PCP he is sending her to a Supervisor Pyrotechnic Loading first patient said harman does not want to do the VEEG because when she has seizures she bits off some of her tongue. Discussed with her when she wants to do VEEG she will call and have Ana. Office put the order in again. She is good with this. OR PROJECT CONTROLS SPECIALIST documented in this encounter Plan of Treatment Not on file documented as of this encounter Visit Diagnoses Not on filedocumented in this encounter Care Teams Accounts Payable Bookkeeper Relationship Specialty Start Date End Date Daniel Reddy NP [address] [place] [address] PCP - General Family Medicine 10/25/24 documented as of this encounter
--- OUTSIDE RECORDS SUMMARY | 2024-12-07 17:22 | XMS_ITS | Encounter Summary ---
Author Organization [facility] Address [address] [place] [address] Phone Care Team Providers Care Surgical Clinical Reviewer Name Role Phone Daniel Reddy NP Primary Care Provider [phone] Encounter Details Date Type Department Care Team (Late st Contact Info) Description 10/25/2024 Telephone [facility] Epilepsy [address] [facility] [address] [place] [address] [place] [phone] Rommel Huynh MD [address] [facility] [address] [place], [place] [id number] Social History Tobacco Use Types Packs/Day Years [...] encounter Miscellaneous Notes * Telephone Encounter - Christina Alcocer RN - 10/25/2024 10:50 AM EAR NOSE AND THROAT SPECIALIST Faxed last office visit note and Brain MRI report to GARO Reddy office. NOSE AND THROAT SPECIALIST * Telephone Encounter - Julienne Leyva RMA - 10/25/2024 10:39 AM CST Patient called back and updated pcp info in epic. NOSE AND THROAT SPECIALIST * Telephone Encounter - Christina Alcocer RN - 10/25/2024 10:30 AM EAR NOSE AND THROAT SPECIALIST LVM for Jennifer asking for a call back to confirm current PCP information. NOSE AND THROAT SPECIALIST * Telephone Encounter - Christina Alcocer RN - 10/25/2024 10:23 AM EAR NOSE AND THROAT SPECIALIST Received a call from Liz at [facility] in [facility] from the office of Daniel Reddy NP(PCP) requesting last office visit notes and report from recent Brain MRI. Will reach out to Lisa to confirm and update PCP information. Liz provided phone number of [phone] and fax number of [phone]. NOSE AND THROAT SPECIALIST documented in this encounter Plan of Treatment Not on file documented as of this encounter Visit Diagnoses Not on filedocumented in this encounter Care Teams Surgical Clinical Reviewer Relationship Specialty Start Date End Date Daniel Reddy NP [address] [place] [address] PCP - General Family Medicine 10/25/24 documented as of this encounter
--- OUTSIDE RECORDS SUMMARY | 2024-12-07 17:22 | XMS_ITS | Encounter Summary ---
Author Organization [facility] Healthcare Address [address] [place] [address] Care Team Providers Care Water Gas Operator Name Role Phone Barry Rogeriokathy GARO Primary Care Provider [phone] Encounter Details Date Type Department Care Team (Late st Contact Info) Description 11/02/2024 Telephone [facility] Neurodiagnostics [address] [place] [address] Justa Coley Social History Tobacco Use Types [...] Telephone Encounter - Justa Coley - 11/02/2024 3:19 PM CST User: Justa Coley Date/time: 10/18/2024 12:02 PM Comment: patient has new PCP and wants to wait on VEEG to see if new Dr sends her elsewhere Context: Renetta Schedule Orders/Appt Requests Outcome: Phone number: [phone] Phone type: Mobile Comm. type: Telephone Call type: Outgoing Contact: Pastrovich, Jennifer KJ Relation to patient: Self Letter: Reference CRMs: User: Justa Coley Date/time: 10/10/2024 2:11 PM Comment: R EEG done 09.22 Context: Renetta Schedule Orders/Appt Requests Outcome: Phone number: Phone type: Comm. type: Telephone Call type: Outgoing ITION FACULTY MEMBER documented in this encounter Plan of Treatment Not on file documented as of this encounter Visit Diagnoses Not on filedocumented in this encounter Care Teams Water Gas Operator Relationship Specialty Start Date End Date Daniel Reddy NP [address] [place] [address] PCP - General Family Medicine 10/25/24 documented as of this encounter
--- OUTSIDE RECORDS SUMMARY | 2024-12-07 17:22 | XMS_ITS | Referral Summary ---
Author Organization [facility] Address [address] [place] [address] Care Team Providers Care Peanut Butter Maker Name Role Phone ReddyDaniel NP Primary Care Provider [phone] Encounters Date Type Department Care Team Description 11/02/2024 Telephone [facility] Neurodiagnostics [address] [place] [address] [phone] Justa Coley 11/02/2024 Telephone [facility] Neurodiagnostics [address] [place] [address] [phone] Justa Coley 10/25/2024 Telephone [facility] Epilepsy [address] [facility] 6th [place] [phone] Rommel Huynh MD 10/19/2024 9:00 AM SHAFT SINKER Telemedicine [facility] Epilepsy [address] [facility] 6th [place] [phone] Rommel Huynh MD Seizure disorder (CMS/HCC) (HCC) (Primary Dx); Encounter to discuss test results 10/18/2024 Telephone [facility] Neurodiagnostics [address] [place] [address] Justa Coley 10/04/2024 6:31 PM SHAFT SINKER - 10/04/2024 11:59 PM [facility] Hospital Encounter [facility] Rad[facility] [address] [place] [address] Seizure disorder ([facility]) ([facility]) Discharge Disposition: Discharge to home or self care 09/14/2024 9:18 AM CDT - 09/14/2024 11:59 PM CDT Hospital Encounter [facility] ([facility]) [address] [place] [id number] Tasha Beckman Seizure disorder ([facility]) ([facility]) Discharge Disposition: Discharge to home or self care 09/14/2024 8:00 AM CDT Office Visit [facility] Epilepsy [address] [facility] [address] [place] [address] [place] [address] Rommel Huynh MD Seizure disorder ([facility]) ([facility]) (Primary Dx); Dizziness and giddiness; Anxiety disorder, unspecified type from Last 3 Months Allergies Active Allergy Reactions Criticality Noted Date Comments Amoxicillin-Pot Clavulanate Hives,Other (See comments),Urticaria Medium 11/22/2021 Mouth broke out in sores Medications acyclovir (ZOVIRAX) 400 mg tablet TAKE 1 TABLET BY MOUTH THREE TIMES DAILY DIRECTED 04/14/20 Active Slynd tablet tablet Take 1 each (4 mg total) by mouth daily Active ondansetron ODT (ZOFRAN-ODT) 4 mg disintegrating tablet Dissolve 1 tablet for nausea or vomiting oral every 8 hours as needed. 10 tablet 11/12/20 23 Active Additional Information Patient not taking.Reported on 09/14/2024 lamoTRIgine (LaMICtal) 100 mg tablet Take 2 tablets (200 mg total) by mouth 2 (two) times a day 360 tablet 3 09/14/20 24 025 Active Active Problems No known active problems Social History Tobacco Use Types Packs/Day Years [...] Sign Reading Time Taken Comments Blood Pressure 112/74 09/14/2024 8:11 AM CDT Pulse 99 09/14/2024 8:11 AM CDT Temperature 36.7 ??C (98.1 ??F) 08/23/2024 9:32 AM CD T Respiratory Rate 18 08/23/2024 12:04 PM CDT Oxygen Saturation 99% 08/23/2024 12:04 PM CDT Inhaled Oxygen Concentration - - Weight 54.4 kg (120 lb) 10/04/2024 6:44 PM SHAFT SINKER Height 162.6 cm (5' 4 ) 10/04/2024 6:44 PM SHAFT SINKER Body Mass Index 20.6 10/04/2024 6:44 PM SHAFT SINKER Plan of Treatment Not on file Procedures Procedure Name Priority Date/Time Associated Diagnosis Comments MRI BRAIN EPILEPSY W WO CONTRAST Schedule Routine, Read Routine (OP Routine) 10/04/2024 7:29 PM SHAFT SINKER Seizure disorder (CMS/HCC) (HCC) EEG Routine 09/14/2024 4:52 PM CDT Seizure disorder (CMS/HCC) (HCC) from Last 3 Months Results * MRI Brain Epilepsy W WO Contrast (10/04/2024 7:29 PM SHAFT SINKER) Anatomical Region Laterality Modality Head and Neck N/A Magnetic Resonan ce 10/05/2024 9:06 AM SHAFT SINKER Impressions 10/05/2024 9:48 AM SHAFT SINKER No findings to explain the patient's seizures. Dictated by: Lonnie Jiang MD The radiology attending physician has personally reviewed this study, and had reviewed and/or edited this written report and agrees with it. Electronically signed by: Angelo Bro MD Narrative 10/05/2024 9:48 AM SHAFT SINKER EXAMINATION: Magnetic resonance imaging (MRI) of the brain and brainstem without and with contrast HISTORY: Seizures TECHNIQUE: Multiplanar multi-weighted MRI of the brain and brainstem was performed without and with intravenous contrast using the seizure protocol. This included high resolution 3D T1-weighted and T2-FLAIR imaging and detailed T2-weighted imaging of the hippocampi and temporal lobes. Contrast information: 10 mL Gadoterate Meglumine COMPARISON: Outside MRI from 11/18/2021 FINDINGS: There is no evidence of heterotopia, vascular malformation, tumor, or infarct. The hippocampi are symmetric in size and signal. There is no abnormal contrast enhancement. The scalp and calvarium are normal. The superior sagittal sinus demonstrates normal venous flow. The corpus callosum is normal in shape and signal intensity. The posterior fossa is unremarkable. The pituitary and sella are normal. The brainstem and craniocervical junction are unremarkable. 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 The susceptibility weighted sequences reveal no evidence of acute or chronic hemorrhage. The ventricles are normal in size and position without evidence of hydrocephalus. Mild paranasal sinus disease. The visualized portions of the mastoids are unremarkable. The orbits appear normal. Normal flow voids are demonstrated in the carotid arteries and basilar artery. Procedure Note Angelo Bro MD - 10/05/2024 EXAMINATION: Magnetic resonance imaging (MRI) of the brain and brainstem without and with contrast HISTORY: Seizures TECHNIQUE: Multiplanar multi-weighted MRI of the brain and brainstem was performed without and with intravenous contrast using the seizure protocol. This included high resolution 3D T1-weighted and T2-FLAIR imaging and detailed T2-weighted imaging of the hippocampi and temporal lobes. Contrast information: 10 mL Gadoterate Meglumine COMPARISON: Outside MRI from 11/18/2021 FINDINGS: There is no evidence of heterotopia, vascular malformation, tumor, or infarct. The hippocampi are symmetric in size and signal. There is no abnormal contrast enhancement. The scalp and calvarium are normal. The superior sagittal sinus demonstrates normal venous flow. The corpus callosum is normal in shape and signal intensity. The posterior fossa is unremarkable. The pituitary and sella are normal. The brainstem and craniocervical junction are unremarkable. 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 The susceptibility weighted sequences reveal no evidence of acute or chronic hemorrhage. The ventricles are normal in size and position without evidence of hydrocephalus. Mild paranasal sinus disease. The visualized portions of the mastoids are unremarkable. The orbits appear normal. Normal flow voids are demonstrated in the carotid arteries and basilar artery. IMPRESSION: No findings to explain the patient's seizures. Dictated by: Lonnie Jiang MD The radiology attending physician has personally reviewed this study, and had reviewed and/or edited this written report and agrees with it. Electronically signed by: Angelo Bro MD us Rommel Huynh MD IMG MRI PROCEDURES Fin al Result * EEG (09/14/2024 4:52 PM CDT) Anatomical Region Laterality Modality EEG Narrative 09/14/2024 4:52 PM CDT Routine EEG Report Patient Name: Jennifer Patton [facility] Medical Record Number (MRN): [id number] [facility]: No Stewart MRN Date of (): 2000 EEG Date: 09/14/2024 Ordering Provider: Rommel Huynh MD CC: Tasha Zamudio Start Time: 09/14/2024 10:32:35 AM ? End Time: 09/14/2024 10:53:25 AM Introduction: Ms. Patton is a 23 y.o. female with a history of seizures. EEG was performed to evaluate for seizures. This is a 32 channel EEG recording acquired on a [employer] EEG-1200 acquisition system. Scalp electrodes were placed according to the international 10-20 System. The analog EEG was filtered from 1-70 Hz and digitally sampled at 200 Hz. The record was then reformatted for review in bipolar and referential montages. EEG Description: The awake background included a 11 Hz posterior rhythm which attenuated with eye opening and activity. There was intermittent theta range slowing over the temporal areas with shifting predominance (L>R). There was diffuse delta range activity in the awake background. There was diffuse beta range activity. During drowsiness, identified by ocular signs and alpha attenuation, there was intermittent, diffuse, asynchronous theta activity admixed with 2-4 Hz polymorphic frontotemporal delta activity. As the record progressed, stage II sleep was identified by vertex waves, sleep spindles and K-complexes. Hyperventilation was not performed. Photic strobe stimulation elicited no abnormalities. There were no definite focal or lateralized abnormalities. There were no epileptiform abnormalities. Interpretation: This is an abnormal EEG due to 1) mild generalized slowing. Generalized slowing indicates diffuse cerebral dysfunction as seen in toxic, metabolic, and diffuse or multifocal structural abnormalities. Excess beta is a nonspecific finding commonly associated with sedating medications such as benzodiazepines and barbiturates. By signing this report, the attending Electroencephalographer certifies that he/she personally reviewed the electrodiagnostics study and has edited this report to fully conform with his/her intent. Signing Attending: Omar Head MD PhD us Rommel Huynh MD NEUROLOGY ORDERABLES F inal Result from Last 3 Months Insurance [employer] [place] [employer]ENSATION GENERIC Care Teams Peanut Butter Maker Relationship Specialty Start Date End Date Daniel Reddy NP [address] [place] [address] PCP - General Family Medicine 10/25/24
--- OUTSIDE RECORDS SUMMARY | 2024-12-07 17:22 | XMS_ITS | Encounter Summary ---
Author Organization [facility] Address [address] [place] [address] Care Team Providers Care Undercutter Operator Name Role Phone Tasha Zamudio DO Primary Care Provide r Encounter Details Date Type Department Care Team (Late st Contact Info) Description 10/18/2024 Telephone [facility] Neurodiagnostics [address] [place] [address] Justa Coley Social History Tobacco Use Types [...] * Telephone Encounter - Justa Coley - 10/18/2024 12:01 PM CST Called patient to schedule VEEG she has a new PCP and wants to wait until she see's to know if she will schedule here or go somewhere else. CT SUPPORT STAFF documented in this encounter Plan of Treatment Not on file documented as of this encounter Visit Diagnoses Not on filedocumented in this encounter Care Teams Undercutter Operator Relationship Specialty Start Date End Date Tasha Zamudio DO [address] [place] [address] PCP - General Family Medicine 04/25/24 10/24/24 documented as of this encounter
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
--- OUTSIDE RECORDS SUMMARY | 2024-12-07 17:22 | XMS_ITS | Clinical Summary ---
Author Organization [facility] Address [address] [place] [address] Care Team Providers Care Case Hardener Name Role Phone Barry Rogeriokathy GARO Primary Care Provider [phone] Allergies Active Allergy Reactions Criticality Noted Date [...] Active Active Problems No known active problems Encounters Date Type Department Care Team Description 11/02/2024 Telephone [facility] [address] [place] [address] Justa Coley 11/02/2024 Telephone [facility] [address] [place] [address] Justa Coley 10/25/2024 Telephone [facility] [address] [facility] 6th [place] [address] [place] [address] Rommel Huynh MD 10/19/2024 9:00 AM [facility] Telemedicine [facility] [address] [facility] 6th [place] [address] [place] [address] Rommel Huynh MD Seizure disorder (CMS/HCC) (HCC) (Primary Dx); Encounter to discuss test results 10/18/2024 Telephone [facility] [address] [facility] [place] [address] Justa Coley 10/04/2024 6:31 PM COPER HAND - 10/04/2024 11:59 PM COPER HAND Hospital Encounter [facility] [address] [place] [address] Seizure disorder (CMS/HCC) (HCC) Discharge Disposition: Discharge to home or self care 09/14/2024 9:18 AM CDT - 09/14/2024 11:59 PM CDT Hospital Encounter [facility] [address] [place] [id number] Tasha Beckman Seizure disorder (CMS/HCC) (HCC) Discharge Disposition: Discharge to home or self care 09/14/2024 8:00 AM CDT Office Visit [facility] [address] [facility] 6th [place] [address] Rommel Huynh MD Seizure disorder (CMS/HCC) (HCC) (Primary Dx); Dizziness and giddiness; Anxiety disorder, unspecified type from Last 3 Months Social History Tobacco Use Types Packs/Day Years [...] on file Sexual Orientation Not on file Obstetrics History Last Filed Vital Signs Vital Sign Reading Time Taken Comments Blood Pressure 112/74 09/14/2024 8:11 AM CDT Pulse 99 09/14/2024 8:11 AM CDT Temperature 36.7 ??C (98.1 ??F) 08/23/2024 9:32 AM CD T Respiratory Rate 18 08/23/2024 12:04 PM CDT Oxygen Saturation 99% 08/23/2024 12:04 PM CDT Inhaled Oxygen Concentration - - Weight 54.4 kg (120 lb) 10/04/2024 6:44 PM COPER HAND Height 162.6 cm (5' 4 ) 10/04/2024 6:44 PM COPER HAND Body Mass Index 20.6 10/04/2024 6:44 PM COPER HAND Plan of Treatment Health Maintenance Due Date Last Done Comments Cervical Cancer Screening 2002 Depression Screening 2002 Hepatitis C Screening 2002 Varicella Vaccines (2 of 2 - 2-dose childhood series) 2006 07/09/2006 DTaP/Tdap/Td Vaccine (5 - Tdap) 2013 10/01/2006, 12/07/2003, 06/01/2003, Additional history exists HPV Vaccines (1 - 3-dose series) 2017 Meningococcal B Vaccine (2 o f 2 - Risk Bexsero 2-dose series) 08/28/2020 07/31/2020 Regular Well Visit/Exam 18-64 2020 Covid-19 Vaccine (3 - 2023-2 5 season) 2024 07/02/2021, 05/01/2021 Influenza Vaccine (#1) 2024 , 10/06/2019, 10/01/2006 Pneumococcal vaccine <65 Completed 004, 12/07/2003, 06/01/2003 Meningococcal Vaccine Completed 06/13/2020 Procedures Procedure Name Priority Date/Time Associated Diagnosis Comments MRI BRAIN EPILEPSY W WO CONTRAST Schedule Routine, Read Routine (OP Routine) 10/04/2024 7:29 PM [facility] Seizure disorder (CMS/HCC) (HCC) EEG Routine 09/14/2024 4:52 PM CDT Seizure disorder (CMS/HCC) (HCC) from Last 3 Months Results * MRI Brain Epilepsy W WO Contrast (10/04/2024 7:29 PM COPER HAND) Anatomical Region Laterality Modality Head and Neck N/A Magnetic Resonan ce 10/05/2024 9:06 AM COPER HAND Impressions 10/05/2024 9:48 AM COPER HAND No findings to explain the patient's seizures. Dictated by: Lonnie Jiang MD The radiology attending physician has personally reviewed this study, and had reviewed and/or edited this written report and agrees with it. Electronically signed by: Angelo Bro MD Narrative 10/05/2024 9:48 AM COPER HAND EXAMINATION: Magnetic resonance imaging (MRI) of the [...] it. Electronically signed by: Angelo Bro MD Rommel Huynh MD IMG MRI PROCEDURES Fin al Result * EEG (09/14/2024 4:52 PM CDT) Anatomical Region Laterality Modality EEG Narrative 09/14/2024 4:52 PM CDT Routine EEG Report Patient Name: Jennifer Travis [facility] Medical Record Number (MRN): [id number] [facility] Record: No Soarian MRN Date of (): 2000 EEG Date: 09/14/2024 Ordering Provider: Rommel Huynh MD CC: Tasha Zamudio Start Time: 09/14/2024 10:32:35 AM ? End Time: 09/14/2024 10:53:25 AM Introduction: Ms. Travis is a 23 y.o. female with a history of seizures. EEG was performed to evaluate for seizures. This is a 32 channel EEG recording acquired on a Ziptr EEG-1200 acquisition system. Scalp electrodes were placed [...] intent. Signing Attending: Omar Head MD PhD Rommel Huynh MD NEUROLOGY ORDERABLES F inal Result from Last 3 Months Insurance [facility] [employer] GENERIC Care Teams Case Hardener Relationship Specialty Start Date End Date Daniel Reddy NP [address] [place] [address] PCP - General Family Medicine 10/25/24
--- OUTSIDE RECORDS SUMMARY | 2024-12-07 17:23 | XMS_ITS | Encounter Summary ---
Author Organization [facility] Address [address] [place] [address] Care Team Providers Care Principal Systems Architect Name Role Phone Oziel Burt MD Primary Care Provider [phone] Encounter Details Date Type Department Care Team (Latest Contact Info) Description 05/12/2023 7:57 AM CDT - 05/12/2023 11:59 PM CDT Hospital Encounter [facility] [address] [place] [address] Discharge Disposition: Discharge to home or self care Social History Tobacco Use Types Packs/Day Years Used Date Smoking Tobacco: Never Assessed Comments Unknown Sex and Gender Information Value Date Recorded Sex Assigned at Not on file Legal Sex Female 9:45 AM CDT Gender Identity Not on file Sexual Orientation Not on file documented as of this encounter Medications at Time of Discharge acyclovir (ZOVIRAX) 400 mg tablet TAKE 1 TABLET BY MOUTH THREE TIMES DAILY DIRECTED 04/14/2023 documented as of this encounter Discharge Disposition Disposition Code Departure Means Destination Discharge to home or self care documented in this encounter Plan of Treatment Not on file documented as of this encounter Procedures Procedure Name Priority Date/Time Associated Diagnosis Comments NEURO CT MR OUTSIDE REFERENCE Routine 05/12/2023 7:57 AM CDT Diagnosis unknown documented in this encounter Results * Neuro CT MR Outside Reference (05/12/2023 7:57 AM CDT) Impressions [facility] - 05/12/2023 7:57 AM CDT These images are for Reference purposes only and have not been reviewed by [facility] Radiology. ??There will be no report generated by a [facility] Radiologist. Narrative [facility] - 05/12/2023 7:57 AM CDT EXAMINATION: ??Images For Reference Purposes Only us Omar Head MD PhD IMG CT PROCEDURES Final R esult [facility] documented in this encounter Visit Diagnoses Not on filedocumented in this encounter Care Teams Principal Systems Architect Relationship Specialty Start Date End Date Oziel Burt MD [address] [place] [address] PCP - General Family Practice 04/29/23 04/24/24 documented as of this encounter
--- OUTSIDE RECORDS SUMMARY | 2024-12-07 17:23 | XMS_ITS | Encounter Summary ---
Author Organization [facility] Healthcare Address [address] [place] [address] Care Team Providers Care Finisher Card Tender Name Role Phone Tasha Zamudio Primary Care Provide r Reason for Visit * Reason Comments Animal Bite Right pinkie finger digit ,pt states she was bit by a mouse .no bleeding noted Encounter Details Date Type Department Care Team (Late st Contact Info) Description 04/25/2024 7:11 PM CDT - 04/25/2024 8:55 PM CDT Emergency [facility] Emergency Department [address] [place] [address] Animal bite (Primary Dx) Discharge Disposition: Discharge to home or self care Social History Tobacco Use Types Packs/Day Years Used Date Smoking Tobacco: Every Day Cigarettes Vaping Personal Safety Answer Date Recorded Have you ever been in or are you currently in a harmful physical or emotional relationship or is someone making you feel afraid or unsafe? Denies 04/25/2024 Comments Unknown Sex and Gender Information Value Date Recorded Sex Assigned at Not on file Legal Sex Female 9:45 AM CDT Gender Identity Not on file Sexual Orientation Not on file documented as of this encounter Last Filed Vital Signs Vital Sign Reading Time Taken Comments Blood Pressure 118/74 04/25/2024 7:08 PM CDT Pulse 84 04/25/2024 7:08 PM CDT Temperature 37.1 ??C (98.7 ??F) 04/25/2024 7:08 PM CD T Respiratory Rate 18 04/25/2024 7:08 PM CDT Oxygen Saturation 100% 04/25/2024 7:08 PM CDT Inhaled Oxygen Concentration - - Weight 49.9 kg (110 lb) 04/25/2024 7:08 PM CDT Height 162.6 cm (5' 4 ) 04/25/2024 7:08 PM CDT Body Mass Index 18.88 04/25/2024 7:08 PM CDT documented in this encounter Discharge Instructions * Discharge Instructions* Mina Gill NP - 04/25/2024 8:46 PM CDT Please return to the ED if you experience fever, chills, chest pain, shortness of breath, or difficulty breathing. Please wash wound with soap and water Please start taking the azithromycin when you pick it up tomorrow. * Attachments The following attachments cannot be sent through Care Everywhere. * Animal Bite (AfterCare(R) Instructions(ER/ED)) ([place]) documented in this encounter Medications at Time of Discharge acyclovir (ZOVIRAX) 400 mg tablet TAKE 1 TABLET BY MOUTH THREE TIMES DAILY DIRECTED 04/14/2023 ondansetron ODT (ZOFRAN-ODT) 4 mg disintegrating tablet Dissolve 1 tablet for nausea or vomiting oral every 8 hours as needed. 10 tablet 11/12/2023 Slynd tablet tablet Take 1 each (4 mg total) by mouth daily azithromycin (ZITHROMAX) 250 mg tablet Take 2 tablets (500 mg total) by mouth daily for 1 day, THEN 1 tablet (250 mg total) daily for 4 days. 6 tablet 04/25/2024 4 lamoTRIgine (LaMICtal) 100 mg tablet Take 1.5 tablets (150 mg total) by mouth 2 (two) times a day 270 tablet 3 05/21/2023 4 documented as of this encounter Ordered Prescriptions Prescription Sig Dispense Quantity Refills Last Filled Start Date End Date azithromycin (ZITHROMAX) 250 mg tablet Take 2 tablets (500 mg total) by mouth daily for 1 day, THEN 1 tablet (250 mg total) daily for 4 days. 6 tablet 04/25/2024 4 documented in this encounter Discharge Disposition Disposition Code Departure Means Destination Comment s Discharge to home or self care documented in this encounter ED Notes * Mina Gill, GARO - 04/25/2024 8:27 PM CDT HPI Chief Complaint Patient presents with Animal Bite Right pinkie finger digit ,pt states she was bit by a mouse .no bleeding noted HPI 9:09 PM Jennifer Travis is a 23 y.o. female presenting to the ED c/o being bitten by a mouse just prior to arrival in the storage shed. States she is up-to-date on her immunizations including her tetanus shot. States the mouth came out of no where, and bit her on the tip of her finger on her rightpinky. No additional complaints or concerns at this time. States she is allergic to penicillin Patient History: No past medical history on file. No past surgical history on file. No family history on file. Social History Tobacco Use Smoking status: Every Day Types: Cigarettes, Vaping Smokeless tobacco: Not on file Substance and Sexual Activity Drug use: Not on file Sexual activity: Not on file Alcohol Use: Not At Risk (08/21/2022) Received from [facility] AUDIT-C Frequency of Alcohol Consumption: Never Average Number of Drinks: Patient does not drink Frequency of Binge Drinking: Never No current facility-administered medications for this encounter. Current Outpatient Medications: acyclovir (ZOVIRAX) 400 mg tablet azithromycin (ZITHROMAX) 250 mg tablet lamoTRIgine (LaMICtal) 100 mg tablet ondansetron ODT (ZOFRAN-ODT) 4 mg disintegrating tablet Slynd tablet tablet Review of Systems Review of Systems Constitutional: Negative for chills and fever. HENT: Negative for ear pain and sore throat. Eyes: Negative for pain and visual disturbance. Respiratory: Negative for cough and shortness of breath. Cardiovascular: Negative for chest pain and palpitations. Gastrointestinal: Negative for abdominal pain and vomiting. Genitourinary: Negative for dysuria and hematuria. Musculoskeletal: Negative for arthralgias and back pain. Skin: Positive for wound. Negative for color change and rash. + animal bite Neurological: Negative for seizures and syncope. All other systems reviewed and are negative. All systems reviewed and are neg or non contributory for this patients presentation today other than as stated in the HPI . Physical Exam ED Triage Vitals [04/25/241907] Temp Pulse Resp BP SpO2 37.1 ??C (98.7 ??F) 84 18 118/74 100 % Temp src Heart Rate Source Patient Position BP Location FiO2 (%) Tympanic -- -- -- -- Height Height Method Weight Weight Method 1.626 m (5' 4 ) Stated 49.9 kg (110 lb) -- Patient Vitals for the past 24 hrs: BP Temp Temp src Pulse Resp SpO2 Height Weight 04/25/241907 118/74 37.1 ??C (98.7 ??F) Tympanic 84 18 100 % 162.6 cm (5' 4 ) 49.9 kg (110 lb) Physical Exam Vitals and nursing note reviewed. Constitutional: General: She is not in acute distress. Appearance: Normal appearance. She is well-developed. She is not ill-appearing, toxic-appearing or diaphoretic. HENT: Head: Normocephalic and atraumatic. Nose: Nose normal. Mouth/Throat: Mouth: Mucous membranes are moist. Eyes: Extraocular Movements: Extraocular movements intact. Conjunctiva/sclera: Conjunctivae normal. Pupils: Pupils are equal, round, and reactive to light. Cardiovascular: Rate and Rhythm: Normal rate and regular rhythm. Pulses: Normal pulses. Heart sounds: Normal heart sounds. No murmur heard. No friction rub. No gallop. Pulmonary: Effort: Pulmonary effort is normal. No respiratory distress. Breath sounds: Normal breath sounds. No stridor. No wheezing, rhonchi or rales. Chest: Chest wall: No tenderness. Abdominal: General: Abdomen is flat. There is no distension. Palpations: Abdomen is soft. There is no mass. Tenderness: There is no abdominal tenderness. There is no right CVA tenderness, left CVA tenderness, guarding or rebound. Hernia: No hernia is present. Musculoskeletal: General: No swelling, tenderness, deformity or signs of injury. Normal range of motion. Cervical back: Normal range of motion and neck supple. Right lower leg: No edema. Left lower leg: No edema. Skin: General: Skin is warm and dry. Capillary Refill: Capillary refill takes less than 2 seconds. Findings: Wound present. Comments: Two barely visible, bite [place] to right pinky finger, no surrounding cellulitis, no drainage, sensation intact distally brisk capillary refill present Neurological: General: No focal deficit present. Mental Status: She is alert. Psychiatric: Mood and Affect: Mood normal. Behavior: Behavior normal. Thought Content: Thought content normal. Judgment: Judgment normal. Procedures [facility] Labs Reviewed - No data to display No orders to display BP 118/74 Pulse 84 Temp 37.1 ??C (98.7 ??F) (Tympanic) Resp 18 Ht 162.6 cm (5' 4 ) Wt 49.9 kg (110 lb) LMP (LMP Unknown) Comment: irreg periods SpO2 100% BMI 18.88 kg/m?? MDM Number of Diagnoses or Management Options Animal bite Diagnosis management comments: Differential diagnosis includes animal bite, cellulitis, laceration,abrasion. 23-year-old that was bit by a mouse to her right pinky finger A/P-per CDC recommendations rabies pep is not recommended for a mouse bite. Patient is allergic to penicillin, is up-to-date on tetanus, will be given a prescription for azithromycin. Risk of Complications, Morbidity, and/or Mortality Presenting problems: low Diagnostic procedures: low Management options: low Patient Progress Patient progress: stable This examination was transcribed using the [employer] voice recognition system without human student support counselor. In an effort to expedite patient care, this report has not been adjusted for typographical, grammatical, and syntax by a trained biomedical engineering technician. Close outpatient follow-up with a low threshold to return has been mandated , concerning symptoms have been emphasized in detail, and this patient expresses understanding Clinical Impression: Animal bite Mina Gill NP 04/25/242108 Cosigned by Dago Moreno MD at 04/25/2024 9:29 PM CDT * Chantal Hines RN - 04/25/2024 7:06 PM CDT Pt presents to ED with right pinkie mouse bite documented in this encounter Plan of Treatment Not on file documented as of this encounter Visit Diagnoses Diagnosis Animal bite- Primary Open wound(s) (multiple) of unspecified site(s), without mention of complication documented in this encounter Orders Nursing Count Last Ordered Date First Orde red Date WOUND CARE 1 04/25/2024 documented in this encounter Care Teams Finisher Card Tender Relationship Specialty Start Date End Date Tasha Zamudio DO [address] [place] [address] PCP - General Family Medicine 04/25/24 10/24/24 documented as of this encounter
--- OUTSIDE RECORDS SUMMARY | 2024-12-07 17:23 | XMS_ITS | Encounter Summary ---
Author Organization [facility] Healthcare Address [address] [place] [address] Care Team Providers Care Cutting Room Supervisor Name Role Phone Tasha Zamudio DO Primary Care Provide r Encounter Details Date Type Department Care Team (Late st Contact Info) Description 06/22/2024 Telephone [facility] [address] [place] [id number] Rosalee Hussein Social History Tobacco Use Types Packs/Day Years [...] encounter Miscellaneous Notes * Telephone Encounter - Rosalee Hussein - 06/22/2024 1:[address] APPOINTMENT WITH PATIENT. documented in this encounter Plan of Treatment Not on file documented as of this encounter Visit Diagnoses Not on filedocumented in this encounter Care Teams Cutting Room Supervisor Relationship Specialty Start Date End Date Tasha Zamudio DO [address] [place] [address] [address] [place] [address] PCP - General Family Medicine 04/25/24 10/24/24 documented as of this encounter
--- OUTSIDE RECORDS SUMMARY | 2024-12-07 17:23 | XMS_ITS | Encounter Summary ---
Author Organization [facility] Healthcare Address [address] [place] [address] Care Team Providers Care Basic Sciences Dean Name Role Phone Tasha Zamudio DO Primary Care Provide r Reason for Referral * MRI/CAT/PET Scan (Routine) - Closed Specialty Diagnoses / Procedures Referred By Cosmo gonzalez Referred To Contact Radiology Diagnoses Localized enlarged lymph nodes Procedures CT Neck Soft Tissue W Contrast Tasha Zamudio DO [address] [place] [address] [address] [place] [address] Phone: tel: fax: [address] [phone] Referral ID Status Reason Start Date Expiration Date Visits Re quested Visits Authorized [id number] Closed 05/27/2024 07/25/2024 1 1 Reason for Visit * MRI/CAT/PET Scan (Routine) - Closed Specialty Diagnoses / Procedures Referred By Cosmo gonzalez Referred To Contact Radiology Diagnoses Localized enlarged lymph nodes Procedures CT Neck Soft Tissue W Contrast Tasha Zamudio DO [address] [place] [address] [address] [place] [address] Phone: tel: fax: [address] [phone] Referral ID Status Reason Start Date Expiration Date Visits Re quested Visits Authorized [id number] Closed 05/27/2024 07/25/2024 1 1 Encounter Details Date Type Department Care Team (Latest Contact Info) Description 06/23/2024 2:52 PM CDT - 06/23/2024 11:59 PM CDT Hospital Encounter [facility] [address] [place] [address] Localized enlarged lymph nodes Discharge Disposition: Discharge to home or self [...] each (4 mg total) by mouth daily lamoTRIgine (LaMICtal) 100 mg tablet Take 1.5 tablets (150 mg total) by mouth 2 (two) times a day 270 tablet 3 05/21/2023 documented as of this encounter Discharge Disposition Disposition Code Departure Means Destination Discharge to home or self care documented in this encounter Plan of Treatment Not on file documented as of this encounter Procedures Procedure Name Priority Date/Time Associated Diagnosis Comments CT SOFT TISSUE NECK W CONTRAST Schedule Routine, Read Routine (OP Routine) 06/23/2024 3:27 PM CDT Localized enlarged lymph nodes documented in this encounter Results * CT Neck Soft Tissue W Contrast (06/23/2024 3:27 PM CDT) Anatomical Region Laterality Modality Head and Neck N/A Computed Tomogra phy 06/24/2024 7:20 AM CDT Narrative 06/24/2024 7:38 AM CDT EXAM DESCRIPTION: ?? CT SOFT TISSUE NECK W CONTRAST REASON FOR STUDY: Unspecified laterality and site enlarged lymph node for a year. ??No provided history of trauma or inciting and/or aggravating events. ?? No provided past medical, to include cancer, history; no provided past surgical history. TECHNIQUE: Post IV contrast scanning from skull base through lung apices. ?? Reconstructed MPR images reviewed. All images stored on PACS. Automated exposure control was used as a dose optimization technique for this examination. CONTRAST TYPE/DOSE: ?? 75 mL Optiray 350 ??injected via ?? peripheral IV site without reported incident. COMPARISON: ?? Ultrasound soft tissue neck 05/12/2024; relevant portions of MRI brain without and with contrast 11/18/2021 (images without report). FINDINGS: SOFT TISSUE: ?? No CT evidence of discrete mass, focal fluid collection, edema, and/or acute inflammatory changes, to include subjacent of the marked site of complaint overlying the left submandibular gland. ORAL CAVITY/FLOOR OF MOUTH, PHARYNX, LARYNX, HYPOPHARYNX: ?? Apposition of the vocal folds, as can be seen with breath holding and/or phonation during imaging, ??compromises evaluation without evidence of acute abnormality. ?? Otherwise, widely patent airway. LYMPHADENOPATHY: Bilateral, uahb-smzgdbh-yhph-right, increased number and prominence of bilateral cervical chain lymph nodes, to include an enlarged 1.5 x 1.0 cm (CC by AP) left level 2A lymph node, nonspecific. MAJOR SALIVARY GLANDS: ?No CT evidence of discrete mass, focal fluid collection, edema, and/or acute inflammatory changes, to include subjacent of the marked site of complaint overlying the left submandibular gland. THYROID: ?? Normal size. ??No nodules greater than 1 cm common noting tiny left thyroid lobe hypoattenuating nodule. VASCULATURE: ?? No apparent critical stenosis or occlusion. INTRACRANIAL/SKULL BASE/INCLUDED ORBITS: ?? Limited intracranial evaluation. No abnormal findings. PARANASAL SINUSES: ?? Left maxillary sinus mucous retention cyst. ??Visualized mastoid air cells well-developed and well aerated. CERVICAL SPINE: ?? Reversal of the cervical lordosis favored pursuant to head positioning at time of imaging. ??Mild spondylosis and degenerative disc disease. LUNG APICES: ?? Clear. OTHER: ?? No other significant finding. IMPRESSION: 1. ?? No CT evidence of discrete mass, focal fluid collection, edema, and/or acute inflammatory changes, to include subjacent of the marked site of complaint overlying the left submandibular gland. 2. ?? Bilateral, ckzv-gyvvvbz-wrst-right, increased number and prominence of bilateral cervical chain lymph nodes, to include an enlarged left level 2A lymph node, nonspecific. Correlate with clinical context. THIS IS AN ELECTRONICALLY VERIFIED FINAL REPORT 06/24/2024 7:38 AM - Electronically signed by ??Surinder Tran M.D. JUNI: JUNI D: ??06/24/2024 7:38 AM T: ??06/24/2024 7:38 AM Report ID: [id number] Reading Location: ??[id number] Procedure Note Surinder Tran MD - 06/24/2024 EXAM DESCRIPTION: CT SOFT TISSUE NECK W CONTRAST REASON FOR STUDY: Unspecified laterality and site enlarged lymph node fora year. No provided history of trauma or inciting and/or aggravatingevents. No provided past medical, to include cancer, history; no provided past surgical history. TECHNIQUE: Post IV contrast scanning from skull base through lung apices. Reconstructed MPR images reviewed. All images stored on PACS. Automated exposure control was used as a dose optimization technique for this examination. CONTRAST TYPE/DOSE: 75 mL Optiray 350 injected via peripheral IV site without reported incident. COMPARISON: Ultrasound soft tissue neck 05/12/2024; relevant portions ofMRI brain without and with contrast 11/18/2021 (images without report). FINDINGS: SOFT TISSUE: No CT evidence of discrete mass, focal fluid collection,edema, and/or acute inflammatory changes, to include subjacent of the marked siteof complaint overlying the left submandibular gland. ORAL CAVITY/FLOOR OF MOUTH, PHARYNX, LARYNX, HYPOPHARYNX: Apposition ofthe vocal folds, as can be seen with breath holding and/or phonation during imaging, compromises evaluation without evidence of acute abnormality. Otherwise, widely patent airway. LYMPHADENOPATHY: Bilateral, sios-gpfestk-xhhj-right, increased number and prominence of bilateral cervical chain lymph nodes, to include an enlarged1.5 x 1.0 cm (CC by AP) left level 2A lymph node, nonspecific. MAJOR SALIVARY GLANDS: No CT evidence of discrete mass, focal fluid collection, edema, and/or acute inflammatory changes, to include subjacentof the marked site of complaint overlying the left submandibular gland. THYROID: Normal size. No nodules greater than 1 cm common noting tinyleft thyroid lobe hypoattenuating nodule. VASCULATURE: No apparent critical stenosis or occlusion. INTRACRANIAL/SKULL BASE/INCLUDED ORBITS: Limited intracranialevaluation. No abnormal findings. PARANASAL SINUSES: Left maxillary sinus mucous retention cyst.Visualized mastoid air cells well-developed and well aerated. CERVICAL SPINE: Reversal of the cervical lordosis favored pursuant tohead positioning at time of imaging. Mild spondylosis and degenerative disc disease. LUNG APICES: Clear. OTHER: No other significant finding. IMPRESSION: 1. No CT evidence of discrete mass, focal fluid collection, edema,and/or acute inflammatory changes, to include subjacent of the marked site of complaint overlying the left submandibular gland. 2. Bilateral, pcid-seazxpw-vbhp-right, increased number and prominenceof bilateral cervical chain lymph nodes, to include an enlarged left level 2A lymph node, nonspecific. Correlate with clinical context. THIS IS AN ELECTRONICALLY VERIFIED FINAL REPORT 06/24/2024 7:38 AM - Electronically signed by Surinder Tran M.D. JUNI: JUNI Report ID: [id number] Reading Location: [place] [address] Tasha Zamudio DO [facility] CT PROCEDURES Fin al Result documented in this encounter Visit Diagnoses Diagnosis Localized enlarged lymph nodes documented in this encounter Administered Medications Inactive Administered Medications - up to 3 most recent administrations Medication Order MAR Action Action Date Dose Rate Site ioversoL (OPTIRAY 350) syringe 75 mL 75 mL (1.5 mL/kg), intravenous, Once in imaging, contrast, Starting on Mirta 06/23/24 at 1457, For 1 dose Contrast Given 06/23/2024 3:20 PM CDT 75 mL documented in this encounter Orders Medications Ordered That Rusty ht Not Have Been Administered Count Last Ordered Date First Ordered Date ioversoL (OPTIRAY 350) syringe 75 mL 1 05/31 documented in this encounter Care Teams Basic Sciences Dean Relationship Specialty Start Date End Date Tasha Zamudio DO [address] [place] [address] [address] [place] [address] PCP - General Family Medicine 04/25/24 10/24/24 documented as of this encounter
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
--- OUTSIDE RECORDS SUMMARY | 2024-12-07 17:23 | XMS_ITS | Encounter Summary ---
Author Organization [facility] Address [address] [place] [address] Phone Care Team Providers Care Farm Crew Member Name Role Phone Oziel Burt MD Primary Care Provider [phone]- [phone] Reason for Visit * Reason Comments Consult * Consultation (Routine) - Closed Specialty Diagnoses / Procedures Referred By Contac t Referred To Contact Neurology Diagnoses Seizure disorder (CMS/HCC) (HCC) Oziel Burt MD [address] [place] [id number] Phone: tel: fax: [facility] [address] [place] [address] [place] [address] Phone: tel: fax: Referral ID Status Reason Start Date Expiration Date V isits Requested Visits Authorized [id number] Closed Specialty Services Required 04/29/2023 05/28/2024 1 1 Encounter Details Date Type Department Care Team (Late st Contact Info) Description 05/21/2023 1:00 PM CDT Office Visit [facility] [address] [place] [address] Rommel Huynh MD [address] [place] [address] Seizure disorder (CMS/HCC) (HCC) (Primary Dx) Social History Tobacco Use Types Packs/Day Years Used Date Smoking Tobacco: Every Day Cigarettes Vaping Tobacco Cessation:Ready to Q uit: Not Asked; Counseling Given: Not Answered Comments Unknown Sex and Gender Information Value Date Recorded Sex Assigned at Not on file Legal Sex Female 9:45 AM CDT Gender Identity Not on file Sexual Orientation Not on file documented as of this encounter Last Filed Vital Signs Vital Sign Reading Time Taken Comments Blood Pressure 107/74 05/21/2023 12:57 PM CDT Pulse 92 05/21/2023 12:57 PM CDT Temperature 37.3 ??C (99.1 ??F) 05/21/2023 12:57 PM C DT Respiratory Rate - - Oxygen Saturation 100% 05/21/2023 12:57 PM CDT Inhaled Oxygen Concentration - - Weight 54 kg (119 lb) 05/21/2023 12:57 PM CDT Height 162.6 cm (5' 4 ) 05/21/2023 12:57 PM CDT Body Mass Index 20.43 05/21/2023 12:57 PM CDT documented in this encounter Patient Instructions * Patient Instructions* Rommel Huynh MD - 05/21/2023 1:00 PM CDT Continue Lamictal/Lamotrigine at increased dose: 150 mg twice a day. Start by taking 150 mg in morning and 100 mg at night for 2 weeks, then increase to 150 mg twice a day. Call if symptoms or side effects. No testing ordered today. We can consider video EEG in the future. documented in this encounter Ordered Prescriptions Prescription Sig Dispense Quantity Refills Last Filled Start Date End Date lamoTRIgine (LaMICtal) 100 mg tablet Take 1.5 tablets (150 mg total) by mouth 2 (two) times a day 270 tablet 3 05/21/2023 4 documented in this encounter Progress Notes * Rommel Huynh MD - 05/21/2023 1:00 PM CDT Name: Jennifer Travis Date of : 2000 PCP: Oziel Burt MD Date: 05/21/2023 Provider: Rommel Huynh MD Referring Provider: *Oziel Burt MD Chief Complaint: seizures; focal or multifocal epilepsy HPI The patient is accompanied by boyfriend (Omid), who provides additional/collateral history for thisvisit. The EMR was personally reviewed and summarized as part of this note. Jennifer is a 22 y.o. right-handed female who was referred for evaluation of events concerning for seizures. She has had seizures since August 2021. First seizure occurred on 09/13/2032 after she awoke from sleep. She remembers [...] had recently dropped out of college at [employer] in July (studying Business then undecided major). She was having trouble in school and disinterested in college at that time. Second seizure occurred November 22, 2021. Then, she recalls same series of events. Both her Mom and Dad witnessed this one. She started taking Lamictal after this seizure. She has not had subsequentseizures since starting Lamictal. She does endorse auras: kathryn vu (8th grade; she described kathryn vu similar to premonitory symptomsbut she explicitly says kathryn vu), hot, sick feeling (nausea/ felt like hot blood being poured onher head ). She feels that these occur between once a month up to peak of 10 times a day. Of note, she starting back school in February 2023; kathryn vu feeling happened 2 times in the setting of stress. She has not had more than one type of seizure. Seizure type is characterized by: Sudden tiredness followed by LOC with convulsions associated with oral trauma. (last one: 11/22/21;frequency 2 times in life). Triggers: sleep deprivation. She has not had staring spells with inattention (loss of time episodes). She has not had myoclonus (jumping, jerking, or twitching of arms and legs) excluding times associated with drowsiness or arousal. She has not had episodes of epigastric rising (stomach rising and butterfly). She has not had episodes of inappropriate fear or olfactory feeling. She has episodes of autonomic signs like tachycardia or bradycardia, flushed . She has not had episodes of visual hallucinations. She has not had episodes of vision loss. Currently, Ms. Travis is on anti-seizure medications (ASM): Lamictal 100 mg BID In the past Ms. Travis has not had been treated for seizures. She has had no side effects to medications. Average times medications were missed over the last week/month/year: [id number] Sleep is described as decent for somebody who likes to stay up late. In further history, she is otherwise healthy. Prior relevant studies: An EEG on 09/[facility]/2021 [facility] revealed 1. occasional left temporal sharp waves. 2. Frequent frontally predominance generalized spikes and waves. Tracing not available. An EEG on 12/05/2021 at [facility] revealed Occasional sharp waves over the mid left temporal head region, maximal at T3. A brain MRI with gadolinium on 11/18/2021 at [facility] revealed normal appearance of the brain . On my review, it was sufficient quality MRI without obvious pathology. The hippocampi may have slightvolume loss but unilateral was not apparent from FLAIR signal changes or cysts/mass. Video EEG monitoring has not been performed. A head CT not available in our system. I personally reviewed all of the patient's prior records, including available films. Ms. Travis does not have a history of febrile seizures. There was no history of head trauma with loss of consciousness ('moderate' defined by time >30 minutes, and 'severe' defined by time >24 hrs); she does report many different head traumas without LOC. There was no history of ANTHROPOLOGY PROFESSOR infection. She was the product of a normal and delivery with normal developmental milestones. No trouble in school until college. Family history of seizure in nephew (aunts son). 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 Today, she has no specific questions. She knew that she needed to re-establish with neurology sinceher prior neurologist's practice is closing down. She is doing well on medications. We discussed her prior work-up. She denied other significant issues this visit. . The topic of surgery was not discussed. For women interested in , control and supplementation were discussed and reviewed. Current control method is Slynd 1 day. Counseling provided today:ASM effects, aura, epilepsy focal versus generalized, Efficacy and Safetyof Marijuana in Epilepsy ALLERGIES Jennifer is allergic to amoxicillin-pot clavulanate. Allergies Allergen Reactions Amoxicillin-Pot Clavulanate Hives, Other (See comments) and Urticaria Mouth broke out in sores MEDICATIONS She has a current medication list which includes the following prescription(s): acyclovir, lamotrigine, and slynd. No current outpatient medications on file. No current facility-administered medications for this visit. ACTIVE PROBLEMS Problem List None PMH Jennifer has a history of herpes and epilepsy PSH She has tonsillectomy (2012) and gallbladder surgery (2021). FAMILY HISTORY Her family history is not on file. There was family history of epilepsy. SOCIAL HISTORY Jennifer reports that she has been smoking cigarettes and vaping. She does not have any smokeless tobacco history on file. No alcohol history on file. The patient is not and lives alone. There was no history of alcohol or drug abuse although she does use marijuana daily. The patient is not employed currently. She is in school at [employer]. The highest level of education achieved was high school. The patient is driving. The patient did not disclose symptoms related to sexual dysfunction. Review of Systems Our standard office 10+ review of systems form was both reviewed and confirmed with the patient. All of the pertinent positives and negatives were mentioned in the History of Presenting Illness except: weight gain (up to almost 200 lbs->119 lbs; gym and control switch), bruising, situational stress. All other systems negative. . Physical Exam Blood pressure 107/74, pulse 92, temperature 37.3 ??C (99.1 ??F), temperature source Temporal, height 162.6 cm (5' 4 ), weight 54 kg (119 lb), SpO2 100 %. General: The patient appeared thin, well developed, well nourished and well groomed. Cardiovascular: Regular rate and rhythm. No murmurs or gallops were appreciated. Pulmonary: Normal work of breathing on RA. Extremities: No edema. No other abnormalities were noted. Skin: Minor petechial discoloration compatible with bruising. Neurological Exam: Mental Status: The patient was alert, awake, and oriented to person, place and time. The patient had fluent speech and followed commands. Attention was normal. Affect and mood were normal. The SAM-D score was 11 today. Cranial Nerves: Pupils were equal, round and reactive to light bilaterally. Visual luis were full to finger counting. Extraocular muscles were full. There was no nystagmus. Facial strength was normal and symmetric. Facial [...] light touch and double simultaneous stimulation. Coordination: Psapct-jc-todd testing and rapid alternating movements were normal. Reflexes: The reflexes were 2/4 at the biceps, triceps, brachioradialis, knees, and ankles bilaterally. Gait: Posture was normal. Gait was normal, including tandem gait. Assessment No primary diagnosis found. Ms. Travis is a 22 y.o. right handed female who presents for evaluation of events concerning for seizures. The events are compatible with epileptic seizures; she has supportive diagnostic testingwith prior OSH EEG showing left temporal epileptiform discharges (tracing not available) as well asgeneralized epileptiform abnormalities. 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 However, she could benefit from diagnostic testing (video EEG) in the future if she has reoccurrence of seizures. She endorsed auras in setting of stress; she agreed to try higher dose of Lamictal since she does not have side effects from the medication. I reviewed labs from 07/2022; she endorsed being hard stick. I will not repeat labs today. The main risk of taking Lamictal is a rash. Rash occurs in approximately 10 % of patients but Rose-Dannie syndrome occurs in 0.3% of patients. I explained that if this medication were added too quickly, the patient would be more likely to develop Rsoe-Dannie syndrome, which is a severe rashthat can be fatal. She was told that she should call me if she develops any rash, as the patient would need to see a Inspector Eyeglass and the medication may need to be stopped at that time. In addition,I told the patient that Lamictal can increase myoclonus and headaches in certain individuals. She can take folic acid while on this medication to help prevent defects, should she become . Lamictal has been associated with an increased risk of isolated, non-syndromic cleft palate and cleft lip with a rate of 8.9 per 1000 first trimester monotherapy exposures, as opposed to 0.37 per 1000 in the general population per the [place] Antiepileptic Drug Registry. She was given literature about women's issues and epilepsy. (G40.909) Seizure disorder (CMS/HCC) (HCC) Plan: Ambulatory referral to Neurology Plan Increase ASMs to Lamictal 150 mg BID over next month. I refilled her prescription today. Order diagnostic testing: None today; consider video EEG next if additional seizures. Folic acid supplementation discussed Seizure precautions reviewed today Follow up in 1 year. Referrals: None Dr. Rommel Huynh M.D. Instructor of Neurology [facility] I spent a total of 54 mjrk-mp-xter minutes (1:08-2:02 P) of which more than 50% of visit spent counseling and coordinating care. In addition to the time spent during the session with the patient, I spent 6 minutes preparing to see the patient, 10 minutes documenting clinical information and ordering tests and/or medications. Total time spend on encounter on the day of the visit: 70 minutes. documented in this encounter Plan of Treatment Not on file documented as of this encounter Visit Diagnoses Diagnosis Seizure disorder (CMS/HCC) (HCC)- Primary Unspecified epilepsy without mention of intractable epilepsy documented in this encounter Discontinued Medications Medication Sig Discontinue Reason Start Date End Da te lamoTRIgine (LaMICtal) 100 mg tablet Take 1 tablet (100 mg total) by mouth 2 (two) times a day Reorder 05/21/2023 documented as of this encounter Historical Medications * This list may reflect changes made after this encounter. Slynd tablet tablet Take 1 each (4 mg total) by mouth daily acyclovir (ZOVIRAX) 400 mg tablet TAKE 1 TABLET BY MOUTH THREE TIMES DAILY DIRECTED 04/14/2023 lamoTRIgine (LaMICtal) 100 mg tablet Take 1 tablet (100 mg total) by mouth 2 (two) times a day 05/21/2023 added in this encounter Orders Outpatient Referral Count Last Ordered Date Fir st Ordered Date AMB REFERRAL TO NEUROLOGY 1 05/21/2023 documented in this encounter Care Teams Farm Crew Member Relationship Specialty Start Date End Date Oziel Burt MD [address] [place] [address] PCP - General Family Practice 04/29/23 04/24/24 documented as of this encounter
--- OUTSIDE RECORDS SUMMARY | 2024-12-07 17:23 | XMS_ITS | Encounter Summary ---
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
--- OUTSIDE RECORDS SUMMARY | 2024-12-07 17:23 | XMS_ITS | Encounter Summary ---
Author Organization [facility] Healthcare Address [address] [place] [address] Care Team Providers Care Change Consultant Name Role Phone Oziel Burt MD Primary Care Provider [phone]- [phone] Reason for Visit * Reason Comments Vomiting Encounter Details Date Type Department Care Team ([facility] Contact Info) Description 11/12/2023 12:59 PM MACHINE MAINTENANCE - 11/12/2023 7:55 PM MACHINE MAINTENANCE Emergency [facility] Emergency Department [address] [place] [address] Nausea and vomiting, unspecified vomiting type (Primary Dx); Hypokalemia Discharge Disposition: Discharge to home or self [...] Sign Reading Time Taken Comments Blood Pressure 110/74 11/12/2023 5:50 PM MACHINE MAINTENANCE Pulse 72 11/12/2023 5:50 PM MACHINE MAINTENANCE Temperature 36.5 ??C (97.7 ??F) 11/12/2023 1:00 PM CS T Respiratory Rate 15 11/12/2023 5:50 PM MACHINE MAINTENANCE Oxygen Saturation 100% 11/12/2023 5:50 PM MACHINE MAINTENANCE Inhaled Oxygen Concentration - - Weight 54.4 kg (120 lb) 11/12/2023 1:00 PM MACHINE MAINTENANCE Height 162.6 cm (5' 4 ) 11/12/2023 1:00 PM MACHINE MAINTENANCE Body Mass Index 20.6 11/12/2023 1:00 PM MACHINE MAINTENANCE documented in this encounter Discharge Instructions * Discharge Instructions* Dago Russo PA - 11/12/2023 7:25 PM MACHINE MAINTENANCE Your potassium level was low and was treated with IV potassium. Please follow-up with your primary care provider for reassessment of your vomiting and low potassium. INE MAINTENANCE * Attachments The following attachments cannot be sent through Care Everywhere. * Vomiting and Diarrhea, Nonspecific (Adult) (Palestinian) * Hypokalemia (Palestinian) documented in this encounter Medications at Time [...] Refills Last Filled Start Date End Date ondansetron ODT (ZOFRAN-ODT) 4 mg disintegrating tablet Dissolve 1 tablet for nausea or vomiting oral every 8 hours as needed. 10 tablet 11/12/2023 documented in this encounter Discharge Disposition Disposition Code Departure Means Destination Comment s Discharge to home or self care documented in this encounter ED Notes * Dago Russo PA - 11/12/2023 12:59 PM CST HPI Chief Complaint Patient presents with Vomiting Patient with past history of seizures (on Lamictal 150 mg b.i.d.), cholecystectomy here for evaluation of nausea and vomiting that started earlier this morning. Patient reported EMS that she recently broke up with her boyfriend. [place]. She developed nausea and vomiting this morning. She denies abdominal pain. EMS gave 5 mg total droperidol and IV fluids. No fever, chills, cough, shortness breath, chest pain, hematemesis, diarrhea, constipation, urinarysymptoms. History provided by: EMS personnel and patient Patient History: There are no problems to display for this patient. No past medical history on file. No past surgical history on file. No family history on file. Social History Tobacco Use Smoking status: Every Day Types: Cigarettes, Vaping Smokeless tobacco: Not on file Substance and Sexual Activity Alcohol use: Not on file Drug use: Not on file Sexual activity: Not on file Social History Social History Narrative Not on file Review of Systems Review of Systems Constitutional: Negative for chills and fever. HENT: Negative for sore throat and trouble swallowing. Eyes: Negative for pain and visual disturbance. Respiratory: Negative for cough and shortness of breath. Cardiovascular: Negative for chest pain and palpitations. Gastrointestinal: Positive for nausea and vomiting. Negative for abdominal pain. Genitourinary: Negative for dysuria and hematuria. Musculoskeletal: Negative for arthralgias and back pain. Skin: Negative for color change and rash. Neurological: Negative for syncope. All other systems reviewed and are negative. Physical Exam ED Triage Vitals [11/12/23 1300] Temp Pulse Resp BP SpO2 36.5 ??C (97.7 ??F) 82 18 110/69 100 % Temp src Heart Rate Source Patient Position BP Location FiO2 (%) Temporal Monitor Lying;HOB 30 degrees Right arm -- Height Height Method Weight Weight Method 1.626 m (5' 4 ) Stated 54.4 kg (120 lb) Stated Physical Exam Vitals and nursing note reviewed. Constitutional: General: She is not in acute distress. Eyes: General: No scleral icterus. Extraocular Movements: Extraocular movements intact. Cardiovascular: Rate and Rhythm: Normal rate and regular rhythm. Pulmonary: Effort: Pulmonary effort is normal. Breath sounds: Normal breath sounds. Abdominal: General: Bowel sounds are normal. There is no distension. Tenderness: There is no abdominal tenderness. There is no right CVA tenderness or left CVA tenderness. Musculoskeletal: Cervical back: Normal range of motion and neck supple. Right lower leg: No edema. Left lower leg: No edema. Skin: General: Skin is warm and dry. Coloration: Skin is not jaundiced. Neurological: General: No focal deficit present. Mental Status: She is alert and oriented to person, place, and time. MDM Medical Decision Making Differential includes but is not limited to gastritis, peptic ulcer disease, pancreatitis, cholelithiasis, cholecystitis, appendicitis, colitis, , UTI, nephrolithiasis, other Unremarkable vitals. Drowsy but easily arousable, no neurologic deficits. Benign abdominal exam Labs: CBC with anemia H&H 11 and 31.1, no leukocytosis. CMP with potassium 2.5 otherwise unremarkable. Mg normal. Lipase normal. HCG negative ECG sinus, regular rate, normal axis, normal intervals, nonspecific ST abnormality Assessment: n/v without definite cause. Continues to have benign abdominal exam. Vitals are reassuring. Labs notable for potassium 2.5 otherwise reassuring. Hypokalemia likely due to GI losses from vomiting today and reported chronic loose stools ever since having her gallbladder removed. She is tolerating p.o. intake. She has received potassium repletion and repeat level normal. Plan: - discharge with antiemetic - recommend PCP f/u reassessment of vomiting and potassium level - ED return for recurrence intractable vomiting, new symptoms or other concerns Amount and/or Complexity of Data Reviewed Labs: ordered. Decision-making details documented in ED Course. ECG/medicine tests: ordered. Risk Prescription drug management. ED Course as of 11/12/23 1925 Time: 11/12 1358 Value: Potassium, pl(!!): 2.5 Comment: noted By: Dago Russo PA Time: 11/12 1546 Comment: Reassess patient. She is much less drowsy. She is able to answer questions appropriately. She continues to deny abdominal pain. She has a continued benign abdominal examination. She does informed that she has had loose stool ever since having her gallbladder removed which may be contributing to her hypokalemia. By: Dago Russo PA Time: 11/12 1547 Comment: Patient is agreeable to trying ice chips By: Dago Russo PA Final diagnoses: Nausea and vomiting, unspecified vomiting type Hypokalemia Dago Russo PA 11/12/231831 Dago Russo PA 11/12/231925 Cosigned by Brendan Varghese DO at 11/12/2023 7:44 PM MACHINE MAINTENANCE INE MAINTENANCE INE MAINTENANCE INE MAINTENANCE Associated attestation - Brendan Varghese DO - 11/12/2023 7:44 PM MACHINE MAINTENANCE ED Attestation Based on the medical record the care appears appropriate. * Wendy Taylor RN - 11/12/2023 12:59 PM CST Bed: ED32 Expected date: Expected time: Means of arrival: Comments: EMS-20 F, emesis, abdominal pain Wendy Taylor RN 11/12/23 1259 INE MAINTENANCE documented in this encounter Plan of Treatment Not on file documented as of this encounter Procedures Procedure Name Priority Date/Time Associated Diagnosis Comments POTASSIUM LEVEL Timed 11/12/2023 6:53 PM MACHINE MAINTENANCE ECG 12-LEAD STAT 11/12/2023 2:16 PM MACHINE MAINTENANCE EGFR STAT 11/12/2023 12:59 PM MACHINE MAINTENANCE DIFFERENTIAL AUTO STAT 11/12/2023 12: 59 PM MACHINE MAINTENANCE CBC WITH AUTO DIFFERENTIAL STAT 11/12/2023 12:59 PM MACHINE MAINTENANCE HCG, BLOOD, QUANTITATIVE STAT 11/12/2023 12:59 PM MACHINE MAINTENANCE MAGNESIUM Routine 11/12/2023 12:59 PM MACHINE MAINTENANCE LIPASE STAT 11/12/2023 12:59 PM MACHINE MAINTENANCE COMPREHENSIVE METABOLIC PANEL STAT 11/12/2023 12:59 PM MACHINE MAINTENANCE RESPIRATORY PATHOGEN PANEL Routine 11/12/2023 12:30 PM MACHINE MAINTENANCE documented in this encounter Results * Potassium (11/12/2023 6:53 PM MACHINE MAINTENANCE) Potassium, pl 4.9 3.3 - 4.9 mmol/L [facility] Blood 11/12/2023 6:53 PM MACHINE MAINTENANCE 11/12/2023 6:58 PM MACHINE MAINTENANCE Dago TEJEDA LAB BLOOD ORDERABLES Final Result [facility] TRAN [id number] Department [place] [address] * ECG 12 lead (11/12/2023 2:16 PM MACHINE MAINTENANCE) 11/12/2023 2:16 PM MACHINE MAINTENANCE Narrative [facility] - 11/12/2023 8:55 PM MACHINE MAINTENANCE Vent Rate: 68 bpm RR Interval: 873 msec ID Interval: 179 msec QRS Duration: 94 msec QT Interval: 397 msec QTC Interval: 415 msec P-R-T [place]: 68 - 76 - 57 degrees IMPRESSION: SINUS RHYTHM RIGHT VENTRICULAR CONDUCTION DELAY Electronically Signed By: Yung Pemberton MD, [facility] us Dago TEJEDA ECG ORDERABLES Final Resu lt [facility] * eGFR (11/12/2023 12:59 PM MACHINE MAINTENANCE) eGFR 117 mL/min/1. 73 m2 [facility] Comment: Interpretive Data Reference Interval Normal ?>/= 90 mL/min/1.73m2 Mildly decreased* ? 60 - 89 mL/min/1.73m2 Mildly to moderately decreased ?45 - 59 mL/min/1.73m2 Moderately to severely decreased ??30 - 44 mL/min/1.73m2 Severely decreased ?15 - 29 mL/min/1.73m2 Kidney Failure ?< 15 ??mL/min/1.73m2 *Relative to young adult level Estimated glomerular filtration rate is determined by the 2020 CKD-EPI equation recommended by the National Kidney Foundation (A Unifying Approach to GFR Estimation: Recommendations of the NKF-ASK Task Force on Reassessing the Inclusion of Race in Diagnosing Kidney Disease, JASN 2020). The CKD-EPI equation should not be used for patients with unstable renal function and has not been validated in children and those over 70. Current interpretive data was last reviewed 2021. Blood 11/12/2023 12:5 9 PM MACHINE MAINTENANCE 11/12/2023 1:07 PM MACHINE MAINTENANCE us Dago TEJEDA LAB BLOOD ORDERABLES Final Result [facility] [id number] Department [place] [address] * Differential, auto (11/12/2023 12:59 PM MACHINE MAINTENANCE) Neutrophil abs 4.6 1.5 - 6.5 K/cumm [facility] Imm gran abs 0.0 0.0 - 0.1 K/cumm [facility] Lymphocyte abs 3.0 0.8 - 3.3 K/cumm [facility] Monocyte abs 0.4 0.2 - 0.8 K/cumm [facility] Eosinophil abs 0.1 0.0 - 0.5 K/cumm [facility] Basophil abs 0.0 0.0 - 0.1 K/cumm [facility] Neutrophil pct 55.9 % [facility] Comment: Interpretive Data Percent cell count reference ranges are not reported, since discordance with absolute values may lead to misinterpretation of CBC data. Current Interpretive Data was last revised on 2018. Imm gran pct 0.2 % [facility] Comment: Interpretive Data Percent cell count reference ranges are not reported, since discordance with absolute values may lead to misinterpretation of CBC data. Current Interpretive Data was last revised on 2018. Lymphocyte pct 37.1 % [facility] Comment: Interpretive Data Percent cell count reference ranges are not reported, since discordance with absolute values may lead to misinterpretation of CBC data. Current Interpretive Data was last revised on 2018. Monocyte pct 5.4 % [facility] Comment: Interpretive Data Percent cell count reference ranges are not reported, since discordance with absolute values may lead to misinterpretation of CBC data. Current Interpretive Data was last revised on 2018. Eosinophil pct 0.9 % [facility] Comment: Interpretive Data Percent cell count reference ranges are not reported, since discordance with absolute values may lead to misinterpretation of CBC data. Current Interpretive Data was last revised on 2018. Basophil pct 0.5 % [facility] Comment: Interpretive Data Percent cell count reference ranges are not reported, since discordance with absolute values may lead to misinterpretation of CBC data. Current Interpretive Data was last revised on 2018. Blood 11/12/2023 12:5 9 PM MACHINE MAINTENANCE 11/12/2023 1:07 PM MACHINE MAINTENANCE Dago TEJEDA LAB BLOOD ORDERABLES Final Result Performing Organization Address [facility] de Phone Number [facility] [id number] [employer] [place] [address] * hCG, blood, quantitative (11/12/2023 12:59 PM MACHINE MAINTENANCE) hCG, quant <0.1 0.0 - 5.0 IUnits/L [facility] Comment: Interpretive Data Non- Female premenopausal: < or = 5.0 IUnits/L Men: < 5.0 IUnits/L Weeks of Gestation ? Reference Interval ?? 3 to 6 ? 5.8-31,795 IUnits/L ?? 7 to 10 ? 3,697-186,977 IUnits/L ??12 to 15 ?27,832- 70,791 IUnits/L ??16 to 18 ? 9,040- 58,179 IUnits/L The [employer] hCG Beta Quant assay procedure was used. Results from different manufacturers or methods may not be comparable. Serial testing should be performed using the same method. Current Interpretive Data was last revised on 2022. Blood 11/12/2023 12:5 9 PM MACHINE MAINTENANCE 11/12/2023 1:07 PM MACHINE MAINTENANCE Dago TEJEDA LAB BLOOD ORDERABLES Final Result Performing Organization Address [facility] Co de Phone Number [facility] [address] [facility] [place] [address] * Magnesium (11/12/2023 12:59 PM MACHINE MAINTENANCE) Pathologist [facility] Magnesium 1.8 1.4 - 2.5 mg/dL [facility] Blood 11/12/2023 12:5 9 PM MACHINE MAINTENANCE 11/12/2023 1:07 PM MACHINE MAINTENANCE Dago TEJEDA LAB [place] [address] Department [place] [address] * Lipase (11/12/2023 12:59 PM MACHINE MAINTENANCE) Lipase 16 10 - 99 Units/L [facility] Blood 11/12/2023 12:5 9 PM MACHINE MAINTENANCE 11/12/2023 1:07 PM MACHINE MAINTENANCE Dago TEJEDA LAB BLOOD ORDERABLES Final Result Performing Organization Address City/[facility]/[place] [address] [address] Department [place] [address] * (ABNORMAL) Comprehensive metabolic panel (11/12/2023 12:59 PM MACHINE MAINTENANCE) Sodium 140 135 - 145 mmol/L [facility] Potassium, pl 2.5(C) 3.3 - 4.9 mmol/L [facility] Comment:Critical Result call ed to and read back by Lyndsay Penn, DATE: 2023-11-12 13:57:23 BY: Florence Leon Chloride 106 97 - 110 mmol/L [facility] CO2 19(L) 22 - 32 mmol/L [facility] Anion gap 15 2 - 15 mmol/L [facility] BUN 10 6 - 25 mg/dL [facility] Creatinine 0.75 0.60 - 1.10 mg/dL [facility] Glucose 139 70 - 199 mg/dL [facility] Comment: Interpretive Data Fasting glucose >/= 126 mg/dl is diagnostic for diabetes. ?? Fasting is defined as no caloric intake for at least 8 hours. Fasting glucose between 100 mg/dl to 125 mg/dl is diagnostic of prediabetes. In a patient with classic symptoms of hyperglycemia or hyperglycemic crisis, a random glucose >/= 200 mg/dl is diagnostic for diabetes. In the absence of unequivocal hyperglycemia, results should be confirmed by repeat testing. The classification and Diagnosis of Diabetes Diabetes Care 2021; 46: S19-S40. Current interpretive data was last revised 2022. Calcium 8.6 8.5 - 10.3 mg/dL [facility] Bilirubin, total 0.7 0.1 - 1.2 mg/dL [facility] Protein, pl 6.1(L) 6.5 - 8.5 g/dL [facility] Albumin 4.2 3.5 - 5.0 g/dL [facility] Alk phos 41 40 - 130 Units/L [facility] ALT 6(L) 7 - 45 Units/L [facility] AST 13 10 - 45 Units/L [facility] Blood 11/12/2023 12:5 9 PM MACHINE MAINTENANCE 11/12/2023 1:07 PM MACHINE MAINTENANCE Dago TEJEDA LAB BLOOD ORDERABLES Final Result [facility] [id number] Department [place] [address] * (ABNORMAL) CBC with auto differential (11/12/2023 12:59 PM MACHINE MAINTENANCE) WBC 8.2 3.8 - 9.9 K/cumm [facility] Hgb 11.0(L) 11.9 - 15.5 g/dL [facility] Comment: Interpretive Data A reference range for this assay has not been established for patients with an unknown legal sex. Please refer to the laboratory test catalog for established sex-specific reference intervals. Current interpretive data was last revised on 2023. Hct 31.1(L) 35.6 - 45.5 % [facility] Comment: Interpretive Data A reference range for this assay has not been established for patients with an unknown legal sex. Please refer to the laboratory test catalog for established sex-specific reference intervals. Current interpretive data was last revised on 2023. Plt 334 150 - 400 K/cumm [facility] MPV 9.4 9.1 - 12.3 fL [facility] RBC 3.59(L) 3.90 - 5.20 M/cumm [facility] Comment: Interpretive Data A reference range for this assay has not been established for patients with an unknown legal sex. Please refer to the laboratory test catalog for established sex-specific reference intervals. Current interpretive data was last revised on 2023. MCV 86.6 81.3 - 96.4 fL [facility] MCH 30.6 27.1 - 33.3 pg [facility] MCHC 35.4 32.3 - 35.7 g/dL [facility] RDW CV 11.0(L) 11.1 - 14.9 % [facility] RDW SD 34.9(L) 35.7 - 48.1 fL [facility] NRBC abs 0.00 0.00 - 0.01 K/cumm [facility] Blood (Blood, Venous) 11/12/2023 12:59 PM MACHINE MAINTENANCE 11/12/2023 1:07 PM MACHINE MAINTENANCE Dago TEJEDA LAB BLOOD ORDERABLES Final Result [facility] [address] Department [place] [address] * Respiratory pathogen panel Nasopharyngeal (11/12/2023 12:30 PM MACHINE MAINTENANCE) Pathologist [facility] Influenza A RNA Not Detected Not Detected [facility] Influenza B RNA Not Detected Not Detected [facility] RSV RNA Not Detected Not Detected [facility] COVID-19 RNA Not Detected Not Detected [facility] Coronavirus 229E RNA Not Detected Not Detected [facility] Coronavirus HKU1 RNA Not Detected Not Detected [facility] Coronavirus NL63 RNA Not Detected Not Detected [facility] Coronavirus OC43 RNA Not Detected Not Detected [facility] Adenovirus DNA Not Detected Not Detected [facility] Metapneumovirus RNA Not Detected Not Detected [facility] Rhinovirus/Enterov irus RNA Not Detected Not Detected [facility] Parainfluenza 1 RNA Not Detected Not Detected [facility] Parainfluenza 2 RNA Not Detected Not Detected [facility] Parainfluenza 3 RNA Not Detected Not Detected [facility] Parainfluenza 4 RNA Not Detected Not Detected [facility] B. pertussis DNA Not Detected Not Detected [facility] B. parapertussis DNA Not Detected Not Detected [facility] C. pneumoniae DNA Not Detected Not Detected [facility] M. pneumoniae DNA Not Detected Not Detected [facility] Comment: Interpretive Data The [employer] FilmArray Respiratory Panel (RP2.1) assay is a multiplexed real-time PCR based nucleic acid test capable of simultaneous qualitative detection and identification of multiple respiratory viral and bacterial nucleic acids, including SARS Coronavirus 2 (the causative agent of COVID-19). The following bacteria, viruses and virus subtypes can be identified using the FilmArray RP2.1 assay: Bordetella pertussis, Bordetella parapertussis, Chlamydia pneumoniae, Mycoplasma pneumoniae, Adenovirus, SARS Coronavirus 2, seasonal coronaviruses (Coronavirus HKU1, Coronavirus NL63, Coronavirus 229E, and Coronavirus OC43), Influenza A, Influenza A subtype H1, Influenza A subtype H3, Influenza A subtype 2009 H1, Influenza B, Metapneumovirus, Parainfluenza 1, Parainfluenza 2, Parainfluenza 3, Parainfluenza 4, RSV, Rhinovirus/Enterovirus. Due to the genetic similarity between human Rhinovirus and Enterovirus, the FilmArray RP2.1 assay cannot reliably differentiate them. Coronavirus OC43 may cross-react with some isolates of Coronavirus HKU1. ??A dual positive result may be due to cross-reactivity or may indicate a co-infection. The detection and identification of specific viral and bacterial nucleic acids from individuals exhibiting signs and symptoms of a respiratory infection aids in the diagnosis of respiratory infection if used in conjunction with other clinical and epidemiological information. ??The results of this test should not be used as the sole basis for diagnosis, treatment, or other management decisions. ??Negative results in the setting of a respiratory illness may be due to infection with pathogens that are not detected by this test. ??Positive results do not rule out infection/co-infection with other organisms. ??The agent(s) detected by the FilmArray RP2.1 may not be the definite cause of disease. ??Additional testing (lab, imaging, etc.) may be necessary when evaluating a patient with possible respiratory tract infection. The FilmArray RP2.1 assay has FDA clearance for testing of RESPIRATORY TECH swabs. ??The performance characteristics of this assay have been determined by [facility]. Current interpretive data was last revised on 2021. Nasopharyngeal 11/12/2023 12 :30 PM MACHINE MAINTENANCE 11/12/2023 1:55 PM MACHINE MAINTENANCE [facility] - 11/12/2023 3:08 PM MACHINE MAINTENANCE Is the Patient experiencing symptoms consistent with COVID?->Yes Date of Symptom Onset->11/11/23 Reason for testing?->Bed placement or semi-private room Surveillance testing for transplant patient?->No Dago [facility] LAB MICROBIOLOGY - GENERAL ORDERABLES Final Result [facility] [address] Department [place] [address] documented in this encounter Visit Diagnoses Diagnosis Nausea and vomiting, unspecified vomiting type- Primary Hypokalemia Hypopotassemia documented in this encounter Administered Medications Inactive Administered Medications - up to 3 most recent administrations Medication Order MAR Action Action Date Dose Rate Site lamoTRIgine (LaMICtal) tablet 150 mg 150 mg, oral, 2 times daily, First dose on Mirta 11/12/23 at 1401 metoclopramide (REGLAN) 5 mg/mL injection 10 mg 10 mg, intravenous, Administer over 1 Minutes, Once, On Mirta 11/12/23 at 1548, For 1 dose Given 11/12/2023 4:04 PM MACHINE MAINTENANCE 10 mg ondansetron (ZOFRAN) injection 4 mg 4 mg, intravenous, Administer over 2 Minutes, Once, On Mirta 11/12/23 at 1438, For 1 dose Given 11/12/2023 2:40 PM MACHINE MAINTENANCE 4 mg potassium chloride 40 mEq/520 mL in sodium chloride 0.9% (premix) 40 mEq 40 mEq, intravenous, at 130 mL/hr, Administer over 4 Hours, Once, On Mirta 11/12/23 at 1359, For 1 dose, Indications: hypokalemiaIndications:hyp okalemia Rate/Dose Verify 11/12/2023 4:04 PM MACHINE MAINTENANCE 130 mL/hr New Bag 11/12/2023 2:19 PM MACHINE MAINTENANCE 40 mEq 130 mL/hr potassium chloride ER (KLOR-CON) extended release tablet 40 mEq 40 mEq, oral, Once, On Mirta 11/12/23 at 1403, For 1 dose, Tablets should not be crushed, chewed, dissolved, or otherwise manipulated. Capsules may be opened and sprinkled on a spoonful of applesauce or pudding, but the contents of the capsule should not be crushed or chewed. Given 11/12/2023 5:52 PM MACHINE MAINTENANCE 40 mEq documented in this encounter Active and Recently Administered Medications Times are shown in MACHINE MAINTENANCE. Scheduled Medication Order 11/10/2023 11/11/2023 11/12/2023 lamoTRIgine (LaMICtal) tablet 150 mg 150 mg, oral, 2 times daily, First dose on Mirta 11/12/23 at 1401 1418 (Not Given - Pr ovider: Lyndsay Polanco RN - Reason: Order parameters not met - Comment: Patient took does this AM, next dose not due until this PM) metoclopramide (REGLAN) 5 mg/mL injection 10 mg (COMPLETED) 10 mg, intravenous, Administer over 1 Minutes, Once, On Mirta 11/12/23 at 1548, For 1 dose 1604 (Given - Provid er: Lyndsay Polanco RN) ondansetron (ZOFRAN) injection 4 mg (COMPLETED) 4 mg, intravenous, Administer over 2 Minutes, Once, On Mirta 11/12/23 at 1438, For 1 dose 1440 (Given - Provid er: Lyndsay Polanco RN) potassium chloride 40 mEq/520 mL in sodium chloride 0.9% (premix) 40 mEq (COMPLETED) 40 mEq, intravenous, at 130 mL/hr, Administer over 4 Hours, Once, On Mirta 11/12/23 at 1359, For 1 dose, Indications: hypokalemia 1419 (New Bag - Prov ider: Lyndsay Polanco RN)1604 (Rate/Dose Verify - Provider: Lyndsay Polanco RN)1954 (Stopped - Provider: Natalie Dozier RN) potassium chloride ER (KLOR-CON) extended release tablet 40 mEq (COMPLETED) 40 mEq, oral, Once, On Mirta 11/12/23 at 1403, For 1 dose, Tablets should not be crushed, chewed, dissolved, or otherwise manipulated. Capsules may be opened and sprinkled on a spoonful of applesauce or pudding, but the contents of the capsule should not be crushed or chewed. 175 (Given - Provid er: Lyndsay Polanco RN - Comment: Patient condition improved) documented in this encounter Orders Medications Ordered That Rusty ht Not Have Been Administered Count Last Ordered Date First Ordered Date lamoTRIgine (LaMICtal) tablet 150 mg 1 10/30 documented in this encounter Additional Health Concerns Infection Onset Date Last Indicated Resolved Time COVID: Suspected 11/12/2023 11/12/2023 11/12/2023 3:09 PM MACHINE MAINTENANCE documented as of this encounter Care Teams Change Consultant Relationship Specialty Start Date End Date Oziel Burt MD [address] [place] [address] PCP - General Family Practice 04/29/23 04/24/24 documented as of this encounter
--- OUTSIDE RECORDS SUMMARY | 2024-12-07 17:23 | XMS_ITS | Encounter Summary ---
Author Organization [facility] Address [address] [place] [address] Care Team Providers Care Bulb Weeder Name Role Phone Tasha Zamudio DO Primary Care Provide r Reason for Referral * MRI/CAT/PET Scan (Routine) - Closed Specialty Diagnoses / Procedures Referred By Cosmo t Referred To Contact Radiology Diagnoses Seizure disorder (CMS/HCC) (HCC) Procedures MRI Brain Epilepsy W WO Contrast Rommel Huynh MD [address] [address] Phone: tel: fax: [address] [phone] Referral ID Status Reason Start Date Expiration Date Visits Re quested Visits Authorized [id number] Closed 09/14/2024 10/14/2025 1 1 NING OFFICIAL Reason for Visit * MRI/CAT/PET Scan (Routine) - Closed Specialty Diagnoses / Procedures Referred By Contac t Referred To Contact Radiology Diagnoses Seizure disorder (CMS/HCC) (HCC) Procedures MRI Brain Epilepsy W WO Contrast Rommel Huynh MD [address] [address] Phone: tel: fax: [address] [phone] Referral ID Status Reason Start Date Expiration Date Visits Re quested Visits Authorized [id number] Closed 09/14/2024 10/14/2025 1 1 Encounter Details Date Type Department Care Team (Latest Contact Info) Description 10/04/2024 6:31 PM PLANNING OFFICIAL - 10/04/2024 11:59 PM PLANNING OFFICIAL Hospital Encounter [facility] [address] [place] [id number] Seizure disorder (CMS/HCC) (HCC) Discharge Disposition: Discharge [...] 04/14/2023 lamoTRIgine (LaMICtal) 100 mg tablet Take 2 tablets (200 mg total) by mouth 2 (two) times a day 360 tablet 3 09/14/2024 ondansetron ODT (ZOFRAN-ODT) 4 mg disintegrating tablet Dissolve 1 tablet for nausea or vomiting oral every 8 hours as needed. 10 tablet 11/12/2023 Slynd tablet tablet Take 1 each (4 mg total) by mouth daily documented as of this encounter Discharge Disposition Disposition Code Departure Means Destination Discharge to home or self care documented in this encounter Plan of Treatment Not on file documented as of this encounter Procedures Procedure Name Priority Date/Time Associated Diagnosis Comments MRI BRAIN EPILEPSY W WO CONTRAST Schedule Routine, Read Routine (OP Routine) 10/04/2024 7:29 PM PLANNING OFFICIAL Seizure disorder (CMS/HCC) (HCC) documented in this encounter Results * MRI Brain Epilepsy W WO Contrast (10/04/2024 7:29 PM PLANNING OFFICIAL) Anatomical Region Laterality Modality Head and Neck N/A Magnetic Resonan ce 10/05/2024 9:06 AM PLANNING OFFICIAL Impressions 10/05/2024 9:48 AM PLANNING OFFICIAL No findings to explain the patient's seizures. Dictated by: Lonnie Jinag MD The radiology attending physician has personally reviewed this study, and had reviewed and/or edited this written report and agrees with it. Electronically signed by: Angelo Bro MD Narrative 10/05/2024 9:48 AM PLANNING OFFICIAL EXAMINATION: Magnetic resonance imaging (MRI) of the [...] MD IMG MRI PROCEDURES Fin al Result documented in this encounter Visit Diagnoses Diagnosis Seizure disorder (CMS/HCC) (HCC) Unspecified epilepsy without mention of intractable epilepsy documented in this encounter Administered Medications Inactive Administered Medications - up to 3 most recent administrations Medication Order MAR Action Action Date Dose Rate Site gadoterate meglumine injection 10 mL 10 mL, intravenous, Once in imaging, contrast, Starting on Thu10/04/24 at 1929, For 1 dose Contrast Given 10/04/2024 7:30 PM PLANNING OFFICIAL 10 mL Right Forearm documented in this encounter Orders Medications Ordered That Rusty ht Not Have Been Administered Count Last Ordered Date First Ordered Date gadoterate meglumine injection 10 mL 1 03/2024 documented in this encounter Care Teams Bulb Weeder Relationship Specialty Start Date End Date Tasha Zamudio DO [address] [facility] [place] [address] PCP - General Family Medicine 04/25/24 10/24/24 documented as of this encounter
--- OUTSIDE RECORDS SUMMARY | 2024-12-07 17:23 | XMS_ITS | Encounter Summary ---
Author Organization [facility] Address [address] [place] [address] Care Team Providers Care Credit Administrator Name Role Phone Tasha Zamudio DO Primary Care Provide r Reason for Referral * Neurology (Routine) - Closed Specialty Diagnoses / Procedures Referred By Contac t Referred To Contact Diagnoses Seizure disorder (CMS/HCC) (HCC) Procedures EEG Rommel Huynh MD [address] [address] Phone: tel: fax: [address] [phone] Referral ID Status Reason Start Date Expiration Date Visits Re quested Visits Authorized [id number] Closed 09/14/2024 10/14/2025 1 1 Reason for Visit * Neurology (Routine) - Closed Specialty Diagnoses / Procedures Referred By Contac t Referred To Contact Diagnoses Seizure disorder (CMS/HCC) (HCC) Procedures EEG Rommel Huynh MD [address] [address] Phone: tel: fax: [address] [phone] Referral ID Status Reason Start Date Expiration Date Visits Re quested Visits Authorized [id number] Closed 09/14/2024 10/14/2025 1 1 Encounter Details Date Type Department Care Team (Latest Contact Info) Description 09/14/2024 9:18 AM CDT - 09/14/2024 11:59 PM CDT Hospital [facility]counter [facility] EEG [facility] ([facility] [address] [place] [address] Tasha Beckman Seizure disorder ([facility]) ([facility]) Discharge Disposition: Discharge to home or self [...] Name Priority Date/Time Associated Diagnosis Comments EEG Routine 09/14/2024 4:52 PM CDT Seizure disorder ([facility]) ([facility]) documented in this encounter Results * EEG (09/14/2024 4:52 PM CDT) Anatomical Region Laterality Modality EEG Narrative 09/14/2024 4:52 PM CDT Routine EEG Report Patient Name: Jennifer Travis [facility] Medical Record Number (MRN): [id number] [facility] Record: No Sojaney MRN Date of (): 2000 EEG Date: 09/14/2024 Ordering Provider: Rommel Huynh MD CC: Trishjohannrolan Tashapaulo Robins Start Time: 09/14/2024 10:32:35 AM ? End Time: 09/14/2024 10:53:25 AM Introduction: Ms. Travis is a 23 y.o. female with a history of seizures. EEG was performed to evaluate for seizures. This is a 32 channel EEG recording acquired on a [employer] EEG-1200 acquisition system. Scalp electrodes were placed [...] of intractable epilepsy documented in this encounter Care Teams Credit Administrator Relationship Specialty Start Date End Date Tasha Zamudio DO [address] [place] [address] PCP - General Family Medicine 04/25/24 10/24/24 documented as of this encounter
--- OUTSIDE RECORDS SUMMARY | 2024-12-07 17:23 | XMS_ITS | Encounter Summary ---
Author Organization [facility] Address [address] [place] [address] Care Team Providers Care Professor Criminal Justice Name Role Phone Tasha Zamudio DO Primary Care Provide r Reason for Referral * Diagnostic Imaging (Routine) - Closed Specialty Diagnoses / Procedures Referred By Cosmo gonzalez Referred To Contact Diagnoses Localized enlarged lymph nodes Procedures US Soft Tissue Neck Tasha Zamudio DO [address] [place] [address] Phone: tel: fax: [address] [phone] Referral ID Status Reason Start Date Expiration Date Visits Re quested Visits Authorized [id number] Closed 04/26/2024 05/26/2025 1 1 Reason for Visit * Diagnostic Imaging (Routine) - Closed Specialty Diagnoses / Procedures Referred By Cosmo gonzalez Referred To Contact Diagnoses Localized enlarged lymph nodes Procedures US Soft Tissue Neck Tasha Zamudio DO [address] [place] [address] Phone: tel: fax: [address] [phone] Referral ID Status Reason Start Date Expiration Date Visits Re quested Visits Authorized [id number] Closed 04/26/2024 05/26/2025 1 1 Encounter Details Date Type Department Care Team (Latest Contact Info) Description 05/12/2024 2:03 PM CDT - 05/12/2024 11:59 PM CDT Hospital Encounter [address] [address] Localized enlarged lymph nodes Discharge Disposition: Discharge [...] Name Priority Date/Time Associated Diagnosis Comments US SOFT TISSUE NECK Schedule Routine, Read Routine (OP Routine) 05/12/2024 4:27 PM CDT Localized enlarged lymph nodes documented in this encounter Results * US Soft Tissue Neck (05/12/2024 4:27 PM CDT) Anatomical Region Laterality Modality Head and Neck N/A Ultrasound 05/12/2024 4:39 PM CDT Impressions 05/13/2024 9:48 AM CDT Probable enlarged 2.2 cm pathologic-appearing left level 3 node with small nodes posteriorly corresponding to palpable abnormality. Correlate with CT. Electronically signed by: Evelia Ocasio M.D. Narrative 05/13/2024 9:48 AM CDT EXAMINATION: US SOFT TISSUE NECK HISTORY: Localized enlarged lymph nodes ORDER DATE: 05/12/2024 2:15 PM COMPARISON: None. FINDINGS: Targeted grayscale and color Doppler ultrasound evaluation of the left neck palpable abnormality was obtained. A 2.2 x 0.7 x 1.4 cm ovoid hypoechoic lesion is seen at level 3 corresponding to palpable abnormality no echogenic hilum is seen though this could represent an abnormal node. A 6 x 2 x 5 mm ovoid hypoechoic lesion with echogenic hilum is seen in the left posterior neck corresponding to a small node. Procedure Note Evelia Ocasio MD - 05/13/2024 EXAMINATION: US SOFT TISSUE NECK HISTORY: Localized enlarged lymph nodes ORDER DATE: 05/12/2024 2:15 PM COMPARISON: None. FINDINGS: Targeted grayscale and color Doppler ultrasound evaluation of the left neck palpable abnormality was obtained. A 2.2 x 0.7 x 1.4 cm ovoid hypoechoic lesion is seen at level 3 corresponding to palpable abnormality no echogenic hilum is seen though this could represent an abnormal node. A 6 x 2 x 5 mm ovoid hypoechoic lesion with echogenic hilum is seen in the left posterior neck corresponding to a small node. IMPRESSION: Probable enlarged 2.2 cm pathologic-appearing left level 3 node with small nodes posteriorly corresponding to palpable abnormality. Correlate with CT. Electronically signed by: Evelia Ocasio M.D. us Tasha Zamudio DO IMG US PROCEDURES Fin al Result documented in this encounter Visit Diagnoses Diagnosis Localized enlarged lymph nodes documented in this encounter Care Teams Professor Criminal Justice Relationship Specialty Start Date End Date Tasha Zamudio DO [address] [place] [address] [place] [address] PCP - General Family Medicine 04/25/24 10/24/24 documented as of this encounter
--- OUTSIDE RECORDS SUMMARY | 2024-12-07 17:23 | XMS_ITS | Encounter Summary ---
Author Organization [facility] Healthcare Address [address] [place] [address] Care Team Providers Care Director Of Agriculture Name Role Phone TrishRaman correapaulo Selbyle Primary Care Provide r Reason for Visit * Reason Comments Shaking Encounter Details Date Type Department Care Team (Late Contact Info) Description 08/23/2024 1:50 PM CDT - 08/23/2024 3:29 PM CDT Emergency [address] [address] Muscle spasm (Primary Dx) Discharge Disposition: Discharge to home [...] Sign Reading Time Taken Comments Blood Pressure 122/66 08/23/2024 12:04 PM CDT Pulse 73 08/23/2024 12:04 PM CDT Temperature 36.7 ??C (98.1 ??F) 08/23/2024 9:32 AM CD T Respiratory Rate 18 08/23/2024 12:04 PM CDT Oxygen Saturation 99% 08/23/2024 12:04 PM CDT Inhaled Oxygen Concentration - - Weight 52.2 kg (115 lb) 08/23/2024 9:32 AM CDT Height 162.6 cm (5' 4 ) 08/23/2024 9:32 AM CDT Body Mass Index 19.74 08/23/2024 9:32 AM CDT documented in this encounter Discharge Instructions * Discharge Instructions* Vivi Haynes PA - 08/23/2024 2:56 PM CDT Thank you for allowing us to take care of you at [facility]. Please follow up with your primary care physician or specialist, as soon as possible, and ideally within 7 days. Please take any new medications as prescribed. Please return to the emergency department for worsening of your symptoms or any new problems which may arise. It is mandatory that you follow up, as recommended, with a primary care physician or specialist, per your discharge paperwork.You have received emergency care only at your visit today, an this is nota substitute for ongoing care, further evaluation, or treatment. Therefore, follow-up as directed is not optional, but mandatory. This ensures that any incidental abnormal radiographic and laboratoryfindings are evaluated appropriately. Return immediately for any new symptoms, worsening of symptoms, or persistent symptoms. We are open22/06 and will take care of you. If you start to experience worsening muscle spasms, numbness, tingling, seizure- like activity, headache, blurry vision, dizziness, confusion, difficulty walking, chest pain, shortness of breath please return to the emergency room immediately. Please follow up with your epileptologist in your PCP within the next week. * Attachments The following attachments cannot be sent through Care Everywhere. * Muscle Spasm (AfterCare(R) Instructions(ER/ED)) (Italian) documented in this encounter Medications at Time [...] documented in this encounter ED Notes * Vivi Haynes PA - 08/23/2024 2:49 PM CDT CHIEF COMPLAINT: Chief Complaint Patient presents with Shaking HPI 2:56 PM Jennifer Travis is a 23 y.o. female presenting to the ED c/o an episode of muscle cramps and tingling feeling in her bilateral upper and lower extremities earlier today. Patient states that the episode lasted for about 10- 15 minutes and then completely went away. Patient states she has a history of epilepsy and this is nothing like her usual seizures. Patient states she also has not had a seizure since she has been put on Lamictal. Patient states she had a similar episode in October where she had cramping in her arms that went away and went to the hospital and was found to have low potassium. Patient states she had an just quit her job after the muscle cramps started and had not eaten anything at all in the day. Patient states she no longer has symptoms. Patient denies any loss of consciousness, blurry vision, dizziness, numbness, tingling, chest pain, shortness breath, abdominal pain, fatigue. PCP: Tasha Zamudio DO PAST MEDICAL HISTORY No past medical history on file. PAST SURGICAL HISTORY No past surgical history on file. FAMILY HISTORY No family history on file. MEDICATIONS GIVEN IN THE ED Medications - No data to display CURRENT HOME MEDICATIONS No current facility-administered medications for this encounter. Current Outpatient Medications: acyclovir (ZOVIRAX) 400 mg tablet, TAKE 1 TABLET BY MOUTH THREE TIMES DAILY DIRECTED, Disp: , Rfl: lamoTRIgine (LaMICtal) 100 mg tablet, Take 1.5 tablets (150 mg total) by mouth 2 (two) times a day,Disp: 270 tablet, Rfl: 3 ondansetron ODT (ZOFRAN-ODT) 4 mg disintegrating tablet, Dissolve 1 tablet for nausea or vomiting oral every 8 hours as needed., Disp: 10 tablet, Rfl: 0 Slynd tablet tablet, Take 1 each (4 mg total) by mouth daily, Disp: , Rfl: ALLERGIES Allergies Allergen Reactions Amoxicillin-Pot Clavulanate Hives, Other (See comments) and Urticaria Mouth broke out in sores SOCIAL HISTORY Social History Tobacco Use Smoking status: Every Day Types: Cigarettes, Vaping Smokeless tobacco: Not on file Substance and Sexual Activity Drug use: Not on file Sexual activity: Not on file Alcohol Use: Not At Risk (08/21/2022) Received from [facility], [facility] AUDIT-C Frequency of Alcohol Consumption: Never Average Number of Drinks: Patient does not drink Frequency of Binge Drinking: Never PHYSICAL EXAM TRIAGE VITAL SIGNS: ED Triage Vitals [08/23/24 0932] Temp Pulse Resp BP SpO2 36.7 ??C (98.1 ??F) 82 16 118/60 99 % Temp src Heart Rate Source Patient Position BP Location FiO2 (%) Oral Monitor Sitting Left arm -- Height Height Method Weight Weight Method 1.626 m (5' 4 ) -- 52.2 kg (115 lb) Stated Physical Exam Vitals and nursing note reviewed. Constitutional: General: She is not in acute distress. Appearance: She is well-developed. HENT: Head: Normocephalic and atraumatic. Eyes: Conjunctiva/sclera: Conjunctivae normal. Cardiovascular: Rate and Rhythm: Normal rate and regular rhythm. Heart sounds: No murmur heard. Pulmonary: Effort: Pulmonary effort is normal. No respiratory distress. Breath sounds: Normal breath sounds. Abdominal: Palpations: Abdomen is soft. Tenderness: There is no abdominal tenderness. Musculoskeletal: General: No swelling. Cervical back: Neck supple. Skin: General: Skin is warm and dry. Capillary Refill: Capillary refill takes less than 2 seconds. Neurological: Mental Status: She is alert. Motor: No weakness. Psychiatric: Mood and Affect: Mood normal. LABS Labs Reviewed URINALYSIS AND REFLEX TO MICROSCOPIC AND CULTURE - Abnormal Result Value Color, ur Yellow Clarity, ur Clear Specific gravity, ur 1.028 pH, urine 7.5 Protein, ur ql Negative Glucose, ur ql Negative Ketones, ur 2+ (*) Bilirubin, ur Negative Blood, ur Negative Urobilinogen, ur <2.0 Nitrite, ur Negative Leukocyte esterase, ur Negative UA reflex comment Value: Reflex conditions for microscopic UA and culture not met. CBC WITH AUTO DIFFERENTIAL - Abnormal WBC 9.7 Hgb 14.1 Hct 40.5 Plt 413 (*) MPV 8.9 (*) RBC 4.48 MCV 90.4 MCH 31.5 MCHC 34.8 RDW CV 12.0 RDW SD 39.8 NRBC abs 0.00 COMPREHENSIVE METABOLIC PANEL - Abnormal Sodium 141 Potassium, pl 3.6 Chloride 103 CO2 26 Anion gap 12 BUN 13 Creatinine 0.63 Glucose 95 Calcium 10.5 (*) Bilirubin, total 0.6 Protein, pl 8.0 Albumin 5.2 (*) Alk phos 64 ALT <5 (*) AST 21 DIFFERENTIAL AUTO - Abnormal Neutrophil abs 8.1 (*) Imm gran abs 0.0 Lymphocyte abs 1.2 Monocyte abs 0.3 Eosinophil abs 0.0 Basophil abs 0.1 Neutrophil pct 83.2 Imm gran pct 0.2 Lymphocyte pct 12.4 Monocyte pct 3.4 Eosinophil pct 0.2 Basophil pct 0.6 PHOSPHORUS - Abnormal Phosphorus, pl 2.0 (*) EGFR eGFR >90 MAGNESIUM Magnesium 2.0 MAGNESIUM PHOSPHORUS RADIOLOGY Impression: NA EKG NA ED COURSE/MEDICAL DECISION MAKING Differential diagnosis included but not limited to muscle cramps, muscle spasms, shaking, electrolyte abnormalities Patient's medical records were reviewed. Patient is seen in the ED for an episode of muscle spasms that occurred earlier today that has since gone away. On exam patient has no decreased strength and no change in sensation in the upper and lower extremities. Patient's lung sounds normal. Patient is heart sounds normal. On labs patient's calcium slightly elevated at 10 5. Patient's phosphorus slightly low at 2.0. No significant lab abnormalities seen on labs. Patient's vitals stable. On exam patient has no acute abnormalities. Patient offered fluids and food but refused. Findings discussed with the patient who feels comfortable going home and following up with her neurologist and PCP. Patient given strict return precautions his previ ous similar symptoms has any seizure-like activity. Patient expresses understanding. Patient is stable for discharge home follow up with her PCP and epileptologist. Procedures FINAL IMPRESSION Muscle spasm DISPOSITION: Home All findings were discussed with patient. Pt agreeable with plan. Non toxic appearing, vitals stable. Patient stable for discharge home. Given return to ER precautions Close outpatient follow-up with a low threshold to return has been mandated, concerning symptoms have been emphasized in detail, and this patient expresses understanding PATIENT INSTRUCTED TO FOLLOW UP Tasha Zamudio DO [address] [facility] [id number] In 1 week DISCHARGE MEDICATIONS Your medication list ASK your doctor about these medications Instructions Last Dose Given Next Dose Due acyclovir 400 mg tablet Commonly known as: ZOVIRAX TAKE 1 TABLET BY MOUTH THREE TIMES DAILY DIRECTED lamoTRIgine 100 mg tablet Commonly known as: LaMICtal Take 1.5 tablets (150 mg total) by mouth 2 (two) times a day ondansetron ODT 4 mg disintegrating tablet Commonly known as: ZOFRAN-ODT Dissolve 1 tablet for nausea or vomiting oral every 8 hours as needed. Slynd tablet tablet Generic drug: drospirenone (contraceptive) Take 1 each (4 mg total) by mouth daily This examination was transcribed using the [employer] voice recognition system without human mud analysis well logging captain. In an effort to expedite patient care, this report has not been adjusted for typographical, grammatical, and syntax by a trained bio medical technician. Vivi Haynes PA 08/23/24 1457 Vivi Haynes PA 08/23/24 1457 Cosigned by Luis Mcqueen MD at 08/23/2024 10:22 PM CDT Associated attestation - Luis Mcqueen MD - 08/23/2024 10:22 PM CDT ED Attestation Based on the medical record, the care appears appropriate. * Shahab Kumar, RN - 08/23/2024 9:52 AM CDT C/o shaking and hand and feet cramping while driving. Pt was driving after quitting her job this morning but does not report feeling. AOx4 . Pt denies LOC, report hx epilepsy. documented in this encounter Plan of Treatment Pending Results Name Type Priority Associated Diagnoses Date /Time Magnesium Lab STAT 08/23/2024 10: 06 AM CDT Phosphorus Lab STAT 08/23/2024 10: 06 AM CDT Scheduled Orders Name Type Priority Associated Diagnoses Orde r Schedule Magnesium Lab STAT Once for 1 Occ urrences starting 08/23/2024 until 08/23/2024 Phosphorus Lab STAT Once for 1 Occ urrences starting 08/23/2024 until 08/23/2024 documented as of this encounter Procedures Procedure Name Priority Date/Time Associated Diagnosis Comments EGFR STAT 08/23/2024 10:06 AM CDT DIFFERENTIAL AUTO STAT 08/23/2024 10: 06 AM CDT URINALYSIS AND REFLEX TO MICROSCOPIC AND CULTURE STAT 08/23/2024 10:06 AM CDT CBC WITH AUTO DIFFERENTIAL STAT 08/23/2024 10:06 AM CDT PHOSPHORUS STAT 08/23/2024 10:06 AM CDT MAGNESIUM STAT 08/23/2024 10:06 AM CDT COMPREHENSIVE METABOLIC PANEL STAT 08/23/2024 10:06 AM CDT documented in this encounter Results * Magnesium (08/23/2024 10:06 AM CDT) Pathologist [facility] Magnesium 2.0 1.4 - 2.5 mg/dL Blood 08/23/2024 10:0 6 AM CDT 08/23/2024 10:09 AM CDT Tasha TEJEDA LAB BLOOD ORDERABLES Final Result Performing Organization Address City/[facility]/ZIP Co de Phone Number VEENA [address] [place] [address] * (ABNORMAL) Phosphorus (08/23/2024 10:06 AM CDT) Pathologist [facility] Phosphorus, pl 2.0(L) 2.3 - 4.5 mg/dL Blood 08/23/2024 10:0 6 AM CDT 08/23/2024 10:09 AM CDT Tasha TEJEDA LAB BLOOD ORDERABLES Final Result Performing Organization Address City/[facility] de Phone Number LAYLA[address] [place] [address] * eGFR (08/23/2024 10:06 AM CDT) Pathologist [facility] eGFR >90 >=60 mL/min/1. 73 m2 Comment: Interpretive Data Reference Interval Normal ?>/= [...] interpretive data was last reviewed 2021. Blood 08/23/2024 10:0 6 AM CDT 08/23/2024 10:09 AM CDT Tasha TEJEDA LAB BLOOD ORDERABLES Final Result [place] [address] [facility] [place] [address] * (ABNORMAL) Differential, auto (08/23/2024 10:06 AM CDT) Neutrophil abs 8.1(H) 1.5 - 6.5 K/cumm Imm gran abs 0.0 0.0 - 0.1 K/cumm [facility] Lymphocyte abs 1.2 0.8 - 3.3 K/cumm [facility] Monocyte abs 0.3 0.2 - 0.8 K/cumm [facility] Eosinophil abs 0.0 0.0 - 0.5 K/cumm [facility] Basophil abs 0.1 0.0 - 0.1 K/cumm [facility] Neutrophil pct 83.2 % [facility] Comment: Interpretive Data Percent cell count reference ranges are not reported, since discordance with absolute values may lead to misinterpretation of CBC data. Current Interpretive Data was last revised on 2018. Imm gran pct 0.2 % [facility] Comment: Interpretive Data Percent cell count reference ranges are not reported, since discordance with absolute values may lead to misinterpretation of CBC data. Current Interpretive Data was last revised on 2018. Lymphocyte pct 12.4 % [facility] Comment: Interpretive Data Percent cell count reference ranges are not reported, since discordance with absolute values may lead to misinterpretation of CBC data. Current Interpretive Data was last revised on 2018. Monocyte pct 3.4 % [facility] Comment: Interpretive Data Percent cell count reference ranges are not reported, since discordance with absolute values may lead to misinterpretation of CBC data. Current Interpretive Data was last revised on 2018. Eosinophil pct 0.2 % [facility] Comment: Interpretive Data Percent cell count reference ranges are not reported, since discordance with absolute values may lead to misinterpretation of CBC data. Current Interpretive Data was last revised on 2018. Basophil pct 0.6 % [facility] Comment: Interpretive Data Percent cell count reference ranges are not reported, since discordance with absolute values may lead to misinterpretation of CBC data. Current Interpretive Data was last revised on 2018. Blood 08/23/2024 10:0 6 AM CDT 08/23/2024 10:09 AM CDT Tasha TEJEDA LAB BLOOD ORDERABLES Final Result [facility] [address] [facility] [place] [address] * (ABNORMAL) Urinalysis reflex to microscopic and culture Urine (08/23/2024 10:06 AM CDT) Color, ur Yellow Yellow Clarity, ur Clear Clear [facility] Specific gravity, ur 1.028 1.003 - 1.030 [facility] pH, urine 7.5 [facility] Comment: Interpretive Data ? Urine pH is affected by diet, medications, systemic acid-base disturbances, and renal tubular function. ??pH may affect urinary stone formation. ??For example, urine pH below 6.0 may help reduce the tendency for calcium phosphate stones and pH greater than 6.0 may reduce the tendency for uric acid stone formation. Source: [facility] Pict Current Interpretive Data was last revised on 2017 Protein, ur ql Negative Negative [facility] Glucose, ur ql Negative Negative [facility] Ketones, ur 2+(A) Negative [facility] Bilirubin, ur Negative Negative [facility] Blood, ur Negative Negative [facility] Urobilinogen, ur <2.0 <2.0 mg/dL [facility] Nitrite, ur Negative Negative [facility] Leukocyte esterase, ur Negative Negative [facility] UA reflex comment Reflex conditions for microscopic UA and culture not met. [facility] Urine 08/23/2024 10:0 6 AM CDT 08/23/2024 10:09 AM CDT Tasha TEJEDA LAB MICROBIOLOGY - GENERAL ORDERABLES Final Result [facility] [address] [facility] [place] [address] * (ABNORMAL) Comprehensive metabolic panel (08/23/2024 10:06 AM CDT) Sodium 141 135 - 145 mmol/L Potassium, pl 3.6 3.3 - 4.9 mmol/L [facility] Chloride 103 97 - 110 mmol/L [facility] CO2 26 22 - 32 mmol/L [facility] Anion gap 12 2 - 15 mmol/L [facility] BUN 13 6 - 25 mg/dL [facility] Creatinine 0.63 0.60 - 1.10 mg/dL [facility] Glucose 95 70 - 199 mg/dL [facility] Comment: Interpretive Data Fasting glucose >/= 126 [...] classification and Diagnosis of Diabetes Diabetes Care 202; 46: S19-S40. Current interpretive data was last revised 2022. Calcium 10.5(H) 8.5 - 10.3 mg/dL [facility] Bilirubin, total 0.6 0.1 - 1.2 mg/dL [facility] Protein, pl 8.0 6.5 - 8.5 g/dL [facility] Albumin 5.2(H) 3.5 - 5.0 g/dL [facility] Alk phos 64 40 - 130 Units/L [facility] ALT <5(L) 7 - 45 Units/L [facility] AST 21 10 - 45 Units/L [facility] Blood 08/23/2024 10:0 6 AM CDT 08/23/2024 10:09 AM CDT Tasha TEJEDA LAB BLOOD ORDERABLES Final Result Performing Organization Address City/[facility]/ZIP Co de Phone Number VEENA [address] [place] [address] * (ABNORMAL) CBC with auto differential (08/23/2024 10:06 AM CDT) WBC 9.7 3.8 - 9.9 K/cumm Hgb 14.1 11.9 - 15.5 g/dL [facility] Hct 40.5 35.6 - 45.5 % [facility] Plt 413(H) 150 - 400 K/cumm [facility] MPV 8.9(L) 9.1 - 12.3 fL [facility] RBC 4.48 3.90 - 5.20 M/cumm [facility] MCV 90.4 81.3 - 96.4 fL [facility] MCH 31.5 27.1 - 33.3 pg [facility] MCHC 34.8 32.3 - 35.7 g/dL [facility] RDW CV 12.0 11.1 - 14.9 % [facility] RDW SD 39.8 35.7 - 48.1 fL [facility] NRBC abs 0.00 0.00 - 0.01 K/cumm [facility] Blood 08/23/2024 10:0 6 AM CDT 08/23/2024 10:09 AM CDT Tasha TEJEDA LAB BLOOD ORDERABLES Final Result [facility] [address] [place] [address] documented in this encounter Visit Diagnoses Diagnosis Muscle spasm- Primary Spasm of muscle documented in this encounter Active and Recently Administered Medications Orders Medications Ordered That Rusty ht Not Have Been Administered Count Last Ordered Date First Ordered Date sodium chloride 0.9% bolus 1,000 mL 1 08/23 documented in this encounter Care Teams Director Of Agriculture Relationship Specialty Start Date End Date Tasha Zamudio DO [address] [place] [address] PCP - General Family Medicine 04/25/24 10/24/24 documented as of this encounter
--- OUTSIDE RECORDS SUMMARY | 2024-12-07 17:23 | XMS_ITS | Encounter Summary ---
Author Organization [facility] Address [address] [place] [address] Phone Care Team Providers Care Cloud Services Architect Name Role Phone Tasha Zamudio DO Primary Care Provide r Reason for Visit * Reason Onset Date Comments Seizures 09/01/2024 Encounter Details Date Type Department Care Team (Late st Contact Info) Description 09/01/2024 Telephone [facility] Epilepsy [address] [facility] [address] [place] [address] [place] [address] Rommel Huynh MD [address] [place] [address] Seizures Social History Tobacco Use Types Packs/Day [...] encounter Miscellaneous Notes * Telephone Encounter - Lisa Richards CMA - 09/01/2024 8:[address] Huynh Message was sent from scheduling regarding patient requesting urgent appointment due to recent ED visit. Contacted patient regarding ED visit on 08/23/2024. Patient reports on 08/23/[address] down road, right eye started to twitch moving to left eye. Patient reports while eyes were twitching, pins and needles sensation started at tips of fingers moving up into hands resulting in a clawing of hands. Sensation progressed into arms, starting in legs and moved up towards patients mouth. Patient was unable to talk normal. Patient lost ability to hold phone while on phone with 911. Patient reports episode lasted for approximately 8 minutes. Patient did not loose consciousness howeverhad slurred speech and inability to move limbs for period of time. Patient reports that morning of episode, patient quit job, family pet severe illness, and slight lack of sleep. No missed medicationdoses. Patient has been struggling with staying on control consistently due to appointment conflicts with PCP. Patient does have upcoming appointment with Epilepsy clinic on 09/14/2024. Patientreports that patient has been taking LTG 100mg BID due to patient not wanting to half pills. Patient only took LTG 150mg BID X 1 week after new patient appointment on 05/21/2023 before reverting back to LTG 100mg BID. AED: LTG 100mg BID Any recommendations? Lisa Pierre documented in this encounter Plan of Treatment Not on file documented as of this encounter Visit Diagnoses Not on filedocumented in this encounter Care Teams Cloud Services Architect Relationship Specialty Start Date End Date Tasha Zamudio DO [address] [place] [address] [address] [place] [address] PCP - General Family Medicine 04/25/24 10/24/24 documented as of this encounter
--- OUTSIDE RECORDS SUMMARY | 2024-12-07 17:47 | XMS_ITS | Referral Summary ---
Author Organization [facility] Address [address] [facility] [place] [address] Care Team Providers Care Car Supervisor Name Role Phone Oziel Burt MD Primary Care Provider Source Comments [facility],non-owned Affiliates and Associated Physician Practices is amultiple site organization consisting of ambulatory clinics and hospital sitesin [place], [place], [place] and [place]. This disclosure is being madepursuant to the Care Everywhere program and may not contain all information available regarding this patient. Last updated 18.[facility] Allergies Active Allergy Reactions Criticality [...] 12:07 AM 08/15/2022 12:07 AM Care Teams Car Supervisor Relationship Specialty Start Date End Date Oziel Burt MD [address] [place] [phone] PCP - General Family Medicine 08/21/22
--- OUTSIDE RECORDS SUMMARY | 2024-12-07 17:47 | XMS_ITS | Clinical Summary ---
Author Organization [facility] Address [address] [place] [address] Care Team Providers Care Veneer Sample Maker Name Role Phone Oziel Burt MD Primary Care Provider Source Comments [facility],non-owned Affiliates and Associated Physician Practices is amultiple site organization consisting of ambulatory clinics and hospital sitesin [place], [place], [place] and [place]. This disclosure is being madepursuant to the Care Everywhere program and may not contain all information available regarding this patient. Last updated 18.[facility] Allergies Active Allergy Reactions Criticality [...] 12:07 AM 08/15/2022 12:07 AM Care Teams Veneer Sample Maker Relationship Specialty Start Date End Date Oziel Burt MD [address] [place] [phone] PCP - General Family Medicine 08/21/22
--- OUTSIDE RECORDS SUMMARY | 2024-12-07 17:47 | XMS_ITS | Patient Health Summary ---
Author Organization [facility] Address [facility] [facility] [place] [address] Care Team Providers Care Resident Care Coordinator Name Role Phone Oziel Burt MD Primary Care Provider Note from [facility],non-owned Affiliates and Associated Physician Practices is amultiple site organization consisting of ambulatory clinics and hospital sitesin [place], [place] and [place]. This disclosure is being madepursuant to the Care Everywhere program and may not contain all information available regarding this patient. Last updated 18.[facility] Allergies * Amoxicillin-Pot Clavulanate(Urticaria) -Medium Criticality [...] (STL)(Performed 08/21/2022) Performed for Diagnosis unknown * ID LAP,CHOLECYSTECTOMY(Performed 08/21/2022) * HCG URINE QUAL POCT [...] Case Report Surgical Pathology Report ? Case: [id number] ? Authorizing Provider: ??Dago Mills MD ??Collected: ? 08/21/2022 10:30 AM ? Ordering Location: ? [facility] ? Received: ?08/21/2022 01:49 PM ? Pathologist: ? Akanksha Jade MD ? Specimen: ?Gallbladder ? 08/22/2022 2:51 PM [facility] Final Diagnosis Gallbladder, laparoscopic cholecystectomy: - Chronic cholecystitis - Cholelithiasis - Negative for malignancy 08/22/2022 2:51 PM [facility] Clinical History 21-year-old female presenting with abdominal pain. 08/22/2022 2:51 PM [facility] Gross Description One specimen received in [...] yellow red appearance with moderate yellow stippling. Gear Cutter sections are submitted in A1. 08/22/2022 2:51 PM [facility] Microscopic Description Microscopic examination supports the final diagnosis. 08/22/2022 2:51 PM [facility] Disclaimer All histochemical and/or immunohistochemical results are interpreted with controls that demonstrate appropriate staining reactions before reporting results. Note on use of immunocytochemistry reagents: This test was developed and its performance characteristic determined by [facility], Department of Laboratory Medicine. It has not [...] interpreted with caution. 08/22/2022 2:51 PM CDT [facility] Performed By [facility] at [facility], [address] [place]. [address]. 08/22/2022 2:51 PM CDT [facility] Embedded Images 08/22/2022 2:51 PM CDT [facility] Pathology/Cytolo gy ENTIRE GALLBLADDER / Unknown 08/21/2022 10:30 AM CDT 08/21/2022 1:49 PM CDT Dago Mills MD LAB - PATHOLOGY/ CYTOLOGY ORDERABLES Performing Organization Address City/[facility]/ZIP Co de Phone Number [facility] [address] [place] [address] * HCG URINE QUAL POCT NOTIFICATION (08/21/2022 9:02 AM CDT) Comment Notification Label Only - See Separate Report 08/21/2022 9:02 AM CDT [facility] Urine URINE / Unknown 7:54 AM CDT Dinh Fonseca MD LAB - URINALYSIS ORD ERABLES Performing Organization Address [facility]/ZIP Co de Phone Number [facility] [address] [place] [address] * HCG URINE QUALITATIVE - POCT (IP) INTERFACED (08/21/2022 7:56 AM CDT) HCG Qual Urine Negative Negative 08/21/2022 8:02 AM CDT [facility] Urine URINE / Unknown 08/21/2022 7 :56 AM CDT 08/21/2022 8:02 AM CDT Dago Mills MD LAB - POINT OF C ARE ORDERABLES Performing Organization Address [facility]/ZIP Co de Phone Number [facility] [address] [place] [address] * CARDIAC EKG ORDER (08/19/2022 8:36 PM CDT) Only the most recent of2 resultswithin the time period is included. Narrative 08/19/2022 8:36 PM CDT Ordered by an unspecified provider. Scanned Document CARDIAC SERVICES ORD ERABLES * (ABNORMAL) PT-INR (08/15/2022 7:18 AM CDT) Pathologist [facility] PT 15.4(H) 12.1 - 14.8 sec 08/15/2022 7:35 AM CDT [facility] INR 1.2(H) 0.9 - 1.1 08/15/2022 7:35 AM CDT [facility] Blood BLOOD SPECIMEN / Unknown Lab Venipuncture / Unknown 08/15/2022 7:18 AM CDT 08/15/2022 7:20 AM CDT Narrative [facility] - 08/15/2022 7:35 AM CDT Conventional Warfarin Anticoagulant Therapy: INR Reference Range: ??2.0-3.0 Intensive Warfarin Anticoagulant Therapy: INR Reference Range: ? 2.5-3.5 Beto Murillo DO LAB - COAGULATION OR DERABLES [facility] [address] [place] [address] * (ABNORMAL) CBC W AUTO DIFFERENTIAL (08/15/2022 7:18 AM CDT) [facility] WBC 6.0 4.4 - 10.7 x10E9/L 08/15/2022 7:25 AM CDT [facility] WBC Corrected 08/15/2022 7:25 AM CDT [facility] RBC 3.66(L) 3.80 - 5.20 x10E12/L 08/15/2022 7:25 AM CDT [facility] Hemoglobin 10.9(L) 12.0 - 15.6 gm/dL 08/15/2022 7:25 AM CDT [facility] Hematocrit 32.0(L) 35.9 - 45.5 % 08/15/2022 7:25 AM CDT [facility] MCV 87.4 80.7 - 98.3 fl 08/15/2022 7:25 AM CDT [facility] MCH 29.8 26.7 - 34.0 pg 08/15/2022 7:25 AM CDT [facility] MCHC 34.1 30.8 - 35.9 gm/dL 08/15/2022 7:25 AM CDT [facility] Platelet Count 315 153 - 416 x10E9/L 08/15/2022 7:25 AM [facility] RDW-CV 12.1 12.1 - 14.9 % 08/15/2022 7:25 AM CDT [facility] MPV 8.9(L) 9.4 - 12.9 fl 08/15/2022 7:25 AM [facility] Neutrophils % 48.6 44.0 - 73.0 % 08/15/2022 7:25 AM [facility] Lymphocytes % 45.0(H) 20.0 - 43.0 % 08/15/2022 7:25 AM [facility] Monocytes % 5.2 5.0 - 13.0 % 08/15/2022 7:25 AM [facility] Eosinophils % 0.7 0.0 - 6.0 % 08/15/2022 7:25 AM [facility] Basophils % 0.3 0.0 - 2.0 % 08/15/2022 7:25 AM [facility] Immature Granulocytes 0.2 0 - 1 % 08/15/2022 7:25 AM CDT [facility] Neutrophil Absolute 2.92 2.01 - 7.14 x10E9/L 08/15/2022 7:25 AM CDT [facility] Lymphocytes Absolute 2.70 1.07 - 3.94 x10E9/L 08/15/2022 7:25 AM CDT [facility] Monocytes Absolute 0.31 0.26 - 1.07 x10E9/L 08/15/2022 7:25 AM CDT [facility] Eosinophils Absolute 0.04 0 - 0.47 x10E9/L 08/15/2022 7:25 AM CDT [facility] Basophils Absolute 0.02 0 - 0.08 x10E9/L 08/15/2022 7:25 AM CDT [facility] Immature Granulocytes Absolute 0.01 0.00 - 0.06 x10E9/L 08/15/2022 7:25 AM [facility] nRBC Auto 0 /100 WBC 08/15/2022 7:25 AM [facility] Blood BLOOD SPECIMEN / Unknown Lab Venipuncture / Unknown 08/15/2022 7:18 AM CDT 08/15/2022 7:20 AM CDT Beto Murillo DO LAB - HEMATOLOGY ORD ERABLES [facility] [address] [place] [address] * (ABNORMAL) COMPREHENSIVE METABOLIC PANEL (08/15/2022 7:18 AM CDT) Glucose 91 70 - 105 mg/dL 08/15/2022 7:54 AM [facility] Sodium 141 136 - 145 mmol/L 08/15/2022 7:54 AM [facility] Potassium 4.0 3.5 - 5.1 mmol/L 08/15/2022 7:54 AM [facility] Chloride 108(H) 98 - 107 mmol/L 08/15/2022 7:54 AM [facility] CO2 23 23 - 31 mmol/L 08/15/2022 7:54 AM [facility] Calcium 9.1 8.4 - 10.4 mg/dL 08/15/2022 7:54 AM [facility] Anion Gap 10 8 - 18 mmol/L 08/15/2022 7:54 AM [facility] BUN 6(L) 7 - 18.7 mg/dL 08/15/2022 7:54 AM [facility] Creatinine 0.68 0.57 - 1.11 mg/dL 08/15/2022 7:54 AM [facility] Alkaline Phosphatase 50 40 - 150 U/L 08/15/2022 7:54 AM [facility] ALT 10 0 - 61 U/L 08/15/2022 7:54 AM [facility] AST 15 5 - 34 U/L 08/15/2022 7:54 AM CDT [facility] Protein Total 6.3(L) 6.4 - 8.3 gm/dL 08/15/2022 7:54 AM CDT [facility] Albumin 4.1 3.4 - 5.0 gm/dL 08/15/2022 7:54 AM CDT [facility] Bilirubin Total 0.6 0.2 - 1.2 mg/dL 08/15/2022 7:54 AM CDT [facility] eGFR by CKD-EPI >90 >=90 mL/min/1.7 3 m2 08/15/2022 7:54 AM CDT [facility] Blood BLOOD SPECIMEN / Unknown Lab Venipuncture / Unknown 08/15/2022 7:18 AM CDT 08/15/2022 7:20 AM CDT Beto Murillo DO LAB - CHEMISTRY URBAN AGUSTIN Performing Organization Address City/[facility]/ZIP Co de Phone Number [facility] [address] [place] [address] * PHOSPHORUS BLOOD (08/15/2022 7:18 AM CDT) Phosphorus 4.4 2.3 - 4.7 mg/dL 08/15/2022 7:54 AM CDT [facility] Blood BLOOD SPECIMEN / Unknown Lab Venipuncture / Unknown 08/15/2022 7:18 AM CDT 08/15/2022 7:20 AM CDT Beto Murillo DO LAB - CHEMISTRY [place] [facility] [address] [place] [address] * MAGNESIUM BLOOD (08/15/2022 7:18 AM CDT) Magnesium 2.3 1.7 - 2.3 mg/dL 08/15/2022 7:54 AM CDT [facility] Blood BLOOD SPECIMEN / Unknown Lab Venipuncture / Unknown 08/15/2022 7:18 AM CDT 08/15/2022 7:20 AM CDT Beto Murillo DO LAB - CHEMISTRY URBAN AGUSTIN [facility] [address] [facility] [place] [id number] Care Teams Resident Care Coordinator Relationship Specialty Start Date End Date Oziel Burt MD [address] [place] [address] PCP - General Family Medicine 08/21/22
--- OUTSIDE RECORDS SUMMARY | 2024-12-07 17:48 | XMS_ITS | Encounter Summary ---
Author Organization [facility] Address [address] [place] [address]. 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 Fanta Burt [facility]UR[facility] ORDERABLES Edited Re margot - Final [facility] [address] [place] [address], [id number] documented in this encounter Visit Diagnoses Diagnosis Seizure-like activity (CMS/HCC HHS/HCC)- Primary Other convulsions Seizure-like activity (CMS/HCC HHS/HCC) Other convulsions documented in this encounter Care Teams Broadcast News Producer Relationship Specialty Start Date End Date Oziel Burt MD [address] [place] [id number] PCP - General FAMILY PRACTICE 09/13/21 documented as of this encounter
--- OUTSIDE RECORDS SUMMARY | 2024-12-07 17:48 | XMS_ITS | Encounter Summary ---
Author Organization [facility] Address [address] [place] [address]. 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
--- OUTSIDE RECORDS SUMMARY | 2024-12-07 17:48 | XMS_ITS | Encounter Summary ---
Author Organization [facility] Address [address] [place] [address]. 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
--- OUTSIDE RECORDS SUMMARY | 2024-12-07 17:48 | XMS_ITS | Encounter Summary ---
Author Organization [facility] Address [address] [place] [address]. [place] [address] [place] [address] Care Team Providers Care Engineer First Assistant Name Role Phone Oziel Burt MD Primary Care Provider [phone] Reason for Visit * Reason Comments Seizure- Prior History Of Encounter Details Date Type Department Care Team (Late st Contact Info) Description 11/22/2021 3:46 PM LICENSED LAND SURVEYOR - 11/22/2021 7:08 PM LICENSED LAND SURVEYOR Emergency [place] [address] [facility] [place] [address] Mele Rodriguez, DO 1 [place] [address] Seizure- Prior History Of Discharge Disposition: Home or Self Care (Routine Discharge) Social History Tobacco Use Types Packs/Day Years Used Date Smoking Tobacco: Never Smokeless Tobacco: Never Comments No Sex and Gender Information Value Date Recorded Sex Assigned at Not on file Legal Sex Female 5:55 PM LICENSED LAND SURVEYOR Gender Identity Not on file Sexual Orientation Not on file COVID-19 Exposure Response Date Recorded In the last month, have you been in contact with someone who was confirmed or suspected to have Coronavirus / COVID-19? No / Unsure 11/22/2021 3:43 PM LICENSED LAND SURVEYOR documented as of this encounter Last Filed Vital Signs Vital Sign Reading Time Taken Comments Blood Pressure 107/75 11/22/2021 6:30 PM LICENSED LAND SURVEYOR Pulse 123 11/22/2021 3:44 PM LICENSED LAND SURVEYOR Temperature 36.7 ??C (98 ??F) 11/22/2021 3:44 PM LICENSED LAND SURVEYOR Respiratory Rate 20 11/22/2021 3:44 PM LICENSED LAND SURVEYOR Oxygen Saturation 100% 11/22/2021 6:30 PM LICENSED LAND SURVEYOR Inhaled Oxygen Concentration - - Weight 72.6 kg (160 lb) 11/22/2021 3:44 PM LICENSED LAND SURVEYOR Height 162.6 cm (5' 4 ) 11/22/2021 3:44 PM LICENSED LAND SURVEYOR Body Mass Index 27.46 11/22/2021 3:44 PM LICENSED LAND SURVEYOR Body Mass Index Percentile 89.45% 11/22/2021 3:4 4 PM LICENSED LAND SURVEYOR Growth Chart: [facility] NAMED [facility] (Girls, 2- 20 Years) documented in this encounter Discharge Instructions * Discharge Instructions* Mele Rodriguez DO - 11/22/2021 6:36 PM LICENSED LAND SURVEYOR Start taking the previously prescribed lamotrigine per prescription instructions. NSED LAND SURVEYOR * Attachments The following attachments cannot be sent through Care Everywhere. * Driving Restrictions (Citizen Of [place]) * Epilepsy in Adults (Citizen Of [place]) documented in this encounter Medications at Time [...] PM CST Neuro returns call to MD NSED LAND SURVEYOR * Bibiana Kennedy RN - 11/22/2021 5:[address] Castro S neuro NSED LAND SURVEYOR * Lana Gleason RN - 11/22/2021 3:48 [...] to have an EEG in 1 month. NSED LAND SURVEYOR NSED LAND SURVEYOR NSED LAND SURVEYOR * Mele Rodriguez, - 11/22/2021 3:45 PM CST Chief Complaint Chief Complaint Patient presents with ??? 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 used: No Seizure- Prior History Of Medical [...] Range COLOR (U) YELLOW TRANSPARENCY CLOUDY Specific [place] (U) 1.025 1.000 - 1.025 U PH [...] Disposition: Discharge Mele Rodriguez DO 11/29/21 07 NSED LAND SURVEYOR documented in this encounter Plan of Treatment Not on file documented as of this encounter Procedures Procedure Name Priority Date/Time Associated Diagnosis Comments URINALYSIS WI REFLEX TO CULTURE STAT 11/22/2021 5:22 PM LICENSED LAND SURVEYOR COMPREHENSIVE METABOLIC PANEL STAT 11/22/2021 4:27 PM LICENSED LAND SURVEYOR CBC W/DIFF AUTOMATED STAT 11/22/2021 4:27 PM LICENSED LAND SURVEYOR documented in this encounter Results * (ABNORMAL) URINALYSIS WI REFLEX TO CULTURE (11/22/2021 5:22 PM LICENSED LAND SURVEYOR) COLOR (U) YELLOW 11/22/2021 5:45 PM LICENSED LAND SURVEYOR [facility] TRANSPARENCY CLOUDY 11/22/2021 5:45 PM LICENSED LAND SURVEYOR [facility] SPECIFIC GRAVITY (U) 1.025 1.000 - 1.025 11/22/2021 5:45 PM LICENSED LAND SURVEYOR [facility] U PH 5.0 5.0 - 8.0 11/22/2021 5:45 PM LICENSED LAND SURVEYOR [facility] LEUKOCYTES (U) NEGATIVE NEGATIVE 11/22/2021 5:45 PM LICENSED LAND SURVEYOR [facility] NITRITES NEGATIVE NEGATIVE 11/22/2021 5:45 PM LICENSED LAND SURVEYOR [facility] PROTEIN (U) NEGATIVE NEGATIVE 11/22/2021 5:45 PM LICENSED LAND SURVEYOR [facility] URINE GLUCOSE NEGATIVE NEGATIVE 11/22/2021 5:45 PM LICENSED LAND SURVEYOR [facility] KETONES MG/DL (U) NEGATIVE NEGATIVE 11/22/2021 5:45 PM LICENSED LAND SURVEYOR [facility] UROBILINOGEN 0.2 <1.0 EU/DL 11/22/2021 5:45 PM LICENSED LAND SURVEYOR [facility] BILIRUBIN (U) NEGATIVE NEGATIVE 11/22/2021 5:45 PM LICENSED LAND SURVEYOR [facility] BLOOD (U) TRACE(A) NEGATIVE 11/22/2021 5:45 PM LICENSED LAND SURVEYOR [facility] WBC/HPF 0-5 0 - 5 /HPF 11/22/2021 5:45 PM LICENSED LAND SURVEYOR [facility] RBC/HPF 0-5 0 - 5 /HPF 11/22/2021 5:45 PM LICENSED LAND SURVEYOR [facility] EPI/HPF FEW /LPF 11/22/2021 5:45 PM LICENSED LAND SURVEYOR [facility] MUCUS PRESENT 11/22/2021 5:45 PM LICENSED LAND SURVEYOR [facility] AMORPHOUS SEDIMENT URATES 11/22/2021 5:45 PM LICENSED LAND SURVEYOR [facility] Comment:PRESENT CULTURE & SENSITIVITY INDICATED? NOT INDICATED 11/22/2021 5:45 PM LICENSED LAND SURVEYOR [facility] URINE SPECIMEN OBTAINED BY CLEAN CATCH PROCEDURE / Unknown 11/22/2021 5:22 PM LICENSED LAND SURVEYOR us Mele Rodriguez DO URINE ORDERABLES Final Result [facility] [address] [place] [address], * (ABNORMAL) COMPREHENSIVE METABOLIC PANEL (11/22/2021 4:27 PM LICENSED LAND SURVEYOR) SODIUM S/P/B 136 136 - 145 MMOL/L 11/22/2021 4:[address] [facility] POTASSIUM S/P/B 4.2 3.5 - 5.1 MMOL/L 11/22/2021 4:[address] [facility] CHLORIDE S/P/B 103 98 - 107 MMOL/L 11/22/2021 4:[address] [facility] CO2 22.2 21.0 - 32.0 MMOL/L 11/22/2021 4:[address] [facility] GLUCOSE 97 70 - 99 MG/DL 11/22/2021 4:[address] [facility] Comment: FASTING GLUCOSE 100 TO 125 MG/DL IS CONSISTENT WITH IMPAIRED FASTING GLUCOSE. FASTING GLUCOSE >125 MG/DL IS CONSISTENT WITH DIABETES. RANDOM GLUCOSE >200 MG/DL WITH HYPERGLYCEMIC SYMPTOMS IS CONSISTENT WITH DIABETES. PER ADA GUIDELINES BUN 12 6 - 24 MG/DL 11/22/2021 4:[address] [facility] CREATININE S/P/B 0.84 0.55 - 1.02 MG/DL 11/22/2021 4:[address] [facility] CALCIUM S/P/B 9.0(L) 9.1 - 10.3 MG/DL 11/22/2021 4:[address] [facility] BILIRUBIN TOTAL S/P/B 0.4 0.2 - 1.0 MG/DL 11/22/2021 4:[address] [facility] Comment: THIS ASSAY IS NOT RECOMMENDED FOR PATIENTS UNDERGOING TREATMENT WITH ELTROMBOPAG DUE TO THE POTENTIAL FOR FALSELY ELEVATED RESULTS. ALKALINE PHOSPHATASE S/P/B 69 52 - 144 U/L 11/22/2021 4:[address] [facility] AST 16 15 - 37 U/L 11/22/2021 4:[address] [facility] ALT 14 14 - 59 U/L 11/22/2021 4:[address] [facility] TOTAL PROTEIN S/P/B 7.9 6.4 - 8.2 G/DL 11/22/2021 4:[address] [facility] ALBUMIN S/P/B 4.2 3.4 - 5.0 G/DL 11/22/2021 4:59 PM LICENSED LAND SURVEYOR [facility] ANION GAP 10.8 5.0 - 15.0 MMOL/L 11/22/2021 4:59 PM LICENSED LAND SURVEYOR [facility] OSMOLALITY (CALC) 282 MOSM/KG 021 4:59 PM LICENSED LAND SURVEYOR [facility] Comment:REFERENCE RANGE NOT ESTABLISHED EGFR NON-AFR. AMER. >90 >89 ML/MIN/1. 73 M2 11/22/2021 4:59 PM LICENSED LAND SURVEYOR [facility] EGFR AFR. AMER. >90 >89 ML/MIN/1. 73 M2 11/22/2021 4:59 PM LICENSED LAND SURVEYOR [facility] GFR NOTES GFR REFERENCE S: 11/22/2021 4:[address] [facility] [...] FAILURE: <15 ml/min/1.73 m2 11/22/2021 4:27 PM LICENSED LAND SURVEYOR us Mele Rodriguez DO LABORATORY Final Result [facility] [address] [place] [address], * (ABNORMAL) CBC W/DIFF AUTOMATED (11/22/2021 4:27 PM LICENSED LAND SURVEYOR) WBC 14.1(H) 4.0 - 10.8 x10'3/uL 11/22/2021 4:36 PM LICENSED LAND SURVEYOR [facility] RBC 4.64 4.10 - 5.40 x10'6/uL 11/22/2021 4:36 PM LICENSED LAND SURVEYOR [facility] HGB 13.4 12.0 - 16.0 G/DL 11/22/2021 4:36 PM LICENSED LAND SURVEYOR [facility] HCT 39.3 36.0 - 47.0 % 11/22/2021 4:36 PM LICENSED LAND SURVEYOR [facility] MCV 84.7 78.0 - 100.0 FL 11/22/2021 4:36 PM LICENSED LAND SURVEYOR [facility] MCH 28.9 27.0 - 31.0 PG 11/22/2021 4:36 PM LICENSED LAND SURVEYOR [facility] MCHC 34.1 33.0 - 36.0 G/DL 11/22/2021 4:36 PM LICENSED LAND SURVEYOR [facility] RDW 11.8 11.5 - 14.5 % 11/22/2021 4:36 PM LICENSED LAND SURVEYOR [facility] PLT 446(H) 150 - 350 x10'3/uL 11/22/2021 4:36 PM LICENSED LAND SURVEYOR [facility] MPV 8.9 7.4 - 10.4 FL 11/22/2021 4:36 PM LICENSED LAND SURVEYOR [facility] DIFFERENTIAL COMMENT NORMAL REFERENCE RANGE NOT ESTABLISHED FOR THE PROPORTIONAL LEUKOCYTE DIFFERENTIAL. 11/22/2021 4:36 PM LICENSED LAND SURVEYOR [facility] SEG NEUTROPHILS 93.1 % 4:36 PM LICENSED LAND SURVEYOR [facility] LYMPHOCYTES 3.3 % 11/22/2021 4:36 PM LICENSED LAND SURVEYOR [facility] MONOCYTES 2.8 % 11/22/2021 4:36 PM LICENSED LAND SURVEYOR [facility] EOSINOPHILS 0.0 % 11/22/2021 4:36 PM LICENSED LAND SURVEYOR [facility] BASOPHILS 0.4 % 11/22/2021 4:36 PM LICENSED LAND SURVEYOR [facility] IMMATURE GRANS % 0.4 % 11/22/20 4:36 PM LICENSED LAND SURVEYOR [facility] NRBC 0.0 % 11/22/2021 4:36 PM LICENSED LAND SURVEYOR [facility] ABS. NEUTROPHILS 13.16(H) 1.60 - 8.30 x10'3/uL 11/22/2021 4:36 PM LICENSED LAND SURVEYOR [facility] ABS. LYMPHOCYTES 0.47(L) 0.80 - 4.70 x10'3/uL 11/22/2021 4:36 PM LICENSED LAND SURVEYOR [facility] ABS. MONOCYTES 0.40 0.00 - 1.50 x10'3/uL 11/22/2021 4:36 PM LICENSED LAND SURVEYOR [facility] ABS. EOSINOPHILS 0.00 0.00 - 0.40 x10'3/uL 11/22/2021 4:36 PM LICENSED LAND SURVEYOR [facility] ABS. BASOPHILS 0.05 0.00 - 0.20 x10'3/uL 11/22/2021 4:36 PM LICENSED LAND SURVEYOR [facility] ABS. IMMATURE GRANULOCYTES 0.05(H) 0.00 - 0.03 x10'3/uL 11/22/2021 4:36 PM LICENSED LAND SURVEYOR [facility] ABS. 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 Given 11/22/2021 5:14 PM LICENSED LAND SURVEYOR 4 mg documented in this encounter Active and Recently Administered Medications Times are shown in LICENSED LAND SURVEYOR. Scheduled Medication Order 11/20/2021 11/21/2021 11/22/2021 levETIRAcetam [...] JACQUELINE) documented in this encounter Care Teams Engineer First Assistant Relationship Specialty Start Date End Date Oziel Burt MD [address] [place] [address] PCP - General FAMILY PRACTICE 09/13/21 documented as of this encounter
--- OUTSIDE RECORDS SUMMARY | 2024-12-07 17:48 | XMS_ITS | Encounter Summary ---
Author Organization [facility] Address [address] [place] [address]. [place], [place] [address] [place] [address] Care Team Providers Care Bias Cutter Name Role Phone Oziel Burt MD Primary Care Provider [phone] Reason for Referral * Medication Prior Authorization - Closed Specialty Diagnoses / Procedures Referred By Cosmo t Referred To Contact Diagnoses Upper back pain Marion Del Cid MD [address] [place] [address] Phone: tel: fax: Referral ID Status Reason Start Date Expiration Date Visits Re quested Visits Authorized [id number] Closed 1 1 Reason for Visit * Reason Comments Back Pain Encounter Details Date Type Department Care Team ([facility] Contact Info) Description 07/24/2022 10:43 PM CDT - 07/25/2022 12:56 AM CDT Emergency [facility] [address] [place] [address] Marion Del Cid MD [address] [place] [address] Back Pain Discharge Disposition: Home or Self Care (Routine Discharge) Social History Tobacco Use Types Packs/Day Years Used Date Smoking Tobacco: Never Smokeless Tobacco: Never Comments No Sex and Gender Information Value Date Recorded Sex Assigned at Not on file Legal Sex Female 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 * Upper Back Pain Discharge Instructions (Latvian) * Hypokalemia Discharge Instructions (Latvian) documented in this encounter Medications at Time [...] worse with deep inspirations. She has tried siqf-naz-[id number] pain relievers as well as Flexeril without [...] XR CHEST PORTABLE Final Result by User, [id number] (07/24 2324) EXAMINATION: XR CHEST PORTABLE EXAM [...] CONSULTS: ED COURSE & MEDICAL DECISION MAKING [facility] ED Course as of 07/25/2246Jul 25, [...] 2. Hypokalemia HYPOKALEMIA Oziel Burt MD [address] [place] [id number] on Thursday if not improving New Prescriptions [...] - 500 ng{FEU}/mL 07/24/2022 11:31 PM CDT [facility] Comment: D-Dimer values less than [...] MD LABORATORY Final Result Performing Organization Address [facility] Co de Phone Number [facility] [address] [place] [address], * TROPONIN, QUANT (07/24/2022 11:17 PM CDT) TROPONIN I HIGH SENSITIVITY <4 0 - 51 ng/L 07/24/2022 11:43 PM CDT [facility] 07/24/2022 11:1 7 PM CDT us Marion Del Cid MD LABORATORY Final Result Performing Organization Address [facility]/ZIP Co de Phone Number [facility] [address] [place] [address], [place] [phone] * (ABNORMAL) COMPREHENSIVE METABOLIC PANEL (07/24/2022 11:17 PM CDT) SODIUM S/P/B 140 136 - 145 MMOL/L 07/24/2022 11:43 PM CDT [facility] POTASSIUM S/P/B 2.9(LL) 3.5 - 5.1 MMOL/L 07/24/2022 11:43 PM CDT [facility] Comment: Critical Result(s) Called to COMMUNICATIONS STATION MANAGERJACQUELINE MARTINEZ and read back by: ?at: 23:41:57 ?? 07/24/2022 by ERLC. CHLORIDE S/P/B 103 98 - 107 MMOL/L 07/24/2022 11:43 PM CDT [facility] CO2 28.1 21.0 - 32.0 MMOL/L 07/24/2022 11:43 PM CDT [facility] GLUCOSE 97 70 - 99 MG/DL 07/24/2022 11:43 PM CDT [facility] Comment: FASTING GLUCOSE 100 TO 125 MG/DL IS CONSISTENT WITH IMPAIRED FASTING GLUCOSE. FASTING GLUCOSE >125 MG/DL IS CONSISTENT WITH DIABETES. RANDOM GLUCOSE >200 MG/DL WITH HYPERGLYCEMIC SYMPTOMS IS CONSISTENT WITH DIABETES. PER ADA GUIDELINES BUN 8 6 - 24 MG/DL 07/24/2022 11:43 PM CDT [facility] CREATININE S/P/B 0.89 0.55 - 1.02 MG/DL 07/24/2022 11:43 PM CDT [facility] CALCIUM S/P/B 9.1 8.4 - 10.5 MG/DL 07/24/2022 11:43 PM CDT [facility] BILIRUBIN TOTAL S/P/B 1.5(H) 0.2 - 1.0 MG/DL 07/24/2022 11:43 PM CDT [facility] Comment: THIS ASSAY IS NOT RECOMMENDED FOR PATIENTS UNDERGOING TREATMENT WITH ELTROMBOPAG DUE TO THE POTENTIAL FOR FALSELY ELEVATED RESULTS. ALKALINE PHOSPHATASE S/P/B 56 52 - 144 U/L 07/24/2022 11:43 PM CDT [facility] AST 30 15 - 37 U/L 07/24/2022 11:43 PM CDT [facility] ALT 20 14 - 59 U/L 07/24/2022 11:43 PM CDT [facility] TOTAL PROTEIN S/P/B 6.9 6.4 - 8.2 G/DL 07/24/2022 11:43 PM CDT [facility] ALBUMIN S/P/B 4.2 3.4 - 5.0 G/DL 07/24/2022 11:43 PM CDT [facility] ANION GAP 8.9 5.0 - 15.0 MMOL/L 07/24/2022 11:43 PM CDT [facility] OSMOLALITY (CALC) 288 MOSM/KG 022 11:43 PM CDT [facility] Comment:REFERENCE RANGE NOT ESTABLISHED GFR ESTIMATE >90 >89 ML/MIN/1. 73 M2 07/24/2022 11:43 PM CDT [facility] GFR NOTES GFR REFERENCE S: 07/24/2022 11:43 PM CDT [facility] Comment: THE ESTIMATED GFR IS [...] Marion Del Cid MD LABORATORY Final Result [facility] [address] [place] [address], * (ABNORMAL) CBC W/DIFF AUTOMATED (07/24/2022 11:17 PM CDT) WBC 9.6 4.0 - 10.8 x10'3/uL 07/24/2022 11:23 PM CDT [facility] RBC 3.96(L) 4.10 - 5.40 x10'6/uL 07/24/2022 11:23 PM CDT [facility] HGB 11.8(L) 12.0 - 16.0 G/DL 07/24/2022 11:23 PM CDT [facility] HCT 34.6(L) 36.0 - 47.0 % 07/24/2022 11:23 PM CDT [facility] MCV 87.4 78.0 - 100.0 FL 07/24/2022 11:23 PM CDT [facility] MCH 29.8 27.0 - 31.0 PG 07/24/2022 11:23 PM CDT [facility] MCHC 34.1 33.0 - 36.0 G/DL 07/24/2022 11:23 PM CDT [facility] RDW 12.1 11.5 - 14.5 % 07/24/2022 11:23 PM CDT [facility] PLT 363(H) 150 - 350 x10'3/uL 07/24/2022 11:23 PM CDT [facility] MPV 8.9 7.4 - 10.4 FL 07/24/2022 11:23 PM CDT [facility] DIFFERENTIAL COMMENT NORMAL REFERENCE RANGE NOT ESTABLISHED FOR THE PROPORTIONAL LEUKOCYTE DIFFERENTIAL. 07/24/2022 11:23 PM CDT [facility] SEG NEUTROPHILS 75.7 % 11:23 PM CDT [facility] LYMPHOCYTES 17.2 % 07/24/2022 11:23 PM CDT [facility] MONOCYTES 6.0 % 07/24/2022 11:23 PM CDT [facility] EOSINOPHILS 0.5 % 07/24/2022 11:23 PM CDT [facility] BASOPHILS 0.4 % 07/24/2022 11:23 PM CDT [facility] IMMATURE GRANS % 0.2 % 07/24/20 11:23 PM CDT [facility] NRBC 0.0 % 07/24/2022 11:23 PM CDT [facility] ABS. NEUTROPHILS 7.25 1.60 - 8.30 x10'3/uL 07/24/2022 11:23 PM CDT [facility] ABS. LYMPHOCYTES 1.65 0.80 - 4.70 x10'3/uL 07/24/2022 11:23 PM CDT [facility] ABS. MONOCYTES 0.58 0.00 - 1.50 x10'3/uL 07/24/2022 11:23 PM CDT [facility] ABS. EOSINOPHILS 0.05 0.00 - 0.40 x10'3/uL 07/24/2022 11:23 PM CDT [facility] ABS. BASOPHILS 0.04 0.00 - 0.20 x10'3/uL 07/24/2022 11:23 PM CDT [facility] ABS. IMMATURE GRANULOCYTES 0.02 0.00 - 0.03 x10'3/uL 07/24/2022 11:23 PM CDT [facility] ABS. NUCLEATED RBC'S 0.00 0.00 x10'3/uL 07/24/2022 11:23 PM CDT [facility] 07/24/2022 11:1 7 PM CDT Marion Del Cid MD LABORATORY Final Result [facility] [address] [place] [address], * ECG 12 lead (07/24/2022 11:07 PM CDT) 07/24/2022 11:0 7 PM CDT Narrative [facility] - 07/25/2022 1:18 PM CDT ? [facility] ?[address] [place], [place] ??[address] ? Test Date: ?2022-07-24 Pat Name: ? JENNIFER PASTROVICH ? Department: ?? 3 ? Room: ? EXAM 303 Gender: ? Female ? Bowling Floor Desk Clerk: ?? : ?2000 ? Requested By: MARION DEL CID Order Number: [id number] ? Reading MD: ?? Omarrichi Mcqueen ? Measurements Intervals ?[place] ? Rate: ? 73 ? P: ?62 CO: ? 149 ?QRS: ?76 QRSD: ? 95 ? T: ?52 QT: ? 369 ? QTc: ?409 ? Interpretive Statements SINUS RHYTHM POSSIBLE RIGHT VENTRICULAR CONDUCTION DELAY Procedure Note Omar Mcqueen MD - 07/25/[address] [place] [address] Test Date: 2022-07-24 Pat Name: JENNIFER PATTON Department: 3 Room: EXAM 303 Gender: Female Bowling Floor Desk Clerk: : 2000 Requested By: MARION DEL CID Order Number: [id number] Reading MD: Omar Mcqueen Measurements Intervals [place] Rate: 73 P: 62 CO: 149 QRS: 76 QRSD: 95 T: 52 QT: 369 QTc: 409 Interpretive Statements SINUS RHYTHM POSSIBLE RIGHT VENTRICULAR CONDUCTION DELAY us Marion Del Cid MD ECG ORDERABLES Final Result Performing Organization Address City/State/[facility] de Phone Number [facility] documented in this encounter Visit Diagnoses Diagnosis [...] in 24 hours. 2316 (Given - Provider: Elizabeth Aguilar RN) HYDROmorphone (DILAUDID) injection 1 mg [...] RN) documented in this encounter Care Teams Bias Cutter Relationship Specialty Start Date End Date Oziel Burt MD [address] [place] [address] PCP - General FAMILY PRACTICE 09/13/21 documented as of this encounter
--- OUTSIDE RECORDS SUMMARY | 2024-12-07 17:48 | XMS_ITS | Encounter Summary ---
Author Organization [facility] Address [address] [place] [address]. 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
--- OUTSIDE RECORDS SUMMARY | 2024-12-07 17:48 | XMS_ITS | Encounter Summary ---
Author Organization [facility] Address [address] [place] [address]. [place], [place] [address] [place] [address] Care Team Providers Care Marine Steam Fitter Name Role Phone Oziel Burt MD Primary Care Provider [phone] Encounter Details Date Type Department Care Team (Latest Contact Info) Description 12/05/2021 7:42 AM WET END SUPERVISOR - 12/05/2021 11:59 PM WET END SUPERVISOR Hospital Encounter [facility] Electrodiagnostic [address] [place], [place] [phone] Jess Harper MD [address] [place] [phone] Discharge Disposition: Home or Self Care (Routine Discharge) Social History Tobacco Use Types Packs/Day Years Used Date Smoking Tobacco: Never Smokeless Tobacco: Never Comments No Sex and Gender Information Value Date Recorded Sex Assigned at Not on file Legal Sex Female 5:55 PM WET END SUPERVISOR Gender Identity Not on file Sexual Orientation Not on file COVID-19 Exposure Response Date Recorded In the last month, have you been in contact with someone who was confirmed or suspected to have Coronavirus / COVID-19? No / Unsure 12/05/2021 7:40 AM WET END SUPERVISOR documented as of this encounter Medications at [...] EVENTS: None The EKG channel was unremarkable. END SUPERVISOR documented in this encounter Plan of Treatment Not on file documented as of this encounter Procedures Procedure Name Priority Date/Time Associated Diagnosis Comments EEG SLEEP DEPRIVED Routine 12/05/2021 8: 00 AM WET END SUPERVISOR History of seizure documented in this encounter Results * EEG awake or drowsy routine (12/05/2021 8:00 AM WET END SUPERVISOR) Narrative [facility] - 12/05/2021 8:00 AM WET END SUPERVISOR Jess Lujan MD ? 12/05/2021 10:23 AM [...] Lujan MD NEUROLOGY ORDERABLE S Final Result [facility] [address] [place] [address], [id number] documented in this encounter Visit Diagnoses Diagnosis History of seizure- Primary documented in this encounter Care Teams Marine Steam Fitter Relationship Specialty Start Date End Date Oziel Burt MD [address] [facility] [place] [id number] PCP - General FAMILY PRACTICE 09/13/21 documented as of this encounter
--- OUTSIDE RECORDS SUMMARY | 2024-12-07 17:48 | XMS_ITS | Encounter Summary ---
Author Organization [facility] Address [address] [place] [address]. [place], [place] [address] [place] [address] Care Team Providers Care Dry Food Products Mixer Name Role Phone Oziel Burt MD Primary Care Provider [phone] Reason for Referral * Imaging (Routine) - Closed Specialty Diagnoses / Procedures Referred By Cosmo gonzalez Referred To Contact RADIOLOGY Diagnoses Seizure ([facility]) Procedures MRI BRAIN WWO CON Moises Cadena MD [address] [address] Phone: tel: fax: Referral ID Status Reason Start Date Expiration Date Visits Re quested Visits Authorized [id number] Closed 11/13/2021 01/11/2022 1 1 AL HUSBANDRY PROFESSOR Reason for Visit * Reason Comments New Patient siezures * Consultation (Routine) - Closed Specialty Diagnoses / Procedures Referred By Cosmo gonzalez Referred To Contact Diagnoses Seizure Procedures NPV Oziel Burt MD [address] [place] [address] [place] [address] Phone: tel: fax: Moises Cadena MD [address] [address] Phone: tel: fax: Referral ID Status Reason Start Date Expiration Date Visits Re quested Visits Authorized [id number] Closed 11/05/2021 11/06/2022 100 100 Encounter Details Date Type Department Care Team (Latest Contact Info) Description 11/12/2021 2:20 PM ANIMAL HUSBANDRY PROFESSOR Office Visit [facility] Neuroscience [address] [phone] Moises Harper MD [address] [place] [address] [phone] New Patient (melissa) Social History Tobacco Use Types Packs/Day Years Used Date Smoking Tobacco: Never Smokeless Tobacco: Never Tobacco Cessation:Counseling Given: No Comments No Sex and Gender Information Value Date Recorded Sex Assigned at Not on file Legal Sex Female 5:55 PM ANIMAL HUSBANDRY PROFESSOR Gender Identity Not on file Sexual Orientation Not on file COVID-19 Exposure Response Date Recorded In the last month, have you been in contact with someone who was confirmed or suspected to have Coronavirus / COVID-19? No / Unsure 11/22/2021 3:43 PM ANIMAL HUSBANDRY PROFESSOR documented as of this encounter Last Filed Vital Signs Vital Sign Reading Time Taken Comments Blood Pressure 110/60 11/12/2021 2:05 PM ANIMAL HUSBANDRY PROFESSOR Pulse 100 11/12/2021 2:05 PM ANIMAL HUSBANDRY PROFESSOR Temperature - - Respiratory Rate - - Oxygen Saturation 97% 11/12/2021 2:05 PM ANIMAL HUSBANDRY PROFESSOR Inhaled Oxygen Concentration - - Weight 74.8 kg (165 lb) 11/12/2021 2:05 PM ANIMAL HUSBANDRY PROFESSOR Height 162.6 cm (5' 4 ) 11/12/2021 2:05 PM ANIMAL HUSBANDRY PROFESSOR Body Mass Index 28.32 11/12/2021 2:05 PM ANIMAL HUSBANDRY PROFESSOR Body Mass Index Percentile 91.40% 11/12/2021 2:0 5 PM ANIMAL HUSBANDRY PROFESSOR Growth Chart: CDC (Girls, 2- 20 Years) documented in this encounter Progress Notes * Champ Adan CMA - 11/12/2021 2:20 PM CSTAddended by: CHAMP ADAN on: 11/26/2021 02:48 PM Modules accepted: Orders AL HUSBANDRY PROFESSOR * Moises Cadena MD - 11/12/2021 2:20 [...] this visit. Impression: ICD-10-CM ICD-9-CM 1. Seizure ([facility]) R56.9 780.39 EEG awake or drowsy routine [...] please excuse any typos. MOISES CADENA MD AL HUSBANDRY PROFESSOR documented in this encounter Plan of Treatment Not on file documented as of this encounter Results * MRI BRAIN WWO CON (11/18/2021 11:17 AM ANIMAL HUSBANDRY PROFESSOR) Anatomical Region Laterality Modality Head Magnetic Resonan ce 11/18/2021 11:4 1 AM ANIMAL HUSBANDRY PROFESSOR Impressions 11/18/2021 2:56 PM ANIMAL HUSBANDRY PROFESSOR IMPRESSION: Normal appearance of the brain Ordered By: MOISES CADENA Interpreted By: Keo Buchanan MD, 11/18/2021 11:41 AM Narrative 11/18/2021 2:56 PM ANIMAL HUSBANDRY PROFESSOR Examination: MRI BRAIN [facility], 11/18/2021 11:41 AM. Technique: Axial and sagittal [...] Buchanan MD - 11/18/2021 Examination: MRI BRAIN [facility], 11/18/2021 11:41 AM. Technique: Axial and sagittal [...] convulsions documented in this encounter Care Teams Dry Food Products Mixer Relationship Specialty Start Date End Date Oziel Burt MD [address] [place] [address] PCP - General FAMILY PRACTICE 09/13/21 documented as of this encounter
--- OUTSIDE RECORDS SUMMARY | 2024-12-07 17:48 | XMS_ITS | Encounter Summary ---
Author Organization [facility] Address [facility] [place] [address] Care Team Providers Care Applications Chemist Name Role Phone Unavailable Primary Care Provider Unavailabl e Reason for Visit * Reason Comments Cholecystitis Cholelithiasis To arrive via EMS [facility] to [facility] ED under the care of ILEANA Donohue. Dr Fritz aware of pt pending arrival and agrees to consult. Pt c/o tender epigastric area. Imaging to arrive with pt. * Auth/Cert Specialty Diagnoses / Procedures Referred By Cosmo gonzalez Referred To Contact Referral ID Status Reason Start Date Expiration Date Visits Re quested Visits Authorized [id number] 1 1 Encounter Details Date Type Department Care Team (Late st Contact Info) Description 08/14/2022 9:10 PM CDT - 08/15/2022 12:16 PM CDT Emergency [facility] 5D ONCOLOGY [address] [place] [address] Rommel Oconnor MD [address] [place] [address] [place] [address] [place] [address] Gisselle Davis MD [address] [place] [address] Emergency Medicine Discharge Disposition: Home or Self [...] offered to the patient Medication affordability concerns: Clarita: Марина Sandra Cm, RN Please see treatment [...] Voice recognition software was used in the service department manager of this documentation. * Humberto Mcqueen LPN [...] and Cholelithiasis (To arrive via EMS from [facility] to [facility] ED[facility] the care of ILEANA Donohue. [...] 0.10)* * Growth percentiles are based on [facility] (Girls, 2-20 Years) data. Review of Systems: [...] HEMATOCRIT, HCT, PLATELET, PLTCOUNT in the last 39963 hours. No results for input(s): SODIUM, POTASSIUM, CHLORIDE, CO2, BUN, CREATININE, GLUCOSE, [id number], CALCIUM, GFR, EGFR, EGFRAFR in the last 60303 hours. No results for input(s): ALBUMIN, ALB, ALKPHOS, UEP7TLCG, ALT, AST, ZMBADNCEL4S, OCKRANVRT8D, TBILI, DBILI, PROTEIN, TPROT, BNP, NTPROBNP in the last 57487 hours. No results found. Assessment and Plan: [...] on lamictal who presentsas a transfer [facility] for acute cholecystitis. Per patient casandra had [...] of 08/15/22 1559 Mirta Aug 14, 2022 927 21-year-old female presents to transfer for possible [...] at this time. Will admit NPO at [facility]. [JUNI] ED Course User Index [JUNI] Rommel [...] Question: REASON FOR CONSULT? Answer: transfer from [place] for biliary symptoms concern for acute sha [...] PM CDT Pt to the ER from [facility] for gallbladder removal. Pt states she started [...] a liter of fluids, morphine [facility] EMS gave 600 mL of fluids. Vital signs as charted, breathing even and unlabored.No distress noted. A&Ox4. Pt in position of comfort in stretcher with side rails up x 2. Bed low and locked. Call light within reach. * Pina Long RN - 08/14/2022 9:10 PM CDT Bed: 7 Expected date: Expected time: Means of arrival: Comments: [facility] documented in this encounter Plan of [...] - 14.8 sec 08/15/2022 7:35 AM CDT [facility] INR 1.2(H) 0.9 - 1.1 08/15/2022 7:35 AM CDT [facility] Blood BLOOD SPECIMEN / Unknown Lab Venipuncture / Unknown 08/15/2022 7:18 AM CDT 08/15/2022 7:20 AM CDT Narrative [facility] - 08/15/2022 7:35 AM CDT Conventional Warfarin Anticoagulant Therapy: INR Reference Range: ??2.0-3.0 Intensive Warfarin Anticoagulant Therapy: INR Reference Range: ? 2.5-3.5 Beto Murillo DO LAB - COAGULATION OR DERABLES [facility] [address] [place] [address] * PHOSPHORUS BLOOD (08/15/2022 7:18 AM CDT) Phosphorus 4.4 2.3 - 4.7 mg/dL 08/15/2022 7:54 AM CDT [facility] Blood BLOOD SPECIMEN / Unknown Lab Venipuncture / Unknown 08/15/2022 7:18 AM CDT 08/15/2022 7:20 AM CDT Beto Murillo DO LAB - CHEMISTRY ORDE RABLES [facility] [address] [place] [address] * MAGNESIUM BLOOD (08/15/2022 7:18 AM CDT) Magnesium 2.3 1.7 - 2.3 mg/dL 08/15/2022 7:54 AM CDT [facility] Blood BLOOD SPECIMEN / Unknown Lab Venipuncture / Unknown 08/15/2022 7:18 AM CDT 08/15/2022 7:20 AM CDT Beto Murillo DO LAB - CHEMISTRY URBAN AGUSTIN [facility] [address] [place] [address] * (ABNORMAL) CBC W AUTO DIFFERENTIAL (08/15/2022 7:18 AM CDT) WBC 6.0 4.4 - 10.7 x10E9/L 08/15/2022 7:25 AM CDT [facility] WBC Corrected 08/15/2022 7:25 AM CDT [facility] RBC 3.66(L) 3.80 - 5.20 x10E12/L 08/15/2022 7:25 AM CDT [facility] Hemoglobin 10.9(L) 12.0 - 15.6 gm/dL 08/15/2022 7:25 AM CDT [facility] Hematocrit 32.0(L) 35.9 - 45.5 % 08/15/2022 7:25 AM CDT [facility] MCV 87.4 80.7 - 98.3 fl 08/15/2022 7:25 AM CDT [facility] MCH 29.8 26.7 - 34.0 pg 08/15/2022 7:25 AM CDT [facility] MCHC 34.1 30.8 - 35.9 gm/dL 08/15/2022 7:25 AM CDT [facility] Platelet Count 315 153 - 416 x10E9/L 08/15/2022 7:25 AM CDT [facility] RDW-CV 12.1 12.1 - 14.9 % 08/15/2022 7:25 AM CDT [facility] MPV 8.9(L) 9.4 - 12.9 fl 08/15/2022 7:25 AM CDT [facility] Neutrophils % 48.6 44.0 - 73.0 % 08/15/2022 7:25 AM CDT [facility] Lymphocytes % 45.0(H) 20.0 - 43.0 % 08/15/2022 7:25 AM CDT [facility] Monocytes % 5.2 5.0 - 13.0 % 08/15/2022 7:25 AM CDT [facility] Eosinophils % 0.7 0.0 - 6.0 % 08/15/2022 7:25 AM CDT [facility] Basophils % 0.3 0.0 - 2.0 % 08/15/2022 7:25 AM CDT [facility] Immature Granulocytes 0.2 0 - 1 % 08/15/2022 7:25 AM CDT [facility] Neutrophil Absolute 2.92 2.01 - 7.14 x10E9/L 08/15/2022 7:25 AM CDT [facility] Lymphocytes Absolute 2.70 1.07 - 3.94 x10E9/L 08/15/2022 7:25 AM CDT [facility] Monocytes Absolute 0.31 0.26 - 1.07 x10E9/L 08/15/2022 7:25 AM CDT [facility] Eosinophils Absolute 0.04 0 - 0.47 x10E9/L 08/15/2022 7:25 AM CDT [facility] Basophils Absolute 0.02 0 - 0.08 x10E9/L 08/15/2022 7:25 AM CDT [facility] Immature Granulocytes Absolute 0.01 0.00 - 0.06 x10E9/L 08/15/2022 7:25 AM CDT [facility] nRBC Auto 0 /100 WBC 08/15/2022 7:25 AM CDT [facility] Blood BLOOD SPECIMEN / Unknown Lab Venipuncture / Unknown 08/15/2022 7:18 AM CDT 08/15/2022 7:20 AM CDT Beto Murillo DO LAB - HEMATOLOGY ORD ERABLES [facility] [address] [place] [id number] * (ABNORMAL) COMPREHENSIVE METABOLIC PANEL (08/15/2022 7:18 AM CDT) Pathologist [facility] Glucose 91 70 - 105 mg/dL 08/15/2022 7:54 AM CDT [facility] Sodium 141 136 - 145 mmol/L 08/15/2022 7:54 AM CDT [facility] Potassium 4.0 3.5 - 5.1 mmol/L 08/15/2022 7:54 AM T [facility] Chloride 108(H) 98 - 107 mmol/L 08/15/2022 7:54 AM CDT [facility] CO2 23 23 - 31 mmol/L 08/15/2022 7:54 AM CDT [facility] Calcium 9.1 8.4 - 10.4 mg/dL 08/15/2022 7:54 AM [facility] Anion Gap 10 8 - 18 mmol/L 08/15/2022 7:54 AM T [facility] BUN 6(L) 7 - 18.7 mg/dL 08/15/2022 7:54 AM CDT [facility] Creatinine 0.68 0.57 - 1.11 mg/dL 08/15/2022 7:54 AM T [facility] Alkaline Phosphatase 50 40 - 150 U/L 08/15/2022 7:54 AM CDT [facility] ALT 10 0 - 61 U/L 08/15/2022 7:54 AM CDT [facility] AST 15 5 - 34 U/L 08/15/2022 7:54 AM T [facility] Protein Total 6.3(L) 6.4 - 8.3 gm/dL 08/15/2022 7:54 AM T [facility] Albumin 4.1 3.4 - 5.0 gm/dL 08/15/2022 7:54 AM CDT [facility] Bilirubin Total 0.6 0.2 - 1.2 mg/dL 08/15/2022 7:54 AM T [facility] eGFR by CKD-EPI >90 >=90 mL/min/1.7 3 m2 08/15/2022 7:54 AM T [facility] Blood BLOOD SPECIMEN / Unknown Lab Venipuncture / Unknown 08/15/2022 7:18 AM CDT 08/15/2022 7:20 AM CDT Beto Murillo DO LAB - CHEMISTRY URBAN Sosa Organization Address City/State/ZIP Co de Phone Number [facility] [address] [place] [address] documented in this encounter Visit Diagnoses Diagnosis [...] hours. 0102 ($ Given - Prov ider: Humberto Mcqueen LPN)[phone] (Not Administered - Provider: Humberto [...]
--- OUTSIDE RECORDS SUMMARY | 2024-12-07 17:48 | XMS_ITS | Encounter Summary ---
Author Organization [facility] Address [address] [place] [address]. [place], [place] [address] [place] [address] Care Team Providers Care Bulk Sausage Casing Tier Off Name Role Phone Oziel Burt MD Primary Care Provider [phone] Encounter Details Date Type Department Care Team (Latest Contact Info) Description 12/05/2021 Scan HEALTH INFO SRVCS Scanned, Documents Social History Tobacco Use Types Packs/Day Years Used Date Smoking Tobacco: Never Smokeless Tobacco: Never Comments No Sex and Gender Information Value Date Recorded Sex Assigned at Not on file Legal Sex Female 5:55 PM FORWARDER OPERATOR Gender Identity Not on file Sexual Orientation Not on file COVID-19 Exposure Response Date Recorded In the last month, have you been in contact with someone who was confirmed or suspected to have Coronavirus / COVID-19? No / Unsure 12/05/2021 7:40 AM FORWARDER OPERATOR documented as of this encounter Plan of Treatment Not on file documented as of this encounter Visit Diagnoses Not on filedocumented in this encounter Care Teams Bulk Sausage Casing Tier Off Relationship Specialty Start Date End Date Oziel Burt MD [address] [place] [address] PCP - General FAMILY PRACTICE 09/13/21 documented as of this encounter
--- OUTSIDE RECORDS SUMMARY | 2024-12-07 17:48 | XMS_ITS | Encounter Summary ---
Author Organization [facility] Address [address] [place] [address]. [place], [place] [id number] [place] [address] Care Team Providers Care Magnetic Tape Composer Operator Name Role Phone Oziel Burt MD Primary Care Provider [phone] Reason for Referral * Imaging (Emergency) - Closed Specialty Diagnoses / Procedures Referred By Contac t Referred To Contact RADIOLOGY Procedures US ABD LIMITED Reanna Vance MD Phone: tel: fax: Referral ID Status Reason Start Date Expiration Date Visits Re quested Visits Authorized [id number] Closed 08/14/2022 08/14/2023 1 1 * Imaging (Emergency) - Closed Specialty Diagnoses / Procedures Referred By Contac t Referred To Contact RADIOLOGY Procedures CT ABD+PEL W CON Reanna Vance MD Phone: tel: fax: Referral ID Status Reason Start Date Expiration Date Visits Re quested Visits Authorized [id number] Closed 08/14/2022 08/14/2023 1 1 Reason for Visit * Reason Comments Abdominal Pain Encounter Details Date Type Department Care Team ([facility] Contact Info) Description 08/14/2022 8:55 AM CDT - 08/14/2022 7:49 PM CDT Emergency [facility] [address] [place] [address] Reanna Vance MD [address] [place] [address] [phone] Abdominal Pain Discharge Disposition: Other Facility with Planned Inpatient Readmission Social History Tobacco Use Types Packs/Day Years Used Date Smoking Tobacco: Never Smokeless Tobacco: Never Comments No Sex and Gender Information Value Date Recorded Sex Assigned at Not on file Legal Sex Female 5:55 PM INSERTER Gender Identity Not on file Sexual Orientation [...] Pt accepted by Dr. Melly So at [facility] * Sobia Long RN - 08/14/2022 6:25 PM CDT [facility] is on the way. They stated they would be here in 45 minutes to an hour. * Sobia Long RN - 08/14/2022 6:15 PM CDT [facility] declined transfer. Called [facility] and they are to going to call me back. * Nichole Keane RN - 08/14/2022 6:09 PM CDT Pt now vomiting with c/o nausea; states pain is gone. States does not want any nausea med as feels this makes nausea worse. * Nichole Keane RN - 08/14/2022 5:[address] snow speaks with via [facility] transfer crew * DELMI Gill - 08/14/2022 5:15 PM CDT [facility] at [facility] at [facility]. [facility]. Face sheet [facility]ed [facility]. [facility] on phone with Dr. Snow * Nichole Keane RN - 08/14/2022 5:[address] snow speaks with physician from [facility] who states unable to accept pt due to no gi dr available. * DELMI Gill - 08/14/2022 3:[address] Snow on phone with Dr. Levy, from [facility]/ * Sobia Long RN - 08/14/2022 3:40 PM CDT Called [facility] to see how long of a wait list. They stated that it would be days on the wait list. Doctor aware and decided to not put the patient on the list. * DELMI Gill - 08/14/2022 3:36 PM CDT Call made to [place] Dr. Casey's office. Was told that Dr. Casey does not do ERCPs. * DELMI Gill - 08/14/2022 2:41 PM CDT Call made to [facility]. Pt info given, will call back * Nichole Keane RN - 08/14/2022 2:25 PM CDT Call to [facility] for possible transfer of care; spoke with household assistant who took info for wait list, no beds and holding in their er. * Nichole Keane RN - 08/14/2022 2:[address] snow requests call to other facilities for possible transfer of care as [facility] advises no beds available. Pt and family updated * Nichole Keane RN - 08/14/2022 2:[address] snow speaks with surgeon at [facility] via connect * Balbina Irving RN-LP - 08/14/2022 1:41 PM CDT Called [facility] connect, for Dr. Edy Louise for General [...] Range COLOR (U) YELLOW TRANSPARENCY CLOUDY Specific Orient (U) 1.025 1.000 - 1.025 U PH [...] Ref Range URINE HCG TEST NEGATIVE Specific Orient (U) 1.025 DRUG SCREEN RAPID Result Value [...] US ABD LIMITED Final Result by User, [id number] (08/14 1324) Examination: US ABD LIMITED Clinical [...] ABD+PEL W CON Final Result by User, [id number] (08/14 1113) Examination: CT abdomen and pelvis [...] Making ED Course as of 08/15/22 08 [facility] Aug 14, 2022 1546 Case discussed with transfer center and general surgeon at [place]. Due to anesthesia limitations patient was not accepted. Case discussed with Dr. Levy at [facility] who agreed to accept patient pending surgical consult with Dr. Cueva. [AK] 1818 Case discussed with general surgeon at [facility] who agreed to accept patient for consultation. Patient be transferred to the ED. Accepting doctor in the ED was Dr. Fan. [AK] ED Course User Index [AK] Reanna Vance MD Clinical Impression Cholelithiasis (Primary) Disposition: Transfer [...] obstruction could further correlate withMRCP. Ordered By: REANNA VANCE Interpreted By: Juan [...] URINE CLEAN CATCH 08/14/2022 10:39 AM CDT [facility] SPECIAL REQUESTS NO SPECIAL REQUEST 08/14/2022 10:39 AM CDT [facility] CULTURE RESULT FEW CONTAMINANTS 07/31 7:01 AM CDT [facility] URINE SPECIMEN OBTAINED BY CLEAN CATCH PROCEDURE / Unknown 08/14/2022 10:00 AM CDT 08/14/2022 10:38 AM CDT us Reanna Vance MD MICROBIOLOGY - GENERAL OR DERABLES Final Result [facility] [address] [id number], [place] [phone] [id number] [facility] [address] [place] [address], * (ABNORMAL) DRUG SCREEN RAPID (08/14/2022 10:00 AM CDT) Pathologist [facility] CANNABINOIDS SCREEN (U) POSITIVE(A) NEGATIVE 08/14/2022 10:40 AM CDT [facility] PHENCYCLIDINE PCP (U) NEGATIVE NEGATIVE 08/14/2022 10:40 AM CDT [facility] COCAINE METABOLITES (U) NEGATIVE NEGATIVE 08/14/2022 10:40 AM CDT [facility] METHAMPHETAMINE (U) NEGATIVE NEGATIVE 08/14/2022 10:40 AM CDT [facility] OPIATE SCREEN (U) NEGATIVE NEGATIVE 022 10:40 AM CDT [facility] AMPHETAMINE (U) NEGATIVE NEGATIVE 10:40 AM CDT [facility] BENZODIAZEPINES SCREEN (U) NEGATIVE NEGATIVE 08/14/2022 10:40 AM CDT [facility] TRICYCLIC ANTIDEPRESSANT SCREEN (U) NEGATIVE NEGATIVE 08/14/2022 10:40 AM CDT [facility] METHADONE (U) NEGATIVE NEGATIVE 08/14/2022 10:40 AM CDT [facility] BARBITURATES SCREEN (U) NEGATIVE NEGATIVE 08/14/2022 10:40 AM CDT [facility] OXYCODONE SCREEN (U) NEGATIVE NEGATIVE 08/14/2022 10:40 AM CDT [facility] PROPOXYPHENE SCREEN (U) NEGATIVE NEGATIVE 08/14/2022 10:40 AM CDT [facility] URINE TOX COMMENT THIS TEST METHODOLOGY IS DESIGNED AND OFFERED A RAPID TURNAROUND, QUALITATIVE SCREENING PROCEDURE TO AID IN THE IMMEDIATE MEDICAL ASSESSMENT OF PATIENTS SUSPECTED OF SUBSTANCE ABUSE. 08/14/2022 10:08 AM CDT [facility] Comment: CLINICAL CONSIDERATION AND PROFESSIONAL JUDGMENT MUST BE APPLIED TO ANY DRUG OF ABUSE TEST RESULT, BOTH POSITIVE AND NEGATIVE. CONFIRMATORY QUANTITATIVE RESULTS ARE AVAILABLE THROUGH OUR REFERENCE LABORATORY. URINE SPECIMEN / Unknown 08/14/2022 10:00 AM CDT us Reanna Vance MD URINE ORDERABLES Final Re sult Performing Organization Address City/[facility]/ZIP Co de Phone Number [facility] [address] [place] [address], [place] [phone] * TEST URINE (08/14/2022 10:00 AM CDT) URINE HCG TEST NEGATIVE 08/14/2022 10:21 AM CDT [facility] SPECIFIC GRAVITY (U) 1.025 08/14/2022 10:21 AM CDT [facility] URINE SPECIMEN OBTAINED BY CLEAN CATCH PROCEDURE / Unknown 08/14/2022 10:00 AM CDT us Reanna Vance MD URINE ORDERABLES Final Re sult Performing Organization Address [facility] Co de Phone Number [facility] [address] [place] [address], [place] [phone] * (ABNORMAL) URINALYSIS (08/14/2022 10:00 AM CDT) COLOR (U) YELLOW 08/14/2022 10:38 AM CDT [facility] TRANSPARENCY CLOUDY 08/14/2022 10:38 AM CDT [facility] SPECIFIC GRAVITY (U) 1.025 1.000 - 1.025 08/14/2022 10:38 AM CDT [facility] U PH 7.5 5.0 - 8.0 08/14/2022 10:38 AM CDT [facility] LEUKOCYTES (U) NEGATIVE NEGATIVE 08/14/2022 10:38 AM CDT [facility] NITRITES NEGATIVE NEGATIVE 08/14/2022 10:38 AM CDT [facility] PROTEIN (U) 1+(A) NEGATIVE 08/14/2022 10:38 AM CDT [facility] URINE GLUCOSE NEGATIVE NEGATIVE 08/14/2022 10:38 AM CDT [facility] KETONES MG/DL (U) 3+(A) NEGATIVE 08/14/2022 10:38 AM CDT [facility] UROBILINOGEN 0.2 <1.0 EU/DL 08/14/2022 10:38 AM CDT [facility] BILIRUBIN (U) NEGATIVE NEGATIVE 08/14/2022 10:38 AM CDT [facility] BLOOD (U) NEGATIVE NEGATIVE 08/14/2022 10:38 AM CDT [facility] WBC/HPF 5-10(A) 0 - 5 /HPF 08/14/2022 10:38 AM CDT [facility] RBC/HPF 0-5 0 - 5 /HPF 08/14/2022 10:38 AM CDT [facility] EPI/LPF FEW /LPF 08/14/2022 10:38 AM CDT [facility] BACTERIA (U) 2+ /HPF 08/14/2022 10:38 AM CDT [facility] MUCUS PRESENT 08/14/2022 10:38 AM CDT [facility] URINE SPECIMEN OBTAINED BY CLEAN CATCH PROCEDURE / Unknown 08/14/2022 10:00 AM CDT us Reanna Vance MD URINE ORDERABLES Final Re sult Performing Organization Address [facility]/ZIP Co de Phone Number [address] [address], [place] [phone] * LIPASE (08/14/2022 9:46 AM CDT) LIPASE 85 73 - 393 UNITS/L 08/14/2022 10:11 AM CDT [facility] 08/14/2022 9:46 AM CDT us Reanna Vance MD LABORATORY Final Res ult Performing Organization Address City[facility]/ZIP Co de Phone Number [facility] [address] [place], [place] [id number], * (ABNORMAL) COMPREHENSIVE METABOLIC PANEL (08/14/2022 9:46 AM CDT) SODIUM S/P/B 139 136 - 145 MMOL/L 08/14/2022 10:11 AM CDT [facility] POTASSIUM S/P/B 3.2(L) 3.5 - 5.1 MMOL/L 08/14/2022 10:11 AM CDT [facility] CHLORIDE S/P/B 101 98 - 107 MMOL/L 08/14/2022 10:11 AM CDT [facility] CO2 24.2 21.0 - 32.0 MMOL/L 08/14/2022 10:11 AM CDT [facility] GLUCOSE 134(H) 70 - 99 MG/DL 08/14/2022 10:11 AM CDT [facility] Comment: FASTING GLUCOSE 100 TO 125 MG/DL IS CONSISTENT WITH IMPAIRED FASTING GLUCOSE. FASTING GLUCOSE >125 MG/DL IS CONSISTENT WITH DIABETES. RANDOM GLUCOSE >200 MG/DL WITH HYPERGLYCEMIC SYMPTOMS IS CONSISTENT WITH DIABETES. PER ADA GUIDELINES BUN 8 6 - 24 MG/DL 08/14/2022 10:11 AM CDT [facility] CREATININE S/P/B 0.90 0.55 - 1.02 MG/DL 08/14/2022 10:11 AM CDT [facility] CALCIUM S/P/B 9.0 8.4 - 10.5 MG/DL 08/14/2022 10:11 AM CDT [facility] BILIRUBIN TOTAL S/P/B 0.4 0.2 - 1.0 MG/DL 08/14/2022 10:11 AM CDT [facility] Comment: THIS ASSAY IS NOT RECOMMENDED FOR PATIENTS UNDERGOING TREATMENT WITH ELTROMBOPAG DUE TO THE POTENTIAL FOR FALSELY ELEVATED RESULTS. ALKALINE PHOSPHATASE S/P/B 62 52 - 144 U/L 08/14/2022 10:11 AM CDT [facility] AST 16 15 - 37 U/L 08/14/2022 10:11 AM CDT [facility] ALT 15 14 - 59 U/L 08/14/2022 10:11 AM CDT [facility] TOTAL PROTEIN S/P/B 7.4 6.4 - 8.2 G/DL 08/14/2022 10:11 AM CDT [facility] ALBUMIN S/P/B 4.4 3.4 - 5.0 G/DL 08/14/2022 10:11 AM CDT [facility] ANION GAP 13.8 5.0 - 15.0 MMOL/L 08/14/2022 10:11 AM CDT [facility] OSMOLALITY (CALC) 288 MOSM/KG 022 10:11 AM CDT [facility] Comment:REFERENCE RANGE NOT ESTABLISHED GFR ESTIMATE >90 >89 ML/MIN/1. 73 M2 08/14/2022 10:11 AM CDT [facility] GFR NOTES GFR REFERENCE S: 08/14/2022 10:11 AM T [facility] Comment: THE ESTIMATED GFR IS CALCULATED [...] Reanna Vance MD LABORATORY Final Res ult [facility] [address] [place] [address], * (ABNORMAL) CBC W/DIFF AUTOMATED (08/14/2022 9:46 AM CDT) WBC 5.3 4.0 - 10.8 x10'3/uL 08/14/2022 9:56 AM CDT [facility] RBC 4.04(L) 4.10 - 5.40 x10'6/uL 08/14/2022 9:56 AM CDT [facility] HGB 12.3 12.0 - 16.0 G/DL 08/14/2022 9:56 AM CDT [facility] HCT 36.3 36.0 - 47.0 % 08/14/2022 9:56 AM CDT [facility] MCV 89.9 78.0 - 100.0 FL 08/14/2022 9:56 AM CDT [facility] MCH 30.4 27.0 - 31.0 PG 08/14/2022 9:56 AM CDT [facility] MCHC 33.9 33.0 - 36.0 G/DL 08/14/2022 9:56 AM CDT [facility] RDW 12.1 11.5 - 14.5 % 08/14/2022 9:56 AM CDT [facility] PLT 339 150 - 350 x10'3/uL 08/14/2022 9:56 AM CDT [facility] MPV 9.3 7.4 - 10.4 FL 08/14/2022 9:56 AM CDT [facility] DIFFERENTIAL COMMENT NORMAL REFERENCE RANGE NOT ESTABLISHED FOR THE PROPORTIONAL LEUKOCYTE DIFFERENTIAL. 08/14/2022 9:56 AM CDT [facility] SEG NEUTROPHILS 62.8 % 9:56 AM CDT [facility] LYMPHOCYTES 31.8 % 08/14/2022 9:56 AM CDT [facility] MONOCYTES 4.4 % 08/14/2022 9:56 AM CDT [facility] EOSINOPHILS 0.6 % 08/14/2022 9:56 AM CDT [facility] BASOPHILS 0.2 % 08/14/2022 9:56 AM CDT [facility] IMMATURE GRANS % 0.2 % 08/14/20 9:56 AM CDT [facility] NRBC 0.0 % 08/14/2022 9:56 AM CDT [facility] ABS. NEUTROPHILS 3.30 1.60 - 8.30 x10'3/uL 08/14/2022 9:56 AM CDT [facility] ABS. LYMPHOCYTES 1.67 0.80 - 4.70 x10'3/uL 08/14/2022 9:56 AM CDT [facility] ABS. MONOCYTES 0.23 0.00 - 1.50 x10'3/uL 08/14/2022 9:56 AM CDT [facility] ABS. EOSINOPHILS 0.03 0.00 - 0.40 x10'3/uL 08/14/2022 9:56 AM CDT [facility] ABS. BASOPHILS 0.01 0.00 - 0.20 x10'3/uL 08/14/2022 9:56 AM CDT [facility] ABS. IMMATURE GRANULOCYTES 0.01 0.00 - 0.03 x10'3/uL 08/14/2022 9:56 AM CDT [facility] ABS. NUCLEATED RBC'S 0.00 0.00 x10'3/uL 08/14/2022 9:56 AM CDT [facility] 08/14/2022 9:46 AM CDT us Reanna Vance MD LABORATORY Final Res ult [facility] [address] [place] [address], documented in this encounter Visit Diagnoses Diagnosis [...] RTR) documented in this encounter Care Teams Magnetic Tape Composer Operator Relationship Specialty Start Date End Date Oziel Burt MD [address] [place] [phone] PCP - General FAMILY PRACTICE 09/13/21 documented as of this encounter
--- OUTSIDE RECORDS SUMMARY | 2024-12-07 17:48 | XMS_ITS | Encounter Summary ---
Author Organization [facility] Address [address] [place] [address]. [place] [address] [place] [address] Care Team Providers Care Optics Engineer Name Role Phone Oziel Burt MD Primary Care Provider [phone] Reason for Visit * Reason Onset Date Comments Medication 08/13/2022 Encounter Details Date Type Department Care Team (Late st Contact Info) Description 08/13/2022 Telephone [facility] [address] [phone] Jess Lujan MD [address] [place] [address] Medication Social History Tobacco Use Types Packs/Day Years Used Date Smoking Tobacco: Never Smokeless Tobacco: Never Comments No Sex and Gender Information Value Date Recorded Sex Assigned at Not on file Legal Sex Female 5:55 PM EMBOSSED OR IMPRESSED LETTERING PAINTER Gender Identity Not on file Sexual Orientation Not on file COVID-19 Exposure Response Date Recorded In the last 10 days, have yo u been in contact with someone who was confirmed or suspected to have Coronavirus/COVID-19? No / Unsure 07/24/2022 10:42 PM CDT documented as of this encounter Progress Notes * Mina Vega MA - 08/13/2022 9:13 AM CDT Refill sent to in [facility]. I left her a detailed msg informing [...] convulsions documented in this encounter Care Teams Optics Engineer Relationship Specialty Start Date End Date Oziel Burt MD [address] [address] PCP - General FAMILY PRACTICE 09/13/21 documented as of this encounter
--- OUTSIDE RECORDS SUMMARY | 2024-12-07 17:48 | XMS_ITS | Encounter Summary ---
Author Organization [facility] Address [address] [place] [address]. [place], [place] [address] [place] [address] Care Team Providers Care Chief Construction Inspector Name Role Phone Oziel Burt MD Primary Care Provider [phone] Encounter Details Date Type Department Care Team (Latest Contact Info) Description 08/14/2022 Travel Social History Tobacco Use Types Packs/Day Years Used Date Smoking Tobacco: Never Smokeless Tobacco: Never Comments No Sex and Gender Information Value Date Recorded Sex Assigned at Not on file Legal Sex Female 5:55 PM ROUTE SERVICE REPRESENTATIVE Gender Identity Not on file Sexual [...] filedocumented in this encounter Care Teams Chief Construction Inspector Relationship Specialty Start Date End Date Oziel Burt MD [address] [place] [phone] PCP - General FAMILY PRACTICE 09/13/21 documented as of this encounter
--- OUTSIDE RECORDS SUMMARY | 2024-12-07 17:48 | XMS_ITS | Encounter Summary ---
Author Organization [facility] Address [address] [place] [address]. [place], [place] [address] [place] [address] Care Team Providers Care Plush Weaver Name Role Phone Oziel Burt MD Primary Care Provider [phone] Encounter Details Date Type Department Care Team (Latest Contact Info) Description 07/24/2022 Travel Social History Tobacco Use Types Packs/Day Years Used Date Smoking Tobacco: Never Smokeless Tobacco: Never Comments No Sex and Gender Information Value Date Recorded Sex Assigned at Not on file Legal Sex Female 5:55 PM MANAGER CHANGE Gender Identity Not on file Sexual Orientation [...] on filedocumented in this encounter Care Teams Plush Weaver Relationship Specialty Start Date End Date Oziel Burt MD [address] [place] [phone] PCP - General FAMILY PRACTICE 09/13/21 documented as of this encounter
--- OUTSIDE RECORDS SUMMARY | 2024-12-07 17:48 | XMS_ITS | Encounter Summary ---
Author Organization [facility] Address [address] [place] [address]. [place], [place] [address] [place] [address] Care Team Providers Care Pay Clerk Name Role Phone Unavailable Primary Care Provider Unavailabl e Encounter Details Date Type Department Care Team (Late st Contact Info) Description 2002 Abstract [facility] [address] [place] [address] Oziel Burt MD [address] [place] [address] Social History Tobacco Use Types Packs/Day Years Used Date Smoking Tobacco: Never Assessed Comments Unknown Sex and Gender Information Value Date Recorded Sex Assigned at Not on file Legal Sex Female 5:55 PM TRACK AND FIELD COACH Gender Identity Not on file Sexual Orientation Not on file documented as of this encounter Plan of Treatment Not on file documented as of this encounter Visit Diagnoses Not on filedocumented in this encounter
--- OUTSIDE RECORDS SUMMARY | 2024-12-07 17:48 | XMS_ITS | Encounter Summary ---
Author Organization [facility] Address [address] [place] [address]. [place], [place] [address] [place] [address] Care Team Providers Care Furniture Restorer Name Role Phone Oziel Burt MD Primary Care Provider [phone] Encounter Details Date Type Department Care Team (Latest Contact Info) Description 11/18/2021 Travel Social History Tobacco Use Types Packs/Day Years Used Date Smoking Tobacco: Never Smokeless Tobacco: Never Comments No Sex and Gender Information Value Date Recorded Sex Assigned at Not on file Legal Sex Female 5:55 PM HUMAN SERVICES WORKER Gender Identity Not on file Sexual Orientation Not on file COVID-19 Exposure Response Date Recorded In the last month, have you been in contact with someone who was confirmed or suspected to have Coronavirus / COVID-19? No / Unsure 11/18/2021 10:02 AM HUMAN SERVICES WORKER documented as of this encounter Plan of Treatment Not on file documented as of this encounter Visit Diagnoses Not on filedocumented in this encounter Care Teams Furniture Restorer Relationship Specialty Start Date End Date Oziel Burt MD [address] [place] [phone] PCP - General FAMILY PRACTICE 09/13/21 documented as of this encounter
--- OUTSIDE RECORDS SUMMARY | 2024-12-07 17:48 | XMS_ITS | Encounter Summary ---
Author Organization [facility] Address [address] [place] [address]. [place], [place] [address] [place] [address] Care Team Providers Care Head Of Acquisitions Name Role Phone Unavailable Primary Care Provider Unavailabl e Encounter Details Date Type Department Care Team (Late st Contact Info) Description 02/09/2019 Abstract [facility] [address] [place] [address] [place] [address] Abraham Morel MD [address] [place] [address] Social History Tobacco Use Types Packs/Day Years Used Date Smoking Tobacco: Never Assessed Comments Unknown Sex and Gender Information Value Date Recorded Sex Assigned at Not on file Legal Sex Female 5:55 PM ETIQUETTE COACH Gender Identity Not on file Sexual Orientation Not on file documented as of this encounter Plan of Treatment Not on file documented as of this encounter Visit Diagnoses Diagnosis Contusion of other part of head, initial encounter documented in this encounter
--- OUTSIDE RECORDS SUMMARY | 2024-12-07 17:48 | XMS_ITS | Encounter Summary ---
Author Organization [facility] Address [address] [place] [address]. [place], [place] [address] [place] [address] Care Team Providers Care Auto Body Painter Name Role Phone Oziel Burt MD Primary Care Provider [phone] Encounter Details Date Type Department Care Team (Latest Contact Info) Description 11/22/2021 Travel Social History Tobacco Use Types Packs/Day Years Used Date Smoking Tobacco: Never Smokeless Tobacco: Never Comments No Sex and Gender Information Value Date Recorded Sex Assigned at Not on file Legal Sex Female 5:55 PM WEB PROGRAMMER Gender Identity Not on file Sexual Orientation Not on file COVID-19 Exposure Response Date Recorded In the last month, have you been in contact with someone who was confirmed or suspected to have Coronavirus / COVID-19? No / Unsure 11/22/2021 3:43 PM WEB PROGRAMMER documented as of this encounter Plan of Treatment Not on file documented as of this encounter Visit Diagnoses Not on filedocumented in this encounter Care Teams Auto Body Painter Relationship Specialty Start Date End Date Oziel Burt MD [address] [facility] [place] [address] PCP - General FAMILY PRACTICE 09/13/21 documented as of this encounter
--- OUTSIDE RECORDS SUMMARY | 2024-12-07 17:48 | XMS_ITS | Encounter Summary ---
Author Organization [facility] Address [address] [place] [address]. [place], [place] [address] [place] [address] Care Team Providers Care Audio Visual Specialist Name Role Phone Oziel Burt MD Primary Care Provider Encounter Details Date Type Department Care Team (Late st Contact Info) Description 05/07/2019 Abstract SFL CONVERSION [address] [place] [address] , Generic Conversion, Social History Tobacco Use Types Packs/Day Years Used Date Smoking Tobacco: Never Assessed Comments Unknown Sex and Gender Information Value Date Recorded Sex Assigned at Not on file Legal Sex Female 5:55 PM ASSOCIATE PROFESSOR OF LIBRARY MEDIA Gender Identity Not on file Sexual Orientation Not on file documented as of this encounter Plan of Treatment Not on file documented as of this encounter Visit Diagnoses Not on filedocumented in this encounter Care Teams Audio Visual Specialist Relationship Specialty Start Date End Date Oziel Burt MD [address] [place] [address] PCP - General FAMILY PRACTICE 09/13/21 documented as of this encounter
--- OUTSIDE RECORDS SUMMARY | 2024-12-07 17:48 | XMS_ITS | Encounter Summary ---
Author Organization [facility] Address [address] [place] [address]. [place], [place] [address] [place] [address] Care Team Providers Care Guillotine Trimmer Name Role Phone Oziel Burt MD Primary Care Provider [phone] Reason for Referral * Imaging (Routine) - Closed Specialty Diagnoses / Procedures Referred By Cosmo gonzalez Referred To Contact RADIOLOGY Diagnoses Seizure ([facility]) Procedures MRI BRAIN WWO CON Moises Cadena MD [address] [place] [address] Phone: tel: fax: Referral ID Status Reason Start Date Expiration Date Visits Re quested Visits Authorized [id number] Closed 11/13/2021 01/11/2022 1 1 [employer] Reason for Visit * Imaging (Routine) - Closed Specialty Diagnoses / Procedures Referred By Cosmo gonzalez Referred To Contact RADIOLOGY Diagnoses Seizure ([facility]) Procedures MRI BRAIN WWO CON Moises Cadena MD [address] [place] [address] Phone: tel: fax: Referral ID Status Reason Start Date Expiration Date Visits Re quested Visits Authorized [id number] Closed 11/13/2021 01/11/2022 1 1 Encounter Details Date Type Department Care Team (Latest Contact Info) Description 11/18/2021 10:00 AM [employer] - 11/18/2021 11:59 PM [employer] Hospital Encounter [facility] [address] [place] [address] Moises Harper MD [address] [address] Discharge Disposition: Home or Self Care (Routine Discharge) Social History Tobacco Use Types Packs/Day Years Used Date Smoking Tobacco: Never Smokeless Tobacco: Never Comments No Sex and Gender Information Value Date Recorded Sex Assigned at Not on file Legal Sex Female 5:55 PM [employer] Gender Identity Not on file Sexual Orientation Not on file COVID-19 Exposure Response Date Recorded In the last month, have you been in contact with someone who was confirmed or suspected to have Coronavirus / COVID-19? No / Unsure 11/18/2021 10:02 AM [employer] documented as of this encounter Medications at [...] WWO CON Routine 11/18/2021 11: 17 AM [employer] Seizure (CMS/HCC HHS/HCC) documented in this encounter Results * MRI BRAIN WWO CON (11/18/2021 11:17 AM [employer]) Anatomical Region Laterality Modality Head Magnetic Resonan ce 11/18/2021 11:4 1 AM [employer] Impressions 11/18/2021 2:56 PM [employer] IMPRESSION: Normal appearance of the brain Ordered By: MOISES CADENA Interpreted By: Keo Buchanan MD, 11/18/2021 11:41 AM Narrative 11/18/2021 2:56 PM [employer] Examination: MRI BRAIN [facility], 11/18/2021 11:41 AM. Technique: Axial and sagittal [...] Buchanan MD - 11/18/2021 Examination: MRI BRAIN [facility], 11/18/2021 11:41 AM. Technique: Axial and sagittal [...] Thu11/18/21 at 1043 Given 11/18/2021 10:43 AM [employer] 15 mLs documented in this encounter Care Teams Guillotine Trimmer Relationship Specialty Start Date End Date Oziel Burt MD [address] [place] [address] PCP - General FAMILY PRACTICE 09/13/21 documented as of this encounter
--- OUTSIDE RECORDS SUMMARY | 2024-12-07 17:48 | XMS_ITS | Encounter Summary ---
Author Organization [facility] Address [address] [place] [address]. [place], [place] [address] [place] [address] Care Team Providers Care Conveyor Technician Name Role Phone Unavailable Primary Care Provider Unavailabl e Encounter Details Date Type Department Care Team (Late st Contact Info) Description 01/03/2003 Abstract SFL CONVERSION [address] [place] [address] , Generic Conversion, Social History Tobacco Use Types Packs/Day Years Used Date Smoking Tobacco: Never Assessed Comments Unknown Sex and Gender Information Value Date Recorded Sex Assigned at Not on file Legal Sex Female 5:55 PM CARDIOLOGY SPECIALIST Gender Identity Not on file Sexual Orientation Not on file documented as of this encounter Plan of Treatment Not on file documented as of this encounter Visit Diagnoses Not on filedocumented in this encounter
--- OUTSIDE RECORDS SUMMARY | 2024-12-07 17:48 | XMS_ITS | Encounter Summary ---
Author Organization [facility] Address [address] [place] [address]. [place] [address] [place] [address] Care Team Providers Care Industrial Gas Fitter Name Role Phone Oziel Burt MD Primary Care Provider [phone] Reason for Visit * Reason Comments Seizures Encounter Details Date Type Department Care Team (Late st Contact Info) Description 03/11/2022 9:00 AM CDT Office Visit [facility] Neuroscience [address] [address] Moises Cadena MD [address] [place] [address] Seizures Social History Tobacco Use Types Packs/Day Years Used Date Smoking Tobacco: Never Smokeless Tobacco: Never Tobacco Cessation:Counseling Given: No Comments No Sex and Gender Information Value Date Recorded Sex Assigned at Not on file Legal Sex Female 5:55 PM SPECIFICATION MANAGER Gender Identity Not on file Sexual [...] the EEG. Impression: ICD-10-CM ICD-9-CM 1. Seizure (CMS/[facility]) R56.9 780.39 lamoTRIgine 100 MG tablet 2. [...] this encounter Visit Diagnoses Diagnosis Seizure (CMS/HCC [facility]/HCC)- Primary Other convulsions Auras Other symptoms involving nervous and musculoskeletal systems documented in this encounter Care Teams Industrial Gas Fitter Relationship Specialty Start Date End Date Oziel Burt MD [address] [place] [address] PCP - General FAMILY PRACTICE 09/13/21 documented as of this encounter
--- OUTSIDE RECORDS SUMMARY | 2024-12-07 17:48 | XMS_ITS | Encounter Summary ---
Author Organization [facility] Address [address] [place] [address]. [place], [place] [address] [place] [address] Care Team Providers Care Executive Communications Manager Name Role Phone Oziel Burt MD Primary Care Provider [phone] Encounter Details Date Type Department Care Team (Latest Contact Info) Description 09/26/2021 9:33 AM CDT - 09/26/2021 11:59 PM CDT Hospital Encounter [facility] Electrodiagnostic [address] [place] [address] Fanta Burt, LOCOMOTIVE BOILERMAKER [address] [place] [address] Discharge Disposition: Home or Self Care (Routine Discharge) Social History Tobacco Use Types Packs/Day Years Used Date Smoking Tobacco: Never Smokeless Tobacco: Never Comments No Sex and Gender Information Value Date Recorded Sex Assigned at Not on file Legal Sex Female 5:55 PM BISTRO ATTENDANT Gender Identity Not on file Sexual Orientation [...] * EEG (09/26/2021 10:00 AM CDT) Narrative [facility] - 09/26/2021 10:00 AM CDT Jess [...] The EKG channel was unremarkable. Fanta Burt [facility] NEUROLOGY ORDERABLES Edited Re sult - Final [facility] [address] [place] [address], [id number] documented in this encounter Visit Diagnoses Diagnosis Seizure-like activity (CMS/HCC HHS/HCC) Other convulsions documented in this encounter Care Teams Executive Communications Manager Relationship Specialty Start Date End Date Oziel Burt MD [address] [facility] [place] [address] PCP - General FAMILY PRACTICE 09/13/21 documented as of this encounter
--- OUTSIDE RECORDS SUMMARY | 2024-12-07 17:48 | XMS_ITS | Encounter Summary ---
Author Organization [facility] Address [address] [place] [address]. [place] [address] [place] [address] Care Team Providers Care Elastic Attacher Overlock Name Role Phone Oziel Burt MD Primary Care Provider [phone] Reason for Visit * Reason Comments Seizures Encounter Details Date Type Department Care Team (Late st Contact Info) Description 09/10/2022 9:00 AM CDT Telemedicine [facility] Neuroscience [address] [address] Moises Cadena MD [address] [place] [address] Seizures Social History Tobacco Use Types Packs/Day Years Used Date Smoking Tobacco: Never Smokeless Tobacco: Never PHQ-2 Answer Date Recorded PHQ-2 Score - If the patient scores above 3, please move on to questions 3-9 0 09/10/2022 Comments No Sex and Gender Information Value Date Recorded Sex Assigned at Not on file Legal Sex Female 5:55 PM BUSINESS INTEGRATION MANAGER Gender Identity Not on file Sexual [...] Impression: ICD-10-CM ICD-9-CM 1. Seizure (CMS/[facility]) R56.9 780.39 lamoTRIgine (LAMICTAL) 100 MG tablet [...] patient aware that the same confidentiality and health information assistant practices apply. The patient joined the video visit from Home. I completed the virtual visit from Office. The following clinical staff helped with this visit MA: Mina and ANNA. Total Time Spent in Minutes: 25 Plan discussed with patient who voiced understanding and agreed with the plan. Portions of this note were created using voice recognition software, please excuse any typos. MOISES CADENA MD documented in this encounter Plan of Treatment Not on file documented as of this encounter Visit Diagnoses Diagnosis Seizure (CMS/HCC [facility]/HCC) Other convulsions documented in this encounter Care Teams Elastic Attacher Overlock Relationship Specialty Start Date End Date Oziel Burt MD [address] [facility] [place] [address] PCP - General FAMILY PRACTICE 09/13/21 documented as of this encounter
--- OUTSIDE RECORDS SUMMARY | 2024-12-07 17:48 | XMS_ITS | Encounter Summary ---
Author Organization [facility] Address [address] [place] [address]. [place] [address] [place] [address] Care Team Providers Care Theology Professor Name Role Phone Oziel Burt MD Primary Care Provider Reason for Visit * Reason Onset Date Comments Concerns 11/18/2021 Encounter Details Date Type Department Care Team (Late st Contact Info) Description 11/18/[address] [address] Jess Lujan MD [address] [place] [address] Concerns Social History Tobacco Use Types Packs/Day Years Used Date Smoking Tobacco: Never Smokeless Tobacco: Never Comments No Sex and Gender Information Value Date Recorded Sex Assigned at Not on file Legal Sex Female 5:55 PM CLINICAL INSTRUCTOR Gender Identity Not on file Sexual Orientation Not on file COVID-19 Exposure Response Date Recorded In the last month, have you been in contact with someone who was confirmed or suspected to have Coronavirus / COVID-19? No / Unsure 11/18/2021 10:02 AM CLINICAL INSTRUCTOR documented as of this encounter Progress Notes * Kiki Barnett, TUBE WINDER HAND - 11/19/2021 9:18 AM CST Called Na back. She states that patient is back on the schedule to get wisdom teeth removed. Jacob edwards needs letter. ICAL INSTRUCTOR * Kiki Barnett CMA - 11/19/2021 9:[address] [place]. See if they need a letter. ICAL INSTRUCTOR ICAL INSTRUCTOR * Kiki Barnett CMA - 11/18/2021 12:22 PM CST Please advise. ICAL INSTRUCTOR * Brynn Mendez RN - 11/18/2021 12:18 [...] call back for neurological clearance for procedure. ICAL INSTRUCTOR documented in this encounter Plan of Treatment Not on file documented as of this encounter Visit Diagnoses Not on filedocumented in this encounter Care Teams Theology Professor Relationship Specialty Start Date End Date Oziel Burt MD [address] [facility] [place] [address] PCP - General FAMILY PRACTICE 09/13/21 documented as of this encounter
--- OUTSIDE RECORDS SUMMARY | 2024-12-07 17:48 | XMS_ITS | Encounter Summary ---
Author Organization [facility] Address [address] [place] [address]. [place], [place] [address] [place] [address] Care Team Providers Care Typing Office Worker Name Role Phone Oziel Burt MD Primary Care Provider [phone] Encounter Details Date Type Department Care Team (Latest Contact Info) Description 11/12/2021 Travel Social History Tobacco Use Types Packs/Day Years Used Date Smoking Tobacco: Never Smokeless Tobacco: Never Comments No Sex and Gender Information Value Date Recorded Sex Assigned at Not on file Legal Sex Female 5:55 PM NURSE OFFICE Gender Identity Not on file Sexual Orientation Not on file COVID-19 Exposure Response Date Recorded In the last month, have you been in contact with someone who was confirmed or suspected to have Coronavirus / COVID-19? No / Unsure 11/12/2021 2:01 PM NURSE OFFICE documented as of this encounter Plan of Treatment Not on file documented as of this encounter Visit Diagnoses Not on filedocumented in this encounter Care Teams Typing Office Worker Relationship Specialty Start Date End Date Oziel Burt MD [address] [facility] [place] [address] PCP - General FAMILY PRACTICE 09/13/21 documented as of this encounter
--- OUTSIDE RECORDS SUMMARY | 2024-12-07 17:48 | XMS_ITS | Encounter Summary ---
Author Organization [facility] Address [address] [facility] [place] [address] Care Team Providers Care Freight Weigher Name Role Phone Oziel Burt MD Primary Care Provider [phone] Reason for Visit * Auth/Cert Specialty Diagnoses / Procedures Referred By Cosmo gonzalez Referred To Contact Procedures LAPAROSCOPIC CHOLECYSTECTOMY WITH CHOLANGIOGRAM (IOC) Referral ID Status Reason Start Date Expiration Date Visits Re quested Visits Authorized [id number] 1 1 Encounter Details Date Type Department Care Team (Late st Contact Info) Description 08/21/2022 9:25 AM CDT - 08/21/2022 11:20 AM CDT Surgery [facility] [address] [place] [address] Andrei Buenrostro MD [address] [facility] [address] [place] [address] LAPAROSCOPIC CHOLECYSTECTOMY Surgery Details Date/Time Status Location OR Service Patient Class Case Class Case Type Trauma Case? 08/21/2022 9:25 AM Posted [facility] OR OR 01 General Surgery [...] results for input(s): AMYLASE in the last 31178 hours. Recent Labs Component Name 08/15/22 0718 SODIUM 141 POTASSIUM 4.0 CHLORIDE 108* CO2 23 BUN 6* CREATININE 0.68 GLUCOSE 91 CALCIUM 9.1 Recent Labs Component Name 08/15/22 0718 ALKPHOS 50 Recent Labs Component Name 08/15/22 0718 TBIL 0.6 Recent Labs Component Name 08/15/22 0718 WBC 6.0 HGB 10.9* HCT 32.0* PLTCOUNT 315 No results for input(s): LIPASE in the last 44681 hours. Radiology:reviewed Assessment: Cholelithiasis, biliary colic Plan: Laparoscopic cholecystectomy today documented in this encounter OR Notes * Operative - Andrei Buenrostro MD - 08/21/2022 11:33 AM CDT [facility] OPERATIVE REPORT PATIENT NAME: JENNIFER PATTON MR#: [id number] ROOM#: [id number] CSN: [id number] SURGEON: ANDREI BUENROSTRO M.D. SEX: F : 2000 SURGERY DATE: 08/21/2022 SAP BW CONSULTANT: PREOPERATIVE DIAGNOSES: Cholelithiasis, biliary colic. POSTOPERATIVE DIAGNOSES: Cholelithiasis, biliary colic. ANESTHESIA: General. PROCEDURE: Laparoscopic cholecystectomy. DESCRIPTION OF PROCEDURE: The patient was placed on the operating table in supine position. General anesthesia was induced. Venodynes were positioned. The abdomen was prepped and draped in standard fashion. Soddy Daisy protocol time- out was performed. Landmarks were [...] patient tolerated the procedure well. IGORM/MODL #: [id number] * Operative - Andrei Buenrostro MD - 08/21/2022 10:10 AM CDT Surgeon: Andrei Buenrostro MD Hopper Attendant: naz barahona Preoperative Diagnosis: cholelithiasis, colic Postoperative Diagnosis: same Type of anesthesia: General Procedure: laparoscopic cholecystectomy Findings: see dictated note Disposition: PACU Status: Stable Drains: none Pack: none Complications: none EBL: Negligable Tissue removed/specimens: Sent to pathology Operative note dictated: yes documented in this encounter Miscellaneous Notes * Clinical References AVAndrés - Asher Abebe RN - 08/21/2022 12:12 PM CDT [id number] Oxycodone/Acetaminophen Oral Tablet Endocet, Percocet, Primlev Uses [...] medicines you take. Include both prescription and hlbz-guh-oyimcyd medicines. Also tell them about any vitamins, [...] you have any questions about this medicine. [email or web address] IMPORTANT NOTE: This document tells you briefly how to take your medicine, but it does not tell youall there is to know about it. Your doctor or pharmacist may give you other documents about your medicine. Please talk to them if you have any questions. Always follow their advice. There is a more complete description of this medicine available in Uzbek. Scan this code on your smartphone or tablet or use the web address below. You can also ask your pharmacist for a printout. If you have any questions, please ask your pharmacist. ?? 2020 [employer] ?? 5728-6898 The [employer]. All rights reserved. This information is not intended as a substitute for professional medical care. Always follow your healthcare professional's instructions. documented in this encounter Plan of Treatment Not on file documented as of this encounter Procedures Procedure Name Priority Date/Time Associated Diagnosis Comments CARDIAC RHYTHM STRIP ORDER 08/25/2022 5:13 PM CDT PATHOLOGY TISSUE EXAM (STL) Routine 08/21/2022 10:30 AM CDT Diagnosis unknown AK LAP,CHOLECYSTECTOMY 08/21/2022 9:20 AM CDT HCG URINE [...] Case Report Surgical Pathology Report ? Case: [id number] ? Authorizing Provider: ??Andrei Buenrostro MD ??Collected: ? 08/21/2022 10:30 AM ? Ordering Location: ? [facility] ? Received: ?08/21/2022 01:49 PM ? Pathologist: ? Akanksha Jade MD ? Specimen: ?Gallbladder ? 08/22/2022 2:51 PM [facility] Final Diagnosis Gallbladder, laparoscopic cholecystectomy: - Chronic cholecystitis - Cholelithiasis - Negative for malignancy 08/22/2022 2:51 PM [facility] Clinical History 21-year-old female presenting with abdominal pain. 08/22/2022 2:51 PM [facility] Gross Description One specimen received [...] yellow red appearance with moderate yellow stippling. Cleaning Validation Consultant sections are submitted in A1. 08/22/2022 2:51 PM [facility] Microscopic Description Microscopic examination supports the final diagnosis. 08/22/2022 2:51 PM [facility] Disclaimer All histochemical and/or immunohistochemical results are interpreted with controls that demonstrate appropriate staining reactions before reporting results. Note on use of immunocytochemistry reagents: This test was developed and its performance characteristic determined by [facility], Department of Laboratory Medicine. It has not [...] be interpreted with caution. 08/22/2022 2:51 PM [facility] Performed By [facility] at [facility], [address] [place] [address]. [id number]. 08/22/2022 2:51 PM [facility] Embedded Images 08/22/2022 2:51 PM [facility] Pathology/Cytolo gy ENTIRE GALLBLADDER / Unknown 08/21/2022 10:30 AM CDT 08/21/2022 1:49 PM CDT Andrei Buenrostro MD LAB - PATHOLOGY/ CYTOLOGY ORDERABLES Performing Organization Address [facility] Co de Phone Number [facility] [address] [place] [address] * HCG URINE QUAL POCT NOTIFICATION (08/21/2022 9:02 AM CDT) Comment Notification Label Only - See Separate Report 08/21/2022 9:02 AM CDT [facility] Urine URINE / Unknown 7:54 AM CDT Dinh Fonseca MD LAB - URINALYSIS ORD ERABLES Performing Organization Address [facility] Co de Phone Number [facility] [address] [place] [address] * HCG URINE QUALITATIVE - POCT (IP) INTERFACED (08/21/2022 7:56 AM CDT) HCG Qual Urine Negative Negative 08/21/2022 8:02 AM CDT [facility] Urine URINE / Unknown 08/21/2022 7 :56 AM CDT 08/21/2022 8:02 AM CDT Andrei Buenrostro MD LAB - POINT OF C ARE ORDERABLES Performing Organization Address [facility] Co de Phone Number [facility] [address] [place] [address] documented in this encounter Visit Diagnoses Not on filedocumented in this encounter Administered Medications Inactive Administered Medications - up to 3 most recent administrations Medication Order MAR Action Action Date Dose Rate Site 0.9% NaCl infusion at 75 mL/hr, Intravenous, CONTINUOUS, Starting on Mirta 08/21/22 at 1200, Until Imrta 08/21/22 at 1354, Post-op 0.9% NaCl irrigation [...] (Anesthesia Volume Adjustment - Provider: Angeles Smith APRN-GENERAL FARMWORKER) PRN Medication Order 08/19/2022 08/20/2022 08/21/2022 0.9% NaCl irrigation (SO) solution (CANCELED) PRN, Starting on Mirta 08/21/22 at 1016, Until Mirta 08/21/22 at 1057, Intra-op 1010 ($ Given - Prov ider: Andrei Buenrostro MD - Comment: back table)1025 ($ Given - Provider: Andrei Buenrostro MD - Comment: warm; for use with suction channel man) bupivacaine 0.5% - EPINEPHrine 1:200,000 (PF) injection [...] Post-op documented in this encounter Care Teams Freight Weigher Relationship Specialty Start Date End Date Oziel Burt MD [address] [place] [address] PCP - General Family Medicine 08/21/22 documented as of this encounter
--- OUTSIDE RECORDS SUMMARY | 2024-12-07 17:48 | XMS_ITS | Encounter Summary ---
Author Organization [facility] Address [address] [place] [address]. [place], [place] [address] [place] [address] Care Team Providers Care Office Associate Name Role Phone Oziel Burt MD Primary Care Provider [phone] Encounter Details Date Type Department Care Team (Latest Contact Info) Description 03/10/2022 Travel Social History Tobacco Use Types Packs/Day Years Used Date Smoking Tobacco: Never Smokeless Tobacco: Never Comments No Sex and Gender Information Value Date Recorded Sex Assigned at Not on file Legal Sex Female 5:55 PM NET REPAIRER Gender Identity Not on file Sexual Orientation [...] on filedocumented in this encounter Care Teams Office Associate Relationship Specialty Start Date End Date Oziel Burt MD [address] [place] [phone] PCP - General FAMILY PRACTICE 09/13/21 documented as of this encounter
--- OUTSIDE RECORDS SUMMARY | 2024-12-07 17:48 | XMS_ITS | Encounter Summary ---
Author Organization [facility] Address [address] [place] [address]. [place], [place] [address] [place] [address] Care Team Providers Care Ditch Worker Name Role Phone Oziel Burt MD Primary Care Provider [phone] Encounter Details Date Type Department Care Team (Latest Contact Info) Description 09/26/2021 Travel Social History Tobacco Use Types Packs/Day Years Used Date Smoking Tobacco: Never Smokeless Tobacco: Never Comments No Sex and Gender Information Value Date Recorded Sex Assigned at Not on file Legal Sex Female 5:55 PM DEVELOPER DESIGNER Gender Identity Not on file Sexual Orientation [...] on filedocumented in this encounter Care Teams Ditch Worker Relationship Specialty Start Date End Date Oziel Burt MD [address] [place] [phone] PCP - General FAMILY PRACTICE 09/13/21 documented as of this encounter
--- OUTSIDE RECORDS SUMMARY | 2024-12-07 17:48 | XMS_ITS | Encounter Summary ---
Author Organization [facility] Address [address] [place] [address]. [place], [place] [address] [place] [address] Care Team Providers Care Videogame Designer Name Role Phone Oziel Burt MD Primary Care Provider Reason for Visit * Reason Comments Seizure- New Onset Encounter Details Date Type Department Care Team (Late st Contact Info) Description 09/13/2021 2:49 PM CDT - 09/13/2021 5:00 PM CDT Emergency [facility] [address] [place] [address] [place] [address] Andrei Montiel MD [facility] [place] [address] Seizure- New Onset Discharge Disposition: Home or Self Care (Routine Discharge) Social History Tobacco Use Types Packs/Day Years Used Date Smoking Tobacco: Never Smokeless Tobacco: Never Comments No Sex and Gender Information Value Date Recorded Sex Assigned at Not on file Legal Sex Female 5:55 PM BANQUET KITCHEN SUPERVISOR Gender Identity Not on file Sexual [...] 09/13/2021 2:5 2 PM CDT Growth Chart: [facility] (Girls, 2- 20 Years) documented in [...] (Primary) Disposition: Discharge Andrei Montiel MD 09/13/21 [id number] * Jose Castro RN - 09/13/2021 2:52 [...] DRUG SCREEN RAPID (09/13/2021 4:19 PM CDT) [facility] CANNABINOIDS SCREEN (U) POSITIVE(A) NEGATIVE 09/13/2021 4:35 PM CDT [facility] PHENCYCLIDINE PCP (U) NEGATIVE NEGATIVE 09/13/2021 4:35 PM CDT [facility] COCAINE METABOLITES (U) NEGATIVE NEGATIVE 09/13/2021 4:35 PM CDT [facility] METHAMPHETAMINE (U) NEGATIVE NEGATIVE 09/13/2021 4:35 PM CDT [facility] OPIATE SCREEN (U) NEGATIVE NEGATIVE 021 4:35 PM CDT [facility] AMPHETAMINE (U) NEGATIVE NEGATIVE 4:35 PM CDT [facility] BENZODIAZEPINES SCREEN (U) POSITIVE(A) NEGATIVE 09/13/2021 4:35 PM CDT [facility] TRICYCLIC ANTIDEPRESSANT SCREEN (U) NEGATIVE NEGATIVE 09/13/2021 4:35 PM CDT [facility] METHADONE (U) NEGATIVE NEGATIVE 09/13/2021 4:35 PM CDT [facility] BARBITURATES SCREEN (U) NEGATIVE NEGATIVE 09/13/2021 4:35 PM CDT [facility] OXYCODONE SCREEN (U) NEGATIVE NEGATIVE 09/13/2021 4:35 PM CDT [facility] PROPOXYPHENE SCREEN (U) NEGATIVE NEGATIVE 09/13/2021 4:35 PM CDT [facility] URINE TOX COMMENT THIS TEST METHODOLOGY IS DESIGNED AND OFFERED A RAPID TURNAROUND, QUALITATIVE SCREENING PROCEDURE TO AID IN THE IMMEDIATE MEDICAL ASSESSMENT OF PATIENTS SUSPECTED OF SUBSTANCE ABUSE. 09/13/2021 4:18 PM CDT [facility] Comment: CLINICAL CONSIDERATION AND PROFESSIONAL JUDGMENT MUST BE APPLIED TO ANY DRUG OF ABUSE TEST RESULT, BOTH POSITIVE AND NEGATIVE. CONFIRMATORY QUANTITATIVE RESULTS ARE AVAILABLE THROUGH OUR REFERENCE LABORATORY. URINE SPECIMEN / Unknown 09/13/2021 4:19 PM CDT us Andrei Montiel MD URINE ORDERABLES Final Resu lt [facility] [address] [place] [address], * ECG 12 lead (09/13/2021 4:03 PM CDT) 09/13/2021 4:03 PM CDT Narrative [facility] - 09/13/2021 9:04 PM CDT ? [facility] ?[address] [place] ??[address] ? Test Date: ?2021-09-13 Pat Name: ? JENNIFER PASTROVICH ? Department: ? Room: ? EXAM 808 Gender: ? Female ? Level Vial Curvature Gauger: ?? : ?2000 ? Requested By: ANDREI MONTIEL Order Number: [id number] ? Reading MD: ?? Alen Degroot ? Measurements Intervals ?[place] ? Rate: ? 74 ? P: ?43 KS: ? 142 ?QRS: ?67 QRSD: ? 89 ? T: ?29 QT: ? 340 ? QTc: ?378 ? Interpretive Statements SINUS RHYTHM WITH SINUS ARRHYTHMIA RSR' In V1 Normal Variation Procedure Note Alen Degroot MD - 09/13/2021 [facility] [address] [facility] [place] [address] Test Date: 2021-09-13 Pat Name: JENNIFER PATTON Department: Room: EXAM 808 Gender: Female Level Vial Curvature Gauger: : 2000 Requested By: ANDREI MONTIEL Order Number: [id number] Reading MD: Alen Degroot Measurements Intervals [place] Rate: 74 P: 43 KS: 142 QRS: 67 QRSD: 89 T: 29 QT: 340 QTc: 378 Interpretive Statements SINUS RHYTHM WITH SINUS ARRHYTHMIA RSR' In V1 Normal Variation Andrei Montiel MD ECG ORDERABLES Final Resul t Performing Organization Address [facility] [[email or web address]] Co de Phone Number [facility] * ETHANOL (09/13/2021 2:55 PM CDT) ALCOHOL S/P/B <0.003 <0.003 G/DL 09/13/2021 3:42 PM CDT [facility] 09/13/2021 2:55 PM CDT Andrei Montiel MD LABORATORY Final Resul t Performing Organization Address [facility] [[email or web address]] Co de Phone Number [facility] [address] [place] [address], * HCG QUANT (SERUM)-CHORIONIC GONADOTROPIN (09/13/2021 2:55 PM CDT) HCG QUANTITATIVE <1 0.0 - 6.0 MIU/ML 09/13/2021 3:42 PM CDT [facility] Comment:NON- FEMALE 0-6 09/13/2021 2:55 PM CDT Andrei Montiel MD LABORATORY Final Resul t [facility] [address] [address], * (ABNORMAL) COMPREHENSIVE METABOLIC PANEL (09/13/2021 2:55 PM CDT) Pathologist [facility] SODIUM S/P/B 140 136 - 145 MMOL/L 09/13/2021 3:42 PM CDT [facility] POTASSIUM S/P/B 4.0 3.5 - 5.1 MMOL/L 09/13/2021 3:42 PM CDT [facility] CHLORIDE S/P/B 103 98 - 107 MMOL/L 09/13/2021 3:42 PM CDT [facility] CO2 23.9 21.0 - 32.0 MMOL/L 09/13/2021 3:42 PM CDT [facility] GLUCOSE 77 70 - 99 MG/DL 09/13/2021 3:42 PM CDT [facility] Comment: FASTING GLUCOSE 100 TO 125 MG/DL IS CONSISTENT WITH IMPAIRED FASTING GLUCOSE. FASTING GLUCOSE >125 MG/DL IS CONSISTENT WITH DIABETES. RANDOM GLUCOSE >200 MG/DL WITH HYPERGLYCEMIC SYMPTOMS IS CONSISTENT WITH DIABETES. PER ADA GUIDELINES BUN 8 6 - 24 MG/DL 09/13/2021 3:42 PM CDT [facility] CREATININE S/P/B 0.78 0.55 - 1.02 MG/DL 09/13/2021 3:42 PM CDT [facility] CALCIUM S/P/B 8.9(L) 9.1 - 10.3 MG/DL 09/13/2021 3:42 PM CDT [facility] BILIRUBIN TOTAL S/P/B 0.7 0.2 - 1.0 MG/DL 09/13/2021 3:42 PM T [facility] Comment: THIS ASSAY IS NOT RECOMMENDED FOR PATIENTS UNDERGOING TREATMENT WITH ELTROMBOPAG DUE TO THE POTENTIAL FOR FALSELY ELEVATED RESULTS. ALKALINE PHOSPHATASE S/P/B 78 52 - 144 U/L 09/13/2021 3:42 PM CDT [facility] AST 18 15 - 37 U/L 09/13/2021 3:42 PM T [facility] ALT 23 14 - 59 U/L 09/13/2021 3:42 PM CDT [facility] TOTAL PROTEIN S/P/B 8.1 6.4 - 8.2 G/DL 09/13/2021 3:42 PM T [facility] ALBUMIN S/P/B 4.7 3.4 - 5.0 G/DL 09/13/2021 3:42 PM T [facility] ANION GAP 13.1 5.0 - 15.0 MMOL/L 09/13/2021 3:42 PM T [facility] OSMOLALITY (CALC) 287 MOSM/KG 021 3:42 PM T [facility] Comment:REFERENCE RANGE NOT ESTABLISHED EGFR NON-AFR. AMER. >90 >89 ML/MIN/1. 73 M2 09/13/2021 3:42 PM T [facility] EGFR AFR. AMER. >90 >89 ML/MIN/1. 73 M2 09/13/2021 3:42 PM T [facility] GFR NOTES GFR REFERENCE S: 09/13/2021 3:42 PM T [facility] Comment: THE ESTIMATED GFR [...] Andrei Montiel MD LABORATORY Final Resul t [facility] [address] [place] [address], * (ABNORMAL) CBC W/DIFF AUTOMATED (09/13/2021 2:55 PM CDT) WBC 6.9 4.0 - 10.8 x10'3/uL 09/13/2021 3:13 PM CDT [facility] RBC 4.40 4.10 - 5.40 x10'6/uL 09/13/2021 3:13 PM CDT [facility] HGB 12.8 12.0 - 16.0 G/DL 09/13/2021 3:13 PM CDT [facility] HCT 38.7 36.0 - 47.0 % 09/13/2021 3:13 PM CDT [facility] MCV 88.0 78.0 - 100.0 FL 09/13/2021 3:13 PM CDT [facility] MCH 29.1 27.0 - 31.0 PG 09/13/2021 3:13 PM CDT [facility] MCHC 33.1 33.0 - 36.0 G/DL 09/13/2021 3:13 PM CDT [facility] RDW 12.4 11.5 - 14.5 % 09/13/2021 3:13 PM CDT [facility] PLT 407(H) 150 - 350 x10'3/uL 09/13/2021 3:13 PM CDT [facility] MPV 8.7 7.4 - 10.4 FL 09/13/2021 3:13 PM CDT [facility] DIFFERENTIAL COMMENT NORMAL REFERENCE RANGE NOT ESTABLISHED FOR THE PROPORTIONAL LEUKOCYTE DIFFERENTIAL. 09/13/2021 3:13 PM CDT [facility] SEG NEUTROPHILS 74.3 % 3:13 PM CDT [facility] LYMPHOCYTES 18.2 % 09/13/2021 3:13 PM CDT [facility] MONOCYTES 5.3 % 09/13/2021 3:13 PM CDT [facility] EOSINOPHILS 1.3 % 09/13/2021 3:13 PM CDT [facility] BASOPHILS 0.6 % 09/13/2021 3:13 PM CDT [facility] IMMATURE GRANS % 0.3 % 09/13/20 3:13 PM CDT [facility] NRBC 0.0 % 09/13/2021 3:13 PM CDT [facility] ABS. NEUTROPHILS 5.15 1.60 - 8.30 x10'3/uL 09/13/2021 3:13 PM CDT [facility] ABS. LYMPHOCYTES 1.26 0.80 - 4.70 x10'3/uL 09/13/2021 3:13 PM CDT [facility] ABS. MONOCYTES 0.37 0.00 - 1.50 x10'3/uL 09/13/2021 3:13 PM CDT [facility] ABS. EOSINOPHILS 0.09 0.00 - 0.40 x10'3/uL 09/13/2021 3:13 PM CDT [facility] ABS. BASOPHILS 0.04 0.00 - 0.20 x10'3/uL 09/13/2021 3:13 PM CDT [facility] ABS. IMMATURE GRANULOCYTES 0.02 0.00 - 0.03 x10'3/uL 09/13/2021 3:13 PM CDT [facility] ABS. NUCLEATED RBC'S 0.00 0.00 x10'3/uL 09/13/2021 3:13 PM CDT [facility] 09/13/2021 2:55 PM CDT Andrei Montiel MD LABORATORY Final Resul t [facility] [address] [place] [address], documented in this encounter Visit Diagnoses Diagnosis [...] rate of 2 mg/min. 1512 (Given - [facility] er: Eric White RN) documented in this encounter Care Teams Videogame Designer Relationship Specialty Start Date End Date Oziel Burt MD [address] [place] [address] PCP - General FAMILY PRACTICE 09/13/21 documented as of this encounter
--- OUTSIDE RECORDS SUMMARY | 2024-12-07 17:48 | XMS_ITS | Encounter Summary ---
Author Organization [facility] Address [address] [place] [address]. [place] [address] [place] [address] Care Team Providers Care Track Fitter Name Role Phone Oziel Burt MD Primary Care Provider [phone] Reason for Visit * Reason Comments Follow Up EEG Results Encounter Details Date Type Department Care Team (Latest Contact Info) Description 12/05/2021 10:20 AM E COMMERCE DEVELOPER Office Visit [facility] Neuroscience [address] [phone] Moises Harper MD [address] [place] [phone] Follow Up (EEG Results) Social History Tobacco Use Types Packs/Day Years Used Date Smoking Tobacco: Never Smokeless Tobacco: Never Tobacco Cessation:Counseling Given: No Comments No Sex and Gender Information Value Date Recorded Sex Assigned at Not on file Legal Sex Female 5:55 PM E COMMERCE DEVELOPER Gender Identity Not on file Sexual Orientation Not on file COVID-19 Exposure Response Date Recorded In the last month, have you been in contact with someone who was confirmed or suspected to have Coronavirus / COVID-19? No / Unsure 12/05/2021 7:40 AM E COMMERCE DEVELOPER documented as of this encounter Last Filed Vital Signs Vital Sign Reading Time Taken Comments Blood Pressure 112/68 12/05/2021 10:00 AM E COMMERCE DEVELOPER Pulse 80 12/05/2021 10:00 AM E COMMERCE DEVELOPER Temperature - - Respiratory Rate - - Oxygen Saturation 98% 12/05/2021 10:00 AM E COMMERCE DEVELOPER Inhaled Oxygen Concentration - - Weight 72.6 kg (160 lb) 12/05/2021 10:00 AM E COMMERCE DEVELOPER Height 162.6 cm (5' 4 ) 12/05/2021 10:00 AM E COMMERCE DEVELOPER Body Mass Index 27.46 12/05/2021 10:00 AM E COMMERCE DEVELOPER Body Mass Index Percentile 89.41% 12/05/2021 10: 00 AM E COMMERCE DEVELOPER Growth Chart: [facility] (Girls, 2- 20 Years) documented in [...] the EEG. Impression: ICD-10-CM ICD-9-CM 1. Seizure ([facility] [place]) R56.9 780.39 2. Auras R29.818 781.99 The [...] please excuse any typos. MOISES CADENA MD E COMMERCE DEVELOPER documented in this encounter Plan of Treatment Not on file documented as of this encounter Visit Diagnoses Diagnosis Seizure (CMS/HCC HHS/HCC)- Primary Other convulsions Auras Other symptoms involving nervous and musculoskeletal systems documented in this encounter Care Teams Track Fitter Relationship Specialty Start Date End Date Oziel Burt MD [address] [place] [address] PCP - General FAMILY PRACTICE 09/13/21 documented as of this encounter
--- OUTSIDE RECORDS SUMMARY | 2024-12-07 17:48 | XMS_ITS | Encounter Summary ---
Author Organization [facility] Address [address] [place] [address]. [place], [place] [address] [place] [address] Care Team Providers Care Fire Alarm Inspector Name Role Phone Oziel Burt MD Primary Care Provider [phone] Encounter Details Date Type Department Care Team (Latest Contact Info) Description 12/05/2021 Travel Social History Tobacco Use Types Packs/Day Years Used Date Smoking Tobacco: Never Smokeless Tobacco: Never Comments No Sex and Gender Information Value Date Recorded Sex Assigned at Not on file Legal Sex Female 5:55 PM WEBLOGIC ADMINISTRATOR Gender Identity Not on file Sexual Orientation Not on file COVID-19 Exposure Response Date Recorded In the last month, have you been in contact with someone who was confirmed or suspected to have Coronavirus / COVID-19? No / Unsure 12/05/2021 7:40 AM WEBLOGIC ADMINISTRATOR documented as of this encounter Plan of Treatment Not on file documented as of this encounter Visit Diagnoses Not on filedocumented in this encounter Care Teams Fire Alarm Inspector Relationship Specialty Start Date End Date Oziel Burt MD [address] [facility] [address] [place] [phone] PCP - General FAMILY PRACTICE 09/13/21 documented as of this encounter
--- OUTSIDE RECORDS SUMMARY | 2024-12-07 17:48 | XMS_ITS | Clinical Summary ---
Author Organization [facility] Address [address] [place] [address]. [place], [place] [address] [place] [address] Care Team Providers Care Straight Line Edger Name Role Phone Oziel Burt MD Primary Care Provider Allergies Active Allergy Reactions Criticality Noted Date [...] Active lamoTRIgine (LAMICTAL) 100 MG tabletIndication s:Seizure ([facility]) Take 1 tablet (100 mg total) by mouth 2 (two) times daily. 180 tablet 1 09/10/2022 Active Active Problems Problem Noted Date Diagnosed Date Epilepsy ([facility]) 03/11/2022 Immunizations Name Administration Dates Next Due [...] on file Legal Sex Female 5:55 PM RECEIVING DOCK CHECKER Gender Identity Not on file Sexual Orientation [...] to complete this topic Insurance Care Teams Straight Line Edger Relationship Specialty Start Date End Date Oziel Burt MD [address] [place] [address] PCP - General FAMILY PRACTICE 09/13/21
--- OUTSIDE RECORDS SUMMARY | 2024-12-07 17:48 | XMS_ITS | Encounter Summary ---
Author Organization [facility] Health Address [facility]3 [place] [address] Care Team Providers Care Watch Guard Gate Name Role Phone Oziel Burt MD Primary Care Provider Reason for Visit * Auth/Cert Specialty Diagnoses / Procedures Referred By Cosmo gonzalez Referred To Contact Procedures LAPAROSCOPIC CHOLECYSTECTOMY WITH CHOLANGIOGRAM (IOC) Referral ID Status Reason Start Date Expiration Date Visits Re quested Visits Authorized [id number] 1 1 Encounter Details Date Type Department Care Team (Latest Contact Info) Description 08/21/2022 7:35 AM CDT - 08/21/2022 12:48 PM CDT Hospital Encounter [facility] [address] [place] [address] Andrei Buenrostro MD [address] [facility] [address] [place] [address] Surgery General Discharge Disposition: Home or Self [...] results for input(s): AMYLASE in the last 11695 hours. Recent Labs Component Name 08/15/22 07 SODIUM 141 POTASSIUM 4.0 CHLORIDE 108* CO2 23 BUN 6* CREATININE 0.68 GLUCOSE 91 CALCIUM 9.1 Recent Labs Component Name 08/15/22 0718 ALKPHOS 50 Recent Labs Component Name 08/15/22717 TBIL 0.6 Recent Labs Component Name 08/15/22717 WBC 6.0 HGB 10.9* HCT 32.0* PLTCOUNT 315 No results for input(s): LIPASE in the last 57010 hours. Radiology:reviewed Assessment: Cholelithiasis, biliary colic Plan: Laparoscopic cholecystectomy today documented in this encounter OR Notes * Operative - Andrei Buenrostro MD - 08/21/2022 11:33 AM CDT [facility] OPERATIVE REPORT PATIENT NAME: JENNIFER PATTON MR#: [id number] ROOM#: [id number] CSN: [id number] SURGEON: ANDREI BUENROSTRO M.D. SEX: F : 2000 SURGERY DATE: 08/21/2022 RN CLINICAL COORDINATOR: PREOPERATIVE DIAGNOSES: Cholelithiasis, biliary colic. POSTOPERATIVE DIAGNOSES: Cholelithiasis, biliary colic. ANESTHESIA: General. PROCEDURE: Laparoscopic cholecystectomy. DESCRIPTION OF PROCEDURE: The patient was placed on the operating table in supine position. General anesthesia was induced. Venodynes were positioned. The abdomen was prepped and draped in standard fashion. [place] protocol time- out was performed. Landmarks were [...] patient tolerated the procedure well. DLM/MODL #: [id number] * Operative - Andrei Buenrostro MD - 08/21/2022 10:10 AM CDT Surgeon: Andrei Buenrostro MD Import/Export Agent: naz barahona Preoperative Diagnosis: cholelithiasis, colic Postoperative Diagnosis: same Type of anesthesia: General Procedure: laparoscopic cholecystectomy Findings: see dictated note Disposition: PACU Status: Stable Drains: none Pack: none Complications: none EBL: Negligable Tissue removed/specimens: Sent to pathology Operative note dictated: yes documented in this encounter Miscellaneous Notes * Clinical References AVS - Asher Abebe RN - 08/21/2022 12:12 PM CDT [address] Oxycodone/Acetaminophen Oral Tablet Endocet, Percocet, Primlev Uses [...] medicines you take. Include both prescription and gval-zei-slimsuq medicines. Also tell them about any vitamins, [...] you have any questions about this medicine. [email or web address] IMPORTANT NOTE: This document tells you briefly how to take your medicine, but it does not tell youall there is to know about it. Your doctor or pharmacist may give you other documents about your medicine. Please talk to them if you have any questions. Always follow their advice. There is a more complete description of this medicine available in Armenian. Scan this code on your smartphone or tablet or use the web address below. You can also ask your pharmacist for a printout. If you have any questions, please ask your pharmacist. ?? 2020 [employer] ?? The [employer]. All rights reserved. This information is not intended as a substitute for professional medical care. Always follow your healthcare professional's instructions. documented in this encounter Plan of Treatment Not on file documented as of this encounter Procedures Procedure Name Priority Date/Time Associated Diagnosis Comments CARDIAC RHYTHM STRIP ORDER 08/25/2022 5:13 PM CDT PATHOLOGY TISSUE EXAM (STL) Routine 08/21/2022 10:30 AM CDT Diagnosis unknown WI LAP,CHOLECYSTECTOMY 08/21/2022 9:20 AM CDT HCG URINE [...] Case Report Surgical Pathology Report ? Case: [id number] ? Authorizing Provider: ??Andrei Buenrostro MD ??Collected: [...] with abdominal pain. 08/22/2022 2:51 PM T [facility] Gross Description One specimen received [...] yellow red appearance with moderate yellow stippling. Fur Mixer sections are submitted in A1. 08/22/2022 2:51 PM [facility] Microscopic Description Microscopic examination supports the final diagnosis. 08/22/2022 2:51 PM [facility] Disclaimer All histochemical and/or immunohistochemical results are interpreted with controls that demonstrate appropriate staining reactions before reporting results. Note on use of immunocytochemistry reagents: This test was developed and its performance characteristic determined by [facility], Department of Laboratory Medicine. It has [...] interpreted with caution. 08/22/2022 2:51 PM T [facility] Performed By [facility] at [facility], [address] [place] [address]. [id number]. 08/22/2022 2:51 PM T [facility] Embedded Images 08/22/2022 2:51 PM T [facility] Pathology/Cytolo gy ENTIRE GALLBLADDER / Unknown 08/21/2022 10:30 AM CDT 08/21/2022 1:49 PM CDT Andrei Buenrostro MD LAB - PATHOLOGY/ CYTOLOGY ORDERABLES [facility] [address] [place] [address] * HCG URINE QUAL POCT NOTIFICATION (08/21/2022 9:02 AM CDT) Comment Notification Label Only - See Separate Report 08/21/2022 9:02 AM CDT [facility] Urine URINE / Unknown 7:54 AM CDT Dinh Fonseca MD LAB - URINALYSIS ORD ERABLES Performing Organization Address [facility]/ZIP Co de Phone Number [facility] [address] [place] [address] * HCG URINE QUALITATIVE - POCT (IP) INTERFACED (08/21/2022 7:56 AM CDT) HCG Qual Urine Negative Negative 08/21/2022 8:02 AM CDT [facility] Urine URINE / Unknown 08/21/2022 7 :56 AM CDT 08/21/2022 8:02 AM CDT Andrei Buenrostro MD LAB - POINT OF C ARE ORDERABLES Performing Organization Address [facility] Co de Phone Number [facility] [address] [place] [address] documented in this encounter Visit Diagnoses Diagnosis [...] (Anesthesia Volume Adjustment - Provider: Angeles Smith, SOIL SURVEYOR-[facility]) PRN Medication Order 08/19/2022 08/20/2022 08/21/2022 0.9% NaCl irrigation (SO) solution (CANCELED) PRN, Starting on Mirta 08/21/22 at 1016, Until Mirta 08/21/22 at 1057, Intra-op 1010 ($ Given - Prov ider: Andrei Buenrostro MD - Comment: back table)1025 ($ Given - Provider: Andrei Buenrostro MD - Comment: warm; for use with suction therapeutic riding instructor) bupivacaine 0.5% - EPINEPHrine 1:200,000 (PF) injection [...] Post-op documented in this encounter Care Teams Watch Guard Gate Relationship Specialty Start Date End Date Oziel Burt MD [address] [facility] [place] [id number] PCP - General Family Medicine 08/21/22 documented as of this encounter
--- OUTSIDE RECORDS SUMMARY | 2024-12-07 17:48 | XMS_ITS | Encounter Summary ---
Author Organization [facility] Address [address] [place] [address]. [place] [address] [place] [address] Care Team Providers Care Tape Stringer Name Role Phone Oziel Burt MD Primary Care Provider Reason for Visit * Reason Onset Date Comments Concerns 11/25/2021 Encounter Details Date Type Department Care Team (Late st Contact Info) Description 11/25/2021 Telephone [facility] Neuroscience [address] [address] Jess Lujan MD [address] [place] [address] Concerns Social History Tobacco Use Types Packs/Day Years Used Date Smoking Tobacco: Never Smokeless Tobacco: Never Comments No Sex and Gender Information Value Date Recorded Sex Assigned at Not on file Legal Sex Female 5:55 PM SALES AND LEASING CONSULTANT Gender Identity Not on file Sexual Orientation Not on file COVID-19 Exposure Response Date Recorded In the last month, have you been in contact with someone who was confirmed or suspected to have Coronavirus / COVID-19? No / Unsure 11/22/2021 3:43 PM SALES AND LEASING CONSULTANT documented as of this encounter Progress Notes * Kiki Barnett, INSTRUCTOR LOOPING - 11/26/2021 2:43 PM CST Called END, outpatient EEG scheduled for December 05 at 8:00 am. Patient will then have an appointment with Dr Meadows after. Called patient's mom. She is aware. S AND LEASING CONSULTANT * Jess Lujan MD - 11/26/2021 2:17 PM CST She supposed to start medication from the last visit. However, mom misunderstood to start med 2 weeks prior to EEG. I spoke with the ED physician about that when she came to the ED. We can F/U her next week with EEG in the hospital. S AND LEASING CONSULTANT * Kiki Barnett CMA - 11/25/2021 12:56 PM CST Please advise. S AND LEASING CONSULTANT * Brynn Mendez RN - 11/25/2021 12:47 PM CST Per VM; patient's mother stated patient was seen in the ED on 11/22/21 for recurrent seizure. She would like to know if Dr. Meadows wants to move the scheduled EEG up any sooner or begin the new medication sooner than initially prescribed. S AND LEASING CONSULTANT documented in this encounter Plan of Treatment Not on file documented as of this encounter Visit Diagnoses Not on filedocumented in this encounter Care Teams Tape Stringer Relationship Specialty Start Date End Date Oziel Burt MD [address] [place] [address] PCP - General FAMILY PRACTICE 09/13/21 documented as of this encounter
--- OUTSIDE RECORDS SUMMARY | 2024-12-07 17:48 | XMS_ITS | Encounter Summary ---
Author Organization [facility] Address [address] [facility] [place] [address] Care Team Providers Care Medical Malpractice Paralegal Name Role Phone Oziel Burt MD Primary Care Provider Encounter Details Date Type Department Care Team (Late st Contact Info) Description 08/14/2022 Orders Only ER at [address] [address] Pina Long, RN Social History Tobacco Use [...] on filedocumented in this encounter Care Teams Medical Malpractice Paralegal Relationship Specialty Start Date End Date Oziel Burt MD [address] [place] [address] PCP - General Family Medicine 08/21/22 documented as of this encounter
--- OUTSIDE RECORDS SUMMARY | 2024-12-07 17:48 | XMS_ITS | Encounter Summary ---
Author Organization [facility] Address [address] [facility] [place] [address] Care Team Providers Care Video Production Assistant Name Role Phone Oziel Burt MD Primary Care Provider Reason for Visit * Auth/Cert Specialty Diagnoses / Procedures Referred By Cosmo gonzalez Referred To Contact Procedures LAPAROSCOPIC CHOLECYSTECTOMY WITH CHOLANGIOGRAM (IOC) Referral ID Status Reason Start Date Expiration Date Visits Re quested Visits Authorized [id number] 1 1 Encounter Details Date Type Department Care Team (Late st Contact Info) Description 08/21/2022 9:52 AM CDT Anesthesia Event [facility] - Kayla Op [address] [place] [address] Milo Morrison MD [address] [place] [id number] Juan Miguel Hatfield APRN-[place] [id number] Anesthesia Record Procedure Summary Procedure Name Responsible [...] by Jennifer Powell RN 08/21/22 1854 by [employer], Auto Release documented in this encounter Social [...] of this encounter Progress Notes * Angeles mSith APRN-CRNA - 08/21/2022 2:28 PM CDT ANESTHESIA [...] Anesthesia Care COMPLICATIONS: No complications documented. * Miugel Corbin DO - 08/21/2022 8:16 AM CDT [...] Plan was discussed with the anesthesiologist and SHOE STITCHER. BMI, Height, Weight Tobacco History Estimated body [...] Surgical History: Procedure Laterality Date ??? Tonsillectomy SCHOOL GUIDANCE COUNSELOR Status: Patient's last menstrual period was 08/01/2022 [...] Anesthesia Transfer of Care - Angeles Smith, MIXED SIGNAL DESIGN ENGINEER-SHOE STITCHER - 08/21/2022 10:58 AM CDT ANESTHESIA TRANSFER OF CARE NOTE Today's Date: 08/21/2022 Date of : 2000 Patient: Jennifer rTavis Procedure(s): LAPAROSCOPIC CHOLECYSTECTOMY Surgeon(s): Primary: Dago Mills [...] mg documented in this encounter Care Teams Video Production Assistant Relationship Specialty Start Date End Date Oziel Burt MD [address] [place] [phone] PCP - General Family Medicine 08/21/22 documented as of this encounter
--- OUTSIDE RECORDS SUMMARY | 2024-12-07 17:49 | XMS_ITS | Encounter Summary ---
Author Organization [facility] Healthcare Address [address] [place] [address] Care Team Providers Care Counterintelligence Analyst Name Role Phone Barry Rogeriokathy GARO Primary Care Provider [phone] Encounter Details Date Type Department Care Team (Late st Contact Info) Description 11/02/2024 Telephone [facility] Neurodiagnostics [address] [place] [address] Justa Coley Social History Tobacco Use Types [...] Renetta Schedule Orders/Appt Requests Outcome: Phone number: [phone] Phone type: Mobile Comm. type: Telephone Call type: Outgoing Contact: Pastrovich, Jennifer KJ Relation to patient: Self Letter: Reference CRMs: User: Justa Coley Date/time: 10/10/2024 2:11 PM Comment: R EEG done 09.22 Context: Renetta Schedule Orders/Appt Requests Outcome: Phone number: Phone type: Comm. type: Telephone Call type: Outgoing DIGGER documented in this encounter Plan of Treatment Not on file documented as of this encounter Visit Diagnoses Not on filedocumented in this encounter Care Teams Counterintelligence Analyst Relationship Specialty Start Date End Date Daniel Reddy NP [address] [place] [address] PCP - General Family Medicine 10/25/24 documented as of this encounter
--- OUTSIDE RECORDS SUMMARY | 2024-12-07 17:49 | XMS_ITS | Encounter Summary ---
Author Organization [facility] Address [address] [place] [address] Care Team Providers Care Bingo Worker Name Role Phone Tasha Zamudio DO Primary Care Provide r Reason for Referral * Neurology (Routine) - Closed Specialty Diagnoses / Procedures Referred By Contac t Referred To Contact Diagnoses Seizure disorder (CMS/HCC) (HCC) Procedures EEG Rommel Huynh MD [address] [address] Phone: tel: fax: [address] [phone] Referral ID Status Reason Start Date Expiration Date Visits Re quested Visits Authorized [id number] Closed 09/14/2024 10/14/2025 1 1 Reason for Visit * Neurology (Routine) - Closed Specialty Diagnoses / Procedures Referred By Contac t Referred To Contact Diagnoses Seizure disorder (CMS/HCC) (HCC) Procedures EEG Rommel Huynh MD [address] [address] Phone: tel: fax: [address] [address] Referral ID Status Reason Start Date Expiration Date Visits Re quested Visits Authorized [id number] Closed 09/14/2024 10/14/2025 1 1 Encounter Details Date Type Department Care Team (Latest Contact Info) Description 09/14/2024 9:18 AM CDT - 09/14/2024 11:59 PM CDT Hospital [facility] ([facility]) [address] [place] [address] Tasha Beckman Seizure disorder ([facility]) ([facility]) Discharge Disposition: Discharge to home or self [...] Routine 09/14/2024 4:52 PM CDT Seizure disorder ([facility]) ([facility]) documented in this encounter Results * EEG (09/14/2024 4:52 PM CDT) Anatomical Region Laterality Modality EEG Narrative 09/14/2024 4:52 PM CDT Routine EEG Report Patient Name: Jennifer Travis [facility] Medical Record Number (MRN): [id number] [facility] Record: No Sojaney MRN Date of (): 2000 EEG Date: 09/14/2024 Ordering Provider: Rommel Huynh MD CC: Trishjohannrolan Tashapaulo Robins Start Time: 09/14/2024 10:32:35 AM ? End Time: 09/14/2024 10:53:25 AM Introduction: Ms. Travis is a 23 y.o. female with a history of seizures. EEG was performed to evaluate for seizures. This is a 32 channel EEG recording acquired on a [employer] EEG-1200 acquisition system. Scalp electrodes were placed [...] epilepsy documented in this encounter Care Teams Bingo Worker Relationship Specialty Start Date End Date Tasha Zamudio DO [address] [place] [address] PCP - General Family Medicine 04/25/24 10/24/24 documented as of this encounter
--- OUTSIDE RECORDS SUMMARY | 2024-12-07 17:49 | XMS_ITS | Clinical Summary ---
Author Organization [facility] Address [address] [place] [address] Care Team Providers Care Airport Operations Crew Member Name Role Phone Barry Rogeriokathy GARO Primary Care Provider [phone] Allergies Active Allergy Reactions Criticality Noted Date [...] Type Department Care Team Description 11/02/2024 Telephone [facility] Neurodiagnostics [address] [place] [address] Justa Coley 11/02/2024 Telephone [facility] Neurodiagnostics [address] [place] [address] Justa Coley 10/25/2024 Telephone [facility] Epilepsy [address] [facility] Advanced Medicine 6th [place] [address] [place] [address] Rommel Huynh MD 10/19/2024 9:00 AM ECCLESIASTICAL WORKER Telemedicine [facility] Epilepsy [address] [facility] 6th [place] [address] [place] [address] Rommel Huynh MD Seizure disorder (CMS/HCC) (HCC) (Primary Dx); Encounter to discuss test results 10/18/2024 Telephone [facility] Neurodiagnostics [address] [facility] [place] [address] Justa Coley 10/04/2024 6:31 PM ECCLESIASTICAL WORKER - 10/04/2024 11:59 PM ECCLESIASTICAL WORKER Hospital Encounter [facility]) [address] [place] [address] Seizure disorder (CMS/HCC) (HCC) Discharge Disposition: Discharge to home or self care 09/14/2024 9:18 AM CDT - 09/14/2024 11:59 PM CDT Hospital Encounter [facility] [address] [place] [address] Tasha Beckman Seizure disorder (CMS/HCC) (HCC) Discharge Disposition: Discharge to home or self care 09/14/2024 8:00 AM CDT Office Visit [facility] Epilepsy [address] [facility] Advanced Medicine [address]th [place] [address] Rommel Huynh MD Seizure disorder (CMS/HCC) (HCC) [...] 54.4 kg (120 lb) 10/04/2024 6:44 PM ECCLESIASTICAL WORKER Height 162.6 cm (5' 4 ) 10/04/2024 6:44 PM ECCLESIASTICAL WORKER Body Mass Index 20.6 10/04/2024 6:44 PM ECCLESIASTICAL WORKER Plan of Treatment Health Maintenance Due Date [...] Read Routine (OP Routine) 10/04/2024 7:29 PM ECCLESIASTICAL WORKER Seizure disorder (CMS/HCC) (HCC) EEG Routine 09/14/2024 4:52 PM CDT Seizure disorder (CMS/HCC) (HCC) from Last 3 Months Results * MRI Brain Epilepsy W WO Contrast (10/04/2024 7:29 PM ECCLESIASTICAL WORKER) Anatomical Region Laterality Modality Head and Neck N/A Magnetic Resonan ce 10/05/2024 9:06 AM ECCLESIASTICAL WORKER Impressions 10/05/2024 9:48 AM ECCLESIASTICAL WORKER No findings to explain the patient's seizures. Dictated by: Lonnie Jiang MD The radiology attending physician has personally reviewed this study, and had reviewed and/or edited this written report and agrees with it. Electronically signed by: Angelo Bro MD Narrative 10/05/2024 9:48 AM ECCLESIASTICAL WORKER EXAMINATION: Magnetic resonance imaging (MRI) of the [...] Routine EEG Report Patient Name: Jennifer Travis [facility] Medical Record Number (MRN): [id number] [facility] Record: No Soarian MRN Date of (): 2000 EEG Date: 09/14/2024 Ordering Provider: Rommel Huynh MD CC: Tasha Zamudio Start Time: 09/14/2024 10:32:35 AM ? End Time: 09/14/2024 10:53:25 AM Introduction: Ms. Travis is a 23 y.o. female with a history of seizures. EEG was performed to evaluate for seizures. This is a 32 channel EEG recording acquired on a [employer] EEG-1200 acquisition system. Scalp electrodes were placed [...] inal Result from Last 3 Months Insurance [employer] GENERIC Care Teams Airport Operations Crew Member Relationship Specialty Start Date End Date Daniel Reddy NP [address] [place] [address] PCP - General Family Medicine 10/25/24
--- OUTSIDE RECORDS SUMMARY | 2024-12-07 17:49 | XMS_ITS | Encounter Summary ---
Author Organization [facility] Address [address] [place] [address] Care Team Providers Care Foam Tank Laminator Name Role Phone Tasha Zamudio DO Primary Care Provide r Reason for Referral * MRI/CAT/PET Scan (Routine) - Closed Specialty Diagnoses / Procedures Referred By Cosmo t Referred To Contact Radiology Diagnoses Seizure disorder (CMS/HCC) (HCC) Procedures MRI Brain Epilepsy W WO Contrast Rommel Huynh MD [address] [address] Phone: tel: fax: [address] [address] Referral ID Status Reason Start Date Expiration Date Visits Re quested Visits Authorized [id number] Closed 09/14/2024 10/14/2025 1 1 ITECTURAL MODELER Reason for Visit * MRI/CAT/PET Scan (Routine) - Closed Specialty Diagnoses / Procedures Referred By Contac t Referred To Contact Radiology Diagnoses Seizure disorder (CMS/HCC) (HCC) Procedures MRI Brain Epilepsy W WO Contrast Rommel Huynh MD [address] [address] Phone: tel: fax: [address] [address] Referral ID Status Reason Start Date Expiration Date Visits Re quested Visits Authorized [id number] Closed 09/14/2024 10/14/2025 1 1 Encounter Details Date Type Department Care Team (Latest Contact Info) Description 10/04/2024 6:31 PM ARCHITECTURAL MODELER - 10/04/2024 11:59 PM ARCHITECTURAL MODELER Hospital Encounter [facility] [address] [place] [address] Seizure disorder (CMS/HCC) (HCC) Discharge Disposition: Discharge [...] Read Routine (OP Routine) 10/04/2024 7:29 PM ARCHITECTURAL MODELER Seizure disorder (CMS/HCC) (HCC) documented in this encounter Results * MRI Brain Epilepsy W WO Contrast (10/04/2024 7:29 PM ARCHITECTURAL MODELER) Anatomical Region Laterality Modality Head and Neck N/A Magnetic Resonan ce 10/05/2024 9:06 AM ARCHITECTURAL MODELER Impressions 10/05/2024 9:48 AM ARCHITECTURAL MODELER No findings to explain the patient's seizures. Dictated by: Lonnie Jiang MD The radiology attending physician has personally reviewed this study, and had reviewed and/or edited this written report and agrees with it. Electronically signed by: Angelo Bro MD Narrative 10/05/2024 9:48 AM ARCHITECTURAL MODELER EXAMINATION: Magnetic resonance imaging (MRI) of the [...] 1 dose Contrast Given 10/04/2024 7:30 PM ARCHITECTURAL MODELER 10 mL Right Forearm documented in this encounter Orders Medications Ordered That Rusty ht Not Have Been Administered Count Last Ordered Date First Ordered Date gadoterate meglumine injection 10 mL 1 03/2024 documented in this encounter Care Teams Foam Tank Laminator Relationship Specialty Start Date End Date Tasha Zamudio DO [address] [facility] [address] [facility] [place] [address] PCP - General Family Medicine 04/25/24 10/24/24 documented as of this encounter
--- OUTSIDE RECORDS SUMMARY | 2024-12-07 17:49 | XMS_ITS | Encounter Summary ---
Author Organization [facility] Healthcare Address [address] [place] [address] Care Team Providers Care Expressive Music Therapist Name Role Phone Reddy, Rogeriokathy GARO Primary Care Provider [phone] Encounter Details Date Type Department Care Team (Late st Contact Info) Description 11/02/2024 Telephone [facility] Neurodiagnostics 1 [place] [address] Justa Coley Social History Tobacco Use Types [...] PCP he is sending her to a Asp Net C Developer first patient said harman does not want to do the VEEG because when she has seizures she bits off some of her tongue. Discussed with her when she wants to do VEEG she will call and have Ana. Office put the order in again. She is good with this. S INSTRUCTOR documented in this encounter Plan of Treatment Not on file documented as of this encounter Visit Diagnoses Not on filedocumented in this encounter Care Teams Expressive Music Therapist Relationship Specialty Start Date End Date Daniel Reddy NP [address] [place] [address] PCP - General Family Medicine 10/25/24 documented as of this encounter
--- OUTSIDE RECORDS SUMMARY | 2024-12-07 17:49 | XMS_ITS | Referral Summary ---
Author Organization [facility] Address [address] [place] [address] Care Team Providers Care Credit Director Name Role Phone ReddyDaniel NP Primary Care Provider [phone] Encounters Date Type Department Care Team Description 11/02/2024 Telephone [facility] Neurodiagnostics [address] [place] [phone] Justa Coley 11/02/2024 Telephone [facility] Neurodiagnostics [address] [place] [phone] Justa Coley 10/25/2024 Telephone [facility] Epilepsy [address] [facility] 6th [place] [phone] Rommel Huynh MD 10/19/2024 9:00 AM NETWORK TECHNICIAN Telemedicine [facility] Epilepsy [address] 6th [place] [address] [place] [phone] Rommel Huynh MD Seizure disorder (CMS/HCC) (HCC) (Primary Dx); Encounter to discuss test results 10/18/2024 Telephone [facility] Neurodiagnostics 1 [place] [address] Justa Coley 10/04/2024 6:31 PM NETWORK TECHNICIAN - 10/04/2024 11:59 PM [facility] Hospital Encounter [facility] [address] [place] [address] Seizure disorder ([facility]) ([facility]) Discharge Disposition: Discharge to home or self care 09/14/2024 9:18 AM CDT - 09/14/2024 11:59 PM CDT Hospital Encounter [facility] ([facility]) [address] [place] [address] Tasha Beckman Seizure disorder ([facility]) ([facility]) Discharge Disposition: Discharge to home or self care 09/14/2024 8:00 AM CDT Office Visit [facility] Epilepsy [address] [facility] 6th [place] [address] [place] [address] Rommel Huynh MD Seizure disorder ([facility]) ([facility]) (Primary Dx); Dizziness and giddiness; [...] 54.4 kg (120 lb) 10/04/2024 6:44 PM NETWORK TECHNICIAN Height 162.6 cm (5' 4 ) 10/04/2024 6:44 PM NETWORK TECHNICIAN Body Mass Index 20.6 10/04/2024 6:44 PM NETWORK TECHNICIAN Plan of Treatment Not on file Procedures Procedure Name Priority Date/Time Associated Diagnosis Comments MRI BRAIN EPILEPSY W WO CONTRAST Schedule Routine, Read Routine (OP Routine) 10/04/2024 7:29 PM NETWORK TECHNICIAN Seizure disorder (CMS/HCC) (HCC) EEG Routine 09/14/2024 4:52 PM CDT Seizure disorder (CMS/HCC) (HCC) from Last 3 Months Results * MRI Brain Epilepsy W WO Contrast (10/04/2024 7:29 PM NETWORK TECHNICIAN) Anatomical Region Laterality Modality Head and Neck N/A Magnetic Resonan ce 10/05/2024 9:06 AM NETWORK TECHNICIAN Impressions 10/05/2024 9:48 AM NETWORK TECHNICIAN No findings to explain the patient's seizures. Dictated by: Lonnie Jiang MD The radiology attending physician has personally reviewed this study, and had reviewed and/or edited this written report and agrees with it. Electronically signed by: Angelo Bro MD Narrative 10/05/2024 9:48 AM NETWORK TECHNICIAN EXAMINATION: Magnetic resonance imaging (MRI) of the [...] Routine EEG Report Patient Name: Jennifer Patton [facility] Medical Record Number (MRN): [id number] [facility] Record: No Stewart MRN Date of (): 2000 EEG Date: 09/14/2024 Ordering Provider: Rommel Huynh MD CC: Tasha Zamudio Start Time: 09/14/2024 10:32:35 AM ? End Time: 09/14/2024 10:53:25 AM Introduction: Ms. Patton is a 23 y.o. female with a history of seizures. EEG was performed to evaluate for seizures. This is a 32 channel EEG recording acquired on a dineout EEG-1200 acquisition system. Scalp electrodes were placed [...] inal Result from Last 3 Months Insurance [employer] [place] [employer] GENERIC Care Teams Credit Director Relationship Specialty Start Date End Date Daniel Reddy NP [address] [place] [address] PCP - General Family Medicine 10/25/24
--- OUTSIDE RECORDS SUMMARY | 2024-12-07 17:49 | XMS_ITS | Encounter Summary ---
Author Organization [facility] Healthcare Address [address] [place] [address] Care Team Providers Care Corporate Representative Name Role Phone Tasha Zamudio DO Primary Care Provide r Encounter Details Date Type Department Care Team (Late st Contact Info) Description 10/18/2024 Telephone [facility] Neurodiagnostics 1 [place] [address] Justa Coley Social History Tobacco Use Types [...] will schedule here or go somewhere else. TEACHER documented in this encounter Plan of Treatment Not on file documented as of this encounter Visit Diagnoses Not on filedocumented in this encounter Care Teams Corporate Representative Relationship Specialty Start Date End Date Tasha Zamudio DO [address] [facility] [address] [place] [address] PCP - General Family Medicine 04/25/24 10/24/24 documented as of this encounter
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
--- OUTSIDE RECORDS SUMMARY | 2024-12-07 17:49 | XMS_ITS | Encounter Summary ---
Author Organization [facility] Address [address] [place] [address] Phone Care Team Providers Care Alum Operator Name Role Phone Daniel Reddy NP Primary Care Provider [phone] Encounter Details Date Type Department Care Team (Late st Contact Info) Description 10/25/2024 Telephone [facility] Epilepsy [address] [facility] Advanced [facility] 6th [place] [address] [place] [phone] Rommel Huynh MD [address] [facility] [address] [place], [place] [phone] Social History Tobacco Use Types Packs/Day Years [...] Christina Alcocer RN - 10/25/2024 10:50 AM JEWEL BEARING GRINDER Faxed last office visit note and Brain MRI report to GARO Reddy office. L BEARING GRINDER * Telephone Encounter - Julienne Lyeva RMA - 10/25/2024 10:39 AM CST Patient called back and updated pcp info in epic. L BEARING GRINDER * Telephone Encounter - Christina Alcocer RN - 10/25/2024 10:30 AM JEWEL BEARING GRINDER LVM for Jennifer asking for a call back to confirm current PCP information. L BEARING GRINDER * Telephone Encounter - Christina Alcocer RN - 10/25/2024 10:23 AM JEWEL BEARING GRINDER Received a call from Liz at [facility] in [facility] from the office of Daniel Reddy NP(PCP) requesting last office visit notes and report from recent Brain MRI. Will reach out to Lisa to confirm and update PCP information. Liz provided phone number of [phone] and fax number of [phone]. L BEARING GRINDER documented in this encounter Plan of Treatment Not on file documented as of this encounter Visit Diagnoses Not on filedocumented in this encounter Care Teams Alum Operator Relationship Specialty Start Date End Date Daniel Reddy NP [address] [place] [address] PCP - General Family Medicine 10/25/24 documented as of this encounter
--- OUTSIDE RECORDS SUMMARY | 2024-12-07 17:50 | XMS_ITS | Encounter Summary ---
Author Organization [facility] Healthcare Address [address] [place] [address] Care Team Providers Care Folding Rules Printing Machine Operator Name Role Phone Tasha Zamudio Primary Care Provide r Reason for Visit * Reason Comments Animal Bite Right pinkie finger digit ,pt states she was bit by a mouse .no bleeding noted Encounter Details Date Type Department Care Team (Late st Contact Info) Description 04/25/2024 7:11 PM CDT - 04/25/2024 8:55 PM CDT Emergency [facility] Emergency Department [address] [place] [address] Animal bite (Primary Dx) Discharge Disposition: Discharge [...] Care Everywhere. * Animal Bite (AfterCare(R) Instructions(ER/ED)) (Bruneian) documented in this encounter Medications at Time [...] Use: Not At Risk (08/21/2022) Received from [facility] Health AUDIT-C Frequency of Alcohol Consumption: Never [...] Thought content normal. Judgment: Judgment normal. Procedures [facility] Labs Reviewed - No data to [...] stable This examination was transcribed using the [employer] voice recognition system without human recruitment specialist. In an effort to expedite patient care, this report has not been adjusted for typographical, grammatical, and syntax by a trained medical staff director. Close outpatient follow-up with a low threshold [...] 04/25/2024 documented in this encounter Care Teams Folding Rules Printing Machine Operator Relationship Specialty Start Date End Date Tasha Zamudio DO [address] [facility] [address] [place] [address] PCP - General Family Medicine 04/25/24 10/24/24 documented as of this encounter
--- OUTSIDE RECORDS SUMMARY | 2024-12-07 17:50 | XMS_ITS | Encounter Summary ---
Author Organization [facility] Healthcare Address [address] [place] [address] Care Team Providers Care Conveyor Belt Repairer Name Role Phone Tasha Zamudio DO Primary Care Provide r Encounter Details Date Type Department Care Team (Late st Contact Info) Description 06/22/2024 Telephone [facility] [address] [place] [phone] Rosalee Hussein Social History Tobacco Use Types [...] on filedocumented in this encounter Care Teams Conveyor Belt Repairer Relationship Specialty Start Date End Date Tasha Zamudio DO [address] [place] [address] [address] [place] [address] PCP - General Family Medicine 04/25/24 10/24/24 documented as of this encounter
--- OUTSIDE RECORDS SUMMARY | 2024-12-07 17:50 | XMS_ITS | Encounter Summary ---
Author Organization [facility] Healthcare Address [address] [place] [address] Care Team Providers Care Single Pass Soil Stabilizer Operator Name Role Phone Oziel Burt MD Primary Care Provider [phone] Encounter Details Date Type Department Care Team (Latest Contact Info) Description 05/12/2023 7:57 AM CDT - 05/12/2023 11:59 PM CDT Hospital Encounter [facility] [address] [place] [address] Discharge Disposition: Discharge to home or self [...] only and have not been reviewed by [facility] Radiology. ??There will be no report generated by a [facility] Radiologist. Narrative [facility] - 05/12/2023 7:57 AM CDT EXAMINATION: ??Images For Reference Purposes Only us Omar Head MD PhD IMG CT PROCEDURES Final R esult [facility] documented in this encounter Visit Diagnoses Not on filedocumented in this encounter Care Teams Single Pass Soil Stabilizer Operator Relationship Specialty Start Date End Date Oziel Burt MD [address] [facility] [place] [address] PCP - General Family Practice 04/29/23 04/24/24 documented as of this encounter
--- OUTSIDE RECORDS SUMMARY | 2024-12-07 17:50 | XMS_ITS | Encounter Summary ---
Author Organization [facility] Address [address] [place] [address] Phone Care Team Providers Care Fitness Coordinator Name Role Phone Tasha Zamudio DO Primary Care Provide r Reason for Referral * Neurology (Routine) - Closed Specialty Diagnoses / Procedures Referred By Contac t Referred To Contact Diagnoses Seizure disorder (CMS/HCC) (HCC) Procedures EEG Rommel Huynh MD [address] [address] Phone: tel: fax: [address] [address] Referral ID Status Reason Start Date Expiration Date Visits Re quested Visits Authorized [id number] Closed 09/14/2024 10/14/2025 1 1 * MRI/CAT/PET Scan (Routine) - Closed Specialty Diagnoses / Procedures Referred By Contac t Referred To Contact Radiology Diagnoses Seizure disorder (CMS/HCC) (HCC) Procedures MRI Brain Epilepsy W WO Contrast Rommel Huynh MD [address] [address] Phone: tel: fax: [address] [place] [address] Referral ID Status Reason Start Date Expiration Date Visits Re quested Visits Authorized [id number] Closed 09/14/2024 10/14/2025 1 1 Encounter Details Date Type Department Care Team (Late st Contact Info) Description 09/14/2024 8:00 AM CDT Office Visit [facility] Epilepsy [address] [facility] 6th [place] [address] [place] [address] Rommel Huynh MD [address] [facility] [address] [place] [address] Seizure disorder (CMS/HCC) (HCC) (Primary Dx); Dizziness [...] had recently dropped out of college at [employer] in July (studying Business then undecided major). [...] without LOC. There was no history of SENIOR JAVA J2EE DEVELOPER infection. 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 She studied at the [employer] in the past. The patient wasdriving; currently [...] Relevant Studies: An EEG on 09/26/2021 at [facility] revealed 1. occasional left temporal sharp waves. 2. Frequent frontally predominance generalized spikes and waves. Tracing not available. An EEG on 12/05/2021 at [facility] revealed Occasional sharp waves over the mid left temporal head region, maximal at T3. A brain MRI with gadolinium on 11/18/2021 at [facility] revealed normal appearance of the [...] light touch and double simultaneous stimulation. Coordination: Cequiv-mo-qtym testing and rapid alternating movements were normal. Reflexes: The reflexes were 2/4 at the biceps, triceps, brachioradialis, knees, and ankles bilaterally. Gait: Posture was normal. Gait was normal, including tandem gait. Assessment Seizure disorder ([facility]) ([facility]) [G40.909] Ms. Travis is a 23 y.o. [...] month. Referrals: None Dr. Rommel Huynh M.D. [facility] Comprehensive Adult Epilepsy Center [facility] I spent a total of 57 jytr-ci-gwfn minutes of which more than 50% of [...] Epilepsy W WO Contrast (10/04/2024 7:29 PM BUG TRIMMER) Anatomical Region Laterality Modality Head and Neck N/A Magnetic Resonan ce 10/05/2024 9:06 AM BUG TRIMMER Impressions 10/05/2024 9:48 AM BUG TRIMMER No findings to explain the patient's seizures. Dictated by: Lonnie Jiang MD The radiology attending physician has personally reviewed this study, and had reviewed and/or edited this written report and agrees with it. Electronically signed by: Angelo Bro MD Narrative 10/05/2024 9:48 AM BUG TRIMMER EXAMINATION: Magnetic resonance imaging (MRI) of the [...] Routine EEG Report Patient Name: Jennifer Travis [facility] Medical Record Number (MRN): [id number] [facility] Record: No Soarian MRN Date of (): 2000 EEG Date: 09/14/2024 Ordering Provider: Rommel Huynh MD CC: Tasha Zamudio Start Time: 09/14/2024 10:32:35 AM ? End Time: 09/14/2024 10:53:25 AM Introduction: Ms. Travis is a 23 y.o. female with a history of seizures. EEG was performed to evaluate for seizures. This is a 32 channel EEG recording acquired on a [employer] EEG-1200 acquisition system. Scalp electrodes were placed [...] documented as of this encounter Care Teams Fitness Coordinator Relationship Specialty Start Date End Date Tasha Zamudio DO [address] [facility] [address] [place] [address] PCP - General Family Medicine 04/25/24 10/24/24 documented as of this encounter
--- OUTSIDE RECORDS SUMMARY | 2024-12-07 17:50 | XMS_ITS | Encounter Summary ---
Author Organization [facility] Address [address] [place] [address] Care Team Providers Care Vanstone Machine Operator Name Role Phone Tasha Zamudio DO Primary Care Provide r Reason for Referral * Diagnostic Imaging (Routine) - Closed Specialty Diagnoses / Procedures Referred By Cosmo gonzalez Referred To Contact Diagnoses Localized enlarged lymph nodes Procedures US Soft Tissue Neck Tasha Zamudio DO [address] [facility] [address] [place] [address] Phone: tel: fax: [address] [phone] Referral ID Status Reason Start Date Expiration Date Visits Re quested Visits Authorized [id number] Closed 04/26/2024 05/26/2025 1 1 Reason for Visit * Diagnostic Imaging (Routine) - Closed Specialty Diagnoses / Procedures Referred By Cosmo gonzalez Referred To Contact Diagnoses Localized enlarged lymph nodes Procedures US Soft Tissue Neck Tasha Zamudio DO [address] [facility] [address] [place] [address] Phone: tel: fax: [address] [address] Referral ID Status Reason Start Date Expiration Date Visits Re quested Visits Authorized [id number] Closed 04/26/2024 05/26/2025 1 1 Encounter Details Date Type Department Care Team (Latest Contact Info) Description 05/12/2024 2:03 PM CDT - 05/12/2024 11:59 PM CDT Hospital Encounter [address] [address] Localized enlarged lymph nodes Discharge Disposition: Discharge [...] nodes documented in this encounter Care Teams Vanstone Machine Operator Relationship Specialty Start Date End Date Tasha Zamudio DO [address] [place] [address] [place] [address] PCP - General Family Medicine 04/25/24 10/24/24 documented as of this encounter
--- OUTSIDE RECORDS SUMMARY | 2024-12-07 17:50 | XMS_ITS | Encounter Summary ---
Author Organization [facility] Address [address] [place] [address] Phone Care Team Providers Care Bricklayer'S Assistant Name Role Phone Oziel Burt MD Primary Care Provider +1- [phone] Reason for Visit * Reason Comments Consult * Consultation (Routine) - Closed Specialty Diagnoses / Procedures Referred By Contac t Referred To Contact Neurology Diagnoses Seizure disorder (CMS/HCC) (HCC) Oziel Burt MD [address] [place] [address] Phone: tel: fax: [facility] [address] [facility] 6th [place] [address] [place] [address] Phone: tel: fax: Referral ID Status Reason Start Date Expiration Date V isits Requested Visits Authorized [id number] Closed Specialty Services Required 04/29/2023 05/28/2024 1 1 Encounter Details Date Type Department Care Team (Late st Contact Info) Description 05/21/2023 1:00 PM CDT Office Visit [facility] [address] [place] [address] Rommel Huynh MD [address] [address] [place] [address] Seizure disorder (CMS/HCC) (HCC) (Primary [...] had recently dropped out of college at [employer] in July (studying Business then [...] medications were missed over the last week/month/year: zeafxt-qj-gtubj Sleep is described as decent for somebody [...] without LOC. There was no history of RODDING MACHINE TENDER infection. She was the product of a normal and delivery with normal developmental milestones. No trouble in school until college. Family history of seizure in nephew (aunts son). 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 Today, she has no specific [...] employed currently. She is in school at [employer]. The highest level of education achieved was [...] light touch and double simultaneous stimulation. Coordination: Somsia-qf-hnva testing and rapid alternating movements were normal. [...] patient would be more likely to develop Rose-Dannie syndrome, which is a severe rashthat can be fatal. She was told that she should call me if she develops any rash, as the patient would need to see a Decorator Mannequin and the medication may need to be [...] in the general population per the [place] Antiepileptic Drug Registry. She was given literature [...] Instructor of Neurology [facility] I spent a total of 54 zigh-hg-nfdz minutes (1:08-2:02 P) of which more than [...] 05/21/2023 documented in this encounter Care Teams Bricklayer'S Assistant Relationship Specialty Start Date End Date Oziel Burt MD [address] [place] [address] PCP - General Family Practice 04/29/23 04/24/24 documented as of this encounter
--- OUTSIDE RECORDS SUMMARY | 2024-12-07 17:50 | XMS_ITS | Encounter Summary ---
Author Organization [facility] Healthcare Address [address] [place] [address] Care Team Providers Care Railroad Car Cleaner Name Role Phone TrishRaman correapaulo Selbyle Primary Care Provide r Reason for Visit * Reason Comments Shaking Encounter Details Date Type Department Care Team (Late Contact Info) Description 08/23/2024 1:50 PM CDT - 08/23/2024 3:29 PM CDT Emergency [address] [address] Muscle spasm (Primary Dx) Discharge Disposition: Discharge [...] us to take care of you at [facility]. Please follow up with your primary care [...] Care Everywhere. * Muscle Spasm (AfterCare(R) Instructions(ER/ED)) (Romanian) documented in this encounter Medications at Time [...] Use: Not At Risk (08/21/2022) Received from [facility] [employer], [facility] [employer] AUDIT-C Frequency of Alcohol Consumption: Never Average [...] expresses understanding PATIENT INSTRUCTED TO FOLLOW UP Tsaha Zamudio DO [address] [facility] [address] [facility] [id number] In 1 week DISCHARGE MEDICATIONS Your medication [...] daily This examination was transcribed using the [employer] voice recognition system without human stone spreader operator. In an effort to expedite patient care, this report has not been adjusted for typographical, grammatical, and syntax by a trained medical library assistant. Vivi Haynes PA 08/23/24 1457 Vivi Haynes [...] * Magnesium (08/23/2024 10:06 AM CDT) Pathologist [facility] Magnesium 2.0 1.4 - 2.5 mg/dL Blood 08/23/2024 10:0 6 AM CDT 08/23/2024 10:09 AM CDT Tasha TEJEDA LAB BLOOD ORDERABLES Final Result Performing Organization Address City/[facility]/ZIP Co de Phone Number VEENA [address] [place] [address] * (ABNORMAL) Phosphorus (08/23/2024 10:06 AM CDT) Pathologist [facility] Phosphorus, pl 2.0(L) 2.3 - 4.5 mg/dL Blood 08/23/2024 10:0 6 AM CDT 08/23/2024 10:09 AM CDT Tasha TEJEDA LAB BLOOD ORDERABLES Final Result Performing Organization Address City/[facility] de Phone Number L[address] [place] [address] * eGFR (08/23/2024 10:06 AM CDT) Pathologist [facility] eGFR >90 >=60 mL/min/1. 73 m2 Comment: [...] Tasha TEJEDA LAB BLOOD ORDERABLES Final Result [place] [id number] [facility] [place] [address] * (ABNORMAL) Differential, auto (08/23/2024 10:06 AM CDT) Neutrophil abs 8.1(H) 1.5 - 6.5 K/cumm Imm gran abs 0.0 0.0 - 0.1 K/cumm [facility] Lymphocyte abs 1.2 0.8 - 3.3 K/cumm [facility] Monocyte abs 0.3 0.2 - 0.8 K/cumm [facility] Eosinophil abs 0.0 0.0 - 0.5 K/cumm [facility] Basophil abs 0.1 0.0 - 0.1 K/cumm [facility] Neutrophil pct 83.2 % [facility] Comment: Interpretive Data Percent cell count reference ranges are not reported, since discordance with absolute values may lead to misinterpretation of CBC data. Current Interpretive Data was last revised on 2018. Imm gran pct 0.2 % [facility] Comment: Interpretive Data Percent cell count reference ranges are not reported, since discordance with absolute values may lead to misinterpretation of CBC data. Current Interpretive Data was last revised on 2018. Lymphocyte pct 12.4 % [facility] Comment: Interpretive Data Percent cell count reference ranges are not reported, since discordance with absolute values may lead to misinterpretation of CBC data. Current Interpretive Data was last revised on 2018. Monocyte pct 3.4 % [facility] Comment: Interpretive Data Percent cell count reference ranges are not reported, since discordance with absolute values may lead to misinterpretation of CBC data. Current Interpretive Data was last revised on 2018. Eosinophil pct 0.2 % [facility] Comment: Interpretive Data Percent cell count reference ranges are not reported, since discordance with absolute values may lead to misinterpretation of CBC data. Current Interpretive Data was last revised on 2018. Basophil pct 0.6 % [facility] Comment: Interpretive Data Percent cell count reference ranges are not reported, since discordance with absolute values may lead to misinterpretation of CBC data. Current Interpretive Data was last revised on 2018. Blood 08/23/2024 10:0 6 AM CDT 08/23/2024 10:09 AM CDT Tasha TEJEDA LAB BLOOD ORDERABLES Final Result [facility] [address] [facility] [place] [address] * (ABNORMAL) Urinalysis reflex to microscopic and culture Urine (08/23/2024 10:06 AM CDT) Color, ur Yellow Yellow Clarity, ur Clear Clear [facility] Specific gravity, ur 1.028 1.003 - 1.030 [facility] pH, urine 7.5 [facility] Comment: Interpretive Data ? Urine pH is affected by diet, medications, systemic acid-base disturbances, and renal tubular function. ??pH may affect urinary stone formation. ??For example, urine pH below 6.0 may help reduce the tendency for calcium phosphate stones and pH greater than 6.0 may reduce the tendency for uric acid stone formation. Source: [facility] ScheduleSoft Current Interpretive Data was last revised on 2017 Protein, ur ql Negative Negative [facility] Glucose, ur ql Negative Negative [facility] Ketones, ur 2+(A) Negative [facility] Bilirubin, ur Negative Negative [facility] Blood, ur Negative Negative [facility] Urobilinogen, ur <2.0 <2.0 mg/dL [facility] Nitrite, ur Negative Negative [facility] Leukocyte esterase, ur Negative Negative [facility] UA reflex comment Reflex conditions for microscopic UA and culture not met. [facility] Urine 08/23/2024 10:0 6 AM CDT 08/23/2024 10:09 AM CDT Tasha TEJEDA LAB MICROBIOLOGY - GENERAL ORDERABLES Final Result [facility] [address] [facility] [place] [address] * (ABNORMAL) Comprehensive metabolic panel (08/23/2024 10:06 AM CDT) Sodium 141 135 - 145 mmol/L Potassium, pl 3.6 3.3 - 4.9 mmol/L [facility] Chloride 103 97 - 110 mmol/L [facility] CO2 26 22 - 32 mmol/L [facility] Anion gap 12 2 - 15 mmol/L [facility] BUN 13 6 - 25 mg/dL [facility] Creatinine 0.63 0.60 - 1.10 mg/dL [facility] Glucose 95 70 - 199 mg/dL [facility] Comment: Interpretive Data Fasting glucose >/= 126 [...] 2022. Calcium 10.5(H) 8.5 - 10.3 mg/dL [facility] Bilirubin, total 0.6 0.1 - 1.2 mg/dL [facility] Protein, pl 8.0 6.5 - 8.5 g/dL [facility] Albumin 5.2(H) 3.5 - 5.0 g/dL [facility] Alk phos 64 40 - 130 Units/L [facility] ALT <5(L) 7 - 45 Units/L [facility] AST 21 10 - 45 Units/L [facility] Blood 08/23/2024 10:0 6 AM CDT 08/23/2024 10:09 AM CDT Tasha TEJEDA LAB BLOOD ORDERABLES Final Result Performing Organization Address City/[facility]/ZIP Co de Phone Number VEENA [address] [place] [address] * (ABNORMAL) CBC with auto differential (08/23/2024 10:06 AM CDT) WBC 9.7 3.8 - 9.9 K/cumm Hgb 14.1 11.9 - 15.5 g/dL [facility] Hct 40.5 35.6 - 45.5 % [facility] Plt 413(H) 150 - 400 K/cumm [facility] MPV 8.9(L) 9.1 - 12.3 fL [facility] RBC 4.48 3.90 - 5.20 M/cumm [facility] MCV 90.4 81.3 - 96.4 fL [facility] MCH 31.5 27.1 - 33.3 pg [facility] MCHC 34.8 32.3 - 35.7 g/dL [facility] RDW CV 12.0 11.1 - 14.9 % [facility] RDW SD 39.8 35.7 - 48.1 fL [facility] NRBC abs 0.00 0.00 - 0.01 K/cumm [facility] Blood 08/23/2024 10:0 6 AM CDT 08/23/2024 10:09 AM CDT Tasha TEJEDA LAB BLOOD ORDERABLES Final Result VEENA [address] [place] [address] documented in this encounter Visit Diagnoses Diagnosis Muscle spasm- Primary Spasm of muscle documented in this encounter Active and Recently Administered Medications Orders Medications Ordered That Rusty ht Not Have Been Administered Count Last Ordered Date First Ordered Date sodium chloride 0.9% bolus 1,000 mL 1 08/23 documented in this encounter Care Teams Railroad Car Cleaner Relationship Specialty Start Date End Date Tasha Zamudio DO [address] [facility] [address] [place] [address] PCP - General Family Medicine 04/25/24 10/24/24 documented as of this encounter
--- OUTSIDE RECORDS SUMMARY | 2024-12-07 17:50 | XMS_ITS | Encounter Summary ---
Author Organization [facility] Address [address] [place] [address] Phone Care Team Providers Care Mail List Processor Name Role Phone Tasha Zamudio DO Primary Care Provide r Reason for Visit * Reason Onset Date Comments Seizures 09/01/2024 Encounter Details Date Type Department Care Team (Late st Contact Info) Description 09/01/2024 Telephone [facility] Epilepsy [address] [facility] 6th [place] [address] [place] [address] Rommel Huynh MD [address] [facility] [address] [place] [address] Seizures Social History Tobacco Use Types Packs/Day [...] on filedocumented in this encounter Care Teams Mail List Processor Relationship Specialty Start Date End Date Tasha Zamudio DO [address] [place] [address] [address] [place] [address] PCP - General Family Medicine 04/25/24 10/24/24 documented as of this encounter
--- OUTSIDE RECORDS SUMMARY | 2024-12-07 17:50 | XMS_ITS | Encounter Summary ---
Author Organization [facility] Healthcare Address [address] [place] [address] Care Team Providers Care Stopping Builder Name Role Phone Tasha Zamudio DO Primary Care Provide r Reason for Referral * MRI/CAT/PET Scan (Routine) - Closed Specialty Diagnoses / Procedures Referred By Cosmo gonzalez Referred To Contact Radiology Diagnoses Localized enlarged lymph nodes Procedures CT Neck Soft Tissue W Contrast Tasha Zamudio DO [address] [place] [address] [address] [place] [address] Phone: tel: fax: [address] [address] Referral ID Status Reason Start Date Expiration Date Visits Re quested Visits Authorized [id number] Closed 05/27/2024 07/25/2024 1 1 Reason for Visit * MRI/CAT/PET Scan (Routine) - Closed Specialty Diagnoses / Procedures Referred By Cosmo gonzalez Referred To Contact Radiology Diagnoses Localized enlarged lymph nodes Procedures CT Neck Soft Tissue W Contrast Tasha Zamudio DO [address] [place] [address] [address] [place] [address] Phone: tel: fax: [address] [address] Referral ID Status Reason Start Date Expiration Date Visits Re quested Visits Authorized [id number] Closed 05/27/2024 07/25/2024 1 1 Encounter Details Date Type Department Care Team (Latest Contact Info) Description 06/23/2024 2:52 PM CDT - 06/23/2024 11:59 PM CDT Hospital Encounter [facility] [address] [place] [address] Localized enlarged lymph nodes Discharge Disposition: Discharge [...] ?? Otherwise, widely patent airway. LYMPHADENOPATHY: Bilateral, pyek-dunhsse-mwkw-right, increased number and prominence of bilateral cervical [...] the left submandibular gland. 2. ?? Bilateral, bjso-hhouuta-usqk-right, increased number and prominence of bilateral cervical chain lymph nodes, to include an enlarged left level 2A lymph node, nonspecific. Correlate with clinical context. THIS IS AN ELECTRONICALLY VERIFIED FINAL REPORT 06/24/2024 7:38 AM - Electronically signed by ??Surinder Tran M.D. JUNI: JUNI D: ??06/24/2024 7:38 AM T: ??06/24/2024 7:38 AM Report ID: [id number] Reading Location: ??[id number] Procedure Note Surinder Tran MD - 06/24/2024 [...] abnormality. Otherwise, widely patent airway. LYMPHADENOPATHY: Bilateral, luqx-nkfhkdz-jszi-right, increased number and prominence of bilateral cervical [...] overlying the left submandibular gland. 2. Bilateral, rmor-srcehkh-rzjj-right, increased number and prominenceof bilateral cervical chain lymph nodes, to include an enlarged left level 2A lymph node, nonspecific. Correlate with clinical context. THIS IS AN ELECTRONICALLY VERIFIED FINAL REPORT 06/24/2024 7:38 AM - Electronically signed by Surinder Tran M.D. JUNI: JUNI Report ID: [id number] Reading Location: [place] [address] Tasha Zamudio DO [facility] CT PROCEDURES Fin al Result documented in [...] 05/31 documented in this encounter Care Teams Stopping Builder Relationship Specialty Start Date End Date Tasha Zamudio DO [address] [place] [address] [address] [place] [address] PCP - General Family Medicine 04/25/24 10/24/24 documented as of this encounter
--- OUTSIDE RECORDS SUMMARY | 2024-12-07 17:50 | XMS_ITS | Encounter Summary ---
Author Organization [facility] Healthcare Address [address] [place] [address] Care Team Providers Care Shop Coordinator Name Role Phone Oziel Burt MD Primary Care Provider +1- [phone] Encounter Details Date Type Department Care Team (Latest Contact Info) Description 11/12/2023 12:39 PM EDGE TRIMMER MECHANIC - 11/12/2023 11:59 PM EDGE TRIMMER MECHANIC Hospital Encounter [facility] [address] [place] [address] Emergency, Room R Discharge Disposition: Discharge to [...] COVID: Suspected 11/12/2023 11/12/2023 11/12/2023 3:09 PM EDGE TRIMMER MECHANIC documented as of this encounter Care Teams Shop Coordinator Relationship Specialty Start Date End Date Oziel Burt MD [address] [facility] [place] [address] PCP - General Family Practice 04/29/23 04/24/24 documented as of this encounter
--- OUTSIDE RECORDS SUMMARY | 2024-12-07 17:50 | XMS_ITS | Encounter Summary ---
Author Organization [facility] Address [address] [place] [address] Care Team Providers Care Environmental Services Technician Name Role Phone Oziel Burt MD Primary Care Provider [phone] Reason for Visit * Reason Comments Vomiting Encounter Details Date Type Department Care Team ([facility] Contact Info) Description 11/12/2023 12:59 PM [facility]INT [facility]PERATIONS - 11/12/2023 7:55 PM [facility] Emergency [facility] Emergency Department [address] [place] [address] Nausea and vomiting, unspecified vomiting type (Primary [...] Comments Blood Pressure 110/74 11/12/2023 5:50 PM [facility] Pulse 72 11/12/2023 5:50 PM [facility] Temperature 36.5 ??C (97.7 ??F) 11/12/2023 1:00 PM CS T Respiratory Rate 15 11/12/2023 5:50 PM [facility] Oxygen Saturation 100% 11/12/2023 5:50 PM [facility] Inhaled Oxygen Concentration - - Weight 54.4 kg (120 lb) 11/12/2023 1:00 PM [facility] Height 162.6 cm (5' 4 ) 11/12/2023 1:00 PM [facility] Body Mass Index 20.6 11/12/2023 1:00 PM [facility] documented in this encounter Discharge Instructions * Discharge Instructions* Dago Russo PA - 11/12/2023 7:25 PM [facility] Your potassium level was low and was treated with IV potassium. Please follow-up with your primary care provider for reassessment of your vomiting and low potassium. T [facility] OPERATIONS * Attachments The following attachments cannot be sent through Care Everywhere. * Vomiting and Diarrhea, Nonspecific (Adult) (Turkish) * Hypokalemia (Turkish) documented in this encounter Medications at Time [...] boyfriend. As a result [place] [place] in [place] to meet him. [...] Brendan Varghese DO at 11/12/2023 7:44 PM [facility] T SPECIAL OPERATIONS T SPECIAL OPERATIONS T SPECIAL OPERATIONS Associated attestation - Brendan Varghese DO - 11/12/2023 7:44 PM [facility] ED Attestation Based on the medical record the care appears appropriate. * Wendy Taylor RN - 11/12/2023 12:59 PM CST Bed: ED32 Expected date: Expected time: Means of arrival: Comments: EMS-20 F, emesis, abdominal pain Wendy Taylor RN 11/12/23 1259 T SPECIAL OPERATIONS documented in this encounter Plan of Treatment Not on file documented as of this encounter Procedures Procedure Name Priority Date/Time Associated Diagnosis Comments POTASSIUM LEVEL Timed 11/12/2023 6:53 PM [facility] ECG 12-LEAD STAT 11/12/2023 2:16 PM [facility] EGFR STAT 11/12/2023 12:59 PM [facility] DIFFERENTIAL AUTO STAT 11/12/2023 12: 59 PM [facility] CBC WITH AUTO DIFFERENTIAL STAT 11/12/2023 12:59 PM [facility] HCG, BLOOD, QUANTITATIVE STAT 11/12/2023 12:59 PM [facility] MAGNESIUM Routine 11/12/2023 12:59 PM [facility] LIPASE STAT 11/12/2023 12:59 PM [facility] COMPREHENSIVE METABOLIC PANEL STAT 11/12/2023 12:59 PM [facility] RESPIRATORY PATHOGEN PANEL Routine 11/12/2023 12:30 PM [facility] documented in this encounter Results * Potassium (11/12/2023 6:53 PM [facility]) Potassium, pl 4.9 3.3 - 4.9 mmol/L [facility] TRAN Blood 11/12/2023 6:53 PM [facility] 11/12/2023 6:58 PM [facility] Dago TEJEDA LAB BLOOD ORDERABLES Final Result [facility] TRAN [id number] Department [place] [address] * ECG 12 lead (11/12/2023 2:16 PM [facility]) 11/12/2023 2:16 PM [facility] Narrative [facility] - 11/12/2023 8:55 PM [facility] Vent Rate: 68 bpm RR Interval: 873 msec [place] Interval: 179 msec QRS Duration: 94 msec QT Interval: 397 msec QTC Interval: 415 msec P-R-T Gould: 68 - 76 - 57 degrees IMPRESSION: SINUS RHYTHM RIGHT VENTRICULAR CONDUCTION DELAY Electronically Signed By: Yung Pemberton MD, [facility] us Dago TEJEDA ECG ORDERABLES Final Resu lt [facility] * eGFR (11/12/2023 12:59 PM [facility]) eGFR 117 mL/min/1. 73 m2 [facility]EENA TRAN [...] reviewed 2021. Blood 11/12/2023 12:5 9 PM [facility] 11/12/2023 1:07 PM [facility] us Dago TEJEDA LAB BLOOD ORDERABLES Final Result VEENA [id number] Department [place] [address] * Differential, auto (11/12/2023 12:59 PM [facility]) Neutrophil abs 4.6 1.5 - 6.5 K/cumm [facility] Imm gran abs 0.0 0.0 - 0.1 K/cumm [facility] Lymphocyte abs 3.0 0.8 - 3.3 K/cumm [facility] Monocyte abs 0.4 0.2 - 0.8 K/cumm [facility] Eosinophil abs 0.1 0.0 - 0.5 K/cumm [facility] Basophil abs 0.0 0.0 - 0.1 K/cumm [facility] Neutrophil pct 55.9 % [facility] Comment: Interpretive Data Percent cell count reference ranges are not reported, since discordance with absolute values may lead to misinterpretation of CBC data. Current Interpretive Data was last revised on 2018. Imm gran pct 0.2 % [facility] Comment: Interpretive Data Percent cell count reference ranges are not reported, since discordance with absolute values may lead to misinterpretation of CBC data. Current Interpretive Data was last revised on 2018. Lymphocyte pct 37.1 % [facility] Comment: Interpretive Data Percent cell count reference [...] revised on 2018. Eosinophil pct 0.9 % [facility] Comment: Interpretive Data Percent cell count reference [...] on 2018. Blood 11/12/2023 12:5 9 PM [facility] 11/12/2023 1:07 PM [facility] Dago TEJEDA LAB BLOOD ORDERABLES Final Result Performing Organization Address [facility] de Phone Number [facility] [address] [place] [address] * hCG, blood, quantitative (11/12/2023 12:59 PM [facility]) hCG, quant <0.1 0.0 - 5.0 IUnits/L [facility] Comment: Interpretive Data Non- Female premenopausal: < [...] on 2022. Blood 11/12/2023 12:5 9 PM [facility] 11/12/2023 1:07 PM [facility] Dago TEJEDA LAB BLOOD ORDERABLES Final Result Performing Organization Address [facility] Co de Phone Number [facility] [address] [facility] [place] [address] * Magnesium (11/12/2023 12:59 PM [facility]) Pathologist [facility] [place] Magnesium 1.8 1.4 - 2.5 mg/dL [facility] Blood 11/12/2023 12:5 9 PM [facility] 11/12/2023 1:07 PM [facility] Dago TEJEDA LAB [place] [address] Department [place] [address] * Lipase (11/12/2023 12:59 PM [facility]) Lipase 16 10 - 99 Units/L [facility] CH Blood 11/12/2023 12:5 9 PM [facility] 11/12/2023 1:07 PM [facility] Dago TEJEDA LAB BLOOD ORDERABLES Final Result Performing Organization Address City/[facility]/[place] [address] [address] Department [place] [address] * (ABNORMAL) Comprehensive metabolic panel (11/12/2023 12:59 PM [facility]) Sodium 140 135 - 145 mmol/L [facility] [...] [facility] CH Blood 11/12/2023 12:5 9 PM [facility] 11/12/2023 1:07 PM [facility] Dago TEJEDA LAB BLOOD ORDERABLES Final Result [facility] [id number] Department [place] [address] * (ABNORMAL) CBC with auto differential (11/12/2023 12:59 PM [facility]) WBC 8.2 3.8 - 9.9 K/cumm [facility] [...] CH MCH 30.6 27.1 - 33.3 pg [facility] MCHC 35.4 32.3 - 35.7 g/dL [facility] CH RDW CV 11.0(L) 11.1 - 14.9 % [facility] CH RDW SD 34.9(L) 35.7 - 48.1 fL [facility] NRBC abs 0.00 0.00 - 0.01 K/cumm [facility] Blood (Blood, Venous) 11/12/2023 12:59 PM [facility] 11/12/2023 1:07 PM [facility] Dago TEJEDA LAB BLOOD ORDERABLES Final Result [facility] [id number] Department [place] [address] * Respiratory pathogen panel Nasopharyngeal (11/12/2023 12:30 PM [facility]) Pathologist [facility] [place] Influenza A RNA Not Detected Not Detected [facility] Influenza B RNA Not Detected Not Detected [facility] RSV RNA Not Detected Not Detected [facility] COVID-19 RNA Not Detected Not Detected [facility] Coronavirus 229E RNA Not Detected Not Detected [facility] Coronavirus HKU1 RNA Not Detected Not Detected [facility] Coronavirus NL63 RNA Not Detected Not Detected [facility] Coronavirus OC43 RNA Not Detected Not Detected [facility] Adenovirus DNA Not Detected Not Detected [facility] Metapneumovirus RNA Not Detected Not Detected [facility] Rhinovirus/Enterov irus RNA Not Detected Not Detected [facility] Parainfluenza 1 RNA Not Detected Not Detected [facility] Parainfluenza 2 RNA Not Detected Not Detected [facility] Parainfluenza 3 RNA Not Detected Not Detected [facility] Parainfluenza 4 RNA Not Detected Not Detected [facility] B. pertussis DNA Not Detected Not Detected [facility] B. parapertussis DNA Not Detected Not Detected [facility] C. pneumoniae DNA Not Detected Not Detected [facility] M. pneumoniae DNA Not Detected Not Detected [facility] Comment: Interpretive Data The [employer] FilmArray Respiratory Panel (RP2.1) assay is a [...] assay has FDA clearance for testing of SUPERVISOR CARTOGRAPHY swabs. ??The performance characteristics of this assay have been determined by [facility]. Current interpretive data was last revised on 2021. Nasopharyngeal 11/12/2023 12 :30 PM [facility] 11/12/2023 1:[address] [facility] - 11/12/2023 3:08 PM [facility] Is the Patient experiencing symptoms consistent with COVID?->Yes Date of Symptom Onset->11/11/23 Reason for testing?->Bed placement or semi-private room Surveillance testing for transplant patient?->No Dago [facility] LAB MICROBIOLOGY - GENERAL ORDERABLES Final Result [facility] TRAN [id number] Department [place] [address] documented in this encounter Visit Diagnoses Diagnosis [...] For 1 dose Given 11/12/2023 4:04 PM [facility] 10 mg ondansetron (ZOFRAN) injection 4 mg 4 mg, intravenous, Administer over 2 Minutes, Once, On Mirta 11/12/23 at 1438, For 1 dose Given 11/12/2023 2:40 PM [facility] 4 mg potassium chloride 40 mEq/520 mL in sodium chloride 0.9% (premix) 40 mEq 40 mEq, intravenous, at 130 mL/hr, Administer over 4 Hours, Once, On Mirta 11/12/23 at 1359, For 1 dose, Indications: hypokalemiaIndications:hyp okalemia Rate/Dose Verify 11/12/2023 4:04 PM [facility] 130 mL/hr New Bag 11/12/2023 2:19 PM [facility] 40 mEq 130 mL/hr potassium chloride ER [...] crushed or chewed. Given 11/12/2023 5:52 PM [facility] 40 mEq documented in this encounter Active and Recently Administered Medications Times are shown in [facility]. Scheduled Medication Order 11/10/2023 11/11/2023 11/12/2023 lamoTRIgine [...] COVID: Suspected 11/12/2023 11/12/2023 11/12/2023 3:09 PM [facility] documented as of this encounter Care Teams Environmental Services Technician Relationship Specialty Start Date End Date Oziel Burt MD [address] [place] [address] PCP - General Family Practice 04/29/23 04/24/24 documented as of this encounter
== END 2024-12-01 00:22 | disposition home or self-care (01) ==
PROVIDERS: Emergency Provider Emergency Medicine; PCP Nurse Practitioner Family
DX: K52.9 Noninfective gastroenteritis and colitis, unspecified (principal); E86.0 Dehydration; G40.909 Epilepsy, unspecified, not intractable, without status epilepticus; F12.90 Cannabis use, unspecified, uncomplicated; Z87.891 Personal history of nicotine dependence
CPT/HCPCS: 36415; 80053; 81001; 81025; 83605; 83690; 83735; 85025; 87637; 96361; 96374; 96375; 99284; A9270; J1885; J2405; J7030

== ENCOUNTER 2024-12-02 14:10 | Emergency (ER) | payer BC, SELFPAY ==
--- NOTE | ~2024-12-02 | CT_ITS ---
EXAMINATION: CT abdomen pelvis w con DATE: 12/02/2024 15:51 INDICATION: Right lower quadrant abdominal pain, nausea and diarrhea. TECHNIQUE: Computed tomography (CT) of the abdomen and pelvis was performed with 100 mL Omnipaque-350 intravenous contrast. Automated exposure control and iterative reconstruction technique were employe d. The dose-length product was 197.72 mGy-cm. COMPARISON: 03/18/2024 FINDINGS: Lung bases are clear. Heart size is normal. No pericardial or pleural effusion. Focal hepatic steatos is at the ligamentum teres. Cholecystectomy clips the gallbladder fossa. Spleen, pancreas, bilateral adrenal glands and kidneys are normal. Scattered throughout the colon consistent with diarrhea. There is some mild wall thickening of the proximal colon consistent with colitis which could be infectious or inflammatory in etiology. Small bowel and appendix are normal. Decompressed bladder, anteverted u terus and bilateral adnexa are normal. Minimal likely physiologic free fluid in the cul-de-sac. No ab scess or free intraperitoneal gas. No pathologically enlarged abdominal or pelvic lymphadenopathy. Fred luzma are unremarkable. IMPRESSION: 1. Diarrhea with mild wall thickening the proximal colon consistent with colitis most likely infectio us or inflammatory in etiology. Reviewed, dictated and finalized at location B. [facility] IMPRESSION: 1. Diarrhea with mild wall thickening the proximal colon consistent with coliti s most likely infectious or inflammatory in etiology.
[2024-12-02 14:12] VITALS: BP 120/77; PULSE 107; RESP 20; TEMP 36.6; O2SAT 100
--- NOTE | 2024-12-02 14:32 | ED_ITS ---
HPI - Abdominal Pain General Chief Complaint: Abdominal Pain Stated Complaint: abdominal pain Time Seen by Provider: 12/02/24 14:13 Source: patient Mode of arrival: ambulatory Limitations: no limitations History of Present Illness HPI narrative: patient is a 23-year-old female who was in the ER and saw me 2 nights ago for nausea vomiting and diarrhea. She was told that she has gastroenteritis and discharged home. She is back at this time with diarrhea and now having abdominal pain. The pain is lower abdomen on the right greater than left. No further associated nausea vomiting. Diarrhea is pure water. nausea vomiting and diarrhea started 4 days ago and the abdominal pain started yesterday. MD elicited complaint: abdominal pain Pertinent past history: other ( Seizure disorder) Onset (ago): day(s) (4) Pain Consistency: constant Location: RLQ and LLQ Severity: moderate Pain scale (0-10): 6 Quality: sharp Radiation: other ( diffuse abdomen) Migration to: no migration Exacerbating factors: nothing Relieving factors: nothing Context: confirms other ( Patient having worsening of symptoms and back in the emergency room now with abdominal pain) Associated symptoms: diarrhea Treatments prior to arrival: other ( none) Related Data Home Medications ?Medication ?Instructions ?Recorded ?Confirmed ?Last Taken ?Type lamotrigine 100 mg tablet 200 mg PO DAILY 03/09/24 11/30/24 03/08/24 History acyclovir 400 mg tablet 400 mg PO DAILY 10/21/24 11/30/24 Unknown History Allergies Allergy/AdvReac Type Severity Reaction Status Date / Time amoxicillin (From Augmentin) Allergy Severe Blister Verified 12/02/24 14:14 clavulanic acid (From Allergy Severe Blister Verified 12/02/24 14:14 Augmentin) Review of Systems 2 Review of Systems: All systems reviewed & are unremarkable except as noted in HPI and below Constitutional: Constitutional: Reports no additional constitutional complaints Eyes: Eyes: Reports no additional eye complaints ENT: Reports system reviewed and no additional complaints, except as documented Cardiovascular: Cardiovascular: Reports no additional cardiovascular complaints Respiratory: Respiratory: Reports no additional respiratory complaints Gastrointestinal: Gastrointestinal: Reports no additional gastrointestinal complaints Genitourinary: Genitourinary: Reports no additional female genitourinary complaints Musculoskeletal: Musculoskeletal: Reports no additional musculoskeletal complaints Integumentary/Breasts: Skin/Breast: Reports system reviewed and no additional complaints, except as docu Neurologic: Reports system reviewed and no additional complaints, except as documented Psychiatric: Psychiatric: Reports no additional psychiatric complaints Endocrine: Endocrine: Reports no additional endocrine complaints Hematologic/Lymphatic: Hematologic/Lymphatic: Reports no additional hematologic/lymphatic complaints Allergic/Immunologic: Allergic/Immunologic: Reports no additional allergic/immunologic complaints PMFSH Past Medical History Medical History Paralysis Cholecystectomy planned Tonsillectomy planned Family History Family History Grandparent Diabetes mellitus Mother Diabetes mellitus Endometriosis Social History Social History Social History: reports smokes about 1 pod lasts about 1.5 months, reports barely using it Smoking status: Former smoker Tobacco type: e-cigarettes/vaping Alcohol intake: never Substance use: current Substance use type: marijuana Exam 2 Const: General: healthy appearing Nutritional Appearance: well nourished Orientation/consciousness: patient oriented x3 Limitations: no limitations HENMT: Head: normal to inspection Ears: external ears normal F nataliia/Nose/Sinus: Normal external nose present Eyes: Conjunctivae: conjunctivae normal Pupils: Equal, round and reactive pupils present EOM: EOMs intact bilaterally Neck: Neck: normal visual inspection Chest: Chest palpation & inspection: normal inspection of the chest Resp: Effort & Inspection: normal respiratory effort and not labored A uscultation: clear to auscultation bilaterally and no crackles Cardio: Rate: regular rate Rhythm: regular rhythm Heart sounds: no murmurs GI: Inspection: non-distended GI Palp: Yes Soft to palpation, Yes Tenderness to palpation present (GI) ( suprapubic a right lower quadrant more so than the left lower quadrant), Yes Guarding due to palpation present (GI), No Rigid due to palpation, No Hernia present, No Palpable mass present and No Rebound tenderness present Auscultation: absent bowel sounds : General: Yes bladder normal to palpation Back/Spine/Pelvis: Back: no CVA tenderness Skin: General skin exam: normal color Rashes: no rashes Wounds: no wounds Neuro: General: patient oriented x3 Cranial nerves: Yes Nystagmus not present Speech: normal speech Gait exam (Neuro): Normal gait present Extrem: General: normal to inspection Psych: Mental Status: mental status grossly normal Affect: Anxious affect present Attitude: cooperative Course Vital Signs Vital signs: Vital Signs Temperature 36.6 C 12/02/24 14:12 Pulse Rate 107 H 12/02/24 14:12 Respiratory Rate 12/02/24 14:12 Blood Pressure 120/77 12/02/24 14:12 Pulse Oximetry 100 12/02/24 14:12 Oxygen Delivery Room Air 12/02/24 14:12 Temperature 36.6 C 12/02/24 14:12 Pulse Rate 107 H 12/02/24 14:12 Respiratory Rate 12/02/24 14:12 Blood Pressure 120/77 12/02/24 14:12 Pulse Oximetry 100 12/02/24 14:12 Oxygen Delivery Room Air 12/02/24 14:12 MDM - Abdominal Pain MDM Narrative Medical decision making narrative: patient is a 23-year-old female with nausea vomiting in the past and now having diarrhea continued with abdominal pain which is new to the picture. We will do a GI/abdominal pain workup at this time. Colitis was seen on workup of CT scan. We will do Cipro and Flagyl for antibiotics. We will do Zofran as needed. Will do [place] as needed. She will be on Protonix as well as prednisone to help resolve the pain. Lab Data Attestation: I reviewed the patient's lab results. 12/02/24 15:06 12/02/24 15:06 Labs: Lab Results 12/02/24 Range/Units 15:06 WBC 9.3 (4.8-10.8) K/mm3 RBC 3.94 L (4.20-5.40) M/mm3 Hgb 12.1 (12.0-15.0) g/dL Hct 35.0 (35.0-49.0) % MCV 88.8 (78.0-102.0) fL MCH 30.7 (27.0-31.0) pg MCHC 34.6 (32-36) g/dL RDW 11.8 (11.6-14.4) % Plt Count 315 (150-420) K/mm3 MPV 8.6 L (9.2-11.8) fl Immature Gran % (Auto) 0.3 H (0.0-0.0) % Neut % (Auto) 82.7 H (50.0-70.0) % Lymph % (Auto) 9.2 L (18.0-42.0) % [place] % (Auto) 7.1 (2.0-11.0) % Eos % (Auto) 0.3 L (1.0-6.0) % Baso % (Auto) 0.4 (0.0-1.0) % Lymph # (Auto) 0.86 L (1.10-4.50) K/mm3 [place] # (Auto) 0.66 (0.10-0.90) K/mm3 Eos # (Auto) 0.03 (0.02-0.50) K/mm3 Baso # (Auto) 0.04 (0.00-0.10) K/mm3 Abs Immat Gran (auto) 0.03 H (0.00-0.00) K/mm3 Absolute Neuts (auto) 7.69 H (1.70-7.20) K/mm3 Absolute Nucleated RBC 0.00 (0.00-0.00) K/mm3 Nucleated RBC % 0.0 (0-0.0) % PT 11.4 (9.50-12.1) Seconds INR 1.0 APTT 30.7 (23.9-30.70) Sec Sodium 138 (136-145) mmol/L Potassium 3.4 L (3.5-5.1) mmol/L Chloride 102 (98-108) mmol/L Carbon Dioxide 23 (21-32) mmol/L Anion Gap 13 H (4-12) mmol/L BUN 9 (7-18) mg/dL Creatinine 0.83 (0.55-1.02) mg/dL Estim Creat Clear Calc 81 ml/min Estimated GFR > 60 (59 - ) Glucose 98 (70-99) mg/dL Calculated Osmolality 284 L (285-295) mOsm/kg Lactic Acid 1.4 (0.4-2.0) mmol/L Calcium 9.3 (8.5-10.1) mg/dL Total Bilirubin 0.4 (0.00-1.00) mg/dL AST 21 (15-37) U/L ALT 28 (14-59) U/L Alkaline Phosphatase 59 (46-116) U/L Total Protein 7.7 (6.4-8.2) g/dL Albumin 4.3 (3.4-5.0) g/dL Lipase 33 (16-77) U/L Urine Color Yellow (Yellow) Urine Appearance Clear (Clear) Urine pH 6.0 (5.0-8.0) Ur Specific [place] >= 1.030 H (1.010-1.020) Urine Protein 2+ H (Negative) Urine Glucose (UA) Negative (Negative) Urine Ketones Trace H (Negative) Ur Blood (Man) 1+ H (Negative) Urine Nitrate Negative (Negative) Urine Bilirubin 1+ H (Negative) Urine Urobilinogen 0.2 (0.2-1.0) mg/dL Leukocyte Esterase Rfl Negative (Negative) GLEN/UL Urine RBC 6-10 H (0-2) /hpf Urine WBC None seen (0-3) /hpf Ur Squamous Epith Cells Moderate H (Few) /hpf Urine Bacteria 1+ H (None) /hpf Urine Mucus Moderate H /lpf Urine Test Negative Imaging Data Attestation: I personally reviewed and interpreted this imaging study as follows: Radiologist's impression: ITS Impressions Abdomen/Pelvis CT 12/02/24 15:53 IMPRESSION: 1. Diarrhea with mild wall thickening the proximal colon consistent with colitis most likely infectious or inflammatory in etiology. Discharge Plan Discharge Clinical Impression: Colitis Patient Disposition: Home, Self-Care Condition: Stable Instructions: Antibiotic Form, Colitis (ED) Additional Instructions: Please follow-up with the primary doctor in the next week. If this does not resolve, you will need to see a GI specialist and get a lower endoscopy done to look further into this problem. Patient Language: Tamazight Prescriptions: New prednisone 20 mg tablet 40 mg PO DAILY 2 Days Qty: 4 0RF ciprofloxacin HCl [Cipro] 500 mg tablet 500 mg PO BID 7 Days Qty: 14 0RF metronidazole 500 mg tablet 500 mg PO TID 7 Days Qty: 21 0RF ondansetron 4 mg tablet,disintegrating 4 mg PO Q8H PRN (Reason: nausea and vomiting) Qty: 20 0RF pantoprazole [Protonix] 40 mg tablet,delayed release (DR/EC) 40 mg PO DAILY 30 Days Qty: 30 0RF hydrocodone-acetaminophen 5-325 mg tablet 1 tablet PO Q8H PRN (Reason: pain) Qty: 20 0RF Rx Instructions: 1-2 tabs per dose No Action lamotrigine 100 mg tablet 200 mg PO DAILY acyclovir 400 mg tablet 400 mg PO DAILY ondansetron 4 mg tablet,disintegrating 4 mg PO Q8H PRN (Reason: nausea and vomiting) Qty: 20 0RF escitalopram oxalate 20 mg tablet 20 mg PO DAILY Qty: 90 0RF Slynd 4 mg (28) tablet 4 mg PO DAILY 90 Days Qty: 90 4RF Follow-up/Referrals: Daniel Reddy APRN [Primary Care Provider] -
[2024-12-02 15:11] LABS: Basophils Absolute Auto 0.04 K/mm3 (0.00-0.10); Basophils Percent Auto 0.4 % (0.0-1.0); Eosinophils Absolute Auto 0.03 K/mm3 (0.02-0.50); Eosinophils Percent Auto 0.3 % (1.0-6.0); Hemoglobin 12.1 g/dL (12.0-15.0); Immature Granulocyte Absolute 0.03 K/mm3 (0.00-0.00); Immature Granulocyte Percent A 0.3 % (0.0-0.0); Lymphocytes Absolute Auto 0.86 K/mm3 (1.10-4.50); Lymphocytes Percent Auto 9.2 % (18.0-42.0); Mean Corpuscular HGB Conc 34.6 g/dL (32-36); Mean Corpuscular Hemoglobin 30.7 pg (27.0-31.0); Mean Corpuscular Volume 88.8 fL (78.0-102.0); Mean Platelet Volume 8.6 fl (9.2-11.8); Monocytes Absolute Auto 0.66 K/mm3 (0.10-0.90); Monocytes Percent Auto 7.1 % (2.0-11.0); Neutrophils Absolute Auto 7.69 K/mm3 (1.70-7.20); Neutrophils Percent Auto 82.7 % (50.0-70.0); Platelet Count Result 315 K/mm3 (150-420); Red Blood Count 3.94 M/mm3 (4.20-5.40); Red Cell Distribution Width 11.8 % (11.6-14.4); White Blood Count 9.3 K/mm3 (4.8-10.8)
[2024-12-02 15:12] LABS: Add Urine Microscopic? YES; Appearance Urine Clear (Clear); Bilirubin Urine 1+ (Negative); Blood Urine 1+ (Negative); Color Urine Yellow (Yellow); Glucose Urine UA Negative (Negative); Ketones Urine Trace (Negative); Leukocyte Esterase Ur Negative LEU/UL (Negative); Nitrate Urine Negative (Negative); Protein Urine 2+ (Negative); Specific Grav Ur >= 1.030 (1.010-1.020); Urobilinogen Urine 0.2 mg/dL (0.2-1.0)
[2024-12-02] MEDS: SODIUM CHLORIDE 0.9% IV 1,000 ML 999 ML IV CONT (15:17)
[2024-12-02] MEDS: ONDANSETRON INJ 4 MG/2 ML VIAL IV PUSH ×2 (15:19→16:38)
[2024-12-02] MEDS: MORPHINE SULFATE (*CRX) 2 MG/ML INJ IV PUSH ×2 (15:20→16:38)
[2024-12-02 15:25] LABS: Bacteria Urine 1+ /hpf; Mucus Urine Moderate /lpf; Pregnancy On Board Control Positive; Squamous Epithelial Cell Urine Moderate /hpf (Few); Urine Pregnancy Test Negative; WBC Urine None seen /hpf (0-3)
[2024-12-02 15:30] LABS: Partial Thromboplastin Time 30.7 Sec (23.9-30.70); Prothrombin Time 11.4 Seconds (9.50-12.1)
[2024-12-02 15:31] LABS: Alanine Aminotransferase 28 U/L (14-59); Albumin Level 4.3 g/dL (3.4-5.0); Alkaline Phosphatase 59 U/L (46-116); Anion Gap 13 mmol/L (4-12); Aspartate Amino Transferase 21 U/L (15-37); Bilirubin,Total 0.4 mg/dL (0.00-1.00); Blood Urea Nitrogen 9 mg/dL (7-18); Calcium 9.3 mg/dL (8.5-10.1); Carbon Dioxide 23 mmol/L (21-32); Chloride 102 mmol/L (98-108); Estimated CRCL calculation 81 ml/min; Estimated Glomerular Filt Rate > 60; Glucose 98 mg/dL (70-99); Lipase 33 U/L (16-77); Osmolality Calculated 284 mOsm/kg (285-295); Potassium 3.4 mmol/L (3.5-5.1); Sodium 138 mmol/L (136-145); Total Protein 7.7 g/dL (6.4-8.2)
[2024-12-02 15:34] LABS: Lactic Acid Reflex 1.4 mmol/L (0.4-2.0)
[2024-12-02] MEDS: PANTOPRAZOLE SODIUM IV 40 MG VIAL 80 MG IV PUSH (16:38)
[2024-12-02 16:39] VITALS: BP 120/68; PULSE 78; RESP 18; TEMP 37.2; O2SAT 100
[2024-12-02] MEDS: predniSONE 20 MG TABLET 40 MG PO (16:39)
== END 2024-12-02 17:10 | disposition home or self-care (01) ==
PROVIDERS: Emergency Provider Emergency Medicine; PCP Nurse Practitioner Family
DX: K52.9 Noninfective gastroenteritis and colitis, unspecified (principal); F12.90 Cannabis use, unspecified, uncomplicated; Z87.891 Personal history of nicotine dependence
CPT/HCPCS: 36415; 74177; 80053; 81001; 81025; 83605; 83690; 85025; 85610; 85730; 96361; 96374; 96375; 96376; 99284; J2270; J2405; J2470; J7030; J7512; Q9967

== ENCOUNTER 2025-08-07 11:11 | Outpatient (CLI) | payer BC, SELFPAY ==
--- OUTSIDE RECORDS SUMMARY | 2025-08-07 11:40 | XMS_ITS | Clinical Summary ---
Author Organization [facility] Address [address] [place] [address] Care Team Providers Care Medical Assisting Program Director Name Role Phone Daniel Reddy NP Primary Care Provider [phone] Allergies Active Allergy Reactions Criticality Noted Date Comments Amoxicillin-Pot Clavulanate Hives,Other (See comments),Urticaria Medium 11/22/2021 Mouth broke out in sores Medications acyclovir (ZOVIRAX) 400 mg tablet TAKE 1 TABLET BY MOUTH THREE TIMES DAILY DIRECTED 04/14/2023 Active Slynd tablet tablet Take 1 each (4 mg total) by mouth daily Active escitalopram (LEXAPRO) 20 mg tablet Take 1 tablet (20 mg total) by mouth daily Active lamoTRIgine (LaMICtal) 100 mg tablet Take 2 tablets (200 mg total) by mouth 2 (two) times a day 360 tablet 06/12/2025 06/12/20 26 Active Active Problems Problem Noted Date Diagnosed Date Depression 03/17/2025 Epilepsy 03/11/2022 Encounters Date Type Department Care Team Description 06/01/2025 [facility] [address] [facility] [address] [place] [address] Latanya Lawton NP Rash (Primary Dx) from Last 3 Months Surgical History Surgery Date Site/Laterality Comments TONSILLECTOMY 11/30/2011 - 11/29/2012 CHOLECYSTECTOMY 11/30/2021 - 11/29/2022 Medical History Medical History Date Comments Epilepsy (HCC) Depression with anxiety Social History Tobacco Use Types Packs/Day Years Used Date Smoking Tobacco: Never AUDIT-C Answer Date Recorded Q1: How often do you have a drink containing alc ohol? Never 03/17/2025 Average Number of Drinks Not on file 025 Frequency of Binge Drinking Not on file 02/28 Personal Safety Answer Date Recorded Have you [...] Sign Reading Time Taken Comments Blood Pressure 106/68 03/17/2025 1:12 PM CDT Pulse 89 03/17/2025 1:12 PM CDT Temperature 36.8 C (98.2 F) 03/17/2025 1:12 PM CDT Respiratory Rate 18 08/23/2024 12:04 PM CDT Oxygen Saturation 97% 03/17/2025 1:12 PM CDT Inhaled Oxygen Concentration - - Weight 58.1 kg (128 lb) 03/17/2025 1:12 PM CDT Height 162.6 cm (5' 4) 03/17/2025 1:12 PM CDT Body Mass Index 21.97 03/17/2025 1:12 PM CDT Plan of Treatment Health Maintenance Due Date Last Done Comments Cervical Cancer Screening 2002 Depression Screening 2002 Hepatitis C Screening 2002 Varicella Vaccines (2 of 2 - 2-dose childhood series) 2006 07/09/2006 DTaP/Tdap/Td Vaccine (5 - Tdap) 2013 10/01/2006, 12/07/2003, 06/01/2003, Additional history exists HPV Vaccines (1 - 3-dose series) 2017 Regular Well Visit/Exam 18-64 2020 Meningococcal B Vaccine (2 o f 2 - Bexsero SCDM 2-dose series) 01/28/2021 07/31/2020 Covid-19 Vaccine (3 - 2024-2 6 season) 2025 07/02/2021, 05/01/2021 Influenza Vaccine (#1) 2025 , 10/06/2019, 10/01/2006 Hepatitis B Screening Completed 12/07/2003 , 03/02/2003, 2002 Pneumococcal vaccine <65 Completed 004, 12/07/2003, 06/01/2003 Insurance [employer] GENERIC Care Teams Medical Assisting Program Director Relationship Specialty Start Date End Date Daniel Reddy NP [address] [place] [address] PCP - General Family Medicine 10/25/24
--- OUTSIDE RECORDS SUMMARY | 2025-08-07 11:40 | XMS_ITS | Clinical Summary ---
Author Organization [facility] Address [address] [place] [address] Care Team Providers Care Waxer Name Role Phone Oziel Burt MD Primary Care Provider Source Comments [facility],non-owned Affiliates and Associated Physician Practices is amultiple site organization consisting of ambulatory clinics and hospital sitesin [place], [place], [place] and [place]. This disclosure is being madepursuant to the Care Everywhere program and may not contain all information available regarding this patient. Last updated 18.[facility] Allergies Active Allergy Reactions Criticality Noted Date Comments Amoxicillin-Pot Clavulanate Urticaria Medium 11/22/20 21 Augmentin Other 08/14/2022 Mouth broke out in sores Medications * Be aware that medications may not be up to date on this document. Alwaysverify current medications with the patient. lamoTRIgine (LaMICtal) 100 MG tablet Take 100 mg by mouth 2 times daily 03/11/2022 Active Drospirenone (SLYND PO) Take by mouth once daily Active oxyCODONE-acetam inophen (Percocet) 5-325 MG tablet Take 1 (one) tablet by mouth every 4 hours as needed 30 tablet 08/15/2022 Active oxyCODONE-acetam inophen (Percocet) 5-325 MG tablet Take 1 (one) [...] money to get more. Never true 08/15/2022 Comments No Sex and Gender Information Value Date Recorded Sex Assigned at Not on file Legal Sex Female 6:19 PM CDT Gender Identity Female 08/14/2022 9:58 PM CDT Sexual Orientation Not on file Last Filed Vital Signs Vital Sign Reading Time Taken Comments Blood Pressure 111/71 08/21/2022 12:30 PM CDT Pulse 92 08/21/2022 12:30 PM CDT Temperature 37 C (98.6 F) 08/21/2022 11:45 AM CDT Respiratory Rate 16 08/21/2022 12:30 PM CDT Oxygen Saturation 100% 08/21/2022 12:30 PM CDT Inhaled Oxygen Concentration - - Weight 57.8 kg (127 lb 6.4 oz) 08/21/2022 8:02 A M CDT Height 162.6 cm (5' 4) 08/21/2022 8:02 AM CDT Body Mass Index 21.87 08/21/2022 8:02 AM CDT Plan of Treatment Health Maintenance Due Date Last Done Comments HIV SCREENING 2017 HPV VACCINE (1 - 3-dose series) 2017 CHLAMYDIA/GONORRHEA SCREENING 2018 MENINGOCOCCAL (Group B) VACCINE SHARED DECISION-MAKING (1 of 2 - Standard) 2018 HEPATITIS C SCREENING 12/24/2020 DTAP/TDAP/TD VACCINES (1 - Tdap) 2021 HEPATITIS B VACCINE (1 of 3 - 19+ 3-dose series) 2021 PAP SMEAR 2023 COVID-19 VACCINE (3 - 2023-2 5 season) 2024 07/02/2021, 05/01/2021 DEPRESSION SCREENING 11/30/2024 INFLUENZA VACCINE (#1) 2025 ZOSTER VACCINE (1 of 2) 2052 HIB VACCINE Aged Out No longer eligi ble based on patient's age to complete this topic MENINGOCOCCAL GROUPS A/C/Y/W VACCINE Aged Out No longer eligible b ased on patient's age to complete this topic PNEUMOCOCCAL VACCINE Aged Out No long er eligible based on patient's age to complete this topic Insurance [employer] Advance Directives * Full Code (Latest Code Status on File) Date Activated Date Inactivated Comments 08/15/2022 12:07 AM 08/15/2022 1:16 PM * Full Code Date Activated Date Inactivated Comments 08/15/2022 12:07 AM 08/15/2022 12:07 AM Care Teams Waxer Relationship Specialty Start Date End Date Oziel Burt MD [address] [place] [address] PCP - General Family Medicine 08/21/22
[2025-08-11 11:08] LABS: F416-IgE Tri a 19(w-5 gliadin) <0.10 kU/L (Class 0)
== END 2025-08-07 11:12 | disposition home or self-care (01) ==
PROVIDERS: PCP Nurse Practitioner Family; Visit Provider Nurse Practitioner Family
DX: Z78.9 Other specified health status (principal)
CPT/HCPCS: 86003

== ENCOUNTER 2025-10-05 08:34 | Outpatient (CLI) | payer BC, SELFPAY ==
--- NOTE | ~2025-10-05 | CT_ITS ---
EXAMINATION: CT abdomen wo barry, 10/05/2025 8:38 SUPERVISOR FERTILIZER PROCESSING HISTORY: mass/lump left abdomen, 1 x 1.5 in oval mass COMPARISON: No comparisons available. TECHNIQUE: CT scan of the abdomen was performed without contrast. One or more of the following dose reduction techniques were used: automated exposure control, adjustment of the mA and/or kV according to patient size, use of iterative reconstruction technique. Unless otherwise stated, incidental findings do not require dedicated follow up imaging FINDINGS: CT abdomen: LUNG BASES: The lung bases are clear. The visualized portions of the heart and pericardium are unremarkable. LIVER: Unremarkable, liver contours intact, no lesions. SPLEEN: No splenomegaly. KIDNEYS: Right Kidney: Unremarkable. No calculi. No hydronephrosis. Left Kidney: Unremarkable. No calculi. No hydronephrosis ADRENAL GLANDS: Unremarkable. PANCREAS: Unremarkable. GALLBLADDER/BILIARY: Unremarkable. No biliary dilatation. STOMACH AND ESOPHAGUS: Visualized stomach and esophagus within normal limits. BOWEL/MESENTERY: Bowel is within normal limits, no colitis or diverticulitis. ADENOPATHY/RETROPERITONEUM: No lymphadenopathy. AORTA/VASCULATURE: Normal caliber aorta. FREE FLUID OR FREE AIR: None. VISUALIZED PELVIS: Unremarkable. OSSEOUS STRUCTURES: No acute osseous abnormality.No suspicious lesions. OVERLYING SOFT TISSUES: Unremarkable. IMPRESSION: There is no acute intra-abdominal process identified. There is no marker placed the time of the exam to correspond to a palpable finding however there is no gross subcutaneous lesion appreciated on the left side. If symptoms persist MRI can contrast is recommended to assess Reviewed, dictated and finalized at location P. RVISOR FERTILIZER PROCESSING IMPRESSION: There is no acute intra-abdominal process identified. There is no marker placed the time of the exam to correspond to a palpable finding however there is no g ross subcutaneous lesion appreciated on the left side. If symptoms persist MRI can contrast is recommended to assess
== END 2025-10-05 08:35 | disposition home or self-care (01) ==
LOC: MICIMG 08:35
PROVIDERS: PCP Nurse Practitioner Family; Visit Provider Nurse Practitioner Family
DX: R19.00 Intra-abdominal and pelvic swelling, mass and lump, unspecified site (principal)
CPT/HCPCS: 74150

== ENCOUNTER 2025-11-08 12:58 | Outpatient (CLI) | payer BC, SELFPAY ==
--- NOTE | ~2025-11-08 | XR_ITS ---
EXAMINATION: XR knee RT min 4V, 11/08/2025 13:01 BETTING CLERK HISTORY: M25.361 - Other instability, right knee COMPARISON: No comparisons available. Findings: No acute fracture or malalignment. No significant degenerative changes. Soft tissues unremarkable. Impression: No acute fracture or malalignment. Reviewed, dictated and finalized at location P. ING CLERK Impression: No acute fracture or malalignment.
[2025-11-08 13:21] LABS: Hematocrit 36.9 % (35.0-49.0); Hemoglobin 12.5 g/dL (12.0-15.0); Immature Granulocyte Percent A 0.1 % (0.0-0.0); Lymphocytes Absolute Auto 2.42 K/mm3 (1.10-4.50); Mean Corpuscular HGB Conc 33.9 g/dL (32-36); Mean Corpuscular Hemoglobin 30.6 pg (27.0-31.0); Mean Corpuscular Volume 90.2 fL (78.0-102.0); Nucleated Red Blood Cells Absolute Auto 0.00 K/mm3 (0.00-0.00); Nucleated Red Blood Cells Perc 0.0 % (0-0.0); Platelet Count Result 405 K/mm3 (150-420); Red Blood Count 4.09 M/mm3 (4.20-5.40); White Blood Count 6.8 K/mm3 (4.8-10.8)
[2025-11-08 13:22] LABS: HCO3 VBG 26.1 mEq/l (24.0-30.0); PCO2 VBG 45.6 mmHg (42.0-48.0); pH VBG 7.38 (7.33-7.43)
[2025-11-08 13:26] LABS: Liters per Minute 0.0 LPM; PO2 VBG 25.1 mmHg (35.0-45.0)
[2025-11-08 13:27] LABS: Venous Carboxyhemoglobin 2.2 %THb (0-2.0)
== END 2025-11-08 12:59 | disposition home or self-care (01) ==
PROVIDERS: PCP Nurse Practitioner Family; Visit Provider Nurse Practitioner Family
DX: M25.361 Other instability, right knee (principal); M25.561 Pain in right knee; T58.91XA Toxic effect of carbon monoxide from unspecified source, accidental (unintentional), initial encounter
CPT/HCPCS: 36415; 73564; 82375; 82803; 85025

== ENCOUNTER 2025-11-17 09:55 | Outpatient (CLI) | payer BC, SELFPAY ==
--- NOTE | ~2025-11-17 | MR_ITS ---
EXAM/PROCEDURE: MR abdomen wo/w con HISTORY: R19.00 - Intra-abdominal and pelvic swelling, mass and carol... COMPARISON: CT examination of the abdomen from October 05, 2025 TECHNIQUE: Contrast-enhanced MRI of the abdomen only. Exam is degraded by motion artifact. FINDINGS: Patient is status post cholecystectomy. Mild distortion of the anterior cortex in the midpole region of the right kidney appears to be associated with motion artifact this area looked normal on the recent CT exam. The liver spleen pancreas adrenal glands and kidneys otherwise appear normal. The stomach is nondistended but no obvious acute abnormality seen. The vascular structures appear within normal limits; no AAA. No gross mesenteric or retroperitoneal lymphadenopathy. IMPRESSION: No suspicious mass or findings to explain source of swelling or patient complaint. Mild distortion of the anterior cortex in the midpole of the right kidney is likely artifactual; correlate with urinalysis. Reviewed, dictated and finalized at location A. ICE COORDINATOR IMPRESSION: No suspicious mass or findings to explain source of swelling or patient complai nt. Mild distortion of the anterior cortex in the midpole of the right kidney i s likely artifactual; correlate with urinalysis.
== END 2025-11-17 09:56 | disposition home or self-care (01) ==
LOC: MICIMG 09:56
PROVIDERS: PCP Nurse Practitioner Family; Visit Provider Nurse Practitioner Family
DX: R19.00 Intra-abdominal and pelvic swelling, mass and lump, unspecified site (principal)
CPT/HCPCS: 74183; A9577